=== PATIENT | male | born 1950 | race Caucasian/White ===

== ENCOUNTER → 2017-09-03 10:09 | Outpatient (CLI) | payer MEDICARE, OTHER, SELFPAY ==
--- NOTE | 2017-09-03 10:34 | XR_ITS ---
XR chest 2V HISTORY: ITS.REASON: SHORTNESS OF ORDERING PHYSICIAN: Jonatan Bowden PATIENT AGE: 67 years COMPARISON: 01/30/2007 FINDINGS: The cardiomediastinal silhouette and pulmonary vascularity are within normal limits. Right hemidiaphragm is elevated as before. There is patchy density along the right lung base at the diaphragm suggesting an area of atelectasis or infiltrate. Bipolar pacemaker is present. No acute bony anomalies. IMPRESSION: Elevated right hemidiaphragm with mild atelectasis or patchy infiltrate in the right lung base.
[2017-09-03 11:04] LABS: Basophils # 0.1 K/mm3 (0-0.2); Basophils % 0.7 % (0.1-2.0); Eosinophils # 0.2 K/mm3 (0.0-0.4); Eosinophils % 3.3 % (0.1-12.0); Hematocrit 39.1 % (42.0-52.0); Hemoglobin 11.8 g/dL (14.1-18.0); Lymphocytes # 0.9 K/mm3 (0.7-4.5); Lymphocytes % 12.8 K/mm3 (10-50); Mean Corpuscular HGB Conc 30.1 g/dL (31.8-35.4); Mean Corpuscular Hemoglobin 25.5 pg (27.0-31.2); Mean Corpuscular Volume 84.6 fl (80-94); Monocytes # 0.5 K/mm3 (0.1-1.0); Monocytes % 6.4 % (1.7-9.3); Neutrophils # 5.5 K/mm3 (1.8-7.8); Neutrophils % 76.7 % (37.0-80.0); Platelet Count 214 K/mm3 (142-424); Red Blood Count 4.62 M/mm3 (4.60-6.20); Red Cell Distribution Width 14.5 % (11.5-17.5); White Blood Count 7.2 K/mm3 (4.8-10.8)
[2017-09-03 11:17] LABS: Anion Gap 14.5 mEq/L (5-15); Blood Urea Nitrogen 23 mg/dL (7-18); Carbon Dioxide 27 mmol/L (21.0-32.0); Chloride 107 mmol/L (98-107); Estimated Glomerular Filt Rate 75 ml/min (>60); GFR (African American) 90 ML/MIN (>60); Glucose 97 mg/dL (74-106); Potassium 4.5 mmoL/L (3.5-5.1); Sodium 144 mmol/L (136-145); Troponin I < 0.02 ng/ml (0.00-0.06)
--- NOTE | 2017-09-03 12:28 | CT_ITS ---
CT angio chest HISTORY: Shortness of air ITS.REASON: SOA ORDERING PHYSICIAN: Jonatan Bowden PATIENT AGE: 67 years TECHNIQUE: Axial images obtained following the administration of 75 mL of Isovue 370 . Sagittal, and coronal reformatted images are also generated and reviewed. All CT scans at the facility use one or more dose reduction, viz: automated exposure control; ma/kV adjustment per patient size (including targeted exams where dose is matched to indication; i.e. head); or iterative reconstruction technique. FINDINGS: No evidence of pulmonary embolus. Peripheral pulmonary arteries are not well opacified. No aortic aneurysm or dissection. Bipolar pacemaker is present from a left subclavian approach. Coronary artery calcification and/or stents are present. Normal heart size. No evidence of pericardial effusion. Right hemidiaphragm is elevated with right basilar atelectasis. No central obstructing bronchial lesion evident there is a 7 mm noncalcified nodule in the right hilar region and could represent a small lymph node within the major fissure. 5 mm noncalcified nodule present in the left lower lobe. Left lung is otherwise clear. No lobar consolidation or collapse. Scattered small nodes are present in the axilla. Upper abdominal images show a small gallstone in the neck of the gallbladder at 3 mm. Right renal cyst are present along with a nonobstructing 5 mm right renal stone. No acute bony anomalies IMPRESSION: 1. No evidence of pulmonary embolus or aortic aneurysm or dissection. 2. Elevated right hemidiaphragm with right basilar atelectasis. 3. Nonspecific 7 mm right perihilar nodule and 5 mm left lower lobe nodule. Six-month CT follow-up suggested. 4. Cholelithiasis and right nephrolithiasis
== END ==
PROVIDERS: Visit Provider Internal Medicine
DX: R06.02 Shortness of breath (principal); I25.10 Atherosclerotic heart disease of native coronary artery without angina pectoris
CPT/HCPCS: 36415; 71046; 71275; 80048; 80053; 83880; 84484; 85025; 93005; Q9967

== ENCOUNTER → 2018-03-03 11:02 | Outpatient (POV) | payer MEDICARE, OTHER, SELFPAY | PROVIDERS: Visit Provider Dermatology | DX: Z00.00 Encounter for general adult medical examination without abnormal findings (principal) ==

== ENCOUNTER → 2018-06-16 10:32 | Outpatient (POV) | payer MEDICARE, OTHER, SELFPAY | PROVIDERS: Visit Provider Dermatology | DX: Z00.00 Encounter for general adult medical examination without abnormal findings (principal) ==

== ENCOUNTER → 2018-07-07 09:03 | Outpatient (POV) | payer MEDICARE, OTHER, SELFPAY | PROVIDERS: Visit Provider Dermatology | DX: Z00.00 Encounter for general adult medical examination without abnormal findings (principal) ==

== ENCOUNTER → 2018-07-14 08:55 | Outpatient (POV) | payer MEDICARE, OTHER, SELFPAY | PROVIDERS: Visit Provider Dermatology | DX: Z00.00 Encounter for general adult medical examination without abnormal findings (principal) ==

== ENCOUNTER → 2018-07-21 10:28 | Outpatient (POV) | payer MEDICARE, OTHER, SELFPAY | PROVIDERS: Visit Provider Dermatology | DX: Z00.00 Encounter for general adult medical examination without abnormal findings (principal) ==

== ENCOUNTER → 2018-07-28 09:15 | Outpatient (POV) | payer MEDICARE, OTHER, SELFPAY | PROVIDERS: Visit Provider Dermatology | DX: Z00.00 Encounter for general adult medical examination without abnormal findings (principal) ==

== ENCOUNTER → 2018-08-24 15:03 | Outpatient (CLI) | payer MEDICARE, BC, SELFPAY ==
--- NOTE | 2018-08-24 15:05 | CT_ITS ---
CT abdomen pelvis wo con CLINICAL INDICATION: Right flank pain with hematuria ITS.REASON: HEMATURIA, KIDNEY STONES ORDERING PHYSICIAN: Jonatan Bowden PATIENT AGE: 68 years COMPARISON: 08/19/2016 TECHNIQUE: Axial images obtained with sagittal and coronal reformats. All CT scans at the facility use one or more dose reduction, viz: automated exposure control, ma/kV adjustment per patient size (including targeted exams where dose is matched to indication, i.e. head), or iterative reconstruction technique. PROCEDURE: Oral Contrast: None IV Contrast: None . FINDINGS: Right hemidiaphragm is elevated as before. Artifact is present from pacemaker wires. There is extensive coronary artery calcification. There are gallstones noted. The spleen, adrenal glands, and pancreas have an unremarkable appearance. There is a stone within the right renal pelvis which measures 8 mm. There is mild dilatation of the right renal pelvis however the stone is not at the ureteropelvic junction and is lying posteriorly within the renal pelvis. In addition, there is a 5 mm stone in the mid polar region of the right kidney. There are multiple right renal cysts. No hydronephrosis. No left renal calculi. No ureteral calculi. No intestinal obstruction or free air. No evidence of appendicitis or diverticulitis. No pelvic mass or abnormal fluid collection. There is a small umbilical hernia which contains fat. No acute bony findings. IMPRESSION: 1. Right nephrolithiasis. There is an 8 mm stone in the right renal pelvis with minimal ectasia of the right renal pelvis. The stone is not at the UPJ. There is an additional 5 mm nonobstructing stone in the mid polar region of the right kidney. 2. Cholelithiasis. No signs of cholecystitis
== END ==
PROVIDERS: PCP Internal Medicine; Visit Provider Internal Medicine
DX: R31.9 Hematuria, unspecified (principal); N20.1 Calculus of ureter
CPT/HCPCS: 74176

== ENCOUNTER → 2019-02-02 08:53 | Outpatient (POV) | payer MEDICARE, BC, SELFPAY | PROVIDERS: Visit Provider Dermatology | DX: Z00.00 Encounter for general adult medical examination without abnormal findings (principal) ==

== ENCOUNTER → 2019-12-09 09:42 | Outpatient (CLI) | payer MEDICARE, BC, SELFPAY ==
--- NOTE | 2019-12-09 09:57 | CA_ITS ---
APPROVED REPORT EXAM: Comprehensive 2D, Doppler, and color-flow Echocardiogram Surfacing Machine Operator: Carlyn Fink RDCS Ht: 6 ft 1 in Wt: 395lbs BSA: 2.87 BP: 151/78 mmHg Indications: SOA,ROGEL,MORBID OBESITY,HTN,HLP,PP 2D Dimensions LVOT 2.30 cm (M/F) 1.5-2.5 M-Mode Dimensions RVDd 2.48 cm (0.9-2.6) LVDd 6.22 cm (3.5-5.7) LVDs 3.55 cm (3.5-5.7) IVSd 2.04 cm (0.6-1.1) PWd 1.17 cm (0.6-1.1) EF (Teich) 73.10% FS 42.90% EDV (Teich) 195.40 mL ESV (Teich) 52.60 mL LV Diastology E/A Ratio 0.49 Mitral Valve MV A Velocity 85.00 (40-130 cm/s) Left Ventricle Left atrium is mildly enlarged, left ventricle is normal size, mild concentric left ventricular hypertrophy, visually estimated ejection fraction 55% with no regional wall motion abnormality, grade 1 diastolic dysfunction seen without tissue Doppler evidence of raise left atrial pressure. Right Ventricle Right atrium and right ventricle are mildly enlarged with normal contractility, there is pacemaker lead seen right atrium and right ventricle. Aortic Valve Aortic valve is minimally thickened and fibrosed. There is no aortic stenosis or aortic insufficiency. Mitral Valve Mitral valve is grossly normal, there is mild mitral regurgitation. Tricuspid Valve Tricuspid valve is grossly normal, there is mild tricuspid regurgitation, tricuspid regurgitation jet velocity is inadequate for calculation of the right ventricular systolic pressure. Pulmonic Valve Pulmonic valve is poorly visualized. Great Vessels Aortic root is normal size. Pericardium No significant pericardial effusion noted. Conclusion 1. Mild biatrial enlargement, normal left ventricular size, mild concentric left ventricular hypertrophy, visually estimated ejection fraction 55% with no regional wall motion abnormality, grade 1 diastolic dysfunction seen without tissue Doppler evidence of raise left atrial pressure. 2. Mildly enlarged right ventricle with normal contractility, there is a pacemaker lead seen right ventricle. 3. Mild mitral and tricuspid regurgitation. 4. No significant pericardial effusion noted. Electronically signed by : Roverto Bond, 12/09/2019 15:32:12
== END ==
PROVIDERS: PCP Internal Medicine; Visit Provider Internal Medicine
DX: R06.09 Other forms of dyspnea (principal); I25.10 Atherosclerotic heart disease of native coronary artery without angina pectoris; I10 Essential (primary) hypertension
CPT/HCPCS: 93306; 94060

== ENCOUNTER → 2019-12-13 15:53 | Outpatient (CLI) | payer MEDICARE, BC, SELFPAY ==
[2019-12-15 13:08] LABS: Covid-19 Nasal PCR Sendout Lex Not Detected
== END ==
PROVIDERS: Visit Provider Internal Medicine
DX: Z03.818 Encounter for observation for suspected exposure to other biological agents ruled out (principal); J06.9 Acute upper respiratory infection, unspecified
CPT/HCPCS: U0004

== ENCOUNTER → 2020-12-12 09:35 | Outpatient (POV) | payer MEDICARE, BC, SELFPAY | PROVIDERS: Visit Provider Dermatology | DX: Z00.00 Encounter for general adult medical examination without abnormal findings (principal) ==

== ENCOUNTER 2021-01-02 13:27 | Emergency (ER) | payer MEDICARE, BC, SELFPAY ==
[2021-01-02 13:28] VITALS: BP 139/66; PULSE 79; RESP 20; TEMP 37.7; O2SAT 85; BMI 52.7
--- NOTE | 2021-01-02 13:41 | XR_ITS ---
PROCEDURE: XR CHEST PORTABLE CLINICAL HISTORY: cough COMPARISON: DX CXR2V XR chest 2V from 09/03/[address] angio chest from 09/03/2017 FINDINGS: Bipolar pacemaker is present from left subclavian approach. The distal aspect of the right ventricular line is not well delineated. Atelectatic changes are present in the right lower lobe with elevated right hemidiaphragm. No acute bony findings. IMPRESSION: Elevated right hemidiaphragm with right basilar atelectasis Dictated by: Parminder Calvin MD 01/02/2021 13:55 Parminder Calvin MD in [place] 01/02/2021 13:55
--- NOTE | 2021-01-02 13:41 | HMH.EDGENADL ---
ED Disposition Clinical Impression: Nausea vomiting and diarrhea, Chronic respiratory failure with hypoxia Disposition: Left Against Medical Advice Condition on Discharge: Fair Instructions: DI for Diarrhea and Traveler's Diarrhea -- Adult, DI for Shortness of Breath, DI for Hypoxia Additional Instructions: You have been evaluated for nausea, vomiting, diarrhea. Covid test is negative. You have also been found to have chronic hypoxia (low oxygen), especially with walking. This can be very dangerous. We recommended admission to the hospital for further management and treatment. You have decided to go home today. Please follow-up with your primary care doctor within 1 to 2 days. Return to the emergency department at once for any new or worsening symptoms.. Prescriptions: ondansetron HCL [Ondansetron 4mg tab*] 4 mg PO TIDP PRN #12 tab PRN Reason: Nausea And Vomiting Transmission Status: Received by [id number] Referrals: Jonatan Bowden [Primary Care Provider] - Time of Disposition: 16:57 - Critical Care Critical Care Time: No Attestation: On , the high probability of a clinically significant, sudden or life threatening deterioration of the following system(s) required my full and direct attention, intervention and personal management. The time I documented below is in addition to time spent performing reported procedures but includes the following listed in this critical care notation. Medical Decision Making - Medical Records Medical records reviewed: Yes: I reviewed the patient's medical records. - Noble Inquiry Pt receiving controlled substance: No Vital Signs: 01/02/21 13:28 01/02/21 18:01 Temperature 99.9 F H 99.9 F H Temperature Source Oral Pulse Rate 84 Pulse Rate [Right Radial] 79 Respiratory Rate 20 18 Blood Pressure 141/89 H Blood Pressure [Right Arm] 139/66 Blood Pressure Mean [Right Arm] 90 Blood Pressure Source [Right Arm] Automatic Cuff Blood Pressure Position [Right Arm] Sitting 02 Sat by Pulse Oximetry 85 L Oxygen Delivery Method Room Air Nasal Cannula - Lab Data Lab Results 01/02/21 13:37: SARS-CoV-2 (PCR) Not detected, Influenza A Untype (PCR) Not detected, Influenza Type B (PCR) Not detected 01/02/21 15:37: Sodium 135 L, Potassium 4.3, Chloride 100, Carbon Dioxide 28, Anion Gap 11.3, BUN 18, Creatinine 1.30 H, Estimated Creat Clear 61, Estimated GFR 55 L, Est GFR ( Amer) 66, Glucose 100, Calcium 8.6, Total Bilirubin 0.4, AST 22, ALT 11 L, Alkaline Phosphatase 70, Troponin I 0.07 H, Total Protein 6.7, Albumin 3.5, Globulin 3.2, Albumin/Globulin Ratio 1.1, Lipase 51 01/02/21 15:43: WBC 12.3 H, RBC 5.11, Hgb 13.4 L, Hct 44.9, MCV 87.8, MCH 26.2 L, MCHC 29.9 L, RDW 14.8, Plt Count 246, MPV 8.3, Neut % (Auto) 77.2, Lymph % (Auto) 13.8, [place] % (Auto) 4.7, Eos % (Auto) 3.9, Baso % (Auto) 0.4, Neut # (Auto) 9.5 H, Lymph # (Auto) 1.7, [place] # (Auto) 0.6, Eos # (Auto) 0.5 H, Baso # (Auto) 0.1 01/02/21 15:43: Lactate 0.8 Result diagrams: 01/02/21 15:43 01/02/21 15:37 Orders (Tests/Meds): ORDERS Category Date Time Status Troponin I Q3H Lab 01/02/21 20:00 Ordered Medical Decision Narrative: In summary this is a 70-year-old male presenting to the emergency department with nausea, vomiting, diarrhea. Patient is hypoxic after ambulating from the waiting room. Oxygen saturation is 90% on room air. He says that he always feels this way when he goes to the doctor's office, they do not check his oxygen level. Concern for COVID-19, pneumonia, viral gastroenteritis. Will obtain CBC, CMP, lipase, lactic, BNP, chest x-ray, EKG, troponin profile. EKG shows sinus rhythm without arrhythmia. X-ray shows no focal or multifocal pneumonia. Covid negative. Initial troponin is 0.07. Leukocytosis of 12,000. Otherwise labs are reassuring. Patient had an echocardiogram completed 1 month ago Conclusion 1. Mild biatrial enlargement, normal left ventricular size, mild con
[2021-01-02 13:45] LABS: Coronavirus 19, PCR Not Detected (NotDetected); Influenza A, PCR Not Detected (NotDetected); Influenza B, PCR Not Detected (NotDetected)
[2021-01-02 15:56] LABS: Basophils # 0.1 K/mm3 (0-0.2); Basophils % 0.4 % (0.1-2.0); Eosinophils # 0.5 K/mm3 (0.0-0.4); Eosinophils % 3.9 % (0.1-12.0); Hematocrit 44.9 % (42.0-52.0); Hemoglobin 13.4 g/dL (14.1-18.0); Lymphocytes # 1.7 K/mm3 (0.7-4.5); Lymphocytes % 13.8 % (10-50); Mean Corpuscular HGB Conc 29.9 g/dL (31.8-35.4); Mean Corpuscular Hemoglobin 26.2 pg (27.0-31.2); Mean Corpuscular Volume 87.8 fl (80-94); Mean Platelet Volume 8.3 fl (7.4-10.4); Monocytes # 0.6 K/mm3 (0.1-1.0); Monocytes % 4.7 % (1.7-9.3); Neutrophils # 9.5 K/mm3 (1.8-7.8); Neutrophils % 77.2 % (37.0-80.0); Platelet Count 246 K/mm3 (142-424); Red Blood Count 5.11 M/mm3 (4.60-6.20); Red Cell Distribution Width 14.8 % (11.5-17.5); White Blood Count 12.3 K/mm3 (4.8-10.8)
[2021-01-02 16:12] LABS: Lactic Acid 0.8 mmol/L (0.7-2.1)
[2021-01-02 16:13] LABS: Alanine Aminotransferase 11 U/L (12-78); Albumin Level 3.5 g/dl (3.5-5.0); Albumin/Globulin Ratio 1.1 (1.1-1.8); Alkaline Phosphatase 70 U/L (38-126); Anion Gap 11.3 mEq/L (5-15); Aspartate Amino Transferase 22 U/L (17-59); Bilirubin,Total 0.4 mg/dl (0.2-1.3); Blood Urea Nitrogen 18 mg/dl (9-20); Calcium 8.6 mg/dl (8.4-10.2); Carbon Dioxide 28 mmol/L (22.0-30.0); Chloride 100 mmol/L (98-107); Creatinine Clearance Estimated 61 mL/min (50-200); Estimated Glomerular Filt Rate 55 ml/min (>60); GFR (African American) 66 ML/MIN (>60); Globulin 3.2 g/dL (1.3-3.2); Glucose 100 mg/dl (74-100); Lipase 51 U/L (23-300); Potassium 4.3 mmoL/L (3.5-5.1); Sodium 135 mmol/L (136-145); Total Protein,Serum 6.7 g/dl (6.3-8.2)
[2021-01-02 16:26] LABS: Troponin I 0.07 ng/ml (0.00-0.034)
--- NOTE | 2021-01-02 17:06 | ECG_ITS ---
APPROVED REPORT Exam: Resting ECG HR:63 bpm ECG Measurements Heart Rate 63 AXES AK 132 P QRSd 96 QRS -28 QT 454 T -20 QTc 464 Conclusion Electronic atrial pacemaker Minimal voltage criteria for LVH, may be normal variant Poor r wave progression Abnormal ECG Electronically signed by : Omar Cisneros MD 01/03/2021 14:13:00
[2021-01-02 18:01] VITALS: BP 141/89; PULSE 84; RESP 18; TEMP 37.7; O2SAT 95
== END 2021-01-02 18:02 | disposition left against medical advice (07) ==
PROVIDERS: Emergency Provider Emergency Medicine; PCP Internal Medicine
DX: J96.11 Chronic respiratory failure with hypoxia (principal); Z20.822 Contact with and (suspected) exposure to COVID-19
CPT/HCPCS: 36415; 71045; 80053; 83605; 83690; 84484; 85025; 93005; 99282; U0003

== ENCOUNTER → 2021-01-09 07:52 | Outpatient (CLI) | payer MEDICARE, BC, SELFPAY ==
[2021-01-09 07:55] LABS: Adenovirus F 40/41, stool Not Detected (NotDetected); Astrovirus Not Detected (NotDetected); Campylobacter Not Detected (NotDetected); Clostridium Difficile A/B, PCR Not Detected (NotDetected); Cryptosporidium Not Detected (NotDetected); Cyclospora Cayetanesis Not Detected (NotDetected); Entamoeba histolytica Not Detected (NotDetected); Enteroaggregative E coli Not Detected (NotDetected); Enteropathogenic E coli Not Detected (NotDetected); Enterotoxigenic E coli Not Detected (NotDetected); Giardia lamblia Not Detected (NotDetected); Norovirus Not Detected (NotDetected); Plesimonas Shigalloides, PCR Not Detected (NotDetected); Rotavirus A Not Detected (NotDetected); Salmonella, PCR Not Detected (NotDetected); Sapovirus Not Detected (NotDetected); Shiga-like toxin E coli Not Detected (NotDetected); Shigella Enterovasive E coli Not Detected (NotDetected); Vibrio Cholerae Not Detected (NotDetected); Vibrio, PCR Not Detected (NotDetected); Yersinia Entercolitica, PCR Not Detected (NotDetected)
== END ==
PROVIDERS: Visit Provider Internal Medicine
DX: R19.7 Diarrhea, unspecified
CPT/HCPCS: 87205; 87506

== ENCOUNTER → 2021-03-06 17:05 | Outpatient (CLI) | payer MEDICARE, BC, SELFPAY ==
[2021-03-06 18:43] LABS: Alanine Aminotransferase 11 U/L (12-78); Albumin Level 3.3 g/dl (3.5-5.0); Albumin/Globulin Ratio 1.2 (1.1-1.8); Alkaline Phosphatase 59 U/L (38-126); Anion Gap 14.7 mEq/L (5-15); Aspartate Amino Transferase 26 U/L (17-59); Bilirubin,Total 0.3 mg/dl (0.2-1.3); Blood Urea Nitrogen 15 mg/dl (9-20); Calcium 8.8 mg/dl (8.4-10.2); Carbon Dioxide 31 mmol/L (22.0-30.0); Chloride 100 mmol/L (98-107); Chol/HDL Ratio 3.3 (1-3.5); Cholesterol 112 mg/dl (140-200); Estimated Glomerular Filt Rate 83 ml/min (>60); GFR (African American) 101 ML/MIN (>60); Globulin 2.8 g/dL (1.3-3.2); Glucose 72 mg/dl (74-100); HDL Cholesterol 34 mg/dl (40-60); Potassium 4.7 mmoL/L (3.5-5.1); Sodium 141 mmol/L (136-145); Total Protein,Serum 6.1 g/dl (6.3-8.2); Triglycerides 90 mg/dl (30-150); VLDL Cholesterol 18 mg/dL (0-40)
[2021-03-06 19:13] LABS: Prostate Specific Ag Screen 0.3 ng/ml (0.0-4.0)
== END ==
PROVIDERS: Visit Provider Internal Medicine
DX: I25.10 Atherosclerotic heart disease of native coronary artery without angina pectoris (principal); I10 Essential (primary) hypertension; I87.2 Venous insufficiency (chronic) (peripheral); E78.5 Hyperlipidemia, unspecified; M17.0 Bilateral primary osteoarthritis of knee; Z12.5 Encounter for screening for malignant neoplasm of prostate
CPT/HCPCS: 80053; 80061; G0103

== ENCOUNTER → 2021-09-05 13:16 | Outpatient (CLI) | payer MEDICARE, BC, SELFPAY ==
[2021-09-05 14:58] LABS: Alanine Aminotransferase 16 U/L (12-78); Albumin Level 3.4 g/dl (3.5-5.0); Albumin/Globulin Ratio 1.4 (1.1-1.8); Alkaline Phosphatase 65 U/L (38-126); Anion Gap 8.6 mEq/L (5-15); Aspartate Amino Transferase 22 U/L (17-59); Bilirubin,Total 0.3 mg/dl (0.2-1.3); Blood Urea Nitrogen 13 mg/dl (9-20); Calcium 8.5 mg/dl (8.4-10.2); Carbon Dioxide 31 mmol/L (22.0-30.0); Chloride 105 mmol/L (98-107); Chol/HDL Ratio 3.3 (1-3.5); Cholesterol 110 mg/dl (140-200); Estimated Glomerular Filt Rate 96 ml/min (>60); GFR (African American) 116 ML/MIN (>60); Globulin 2.4 g/dL (1.3-3.2); Glucose 82 mg/dl (74-100); HDL Cholesterol 33 mg/dl (40-60); Potassium 4.6 mmoL/L (3.5-5.1); Sodium 140 mmol/L (136-145); Total Protein,Serum 5.8 g/dl (6.3-8.2); Triglycerides 77 mg/dl (30-150); VLDL Cholesterol 15 mg/dL (0-40)
[2021-09-05 15:09] LABS: Direct LDL Cholesterol 62.42 mg/dL (100-129)
== END ==
PROVIDERS: PCP Internal Medicine; Visit Provider Internal Medicine
DX: I25.10 Atherosclerotic heart disease of native coronary artery without angina pectoris (principal); I10 Essential (primary) hypertension; E78.5 Hyperlipidemia, unspecified; I87.2 Venous insufficiency (chronic) (peripheral); E66.01 Morbid (severe) obesity due to excess calories; Z68.43 Body mass index [BMI] 50.0-59.9, adult
CPT/HCPCS: 80053; 80061

== ENCOUNTER → 2021-09-24 14:13 | Outpatient (CLI) | payer MEDICARE, BC, SELFPAY ==
[2021-09-24 15:35] LABS: Anion Gap 13.6 mEq/L (5-15); Blood Urea Nitrogen 15 mg/dl (9-20); Calcium 8.5 mg/dl (8.4-10.2); Carbon Dioxide 30 mmol/L (22.0-30.0); Chloride 100 mmol/L (98-107); Estimated Glomerular Filt Rate 83 ml/min (>60); GFR (African American) 101 ML/MIN (>60); Glucose 108 mg/dl (74-100); Potassium 4.6 mmoL/L (3.5-5.1); Sodium 139 mmol/L (136-145); Uric Acid 6.3 mg/dl (3.5-8.5)
== END ==
PROVIDERS: PCP Internal Medicine; Visit Provider Internal Medicine
DX: M10.372 Gout due to renal impairment, left ankle and foot (principal)
CPT/HCPCS: 80048; 84550

== ENCOUNTER → 2021-12-20 11:19 | Outpatient (CLI) | payer MEDICARE, BC, SELFPAY | PROVIDERS: PCP Internal Medicine; Visit Provider Internal Medicine | DX: R09.02 Hypoxemia (principal) | CPT/HCPCS: 94618 ==

== ENCOUNTER → 2022-03-18 11:58 | Outpatient (CLI) | payer MEDICARE, BC, SELFPAY ==
[2022-03-18 15:11] LABS: Alanine Aminotransferase 16 U/L (12-78); Albumin Level 3.7 g/dl (3.5-5.0); Albumin/Globulin Ratio 1.5 (1.1-1.8); Alkaline Phosphatase 86 U/L (38-126); Anion Gap 16.6 mEq/L (5-15); Aspartate Amino Transferase 25 U/L (17-59); Bilirubin,Total 0.3 mg/dl (0.2-1.3); Blood Urea Nitrogen 17 mg/dl (9-20); Calcium 8.9 mg/dl (8.4-10.2); Carbon Dioxide 30 mmol/L (22.0-30.0); Chloride 97 mmol/L (98-107); Chol/HDL Ratio 3.5 (1-3.5); Cholesterol 111 mg/dl (140-200); Estimated Glomerular Filt Rate 74 ml/min (>60); GFR (African American) 89 ML/MIN (>60); Globulin 2.5 g/dL (1.3-3.2); Glucose 86 mg/dl (74-100); HDL Cholesterol 32 mg/dl (40-60); Potassium 4.6 mmoL/L (3.5-5.1); Sodium 139 mmol/L (136-145); Total Protein,Serum 6.2 g/dl (6.3-8.2); Triglycerides 79 mg/dl (30-150); VLDL Cholesterol 16 mg/dL (0-40)
[2022-03-18 15:27] LABS: Direct LDL Cholesterol 63.65 mg/dL (100-129)
[2022-03-18 15:43] LABS: Prostate Specific Ag Screen 0.3 ng/ml (0.0-4.0)
== END ==
LOC: LAB 11:58 → LAB.DROPOF 12:00
PROVIDERS: PCP Internal Medicine; Visit Provider Internal Medicine
DX: I25.10 Atherosclerotic heart disease of native coronary artery without angina pectoris (principal); I10 Essential (primary) hypertension; I87.2 Venous insufficiency (chronic) (peripheral); E78.5 Hyperlipidemia, unspecified; Z12.5 Encounter for screening for malignant neoplasm of prostate
CPT/HCPCS: 80053; 80061; G0103

== ENCOUNTER → 2022-06-17 12:11 | Outpatient (CLI) | payer MEDICARE, BC, SELFPAY ==
[2022-06-17 13:11] LABS: Basophils # 0.1 K/mm3 (0-0.2); Basophils % 0.5 % (0.1-2.0); Eosinophils # 0.4 K/mm3 (0.0-0.4); Eosinophils % 3.3 % (0.1-12.0); Hematocrit 41.7 % (42.0-52.0); Hemoglobin 13.1 g/dL (14.1-18.0); Lymphocytes # 1.8 K/mm3 (0.7-4.5); Lymphocytes % 16.9 % (10-50); Mean Corpuscular HGB Conc 31.4 g/dL (31.8-35.4); Mean Corpuscular Hemoglobin 26.7 pg (27.0-31.2); Mean Corpuscular Volume 84.9 fl (80-94); Mean Platelet Volume 8.9 fl (7.4-10.4); Monocytes # 0.6 K/mm3 (0.1-1.0); Monocytes % 5.9 % (1.7-9.3); Neutrophils # 7.7 K/mm3 (1.8-7.8); Neutrophils % 73.4 % (37.0-80.0); Platelet Count 226 K/mm3 (142-424); Red Blood Count 4.91 M/mm3 (4.60-6.20); Red Cell Distribution Width 15.1 % (11.5-17.5); White Blood Count 10.5 K/mm3 (4.8-10.8)
[2022-06-17 13:39] LABS: Anion Gap 10.4 mEq/L (5-15); Blood Urea Nitrogen 17 mg/dl (9-20); Calcium 8.1 mg/dl (8.4-10.2); Carbon Dioxide 32 mmol/L (22.0-30.0); Chloride 104 mmol/L (98-107); Estimated Glomerular Filt Rate 74 ml/min (>60); GFR (African American) 89 ML/MIN (>60); Glucose 80 mg/dl (74-100); Potassium 4.4 mmoL/L (3.5-5.1); Sodium 142 mmol/L (136-145)
== END ==
PROVIDERS: PCP Internal Medicine; Visit Provider Internal Medicine
DX: I25.10 Atherosclerotic heart disease of native coronary artery without angina pectoris (principal); I10 Essential (primary) hypertension; I87.2 Venous insufficiency (chronic) (peripheral); K62.5 Hemorrhage of anus and rectum; M15.0 Primary generalized (osteo)arthritis
CPT/HCPCS: 80048; 85025

== ENCOUNTER → 2022-09-16 12:29 | Outpatient (CLI) | payer MEDICARE, BC, SELFPAY ==
[2022-09-16 15:11] LABS: Basophils % 0.4 % (0.1-2.0); Eosinophils # 0.3 K/mm3 (0.0-0.4); Eosinophils % 3.2 % (0.1-12.0); Hematocrit 42.4 % (42.0-52.0); Hemoglobin 13.2 g/dL (14.1-18.0); Lymphocytes # 1.4 K/mm3 (0.7-4.5); Lymphocytes % 14.8 % (10-50); Mean Corpuscular Hemoglobin 26.7 pg (27.0-31.2); Mean Corpuscular Volume 86.1 fl (80-94); Mean Platelet Volume 8.7 fl (7.4-10.4); Monocytes # 0.6 K/mm3 (0.1-1.0); Monocytes % 6.4 % (1.7-9.3); Neutrophils # 7.3 K/mm3 (1.8-7.8); Neutrophils % 75.3 % (37.0-80.0); Platelet Count 223 K/mm3 (142-424); Red Blood Count 4.93 M/mm3 (4.60-6.20); Red Cell Distribution Width 14.4 % (11.5-17.5); White Blood Count 9.7 K/mm3 (4.8-10.8)
[2022-09-16 15:46] LABS: Alanine Aminotransferase 17 U/L (12-78); Albumin Level 3.4 g/dl (3.5-5.0); Albumin/Globulin Ratio 1.4 (1.1-1.8); Alkaline Phosphatase 59 U/L (38-126); Anion Gap 15.6 mEq/L (5-15); Aspartate Amino Transferase 29 U/L (17-59); Bilirubin,Total 0.5 mg/dl (0.2-1.3); Blood Urea Nitrogen 13 mg/dl (9-20); Calcium 8.3 mg/dl (8.4-10.2); Carbon Dioxide 32 mmol/L (22.0-30.0); Chloride 94 mmol/L (98-107); Chol/HDL Ratio 3.4 (1-3.5); Cholesterol 102 mg/dl (140-200); Estimated Glomerular Filt Rate 83 ml/min (>60); GFR (African American) 101 ML/MIN (>60); Globulin 2.5 g/dL (1.3-3.2); Glucose 81 mg/dl (74-100); HDL Cholesterol 30 mg/dl (40-60); Potassium 4.6 mmoL/L (3.5-5.1); Sodium 137 mmol/L (136-145); Total Protein,Serum 5.9 g/dl (6.3-8.2); Triglycerides 135 mg/dl (30-150); VLDL Cholesterol 27 mg/dL (0-40)
[2022-09-16 15:56] LABS: Direct LDL Cholesterol 56.04 mg/dL (100-129)
== END ==
PROVIDERS: PCP Internal Medicine; Visit Provider Internal Medicine
DX: I25.10 Atherosclerotic heart disease of native coronary artery without angina pectoris (principal); I10 Essential (primary) hypertension; I87.2 Venous insufficiency (chronic) (peripheral); I50.32 Chronic diastolic (congestive) heart failure; E78.5 Hyperlipidemia, unspecified; M17.0 Bilateral primary osteoarthritis of knee
CPT/HCPCS: 80053; 80061; 85025

== ENCOUNTER → 2023-03-24 13:45 | Outpatient (CLI) | payer MEDICARE, BC, SELFPAY ==
[2023-03-24 15:28] LABS: Alanine Aminotransferase 15 U/L (12-78); Albumin Level 3.7 g/dl (3.5-5.0); Albumin/Globulin Ratio 1.4 (1.1-1.8); Alkaline Phosphatase 62 U/L (38-126); Anion Gap 10.9 mEq/L (5-15); Aspartate Amino Transferase 27 U/L (17-59); Bilirubin,Total 0.2 mg/dl (0.2-1.3); Blood Urea Nitrogen 18 mg/dl (9-20); Calcium 8.8 mg/dl (8.4-10.2); Carbon Dioxide 32 mmol/L (22.0-30.0); Chloride 102 mmol/L (98-107); Chol/HDL Ratio 3.3 (1-3.5); Cholesterol 107 mg/dl (140-200); Estimated Glomerular Filt Rate 66 ml/min (>60); GFR (African American) 80 ML/MIN (>60); Globulin 2.7 g/dL (1.3-3.2); Glucose 84 mg/dl (74-100); HDL Cholesterol 32 mg/dl (40-60); Potassium 4.9 mmoL/L (3.5-5.1); Sodium 140 mmol/L (136-145); Total Protein,Serum 6.4 g/dl (6.3-8.2); Triglycerides 58 mg/dl (30-150); VLDL Cholesterol 12 mg/dL (0-40)
[2023-03-24 15:39] LABS: Direct LDL Cholesterol 65.38 mg/dL (100-129)
== END ==
PROVIDERS: PCP Internal Medicine; Visit Provider Internal Medicine
DX: I10 Essential (primary) hypertension (principal); I25.10 Atherosclerotic heart disease of native coronary artery without angina pectoris; M15.0 Primary generalized (osteo)arthritis; I49.5 Sick sinus syndrome; E78.5 Hyperlipidemia, unspecified; Z87.891 Personal history of nicotine dependence
CPT/HCPCS: 80053; 80061

== ENCOUNTER 2023-08-04 11:20 | Outpatient (CLI) | payer MEDICARE, BC, SELFPAY ==
--- NOTE | 2023-08-04 11:27 | XR_ITS ---
FINAL REPORT CLINICAL HISTORY: Foot Pain hammer toe FINDINGS: LEFT FOOT Three views of the left foot demonstrate no acute fracture or dislocation. There is mild degenerative disease. Hammertoe deformities are seen of the second through fourth toes as well as the great toe. Soft tissues are unremarkable. IMPRESSION: Hammertoe deformities as above. No acute bony abnormality. Reviewed, Interpreted and Dictated by Medina Faria MD Transcribed by Greta Becerra Authenticated and [facility]
--- NOTE | 2023-08-04 11:27 | XR_ITS ---
FINAL REPORT CLINICAL HISTORY: Foot Pain hammer toe FINDINGS: RIGHT FOOT 3 views of the right foot were obtained. There is no acute fracture or dislocation. There is multijoint degenerative disease. Hammertoe deformities are seen of the first through second toes as well as likely the first IP joint. Soft tissues are unremarkable. IMPRESSION: Hammertoe deformities as above. No acute bony abnormality. Reviewed, Interpreted and Dictated by Medina Faria MD Transcribed by Greta Becerra Authenticated and [facility]
== END 2023-08-04 23:59 ==
PROVIDERS: PCP Internal Medicine; Visit Provider Nurse Practitioner
DX: M79.671 Pain in right foot (principal); M79.672 Pain in left foot
CPT/HCPCS: 73630

== ENCOUNTER 2023-08-11 17:33 | Outpatient (CLI) | payer MEDICARE, BC, SELFPAY | END 2023-08-11 23:59 | PROVIDERS: PCP Nurse Practitioner; Visit Provider Nurse Practitioner | DX: B35.1 Tinea unguium (principal); M79.675 Pain in left toe(s) | CPT/HCPCS: 87102; 87206; 87220 ==

== ENCOUNTER 2023-10-01 16:51 | Outpatient (CLI) | payer MEDICARE, BC, SELFPAY ==
[2023-10-01 17:25] LABS: Basophils # 0.1 K/mm3 (0-0.2); Basophils % 0.6 % (0.1-2.0); Eosinophils # 0.2 K/mm3 (0.0-0.4); Eosinophils % 2.7 % (0.1-12.0); Hematocrit 41.1 % (42.0-52.0); Hemoglobin 12.8 g/dL (14.1-18.0); Lymphocytes # 1.3 K/mm3 (0.7-4.5); Lymphocytes % 17.1 % (10-50); Mean Corpuscular HGB Conc 31.1 g/dL (31.8-35.4); Mean Corpuscular Hemoglobin 27.7 pg (27.0-31.2); Mean Platelet Volume 8.8 fl (7.4-10.4); Monocytes # 0.5 K/mm3 (0.1-1.0); Monocytes % 6.5 % (1.7-9.3); Neutrophils # 5.3 K/mm3 (1.8-7.8); Platelet Count 192 K/mm3 (142-424); Red Blood Count 4.62 M/mm3 (4.60-6.20); Red Cell Distribution Width 14.7 % (11.5-17.5); White Blood Count 7.3 K/mm3 (4.8-10.8)
[2023-10-01 18:46] LABS: Alanine Aminotransferase 12 U/L (12-78); Albumin Level 3.5 g/dl (3.5-5.0); Albumin/Globulin Ratio 1.3 (1.1-1.8); Alkaline Phosphatase 64 U/L (38-126); Anion Gap 11.5 mEq/L (5-15); Aspartate Amino Transferase 23 U/L (17-59); Bilirubin,Total 0.3 mg/dl (0.2-1.3); Blood Urea Nitrogen 12 mg/dl (9-20); Calcium 8.9 mg/dl (8.4-10.2); Carbon Dioxide 32 mmol/L (22.0-30.0); Chloride 100 mmol/L (98-107); Chol/HDL Ratio 3.4 (1-3.5); Cholesterol 131 mg/dl (140-200); Estimated Glomerular Filt Rate 73 ml/min (>60); GFR (African American) 89 ML/MIN (>60); Globulin 2.6 g/dL (1.3-3.2); Glucose 75 mg/dl (74-100); HDL Cholesterol 39 mg/dl (40-60); Potassium 4.5 mmoL/L (3.5-5.1); Sodium 139 mmol/L (136-145); Total Protein,Serum 6.1 g/dl (6.3-8.2); Triglycerides 99 mg/dl (30-150); VLDL Cholesterol 20 mg/dL (0-40)
[2023-10-01 18:59] LABS: Direct LDL Cholesterol 83.69 mg/dL (100-129)
[2023-10-01 19:45] LABS: Prostate Specific Ag Screen 0.4 ng/ml (0.0-4.0)
[2023-10-07 15:49] LABS: Iron 64 ug/dL (49-181)
[2023-10-07 15:58] LABS: Total Iron Binding Capacity 291 ug/dL (261-462)
[2023-10-07 16:22] LABS: Vitamin B12 807 pg/mL (239-931)
== END 2023-10-01 23:59 | disposition home or self-care (01) ==
LOC: LAB.DROPOF 16:52
PROVIDERS: PCP Internal Medicine; Visit Provider Internal Medicine
DX: I25.10 Atherosclerotic heart disease of native coronary artery without angina pectoris (principal); I10 Essential (primary) hypertension; I49.5 Sick sinus syndrome; I87.2 Venous insufficiency (chronic) (peripheral); E78.5 Hyperlipidemia, unspecified; M15.0 Primary generalized (osteo)arthritis; Z95.9 Presence of cardiac and vascular implant and graft, unspecified; Z12.5 Encounter for screening for malignant neoplasm of prostate
CPT/HCPCS: 80053; 80061; 82607; 83540; 83550; 85025; G0103

== ENCOUNTER 2023-11-15 08:36 | Emergency (ER) | payer MEDICARE, BC, SELFPAY ==
[2023-11-15 08:28] VITALS: BP 134/49; PULSE 65; RESP 20; TEMP 36.6; O2SAT 90; BMI 50.1
--- NOTE | 2023-11-15 08:38 | ECG_ITS ---
APPROVED REPORT Exam: Resting ECG HR:60 bpm ECG Measurements Heart Rate 60 AXES DC 254 P 149 QRSd 101 QRS -32 QT 424 T -22 QTc 425 Conclusion ELECTRONIC ATRIAL PACEMAKER LEFT AXIS DEVIATION [QRS AXIS < -30] LOW QRS VOLTAGE IN PRECORDIAL LEADS [QRS DEFLECTION < 1.0 mV IN CHEST LEADS] PATTERN CONSISTENT WITH PULMONARY DISEASE SEPTAL MYOCARDIAL INFARCTION , PROBABLY OLD [40+ ms Q WAVE IN V1/V2] ABNORMAL ECG Electronically signed by : LAVELL HANKS, 11/15/2023 23:21:11
--- NOTE | 2023-11-15 08:38 | ED_ITS ---
Discharge Plan Disposition Patient Disposition: Home, Self-Care Condition: Good Prescriptions Prescriptions: No Action Xarelto 20 mg tablet 20 mg PO DAILY Rx Instructions: must administer with evening meal prednisone 10 mg tablet 10 mg PO DIRECTED Qty: 32 0RF Rx Instructions: see taper instructions: 4 tabs po qam x 5 days; 3 tabs po qam x 2 days; 2 tabs po qam x 2 days; 1 tab po qam x 2 days; then stop valacyclovir 1 gram tablet 1,000 mg PO TID Qty: 21 0RF hydrocodone-acetaminophen 7.5-325 mg tablet 1 tab PO Q8H PRN (Reason: pain) Qty: 30 0RF ezetimibe 10 mg tablet 10 mg PO oxybutynin chloride 10 mg tablet extended release 24hr PO citalopram 20 mg tablet 20 mg PO DAILY omeprazole 40 mg capsule,delayed release(DR/EC) 40 mg PO DAILY bupropion HCl 100 mg tablet 100 mg PO BID atenolol 50 mg tablet 50 mg PO DAILY multivitamin Tablet 1 tab PO DAILY rosuvastatin 10 mg tablet 10 mg PO .COMPLEX Rx Instructions: 1 tab once week fesoterodine [Toviaz] 8 mg tablet extended release 24 hr 8 mg PO DAILY Qty: 90 3RF lisinopril 10 mg tablet 10 mg PO DAILY Qty: 90 1RF tamsulosin 0.4 mg capsule 0.4 mg PO DAILY Qty: 90 1RF tolterodine 4 mg capsule,extended release 24hr 4 mg PO DAILY Qty: 30 5RF ondansetron HCl 4 MG tablet 4 mg PO TIDP PRN (Reason: Nausea And Vomiting) Qty: 12 0RF Referrals Follow up/Referrals: Provider,Referral, MD [Referring] - See instructions Activity Restrictions/Add. Instructions Additional Instructions/Restrictions: We have provided sling for your shoulder, if your pain persist you may need to follow-up with an orthopedic doctor. Please continue to stay hydrated and get out of bed more slowly as you likely fell due to a drop in your blood pressure from getting out of bed so quickly. Please return to the emergency department with any new or worsening symptoms. Clinical Impressions Clinical Impression: Hematoma of frontal scalp, Orthostatic syncope Discharge ED Provider: Delio Nolan Adult [facility] General Chief complaint: Fall Stated complaint: fall Time Seen by Provider: 11/15/23 08:38 Mode of Arrival: EMS Source of Information: Patient and EMS Limitations: No Limitations Description of Symptoms (Recalled from ER Triage Doc. by RN): fall this morning. left shoulder pain, abrasion to r forehead History of Present Illness HPI narrative: The patient presents today with a chief complaint of dizziness, which led to a fall early this morning. He reports getting up to go to the bathroom and experiencing dizziness, subsequently falling and hitting his head and left shoulder on a towel rack. The pain is located on the anterior aspect of his left shoulder. the patient has a history of surgery on the left shoulder in the 1970s, with two steel pins inserted. He denies losing consciousness during the fall but reports feeling dizzy-headed. He has experienced dizziness in the past, and his heart doctor attributed it to dehydration. The patient has a history of atrial fibrillation and uses oxygen at home as needed, with a portable oxygen device for use when away from home. The patient has been increasing his water intake recently and reports no changes in medications or new medications. He denies any current head or neck pain and reports hitting the front right side of his head during the fall. The patient is right-handed and denies any numbness or tingling in the left arm. He takes Xarelto for atrial fibrillation, with the last dose taken yesterday morning. The patient does not take any prostate medications such as Flomax. Please note that above description of symptoms, in this electronic medical record under categorization of recalled from ER triage doctor by RN are reflective of an initial nursing assessment, however, is not reflective of my full history and physical exam that was personally taken and clarified. Consequentially, this preceding description of symptoms, which may include the patient's categorized chief complaint in the EMR, do not reflect my personal clinical impression, and the ultimate description of history of present illness and patient stated complaints should be deferred to this section of the note. Unless stated otherwise or congruent with this section of the note, additional signs, symptoms, or incongruence should be interpreted as inaccurate with my clinical impression. Related Data Home Medications Medication Instructions Recorded Confirmed atenolol 50 mg tablet 50 mg PO DAILY 12/04/20 11/03/23 bupropion HCl 100 mg tablet 100 mg PO BID 12/04/20 11/03/23 citalopram 20 mg tablet 20 mg PO DAILY 12/04/20 11/03/23 ezetimibe 10 mg tablet 10 mg PO 12/04/20 11/03/23 multivitamin 1 tab PO DAILY 12/04/20 11/03/23 omeprazole 40 mg capsule,delayed 40 mg PO DAILY 12/04/20 11/03/23 release oxybutynin chloride 10 mg tab PO 12/04/20 11/03/23 tablet,extended release 24 hr rivaroxaban 20 mg tablet (Xarelto) 20 mg PO DAILY 01/21/22 11/03/23 rosuvastatin 10 mg tablet 10 mg PO .COMPLEX 11/03/23 11/03/23 Previous Rx's Medication Instructions Recorded ondansetron HCl 4 mg tablet 4 mg PO TIDP PRN Nausea And 01/02/21 Vomiting #12 tabs fesoterodine 8 mg tablet,extended 8 mg PO DAILY #90 tabs 02/05/21 release 24 hr (Toviaz) lisinopril 10 mg tablet 10 mg PO DAILY #90 tabs 10/21/23 tamsulosin 0.4 mg capsule 0.4 mg PO DAILY #90 caps 10/21/23 tolterodine 4 mg capsule,extended 4 mg PO DAILY #30 caps 10/21/23 release 24 hr hydrocodone 7.5 mg-acetaminophen 1 tab PO Q8H PRN pain #30 tabs 11/03/23 325 mg tablet prednisone 10 mg tablet 10 mg PO DIRECTED #32 tabs 11/03/23 valacyclovir 1 gram tablet 1,000 mg PO TID #21 tabs 11/03/23 Allergies Allergy/AdvReac Type Severity Reaction Status Date / Time No Known Allergies Allergy Verified 11/03/23 16:06 [facility] Disclaimer: The information contained in this section may have been updated after the patient was seen, as this information can be updated by other users. Medical History Hematuria Social History Smoking Status: Never smoker alcohol intake: former substance use type: denies use current occupational status: retired Travel in the last 8 weeks: None household members: spouse housing: house ROS Obtained: Yes other As per HPI Physical Exam General General appearance: alert and in no apparent distress Comment: Hematoma to right frontal scalp, no cervical spinal tenderness to palpation Head Head exam: atraumatic and normocephalic Eye Eye exam: Present normal appearance Neck Neck exam: Present normal inspection Chest Chest inspection: Present normal inspection and symmetric chest wall rise Respiratory Respiratory exam: Present normal lung sounds bilaterally; Absent respiratory distress Cardiovascular Cardiovascular exam: Present regular rate and normal rhythm Abdominal Exam Abdominal exam: Present soft Neurological Exam Neurological exam: Present alert and oriented X3 Psychiatric Psychiatric exam: Present normal affect and normal mood Skin Skin exam: Present warm and dry Other Other exam information: Skin tear to lateral aspect of left forearm, no bony tenderness to palpation, mild tenderness palpation in the absence of deformity to anterior aspect of left shoulder, distally neurovascularly intact. Medical Decision Making Medical Records Medical records reviewed: Yes I reviewed the patient's medical records. [place] Inquiry Pt receiving controlled substance: No Vital Signs: 11/15/23 08:28 11/15/23 08:44 11/15/23 09:00 Temperature 97.9 F Temperature Source Oral Pulse Rate 64 62 Pulse Rate [Right] 65 Respiratory Rate 20 24 Blood Pressure 136/66 131/57 L Blood Pressure [Right Arm] 134/49 L Blood Pressure Mean [Right Arm] 77 02 Sat by Pulse Oximetry 90 L 90 L 95 Oxygen Delivery Method Room Air 11/15/23 10:00 11/15/23 10:30 11/15/23 11:20 Temperature 98.4 F Temperature Source Oral Pulse Rate 60 60 65 Pulse Rate [Right] Respiratory Rate 16 23 18 Blood Pressure 136/71 140/62 140/62 Blood Pressure [Right Arm] Blood Pressure Mean [Right Arm] 02 Sat by Pulse Oximetry 94 L 94 L Oxygen Delivery Method Nasal Cannula Room Air Lab Data Lab Results 11/15/23 08:35: WBC 11.1 H, RBC 4.37 L, Hgb 13.2 L, Hct 39.4 L, MCV 90.2, MCH 30.2, MCHC 33.5, RDW 15.4, Plt Count 167, MPV 8.0, Neut % (Auto) 75.3, Lymph % (Auto) 17.1, [place] % (Auto) 5.5, Eos % (Auto) 1.8, Baso % (Auto) 0.4, Neut # (Auto) 8.3 H, Lymph # (Auto) 1.9, [place] # (Auto) 0.6, Eos # (Auto) 0.2, Baso # (Auto) 0.0, PT 11.4, INR 1.02, VBG pH 7.34, VBG pCO2 54.3 H, VBG pO2 41.4 H, VBG HCO3 28.6, VBG Total CO2 30.3 H, VBG O2 Saturation 74.1 H, VBG Base Excess 2.9 H , VBG Lactic Acid 1.9, Sodium 139, Potassium 4.1, Chloride 104, Carbon Dioxide 33 H, Anion Gap 6.1, BUN 20, Creatinine 1.00, Estimated Creat Clear 75, Estimated GFR 73, Est GFR ( Amer) 89, Glucose 108 H, Calcium 8.9, Magnesium 1.8, Total Bilirubin 0.4, AST 24, ALT 18, Alkaline Phosphatase 58, T otal Protein 6.0 L, Albumin 3.2 L, Globulin 2.8, Albumin/Globulin Ratio 1.1 11/15/23 08:35 11/15/23 08:35 Orders (Tests/Meds): ED MEDICATIONS Discontinued Medications Generic Name Dose Route Start Last Admin Trade Name Freq PRN Reason Stop Dose Admin Lactated Ringer's 1,000 mls @ 999 mls/hr 11/15/23 08:50 11/15/23 10:27 Lactated Ringer's 1000 Ml Bag IV 11/15/23 09:50 999 mls/hr .Q1H1M ONE Administration Tetanus/Reduced Diphtheria/Acell Pertussis 0.5 ml 11/15/23 08:50 11/15/23 10:27 Tet/Diphth/Pert-Adult 0.5ml Syringe IM 11/15/23 08:51 0.5 ml .ONCE ONE Administration ORDERS Category Date Time Status CT cervical spine wo con Stat Cat Scan 11/15/23 08:[address] head/brain wo con Stat Cat Scan 11/15/23 08:50 Completed Shoulder XR left minimum 2 views [XR shoulder LT min 2V Exams 11/15/23 08:50 Completed ] Stat CBC w/Auto Diff [Complete Blood Count Auto Diff] Stat Lab 11/15/23 08:35 Completed CMP [Comprehensive Metabolic Panel] Stat Lab 11/15/23 08:35 Completed MAG [Magnesium] Stat Lab 11/15/23 08:35 Completed PT INR [Prothrombin Time INR] Stat Lab 11/15/23 08:35 Completed Venous Blood Gas Routine RT 11/15/23 08:35 Completed Medical Decision Narrative: Patient with history and exam per above presenting for evaluation of syncopal episode, shoulder pain, skin tear Diagnoses considered include arrhythmia, electrolyte abnormality, hypovolemia, acute kidney injury, intracranial hemorrhage, fracture, dislocation, no clinical evidence of vascular injury nerve injury, mentation appropriate at this time, low index of suspicion for symptomatic hypercarbia ED workup and treatment included: ED MEDICATIONS Discontinued Medications Generic Name Dose Route Start Last Admin Trade Name Anil PRN Reason Stop Dose Admin Lactated Ringer's 1,000 mls @ 999 mls/hr 11/15/23 08:50 11/15/23 10:27 Lactated Ringer's 1000 Ml Bag IV 11/15/23 09:50 999 mls/hr .Q1H1M ONE Administration Tetanus/Reduced Diphtheria/Acell Pertussis 0.5 ml 11/15/23 08:50 11/15/23 10:27 Tet/Diphth/Pert-Adult 0.5ml Syringe IM 11/15/23 08:51 0.5 ml .ONCE ONE Administration ORDERS Category Date Time Status CT cervical spine wo con Stat Cat Scan 11/15/23 08:[address] head/brain wo con Stat Cat Scan 11/15/23 08:50 Completed Shoulder XR left minimum 2 views [XR shoulder LT min 2V Exams 11/15/23 08:50 Completed ] Stat CBC w/Auto Diff [Complete Blood Count Auto Diff] Stat Lab 11/15/23 08:35 Completed CMP [Comprehensive Metabolic Panel] Stat Lab 11/15/23 08:35 Completed MAG [Magnesium] Stat Lab 11/15/23 08:35 Completed PT INR [Prothrombin Time INR] Stat Lab 11/15/23 08:35 Completed Venous Blood Gas Routine RT 11/15/23 08:35 Completed Labs were independently interpreted by me, significant for VBG with no acidosis, creatinine 1.0, glucose within normal limits, no other acute findings Imaging was independently visualized and interpreted by me, significant for no evidence of intracranial hemorrhage or fracture, no cervical spinal injury Please refer to radiology report for full details. My clinical impression at this time is most consistent with syncopal episode in the setting of orthostatic changes, acute on chronic left shoulder pain. Patient was able to ambulate, reports improvement of pain, no further episodes of lightheadedness or presyncope at this time. Very low index of suspicion given history of present illness for arrhythmia or ACS. I discussed my clinical impression with patient and answered all questions. At this time, the evidence for any other entities in the differential is insufficient to warrant any further testing or ED observation. This was explained to the patient. The patient was advised that persistent or worsening symptoms require further evaluation. I confirmed the patient's understanding of this discussion. Critical Care Critical Care Time Critical Care Time: No
[2023-11-15 08:44] VITALS: BP 136/66; PULSE 64; O2SAT 90
[2023-11-15 08:47] LABS: Lactate Venous 1.9 mmol/L (0.4-2.0); VBG Base Excess 2.9 mmol/L (-2.4-2.3); VBG HCO3 28.6 mmol/L (23-30); VBG Oxygen Saturation 74.1 % (50-70); VBG PCO2 54.3 mmol/L (35-51); VBG PH 7.34 mmol/L (7.31-7.41); VBG PO2 41.4 mmol/L (28-40); VBG Total CO2 30.3 mmol/L (23-27)
--- NOTE | 2023-11-15 08:50 | CT_ITS ---
PROCEDURE INFORMATION: Exam: CT Head Without Contrast Exam date and time: 11/15/2023 9:27 AM Age: 73 years old Clinical indication: Injury or trauma; Fall; Blunt trauma (contusions or hematomas); Additional info: Fall, frontal head injury, on blood thinners TECHNIQUE: Imaging protocol: Computed tomography of the head without contrast. Radiation optimization: All CT scans at this facility use at least one of these dose optimization techniques: automated exposure control; mA and/or kV adjustment per patient size (includes targeted exams where dose is matched to clinical indication); or iterative reconstruction. COMPARISON: CT CERVICAL SPINE WO CON 11/15/2023 9:27 AM FINDINGS: Brain: There is no evidence of acute parenchymal hemorrhage, extra-axial collection, or acute infarction. There is no mass effect, midline shift, or downward herniation. Cerebral ventricles: No ventriculomegaly. Paranasal sinuses: Visualized sinuses are unremarkable. No fluid levels. Mastoid air cells: Visualized mastoid air cells are well aerated. Bones: Unremarkable. No acute fracture. Soft tissues: Unremarkable. IMPRESSION: No acute intracranial abnormality.
--- NOTE | 2023-11-15 08:50 | XR_ITS ---
PROCEDURE INFORMATION: Exam: XR Left Shoulder Exam date and time: 11/15/2023 9:26 AM Age: 73 years old Clinical indication: Injury or trauma; Fall; Blunt trauma (contusions or hematomas); Shoulder; Left; Additional info: Fall, pain in frontal shoulder TECHNIQUE: Imaging protocol: Radiologic exam of the left shoulder. Views: 2 or more views. 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 There is no evidence of fracture or dislocation. Soft tissues: Normal. IMPRESSION: No evidence of fracture or dislocation.
--- NOTE | 2023-11-15 08:50 | CT_ITS ---
PROCEDURE INFORMATION: Exam: CT Cervical Spine Without Contrast Exam date and time: 11/15/2023 9:27 AM Age: 73 years old Clinical indication: Injury or trauma; Fall; Blunt trauma; Additional info: Fall, frontal head injury, on blood thinners TECHNIQUE: Imaging protocol: Computed tomography of the cervical spine without contrast. Radiation optimization: All CT scans at this facility use at least one of these dose optimization techniques: automated exposure control; mA and/or kV adjustment per patient size (includes targeted exams where dose is matched to clinical indication); or iterative reconstruction. COMPARISON: CT HEAD/BRAIN WO CON 11/15/2023 9:27 AM FINDINGS: Bones/joints: No acute fracture. Normal alignment. There is straightening of cervical lordosis. There is moderate to advanced multilevel degenerative disc disease. There is [id number] spinal canal stenosis secondary to disc osteophyte ridging. Lungs: Lung apices are normal. Soft tissues: Unremarkable. IMPRESSION: No acute findings.
[2023-11-15 09:00] VITALS: BP 131/57; PULSE 62; RESP 24; O2SAT 95
[2023-11-15 09:05] LABS: Basophils % 0.4 % (0.1-2.0); Eosinophils # 0.2 K/mm3 (0.0-0.4); Eosinophils % 1.8 % (0.1-12.0); Hematocrit 39.4 % (42.0-52.0); Hemoglobin 13.2 g/dL (14.1-18.0); Lymphocytes # 1.9 K/mm3 (0.7-4.5); Lymphocytes % 17.1 % (10-50); Mean Corpuscular HGB Conc 33.5 g/dL (31.8-35.4); Mean Corpuscular Hemoglobin 30.2 pg (27.0-31.2); Mean Corpuscular Volume 90.2 fl (80-94); Monocytes # 0.6 K/mm3 (0.1-1.0); Monocytes % 5.5 % (1.7-9.3); Neutrophils # 8.3 K/mm3 (1.8-7.8); Neutrophils % 75.3 % (37.0-80.0); Platelet Count 167 K/mm3 (142-424); Red Blood Count 4.37 M/mm3 (4.60-6.20); Red Cell Distribution Width 15.4 % (11.5-17.5); White Blood Count 11.1 K/mm3 (4.8-10.8)
[2023-11-15 09:07] LABS: Magnesium 1.8 mg/dl (1.6-2.3)
[2023-11-15 09:08] LABS: Alanine Aminotransferase 18 U/L (12-78); Albumin Level 3.2 g/dl (3.5-5.0); Albumin/Globulin Ratio 1.1 (1.1-1.8); Alkaline Phosphatase 58 U/L (38-126); Anion Gap 6.1 mEq/L (5-15); Aspartate Amino Transferase 24 U/L (17-59); Bilirubin,Total 0.4 mg/dl (0.2-1.3); Blood Urea Nitrogen 20 mg/dl (9-20); Calcium 8.9 mg/dl (8.4-10.2); Carbon Dioxide 33 mmol/L (22.0-30.0); Chloride 104 mmol/L (98-107); Creatinine Clearance Estimated 75 mL/min (50-200); Estimated Glomerular Filt Rate 73 ml/min (>60); GFR (African American) 89 ML/MIN (>60); Globulin 2.8 g/dL (1.3-3.2); Glucose 108 mg/dl (74-100); Potassium 4.1 mmoL/L (3.5-5.1); Sodium 139 mmol/L (136-145)
[2023-11-15 09:11] LABS: INR 1.02 (0.9-1.1); Prothrombin Time 11.4 seconds (10.1-12.5)
[2023-11-15 10:00] VITALS: BP 136/71; PULSE 60; RESP 16; O2SAT 94
[2023-11-15] MEDS: TET/DIPHTH/PERT-ADULT 0.5ML SYRINGE 0.5 ML IM (10:27)
[2023-11-15] MEDS: LACTATED RINGERS 1000ML 1,000 ML 999 ML IV (10:27)
[2023-11-15 10:30] VITALS: BP 140/62; PULSE 60; RESP 23; O2SAT 94
--- NOTE | 2023-11-15 10:47 | PC.NURSE ---
pt ambulated in room with stand by assistance did great is now resting in chair in room with call light in reach and at side
[2023-11-15 11:20] VITALS: BP 140/62; PULSE 65; RESP 18; TEMP 36.9; O2SAT 90
== END 2023-11-15 11:22 | disposition home or self-care (01) ==
PROVIDERS: Emergency Provider Emergency Medicine; PCP Internal Medicine
DX: S00.83XA Contusion of other part of head, initial encounter (principal); I95.1 Orthostatic hypotension; Z23 Encounter for immunization; W18.30XA Fall on same level, unspecified, initial encounter; M25.512 Pain in left shoulder; I48.0 Paroxysmal atrial fibrillation; Z79.01 Long term (current) use of anticoagulants
CPT/HCPCS: 70450; 72125; 73030; 80053; 82803; 83735; 85025; 85610; 90471; 90715; 93005; 96360; 99285; J7120

== ENCOUNTER 2024-03-10 15:54 | Outpatient (CLI) | payer MEDICARE, BC, SELFPAY ==
--- NOTE | 2024-03-10 15:59 | XR_ITS ---
PROCEDURE INFORMATION: Exam: XR Left Ribs Exam date and time: 03/10/2024 4:01 PM Age: 74 years old Clinical indication: Injury or trauma; Fall; Rib area, left side; Swelling; Additional info: Left lateral rib pain, status post fall TECHNIQUE: Imaging protocol: Radiologic exam of the left ribs. Views: 2 views. COMPARISON: CR XR CHEST 2V 03/10/2024 4:01 PM FINDINGS: Tubes, catheters and devices: There is a left chest implanted cardiac device. Bones/joints: Normal. Soft tissues: Normal. IMPRESSION: No displaced rib fracture is identified.
--- NOTE | 2024-03-10 15:59 | XR_ITS ---
PROCEDURE INFORMATION: Exam: XR Chest Exam date and time: 03/10/2024 4:01 PM Age: 74 years old Clinical indication: Injury or trauma; Fall; Other: Pain; Additional info: Status post fall, left lateral rib pain TECHNIQUE: Imaging protocol: Radiologic exam of the chest. Views: 2 views. COMPARISON: CR XR RIBS LT 2V 03/10/2024 4:01 PM FINDINGS: Tubes, catheters and devices: There is a left chest implanted cardiac device. Lungs: No evidence of acute pulmonary disease or infiltrates Pleural spaces: No large effusion or pneumothorax. Heart/Mediastinum: Stable cardiac and mediastinal contours. Vasculature: There are calcifications of the aortic arch. Diaphragm: There is elevation of the right hemidiaphragm. Bones/joints: No evidence of acute osseous abnormalities within the visualized portions of the thoracic spine and ribs. Osseous structures appear appropriate for patient age. IMPRESSION: No dense parenchymal consolidation, pleural effusion, or pneumothorax.
== END 2024-03-10 23:59 | disposition home or self-care (01) ==
LOC: RAD 15:55
PROVIDERS: PCP Internal Medicine; Visit Provider Internal Medicine
DX: R07.81 Pleurodynia (principal)
CPT/HCPCS: 71046; 71100

== ENCOUNTER 2024-03-16 13:00 | Outpatient (POV) | payer MEDICARE, BC, SELFPAY | END 2024-03-16 23:59 | disposition home or self-care (01) | LOC: SC 03-17 08:12 | PROVIDERS: Visit Provider Dermatology | DX: Z00.00 Encounter for general adult medical examination without abnormal findings (principal) ==

== ENCOUNTER 2024-04-06 09:43 | Outpatient (CLI) | payer MEDICARE, BC, SELFPAY ==
[2024-04-06 13:56] LABS: Alanine Aminotransferase 14 U/L (12-78); Albumin Level 3.6 g/dl (3.5-5.0); Albumin/Globulin Ratio 1.5 (1.1-1.8); Alkaline Phosphatase 70 U/L (38-126); Anion Gap 12.8 mEq/L (5-15); Aspartate Amino Transferase 24 U/L (17-59); Bilirubin,Total 0.4 mg/dl (0.2-1.3); Blood Urea Nitrogen 17 mg/dl (9-20); Calcium 9.1 mg/dl (8.4-10.2); Carbon Dioxide 32 mmol/L (22.0-30.0); Chloride 101 mmol/L (98-107); Chol/HDL Ratio 3.3 (1-3.5); Cholesterol 115 mg/dl (140-200); Estimated Glomerular Filt Rate 66 ml/min (>60); GFR (African American) 79 ML/MIN (>60); Globulin 2.4 g/dL (1.3-3.2); Glucose 81 mg/dl (74-100); HDL Cholesterol 35 mg/dl (40-60); Potassium 4.8 mmoL/L (3.5-5.1); Sodium 141 mmol/L (136-145); Triglycerides 94 mg/dl (30-150); VLDL Cholesterol 19 mg/dL (0-40)
[2024-04-06 14:07] LABS: Direct LDL Cholesterol 67.86 mg/dL (100-129)
== END 2024-04-06 23:59 | disposition home or self-care (01) ==
LOC: LAB.DROPOF 04-07 06:56
PROVIDERS: PCP Internal Medicine; Visit Provider Internal Medicine
DX: I50.32 Chronic diastolic (congestive) heart failure (principal); E78.5 Hyperlipidemia, unspecified
CPT/HCPCS: 80053; 80061

== ENCOUNTER 2024-10-14 08:50 | Outpatient (CLI) | payer MEDICARE, BC, SELFPAY ==
--- OUTSIDE RECORDS SUMMARY | 2024-10-07 14:45 | XMS_ITS | Encounter Summary ---
Author Organization [facility] In iatives Address [address] [place] [address] Care Team Providers Care Ppap Coordinator Name Role Phone Unavailable Primary Care Provider Unavailabl e Reason for Visit * Reason Comments Injections Bilat hands Encounter Details Date Type Department Care Team (Late st Contact Info) Description 10/07/2024 2:45 PM EDT Office Visit [facility] Orthopedics - [address] [place] [address] Matteo Iglesias PA-C [address] [place] [address] Bilateral carpal tunnel syndrome (Primary Dx); Carpal tunnel syndrome of left wrist Social History Tobacco Use Types Packs/Day Years Used Date Smoking Tobacco: Never Smokeless Tobacco: Never Tobacco Cessation:Counseling Given: Not Answered Alcohol Use Standard Drinks/Week Comments Never 0 (1 standard drink = 0.6 oz pur e alcohol) Sex and Gender Information Value Date Recorded Sex Assigned at Not on file Legal Sex Male 6:23 PM CDT Gender Identity Not on file Sexual Orientation Not on file documented as of this encounter Last Filed Vital Signs Vital Sign Reading Time Taken Comments Blood Pressure 141/83 10/07/2024 3:59 PM EDT Pulse 69 10/07/2024 3:59 PM EDT Temperature - - Respiratory Rate - - Oxygen Saturation - - Inhaled Oxygen Concentration - - Weight 170.1 kg (375 lb) 10/07/2024 3:39 PM EDT Height 185.4 cm (6' 1 ) 10/07/2024 3:39 PM EDT Body Mass Index 49.48 10/07/2024 3:39 PM EDT documented in this encounter Progress Notes * Matteo Iglesias PA-C - 10/07/2024 2:45 PM EDTAssociated Order(s): Bilateral CT injections Post-Procedure Diagnose(s): Bilateral carpal tunnel syndrome Subjective: Josh Alarcon is a 74 y.o. male. No ref. provider found Work Comp []Yes [x]No Chief Complaint Patient presents with Injections Bilat hands HPI Injection Visit: Patient returns for follow-up regarding Bilateral CTS. The patient received injections on 05/10/24 which worked well for 3 months. The patient requests repeat injections today. Pain is 7-8 out of 10, dull and throbbing Steve L hand 65, R hand 70, L pinch 20, R pinch 21 Date of Onset of Symptoms: [x]On-going problem Trauma: []+ [x]- Mechanism of Injury: Pain Location: left hand Severity (1-10)7 Quality: Aching and Burning Numbness: [x]+ []- [x]Occasional []Constant Tingling: [x]+ []- [x]Occasional []Constant Night Symptoms: [x]+ []- x/wk Additional Symptoms: []None []Drainage []Neck Pain []Redness []Swelling []Stiffness []Bruising [x]Weakness []Drop Items []Other: Review of Systems [x]No change from previous [x]Change from previous [x]Reviewed ROS by Matteo Iglesias PA-C General: No recent fever or chills, no recent weight loss or weight gain, no insomnia HEENT: No change in vision, no glasses/contacts, no hearing loss, no tinnitus, no vertigo, no congestion/sinus issues CVS: No chest pain, no palpitations, no edema, no varicose veins Resp: No dyspnea, no wheezing, no cough, no hemoptysis GI: No dysphagia, no nausea, no vomiting, no heart burn, no constipation, no diarrhea : No dysuria, no hematuria, no nocturia, no history of chronic UTI Musculoskeletal: See HPI Derm: No rash, no abrasions, no skin discoloration, no history or MRSA Neuro: No headaches, no seizures, no stroke, no tremors, no muscle weakness, no difficulty walking,no numbness/tingling, no neuropathy Endo: No cold/heat intolerance Heme: No abnormal bruising or bleeding Psych: No depression, no anxiety, no fatigue, no mood swings Vitals: 10/07/24 1539 10/07/24 1559 BP: (!) 189/81 (!) 141/83 Pulse: 71 69 Weight: (!) 170.1 kg (375 lb) Height: 1.854 m (6' 1 ) Past Medical History: Diagnosis Date Arthritis Atrial fibrillation (HCC) Heart attack (HCC) Heart disease Hyperlipidemia Hypertension Oxygen dependent Urinary incontinence Past Surgical History: Procedure Laterality Date CARDIAC SURGERY N/A stents CCL - PACEMAKER N/A KNEE CARTILAGE SURGERY Right REPLACEMENT TOTAL KNEE Left Current Outpatient Medications Medication Sig Dispense Refill atenoloL (TENORMIN) 50 MG tablet Take 1 tablet (50 mg total) by mouth 2 (two) times daily. buPROPion (WELLBUTRIN) 100 MG tablet Take 1 tablet (100 mg total) by mouth daily. diphenoxylate-atropine (LOMOTIL) 2.5-0.025 mg per tablet Take 2 tablets by mouth as needed. ezetimibe (ZETIA) 10 mg tablet Take 1 tablet (10 mg total) by mouth nightly. fluticasone propionate (FLONASE) 50 mcg/actuation nasal spray Administer 2 sprays into each nostrildaily as needed. lisinopriL (ZESTRIL) 10 MG tablet Take 1 tablet (10 mg total) by mouth daily. omeprazole (PriLOSEC) 40 MG capsule Take 1 capsule (40 mg total) by mouth Daily (0600). oxyCODONE-acetaminophen (PERCOCET) 5-325 mg per tablet Take 1 tablet by mouth as needed. rivaroxaban (Xarelto) 20 mg tablet Take 1 tablet (20 mg total) by mouth daily with breakfast. rosuvastatin (CRESTOR) 10 MG tablet Take 1 tablet (10 mg total) by mouth daily. tamsulosin (FLOMAX) 0.4 mg cap 24 hr capsule Take 1 capsule (0.4 mg total) by mouth daily. tolterodine (DETROL LA) 4 MG 24 hr capsule Take 1 capsule (4 mg total) by mouth daily. No current facility-administered medications for this visit. No Known Allergies Family History Problem Relation Name Age of Onset Diabetes Other Arthritis Other Heart disease Other Hypertension Other Stroke Other Hyperlipidemia Other Social History Tobacco Use Smoking status: Never Smokeless tobacco: Never Substance Use Topics Alcohol use: Never Objective: BP (!) 141/83 Pulse 69 Ht 1.854 m (6' 1 ) Wt (!) 170.1 kg (375 lb) BMI 49.48 kg/m?? Physical Exam Physical Examination: General: [x]Awake, Alert, Oriented [x]Ambulatory [x]No Acute Distress [x]Mucus Membranes pink, moist [x]Pupils equal [x]Respiratory even, unlabored Skin: [x]Warm and dry with good cap refill [] []+ [x]- []+ [x]- []+ [x]- []+ [x]- Dystrophic changes Hypersweating Hypertrichosis Discoloration Wound/Incision: []+ []- Location: No thenar, hypothenar or intrinsic atrophy. No evidence of hypo/hyper pigmentation. [] Healed []NSOI []C/D/I []Ecchymosis []Erythema []Swelling Peripheral Vessels: Palpable pulses: ~[x]~ Radial Artery ~[x]~ Ulnar Artery ~[x]~ Good Capillary Refill Parminder's Test /____ R/L /____ Hand (+) or (-) Right Left 1st CMC Tenderness []+ []- []+ []- 1st HOTEL CLERK Grind []+ []- []+ []- Kizzy Nodes []+ []- []+ []- [place]berden Nodes []+ []- []+ []- A1 Anders Tenderness []+ []- []+ []- Triggering []+ []- []+ []- Pain on lateral stress []+ []- []+ []- UCL Instability []+ []- []+ []- RCL Instability []+ []- []+ []- Thenar Atrophy []+ []- []+ [x]- Hypothenar Atrophy []+ []- []+ [x]- Tinels Compression Right Left Right Left Carpel Tunnel []+ []- [x]+ []- Carpal T []+ []- [x]+ []- Pronator []+ []- []+ []- Phalen's []+ []- [x]+ []- Cubital Tunnel []+ []- []+ [x]- Pronator T []+ []- []+ []- Guyon's Canal []+ []- []+ [x]- Elbow Hyperflex []+ []- []+ []- Infraclavicular []+ []- []+ []- Infraclavicular []+ []- []+ []- Supraclavicular []+ []- []+ []- Supraclavicular []+ []- []+ []- EMG/NCS: No results found for this or any previous visit. Imaging Treatment: Bilateral CT injections Date/Time: 10/07/2024 3:49 PM Performed by: Matteo Iglesias PA-C Authorized by: Matteo Iglesias PA-C Consent: Consent obtained: Verbal and written Consent given by: Patient Risks, benefits, and alternatives were discussed: yes Risks discussed: Bleeding, infection, pain, incomplete drainage, nerve damage and poor cosmetic result [place] protocol: Procedure explained and questions answered to patient or proxy's satisfaction: yes Relevant documents present and verified: yes Test results available: yes Imaging studies available: yes Site/side marked: yes Immediately prior to procedure, a time out was called: yes Patient identity confirmed: Verbally with patient Indications: Indications: Carpal Tunnel Syndrome Pre-procedure details: Preparation: Patient was prepped and draped in the usual sterile fashion Sedation: Sedation type: None Anesthesia: Anesthesia method: Topical application Procedure specific details: Bilateral Carpal Tunnel injections today. We discussed conservative treatment with Kenalog injections which can take several days for effect.Transient numbness in the hand was discussed post injection which will resolve in a few hours. Eachhand was laid in the supine position. 1 ml of 1% Lidocaine and Kenalog 10mg were injected ulnar to the palmaris longus tendon (in the soft indentation of the volar wrist) after the skin was prepped with adequately with alcohol. A sterile bandaid was applied. Post-procedure details: Procedure completion: Tolerated well, no immediate complications Assessment: ICD-10-CM ICD-9-CM 1. Bilateral carpal tunnel syndrome G56.[address] injections triamcinolone acetonide (KENALOG) injection 1 mg lidocaine (XYLOCAINE) injection 1% Plan: Discussed treatment options for Carpal Tunnel Syndrome, including braces, injections and carpal tunnel release. Patient states understanding of all options and has elected to proceed with Bilateral Carpal Tunnel injections today. The patient education brochure on carpal tunnel syndrome has been provided to the patient. Continue carpal tunnel night splints (patient has already purchased) B6/E Vitamins If symptoms persist without benefit from injection after 2 weeks, we will obtain emg/ncs study. We discussed our intent to continue with conservative management as long as the conservative management provides appropriate relief of symptoms or until surgery is elected by the patient. Return if symptoms worsen or fail to improve. Patient instructions given. Discussed elevated BMI and elevated BP with patient including risk factors. Patient will follow-up with PCP for long term care administrator treatment plan. I have examined and questioned the above listed patient and provided or received all documentation,establishing, confirming, and revising as necessary, the findings and statements noted. . EMR/[employer]/Costuming Supervisor disclaimer: Much of this encounter note is an electronic assembler dielectric heater/translation of spoken language to printed text. The electronic translation of spoken language may permit erroneous, or at times, nonsensical words or phrases to be inadvertently transcribed; Although thenote is reviewed for such errors, some may still exist. documented in this encounter Plan of Treatment Not on file documented as of this encounter Procedures Procedure Name Priority Date/Time Associated Diagnosis Comments FS_[facility]_MODEL GENERAL FORM Routine 10/07/2024 3:49 PM EDT Bilateral carpal tunnel syndrome documented in this encounter Results * Bilateral CT injections (10/07/2024 3:49 PM EDT) Narrative Matteo Iglesias PA-C - 10/07/2024 3:49 PM EDT Matteo Iglesias PA-C 10/07/2024 4:[address] injections Date/Time: 10/07/2024 3:49 PM Performed by: Matteo Iglesias PA-C Authorized by: Matteo Iglesias PA-C Consent: Consent obtained: Verbal and written Consent given by: Patient Risks, benefits, and alternatives were discussed: yes Risks discussed: Bleeding, infection, pain, incomplete drainage, nerve damage and poor cosmetic result [place]s protocol: Procedure explained and questions answered to patient or proxy's satisfaction: yes Relevant documents present and verified: yes Test results available: yes Imaging studies available: yes Site/side marked: yes Immediately prior to procedure, a time out was called: yes Patient identity confirmed: Verbally with patient Indications: Indications: Carpal Tunnel Syndrome Pre-procedure details: Preparation: Patient was prepped and draped in the usual sterile fashion Sedation: Sedation type: None Anesthesia: Anesthesia method: Topical application Procedure specific details: Bilateral Carpal Tunnel injections today. We discussed conservative treatment with Kenalog injections which can take several days for effect. Transient numbness in the hand was discussed post injection which will resolve in a few hours. Each hand was laid in the supine position. 1 ml of 1% Lidocaine and Kenalog 10mg were injected ulnar to the palmaris longus tendon (in the soft indentation of the volar wrist) after the skin was prepped with adequately with alcohol. A sterile bandaid was applied. Post-procedure details: Procedure completion: Tolerated well, no immediate complications Matteo Iglesias PA-C PROCEDURE/MINOR SURGICAL ORDE CARROL Final Result documented in this encounter Visit Diagnoses Diagnosis Bilateral carpal tunnel syndrome- Primary Carpal tunnel syndrome Carpal tunnel syndrome of left wrist documented in this encounter Administered Medications Inactive Administered Medications - up to 3 most recent administrations Medication Order MAR Action Action Date Dose Rate Site lidocaine (XYLOCAINE) injection 1% 1 mL Once, intra-articular, On Joanie 10/07/24 at 1630, For 1 doseIndications:Bilateral carpal tunnel syndrome Given 10/07/2024 4:03 PM EDT 1 mL triamcinolone acetonide (KENALOG) injection 1 mg 1 mg Once, intra-articular, On Joanie 10/07/24 at 1630, For 1 doseIndications:Bilateral carpal tunnel syndrome Given 10/07/2024 4:03 PM EDT 1 mg documented in this encounter
[2024-10-14 13:25] LABS: Basophils # 0.1 K/mm3 (0-0.2); Basophils % 0.6 % (0.1-2.0); Eosinophils # 0.3 Kmm3 (0.0-0.4); Eosinophils % 3.2 % (0.1-12.0); Hematocrit 43.5 % (42.0-52.0); Hemoglobin 12.7 g/dL (14.1-18.0); Immature Granulocytes # 0.03 10^3uL; Immature Granulocytes % 0.4 %; Lymphocytes # 1.5 K/mm3 (0.7-4.5); Lymphocytes % 18.8 % (10-50); Mean Corpuscular HGB Conc 29.2 g/dL (31.8-35.4); Mean Corpuscular Hemoglobin 26.4 pg (27.0-31.2); Mean Corpuscular Volume 90.4 fl (80-94); Mean Platelet Volume 10.4 fl (7.4-10.4); Monocytes # 0.6 K/mm3 (0.1-1.0); Monocytes % 7.6 % (1.7-9.3); Neutrophils # 5.6 K/mm3 (1.8-7.8); Neutrophils % 69.4 % (37.0-80.0); Nucleated Red Blood Cells # 0 10^3/uL; Nucleated Red Blood Cells % 0 %; Platelet Count 185 K/mm3 (142-424); Red Blood Count 4.81 M/mm3 (4.60-6.20); Red Cell Distribution Width 14.5 % (11.5-17.5); Red Cell Distribution Width-SD 47.7 fL
[2024-10-14 13:57] LABS: Alanine Aminotransferase 12 U/L (12-78); Albumin Level 3.6 g/dl (3.5-5.0); Albumin/Globulin Ratio 1.4 (1.1-1.8); Alkaline Phosphatase 58 U/L (38-126); Anion Gap 10.1 mEq/L (5-15); Aspartate Amino Transferase 21 U/L (17-59); Bilirubin,Total 0.6 mg/dl (0.2-1.3); Blood Urea Nitrogen 23 mg/dl (9-20); Calcium 8.9 mg/dl (8.4-10.2); Carbon Dioxide 33 mmol/L (22.0-30.0); Chloride 104 mmol/L (98-107); Chol/HDL Ratio 3.3 (1-3.5); Cholesterol 122 mg/dl (140-200); Estimated Glomerular Filt Rate 66 ml/min (>60); GFR (African American) 79 ML/MIN (>60); Globulin 2.6 g/dL (1.3-3.2); Glucose 78 mg/dl (74-100); HDL Cholesterol 37 mg/dl (40-60); Potassium 5.1 mmoL/L (3.5-5.1); Sodium 142 mmol/L (136-145); Total Protein,Serum 6.2 g/dl (6.3-8.2); Triglycerides 62 mg/dl (30-150); VLDL Cholesterol 12 mg/dL (0-40)
[2024-10-14 14:08] LABS: Direct LDL Cholesterol 62.57 mg/dL (100-129)
[2024-10-14 14:26] LABS: Prostate Specific Ag Screen 0.5 ng/ml (0.0-4.0)
--- OUTSIDE RECORDS SUMMARY | 2024-10-15 13:05 | XMS_ITS | Referral Summary ---
Author Organization [facility] In iatives Address [address] [place] [address] Care Team Providers Care Photographer Assistant Name Role Phone Unavailable Primary Care Provider Unavailabl e Encounters Date Type Department Care Team Description 10/07/2024 2:45 PM EDT Office Visit [facility] Orthopedics - [address] [place] [address] Matteo Iglesias PA-C Bilateral carpal tunnel syndrome (Primary Dx); Carpal tunnel syndrome of left wrist from Last 3 Months Allergies No known active allergies Medications tolterodine (DETROL LA) 4 MG 24 hr capsule Take 1 capsule (4 mg total) by mouth daily. 4 Active tamsulosin (FLOMAX) 0.4 mg cap 24 hr capsule Take 1 capsule (0.4 mg total) by mouth daily. 4 Active rosuvastatin (CRESTOR) 10 MG tablet Take 1 tablet (10 mg total) by mouth daily. Active rivaroxaban (Xarelto) 20 mg tablet Take 1 tablet (20 mg total) by mouth daily with breakfast. Active oxyCODONE-aceta minophen (PERCOCET) 5-325 mg per tablet Take 1 tablet by mouth as needed. Active omeprazole (PriLOSEC) 40 MG capsule Take 1 capsule (40 mg total) by mouth Daily (0600). Active lisinopriL (ZESTRIL) 10 MG tablet Take 1 tablet (10 mg total) by mouth daily. Active fluticasone propionate (FLONASE) 50 mcg/actuation nasal spray Administer 2 sprays into each nostril daily as needed. Active ezetimibe (ZETIA) 10 mg tablet Take 1 tablet (10 mg total) by mouth nightly. Active diphenoxylate-a tropine (LOMOTIL) 2.5-0.025 mg per tablet Take 2 tablets by mouth as needed. Active buPROPion (WELLBUTRIN) 100 MG tablet Take 1 tablet (100 mg total) by mouth daily. Active atenoloL (TENORMIN) 50 MG tablet Take 1 tablet (50 mg total) by mouth 2 (two) times daily. Active Hospital, Clinic, or Other Facility Administered Medication Ordered Dose Route Frequency Start Date End Date Status triamcinolone acetonide (KENALOG) injection 1 mgIndications:Bilateral carpal tunnel syndrome 1 mg IAtc Once 10/07/2024 10/07/2024 En ded lidocaine (XYLOCAINE) injection 1%Indications:Bilateral carpal tunnel syndrome 1 mL IAtc Once 10/07/2024 10/07/2024 En ded Active Problems No known active problems Social History Tobacco Use Types Packs/Day Years [...] on file Sexual Orientation Not on file Last Filed Vital Signs Vital Sign Reading [...] Mass Index 49.48 10/07/2024 3:39 PM EDT Plan of Treatment Not on file Procedures Procedure Name Priority Date/Time Associated Diagnosis Comments FS_[facility]_MODEL GENERAL FORM Routine 10/07/2024 3:49 PM EDT Bilateral carpal tunnel syndrome from Last 3 Months Results * Bilateral CT injections (10/07/2024 3:49 PM EDT) Matteo Marquis PA-C - 10/07/2024 3:49 PM EDT Matteo Iglesias PA-C 10/07/2024 4:[address] injections Date/Time: 10/07/2024 3:49 PM Performed by: Matteo Iglesias PA-C Authorized by: Matteo Iglesias PA-C Consent: Consent obtained: Verbal and written Consent given by: Patient Risks, benefits, and alternatives were discussed: yes Risks discussed: Bleeding, infection, pain, incomplete drainage, nerve damage and poor cosmetic result [place] protocol: Procedure explained and questions answered to [...] PA-C PROCEDURE/MINOR SURGICAL ORDE CARROL Final Result from Last 3 Months Insurance MEDICARE PART [place] [address] CATRACHITA MUNROE
--- OUTSIDE RECORDS SUMMARY | 2024-10-15 13:05 | XMS_ITS | Encounter Summary ---
Author Organization [facility] In iatives Address [address] [place] [address] Care Team Providers Care Electro Winning Operator Name Role Phone Unavailable Primary Care Provider Unavailabl e Encounter Details Date Type Department Care Team (Late st Contact Info) Description 03/21/2018 Transcribed Document [facility] [address] [place] [address] ProviderTabitha MD [address] [place] [address] Social History Tobacco Use Types Packs/Day Years Used Date Smoking Tobacco: Never Assessed Sex and Gender Information Value Date Recorded Sex Assigned at Not on file Legal Sex Male 6:23 PM CDT Gender Identity Not on file Sexual Orientation Not on file documented as of this encounter Miscellaneous Notes * Cerner Conversion Note - Tabitha Fischer MD - 03/21/2018 8:52 AM EMBROIDERY FINISHER Patient: ANA ALARCON Age: 68 years Sex: Male : 1950 Associated Diagnoses: None Author: DIANA BOLES PA knee doing well, pain as expected, has had extended stay for cardio-pulmonary issues of which he reports he is doing better vss, nvi, dsg dry P: once cleared medically can be d/c to rehab facility documented in this encounter Plan of Treatment Not on file documented as of this encounter Visit Diagnoses Not on filedocumented in this encounter
--- OUTSIDE RECORDS SUMMARY | 2024-10-15 13:05 | XMS_ITS | Clinical Summary ---
Author Organization [facility] [employer] [facility] [employer] Address [address] [place] [address] Care Team Providers Care Mortgage Advisor Name Role Phone Unavailable Primary Care Provider Unavailabl e Allergies No known active allergies Medications tolterodine [...] sprays into each nostril daily as needed. 5 Active ezetimibe (ZETIA) 10 mg tablet Take [...] ded Active Problems No known active problems Encounters Date Type Department Care Team Description 10/07/2024 2:45 PM EDT Office Visit [facility] - [facility] [address] [place] [address] Matteo Iglesias PA-C Bilateral carpal tunnel syndrome (Primary Dx); Carpal tunnel syndrome of left wrist from Last 3 Months Family History Medical History Relation Name Comments Arthritis Other Diabetes Other Heart disease Other Hyperlipidemia Other Hypertension Other Stroke Other Relation Name Status Comments Other Social History Tobacco Use Types Packs/Day Years [...] 10/07/2024 3:39 PM EDT Plan of Treatment Health Maintenance Due Date Last Done Comments CT Colonography 1950 Colonoscopy 1950 Colorectal Cancer Screening 1950 FOBT/FIT 1951 Fit-DNA (Cologuard) 1950 Sigmoidoscopy 1950 Depression Screening (12+) 1963 Hepatitis C Screening 1969 Pneumococcal 50+ years (1 of 1 - PCV) 2001 Shingles Vaccine (Zoster) (1 of 2) 2001 Medicare Initial AWV [id number] 11/10/2008 Respiratory Syncytial Virus (RSV) Adult or (1 - Risk 60-74 years 1-dose series) 2011 COVID-19 VACCINE ( - season) 2024 05/16/2021, 08/09/2020, 07/12/2020 Falls Risk Screening 05/12/2024 Tobacco Cessation Counseling and Screening (12+) 10/07/2025 10/07/2024 DTAP/TDAP/TD VACCINES (2 - T d or Tdap) 11/14/2033 11/15/2023 Influenza Vaccine Completed 03/16/2024 Procedures Procedure Name Priority Date/Time Associated Diagnosis [...] drainage, nerve damage and poor cosmetic result [place] protocol: Procedure explained and questions answered to [...] immediate complications Matteo Iglesias PA-C PROCEDURE/MINOR SURGICAL [facility]OL Final Result from Last 3 Months Insurance MEDICARE PART A B [facility]
--- OUTSIDE RECORDS SUMMARY | 2024-10-15 13:05 | XMS_ITS | Data Portability ---
Author Organization [facility] Address [address] [place] [address] Care Team Providers Care Feather Boner Name Role Phone COLLINSCLAREFarheen Powell Primary Care Provider GIANA ECHEVERRIA Electrical Engineering Draftsperson Assessment Encounter Date Assessment Date Assessment LastModified by Organization Details LastModified Time 04/22/2022 04/22/2022 Impression: 1. Coronary artery disease s/p ENGINEERING MANAGER intervention 01/2007 and SIMEON to PLB 08/2016: Chronic problem, stable without angina. Continue aspirin 81 mg daily, rosuvastatin 10 mg daily, ezetimibe 10 mg daily and atenolol 50 mg daily 2. Sinus node dysfunction s/p Medtronic dual-chamber pacemaker: Chronic problem, stable. His device is functioning appropriately per in office device check 04/22/2022. 3. Paroxysmal atrial fibrillation: Chronic problem, stable with low overall burden. 04/22/2022: CHADSVasc = 3. Continue rivaroxaban 20 mg daily 4. Dyslipidemia: Chronic problem, stable. Lipid panel in March 2022 showed LDL 64. Continue rosuvastatin 10 mg daily 5. Hypertension 6. Obstructive sleep apnea 7. Class III obesity PLAN: Mr Alarcon appears stable from a cardiac standpoint. He continues to use Xarelto for ischemic stroke risk reduction, and appears to be tolerating this without any bleeding or bruising. He recently had lab work performed, but did not have a CBC. I suggested that he check a hemogram when he next has lab work checked. I did not recommend making any changes to his current regimen, and we will plan to see him back in the office in 6 months, or sooner if needed. [email or web address] Not available 04/22/2022 11:52:02 11/01/2022 11/01/2022 Impression: 1. Coronary artery disease s/p ENGINEERING MANAGER intervention 01/2007 and SIMEON to PLB 08/2016: Chronic problem, stable without angina. Continue aspirin 81 mg daily, rosuvastatin 10 mg daily, ezetimibe 10 mg daily and atenolol 50 mg daily 2. Sinus node dysfunction s/p Medtronic dual-chamber pacemaker: Chronic problem, stable. His device is functioning appropriately per in office device check 04/22/2022. 3. Paroxysmal atrial fibrillation: Chronic problem, stable with low overall burden. 04/22/2022: CHADSVasc = 3. Continue rivaroxaban 20 mg daily 4. Dyslipidemia: Chronic problem, stable. Lipid panel in March 2022 showed LDL 64. Continue rosuvastatin 10 mg daily 5. Hypertension 6. Obstructive sleep apnea 7. Class III obesity PLAN: Mr Alarcon appears stable from a cardiac standpoint. He continues to use Xarelto for ischemic stroke risk reduction, and appears to be tolerating this without any bleeding or bruising. As previously noted, he is morbidly obese, and is not able to lose weight by exercise. We discussed with the he may benefit from the use of newly approved medications for weight loss e.g. semaglutide. He will discuss this further with his PCP and his next visit. I will plan to see him back in the office in 6 months, or sooner if needed. Testing at next visit: In-office Medtronic device check. [email or web address] Not available 11/02/2022 21:10:47 04/25/2023 04/25/2023 Impression: 1. Coronary artery disease s/p ENGINEERING MANAGER intervention 01/2007 and SIMEON to PLB 08/2016: Chronic problem, stable without angina. Continue aspirin 81 mg daily, rosuvastatin 10 mg daily, ezetimibe 10 mg daily and atenolol 50 mg daily 2. Sinus node dysfunction s/p Medtronic dual-chamber pacemaker: Chronic problem, stable. His device is functioning appropriately per in office device check 04/25/2023. 3. Paroxysmal atrial fibrillation: Chronic problem, stable with low overall burden. 04/25/2023: CHADSVasc = 3. Continue rivaroxaban 20 mg daily 4. Dyslipidemia: Chronic problem, stable. Lipid panel in March 2022 showed LDL 64. Continue rosuvastatin 10 mg daily 5. Hypertension 6. Obstructive sleep apnea 7. Class III obesity PLAN: Mr Alarcon appears stable from a cardiac standpoint. He continues to use Xarelto for ischemic stroke risk reduction, and appears to be tolerating this without any bleeding or bruising. As previously noted, he is morbidly obese, and is not able to lose weight by exercise. We have discussed the potential for benefit from the use of semaglutide/simil ar but unfortunately does not meet coverage requirements for his health insurer. Medication changes: None. RTC: We will plan to follow-up in about 6 months, or sooner if needed. [email or web address] Not available 04/26/2023 12:43:38 10/31/2023 10/31/2023 Impression: 1. Coronary artery disease s/p ENGINEERING MANAGER intervention 01/2007 and SIMEON to PLB 08/2016: Chronic problem, stable without angina. Continue aspirin 81 mg daily, rosuvastatin 10 mg daily, ezetimibe 10 mg daily and atenolol 50 mg daily 2. Sinus node dysfunction s/p Medtronic dual-chamber pacemaker: Chronic problem, stable. His device is functioning appropriately per in-office device check 10/31/2023. 3. Paroxysmal atrial fibrillation: Chronic problem, stable with low overall burden. 04/25/2023: CHADSVasc = 3. Continue rivaroxaban 20 mg daily 4. Dyslipidemia: Chronic problem, stable. Lipid panel in March 2022 showed LDL 64. Continue rosuvastatin 10 mg daily 5. Hypertension 6. Obstructive sleep apnea 7. Class III obesity PLAN: Mr Alarcon appears stable from a cardiac standpoint. He continues to use Xarelto for ischemic stroke risk reduction, and appears to be tolerating this without any bleeding or bruising. He has lost about 20 pounds of weight since I last saw him, attributed to decreased eating whilst having dental extractions and implants. I congratulated him on his weight loss efforts thus far, and recommended continued weight loss to reduce his risk for future cardiovascular events. Medication changes: None. RTC: We will plan to follow-up in about 6 months, or sooner if needed. Testing at next visit: In-office Medtronic device check (with cnc programmer). [email or web address] Not available 11/01/2023 14:03:04 04/30/2024 04/30/2024 Impression: 1. Coronary artery disease s/p ENGINEERING MANAGER intervention 01/2007 and SIMEON to PLB 08/2016: Chronic problem, stable without angina. Continue aspirin 81 mg daily, rosuvastatin 10 mg daily, ezetimibe 10 mg daily and atenolol 50 mg daily 2. Sinus node dysfunction s/p Medtronic dual-chamber pacemaker: Chronic problem, stable. His device is functioning appropriately per in-office device check 04/30/2024. 3. Paroxysmal atrial fibrillation: Chronic problem, stable with low overall burden. 04/30/2024 CHADSVasc = 3. Continue rivaroxaban 20 mg daily 4. Dyslipidemia: Chronic problem, complicated by statin intolerance. Continue rosuvastatin 10 mg weekly + ezetimibe 10mg daily Lipid panel in March 2024 reported a direct LDL of 68. 5. Hypertension 6. Obstructive sleep apnea 7. Class III obesity PLAN: Mr Alarcon appears to be stable from a cardiac standpoint. He continues to use Xarelto for ischemic stroke risk reduction, and appears to be tolerating this without any bleeding or bruising. His weight has remained stable over the past 6 months. His BMI is >50. We had explored the use of GLP agonist, but these have been financially prohibitive for him. He will discuss this further when he sees his PCP in June. Medication changes: None. RTC: We will plan to follow-up in about 6 months, or sooner if needed. [email or web address] Not available 04/30/2024 12:28:36 Plan of Treatment Reminders Order Date Submit Date Provider Last Modified By Organization Details Last Modified Time Details Appointments RECHECK 2024 11:15A Daniel ECHEVERRIA MD Not available Not available Not available Lab None recorded. Referral None recorded. Procedures pacemaker programmi ng, dual lead (PROC) 2023 024 [email or web address] [facility], [address] [place] [address] , [facility], [place], [phone], 04/30/2024 12:29:03 pacemaker programmi ng, dual lead (PROC) [address] [facility], [address], [place], [phone], 10/31/2023 15:01:46 pacemaker programmi ng, dual lead (PROC) [address] [facility], [address], [address] [place] [address], [phone], 04/25/2023 16:21:47 pacemaker programmi ng, dual lead (PROC) [address] [facility], [address], [address] [place] [address], [phone], 04/22/2022 13:38:33 Surgeries None recorded. Imaging None recorded. Medication Orders Xarelto 20 mg tablet [address], [address] [place] [address], [id number], 10/31/2023 12:32:24 Xarelto 20 mg tablet [address], [address] [place] [address], [id number], 04/25/2023 12:15:42 rosuvasta tin 10 mg tablet [address], [address] [place] [address], [id number], 04/25/2023 12:15:42 Xarelto 20 mg tablet [address], [address] [place] [address], [id number], 11/02/2022 21:07:09 rosuvasta tin 10 mg tablet [address], [address] [place] [address], [id number], 11/01/2022 13:08:09 Patient TargetsNo targets recorded. Patient Instructions Encounter Date Encounter Id Patient Instructions Last Modified By Organization Details Last Modified Time 04/22/2022 [id number] body mass index: care instructions [email or web address] Not available 04/22/2022 11:52:05 high blood pressure: care instructions [email or web address] Not available 04/22/2022 11:52:05 11/01/2022 [id number] body mass index: care instructions [email or web address] Not available 11/02/2022 21:10:59 high blood pressure: care instructions [email or web address] Not available 11/02/2022 21:10:59 04/25/2023 [id number] body mass index: care instructions [email or web address] Not available 04/25/2023 12:16:54 high blood pressure: care instructions [email or web address] Not available 04/25/2023 12:16:54 10/31/2023 [id number] body mass index: care instructions [email or web address] Not available 10/31/2023 12:56:40 high blood pressure: care instructions [id number] Not available 10/31/2023 12:56:40 04/30/2024 [id number] body mass index: care instructions [email or web address] Not available 04/30/2024 12:29:03 high blood pressure: care instructions [email or web address] Not available 04/30/2024 12:29:03 - Continue with current ezetimibe and rosuvastatin as prescribed, managing refills as planned. - Monitor and maintain blood pressure at the target level. - Review insurance coverage for weight loss interventions in the upcoming medical visits due to potential Medicare changes. - Consider consultation about dietary modifications and potentially increasing vegetable intake for better overall health outcomes. [email or web address] Not available 04/30/2024 12:17:37 Reason for Referral None Reported. Results Created Date Observation Date Name Description Value Unit Range Abnormal Flag Note LastModifiedBy Organization Detail LastModifiedTime 04/24/20 22 04/22/2022 devic e check (PROC ) No observ ation record ed. [email or web address] Not Available 2021 11:18:01 05/27/19 23 05/27/2022 remot e devic e inter rogat ion (PROC ) No observ ation record ed. [email or web address] Not Available 2022 19:30:15 08/29/19 23 08/26/2022 remot e devic e inter rogat ion (PROC ) No observ ation record ed. [email or web address] Not Available 2022 23:04:50 11/30/19 23 11/25/2022 remot e devic e inter rogat ion (PROC ) No observ ation record ed. [email or web address] Not Available 2022 04:53:49 03/03/20 23 02/24/2023 remot e devic e inter rogat ion (PROC ) No observ ation record ed. [email or web address] Not Available 2022 23:57:13 04/02/20 23 04/01/2023 remot e devic e inter rogat ion (PROC ) No observ ation record ed. [email or web address] Not Available 2022 09:18:58 04/29/20 23 04/25/2023 dio ginette inter rogat ion (PROC ) No observ ation record ed. BARCODE Not Available 2022 08:18:12 05/26/19 24 05/26/2023 remot e devic e inter rogat ion (PROC ) No observ ation record ed. [email or web address] Not Available 2023 19:32:08 08/25/19 24 08/25/2023 remot e devic e inter rogat ion (PROC ) No observ ation record ed. [email or web address] Not Available 2023 18:02:20 10/31/19 24 10/31/2023 remot e devic e inter rogat ion (PROC ) No observ ation record ed. [email or web address] Not Available 2023 13:16:20 12/22/19 24 12/22/2023 remot e devic e inter rogat ion (PROC ) No observ ation record ed. [email or web address] Not Available 2023 23:13:59 03/22/20 24 03/22/2024 remot e devic e inter rogat ion (PROC ) No observ ation record ed. [email or web address] Not Available 2023 18:17:34 04/30/20 24 04/30/2024 pacem ginette progr ammin g, dual lead (PROC ) No observ ation record ed. BARCODE [facility] [address] [place] [address] [address], [place], [address], 04/30/2024 16:14:41 05/06/20 24 04/30/2024 remot e devic e inter rogat ion (PROC ) No observ ation record ed. [email or web address] Not Available 2023 20:30:09 08/11/19 25 08/09/2024 remot e devic e inter rogat ion (PROC ) No observ ation record ed. [email or web address] Not Available 2024 13:21:00 Result Notes None recorded. Problems Name Problem SNOMED Code Status Onset Date Resolution Date Notes Provider Name and Address Organization Details Recorded Time Cardiac pacemaker in situ 428304794 Active 2016 MELINDA PEREYRA MD [address] [place] [address], [phone] , [facility] 7 09:51:38 Long-term current use of anticoagu lant 475573968 Active 2016 Effient/a spirin MELINDA PEREYRA MD [address] [place] [address], [phone] , [facility] 7 09:51:53 Dyslipide kristen 936668333 Active 2018 MELINDA PEREYRA MD [address] [place] [address], [phone] , [facility] 9 10:19:51 Sick sinus syndrome 98477253 Active 2014 From Automated Load;Prov ider: Melinda Pereyra;Stat us: Active Not Available [facility] 6 06:27:04 Hypertens kimberly disorder 47793960 Active 2014 From Automated Load;Prov ider: Melinda Pereyra;Stat us: Active Not Available [facility] 6 06:27:04 Coronary arteriosc lerosis in [place] artery 95292722204 07 Active 2014 From Automated Load;Prov ider: Melinda Pereyra;Stat us: Active Not Available [facility] 06:27:04 Problem Notes None recorded. Procedures Surgical History Date Name Laterality Status Provider Name and Address Organization Details Recorded Time 04/27/20 21 [facility] 09:40:14 08/22/19 17 Cardiac Catheterization completed MELINDA PEREYRA MD [address] [place] [address], [phone], [facility] 03/31/2017 10:15:55 08/22/19 17 Stent Placement completed MELINDA PEREYRA MD [address] [place] [address], [phone], [facility] 08/21/2016 09:53:13 02/01/20 07 Cardiac Catheterization completed MELINDA PEREYRA MD [address] [place] [address], [phone], [facility] 08/21/2016 10:05:54 10/27/19 05 Pacemaker completed MELINDA PEREYRA MD [address] [place] [address], [phone], [facility] 08/21/2016 10:07:58 Other completed [facility] 07/13/2018 09:59:01 Other completed [facility] 07/13/2018 09:59:53 Imaging Results None recorded. Procedure Notes None recorded. Medical Equipment Implant LEIDY Issuing Agency Serial Number Lot Number Status Provider Name and Address Organization Details Recorded Time Medtronic FDA [id number] Cornell Block [facility] 04/14/2018 10:22:23 Allergies No known drug allergies Medications Name Sig Start Date Stop Date Status Note LastModified by Organization Details LastModified Time Prescript ion - Prior Authoriza tion Request 10/23 completed Not Available Not Available Not Available Multiple Vitamin capsule Daily active Duration : 30 days;Adam quency: daily;Me dication Descript ion: multivit loco; Dosage:1 ; Route:or al; refills: 3; Quantity :100 capsule Not Available Not Available Not Available oxybutyni n chloride ER 10 mg tablet,ex tended release 24 hr Take 1 tablet every day by oral route for 30 days. 04/22 completed Not Available Not Available Not Available tolterodi ne ER 4 mg capsule,e xtended release 24 hr Take 1 capsule every day by oral route. active Not Available Not Available No t Available hydrocodo ne 5 mg-acetam inophen 325 mg tablet Take 1 tablet as needed by oral route. 10/29 completed Not Available Not Available Not Available Lasix 40 mg tablet Take 1 tablet as needed by oral route. 04/10 completed Not Available Not Available Not Available omeprazol e 40 mg capsule,d elayed release Take 1 capsule every day by oral route. active Frequenc y: daily;Me dication Descript ion: omeprazo le; Dosage:1 ; Route:or al; refills: 0 Not Available Not Available Not Available tamsulosi n 0.4 mg capsule Take 1 capsule every day by oral route. active Not Available Not Available No t Available Celexa 20 mg tablet Daily 11/01 completed Duration : 30 days;Adam quency: daily;Me dication Descript ion: citalopr am; Dosage:1 ; Route:or al; refills: 0; Quantity :30 tablet Not Available Not Available Not Available lisinopri l 10 mg tablet Take 1 tablet every day by oral route. 2019 active Not Available Not Available Not Avai lable nitroglyc heavenly 0.4 mg sublingua l tablet As needed 2019 active Frequenc y: prn;Medi cation Descript ion: nitrogly cerin; Dosage:1 ; Route:gurrola blingual ; refills: PRN 1 yr; Quantity :25 tablet Not Available Not Available Not Available aspirin 81 mg tablet Take 1 tablet every day by oral route. 2023 active Frequenc y: daily;Me dication Descript ion: aspirin; Dosage:1 ; Route:or al; refills: PRN 1 yr; Quantity :100 enteric coated tablet Not Available Not Available Not Available lisinopri l 5 mg tablet Daily 04/25 completed Frequenc y: daily;Me dication Descript ion: lisinopr il; Dosage:1 ; Route:or al; refills: PRN 1 yr; Quantity :90 tablet Not Available Not Available Not Available Wellbutri n 100 mg tablet Take 1 tablet every day by oral route. active Frequenc y: daily;Me dication Descript ion: bupropio n; Dosage:1 ; Route:or al; refills: 0; Quantity :3 tablet Not Available Not Available Not Available oxaprozin 600 mg tablet Take 1 tablet twice a day by oral route. 07/13 completed Not Available Not Available Not Available atenolol 50 mg tablet Take 1 tablet every day by oral route. 2011 active Frequenc y: daily;Me dication Descript ion: atenolol ; Dosage:1 ; Route:or al; refills: PRN 1 yr; Quantity :90 tablet Not Available Not Available Not Available ezetimibe 10 mg tablet Take 1 tablet every day by oral route. active Not Available Not Available No t Available rosuvasta tin 10 mg tablet Take 1 tablet by oral route at bedtime. 2022 active Not Available Not Available Not Avai lable Cipro should be done in a week 04/10 completed Not Available Not Available Not Available garlic qd 04/22 completed Not Available Not Available Not Available Vitamin D daily 10/30 completed Not Available Not Available Not Available Metamucil active Medicati on Descript ion: psyllium ; Dosage:a s directed ; Route:or al; refills: 0 Not Available Not Available Not Available KCl-20 As needed 04/10 completed Not Available Not Available Not Available PreserVis ion AREDS qd active Not Available Not Available No t Available Multaq 400 mg tablet Take 1 tablet twice a day by oral route. 07/13 completed Not Available Not Available Not Available Effient 10 mg tablet 08/25 completed Not Available Not Available Not Available Probiotic daily active Not Available Not Ariana ilable Not Available Xarelto 20 mg tablet TAKE 1 TABLET BY MOUTH ONCE DAILY 2023 active Not Available Not Available Not Avai lable Vitals Date Recorded Body height Oxygen saturation Oxygen saturation in Arterial blood by Pulse oximetry Heart rate Body mass index (BMI) Body weight Systolic blood pressure Diastolic blood pressure Provider Name and Address Organization Details Last Updated DateTime 4 185.42 cm 95 % 95 % 73 /min 50 kg/m2 938403. 21 g 146 mm[Hg] 88 mm[Hg] Colette Rock [facility] 4 10:59:06 Date Recorded Body height Body mass index (BMI) Body weight Oxygen saturation Oxygen saturation in Arterial blood by Pulse oximetry Inhaled oxygen flow rate Heart rate Systolic blood pressure Diastolic blood pressure Provider Name and Address Organization Details Last Updated DateTime 3 185.42 cm 53.1 kg/m2 226829. 83 g 91 % 91 % 2 L/min 67 /min 122 mm[Hg] 70 mm[Hg] June Echeverria [facility] 3 11:39:31 Date Recorded Body height Body mass index (BMI) Body weight Oxygen saturation Oxygen saturation in Arterial blood by Pulse oximetry Inhaled oxygen flow rate Heart rate Systolic blood pressure Diastolic blood pressure Provider Name and Address Organization Details Last Updated DateTime 2 185.42 cm 52.6 kg/m2 856416. 36 g 94 % 94 % 2 L/min 52 /min 126 mm[Hg] 78 mm[Hg] Agueda Gonzalez [facility] 2 11:10:41 Date Recorded Body height Body mass index (BMI) Body weight Oxygen saturation Oxygen saturation in Arterial blood by Pulse oximetry Inhaled oxygen flow rate Heart rate Systolic blood pressure Diastolic blood pressure Provider Name and Address Organization Details Last Updated DateTime 3 185.42 cm 52.3 kg/m2 313695. 38 g 94 % 94 % 2 L/min 67 /min 140 mm[Hg] 80 mm[Hg] June Echeverria [facility] 3 11:15:38 Date Recorded Body height Body mass index (BMI) Body weight Oxygen saturation Oxygen saturation in Arterial blood by Pulse oximetry Heart rate Systolic blood pressure Diastolic blood pressure Provider Name and Address Organization Details Last Updated DateTime 4 185.42 cm 50.5 kg/m2 346895. 72 g 91 % 91 % 84 /min 136 mm[Hg] 62 mm[Hg] Nena Lopez [facility] 4 12:07:21 Social History Question Answer Notes LastModified by Organizat ion Details LastModified Time Tobacco Smoking Status Former Smoker Agueda Gonzalez [facility] 08/12/2016 14:13:10 How Much Tobacco Do You Chew? None [email or web address] Information not available 07/13/2018 When Did You Quit Smoking? 11-15yearssi [email or web address] ette [email or web address] Information not available 03/31/2017 Marital Status Informati on not available 06/28/2016 What Was The Date Of Your Most Recent Tobacco Screening? 04/30/2024 [email or web address] Information not available 04/30/2024 What Is Your Relationship Status? [email or web address] Information not available 11/01/2022 Has Tobacco Cessation Counseling Been Provided? No [email or web address] Information not available 10/29/2021 Have You Recently Traveled Abroad? No [email or web address] Information not available 11/01/2022 Sex: Male Functional Status Question Answer Note LastModified by Organizat ion Details LastModified Time Do you or have you ever used any other forms of tobacco or nicotine? No [email or web address] Information not available 10/29/2021 What is your level of alcohol consumption? Occasional Information not available 06/28/2016 Do you or have you ever used smokeless tobacco? Never used smokeless tobacco [email or web address] Information not available 01/18/2019 Do you or have you ever used e-cigarettes or vape? Never used electronic cigarettes Information not available 01/18/2019 Mental Status None recorded. Family History Relationship Description Onset Age of this Age Resolved Age Notes LastModified by Organization Details LastModified Time Unspecified Relation Heart disease [email or web address] Not available 06/12 09:25:27 Medical History Condition Response Coronary Artery Disease N Gout N Other N Atrial Fibrillation Y Kidney Stones N Hyperthyroidism N Blood Transfusion N COPD N Depression N Lung Disease N Hypothyroidism N Breast Problem N Pacemaker Y Difficulty Swallowing N Anxiety Disorder Y Meniere's disease N Muscle, Joint, or Bone Problems N Vision or Eye Problems N Arthritis Y Infertility N Polyps N Blood Clot N Acid Reflux (GERD) N Cancer N Stroke N Varicosities N History of Blood Thinners Y Endometriosis N Bladder or Kidney Problems N Blood Thinners Y High Cholesterol Y Liver Disease N Fibromyalgia N Headaches N Kidney Disease N Allergies/Hayfever N Heart Problems N Parkinson's Disease N Ear or Hearing Problems N Hospitalizations N Alzheimer's N Thyroid Problems N GI Problems N Eating Disorder N Skin Problems N Anemia N Constipation N Mental Illness N Diabetes N Ovarian Cancer N Seizures/Epilepsy N Tuberculosis N AIDS/HIV N Eczema N Diverticulitis N Asthma N Reflux/GERD N Sleep Apnea Y GERD/Reflux Y Hepatitis N Heart Disease Y Pulmonary Embolism N Chronic Ear Infections N Pre-Eclampsia N Hypertension Y Chicken Pox N Osteoporosis N Thrombophilias N Immunizations Vaccine Type Date Status Note Provider Nam e and Address Organization Details Recorded Time Influenza, split virus, quadrivalent, preservative 7 completed Charlene Li [facility] 03/31/2017 10:07:27 COVID-19, mRNA, LNP-S, PF, 100 mcg/0.5mL dose or 50 mcg/0.25mL dose 1 completed Agueda Gonzalez [facility] 10/23/2020 12:05:21 COVID-19, mRNA, LNP-S, PF, 100 mcg/0.5mL dose or 50 mcg/0.25mL dose 1 completed Agueda Gonzalez [facility] 10/23/2020 12:05:29 COVID-19, mRNA, LNP-S, PF, 100 mcg/0.5mL dose or 50 mcg/0.25mL dose 2 completed Agueda Gonzalez [facility] 10/29/2021 10:05:34 Past Encounters Encounter ID Performer Location Encounter Start Date Encounter Closed Date Diagnosis/Indication Diagnosis SNOMED-CT Code Diagnosis ICD10 Code Diagnosis Note [id number] MELINDA PEREYRA MD CARDIOLOG [address] [place] [address] 07/08/2016 09:45:20 07/08/2016 12:29:49 Coronary arteriosclerosis in [place] artery [id number] 107 I25.10 Medication changes, as well as new medication s were reviewed and discussed in detail including benefit and risk of therapy. The patient is otherwise doing well on current management . No new active problems identified . Chronic problems are all stable. Patient is to continue current regimen without change. All questions answered and regimen reviewed. Patient is to call for any change in status.Fee l the chest discomfort is experience d cardiac in nature and I don't feel further testing is indicated at this time. Sick sinus syndrome 3608 3008 I49.5 Paced OK. Hypertensive disorder 38 258622 I10 Management of this problem was reviewed with the patient. No changes recommende d, status for this problem is stable at this time. Atypical chest pain 1025 36742 R07.89 See above [id number] MELINDA PEREYRA MD CARDIOLOG Y [facility] CLOS[facility] [address] [place] [address] 08/09/2016 14:41:05 08/09/2016 16:08:42 Coronary arteriosclerosis in [place] artery [id number] 107 I25.10 His symptoms sounds as if they've progressed with episodes of angina at rest. I've advised him to take nitroglyce rin and I feel that we will need to arrange cardiac catheteriz ation. In light of his morbid obesity, I recommend a radial or brachial approach.R isk and benefit of cardiac catheteriz ation and possible coronary interventi on explained. The patient understand s indication s, procedure, risk and benefits and wishes to proceed. The patient was given Cath instructio n booklet to review before procedure. It has been explained that a satisfacto ry result is expected, possible risks include , heart attack, stroke, bleeding, infection, damage to adjacent tissues or organs, swelling, pain, or medication reaction. Risk is greater than normal in light of the following comorbid factors: Morbid obesity, prior history of CAD, sick sinus syndrome and unstable pattern of chest discomfort . Sick sinus syndrome 3608 3008 I49.5 Paced OK. Hypertensive disorder 38 774775 I10 Management of this problem was reviewed with the patient. No changes recommende d, status for this problem is stable at this time. [id number] MELINDA PEREYRA MD CARDIOLOG Y [facility] [address] [facility] ,[address] [place] [address] 09/30/2016 08:42:27 09/30/2016 09:49:01 Coronary arteriosclerosis in [place] artery [id number] 107 I25.118 Medication changes, as well as new medication s were reviewed and discussed in detail including benefit and risk of therapy. The patient is otherwise doing well on current management . No new active problems identified . Chronic problems are all stable. Patient is to continue current regimen without change. All questions answered and regimen reviewed. Patient is to call for any change in status. Long-term current use of anticoagulant 018440858 Z79.01 I discussed alternativ es to Effient and suggested that he may be on clopidogre l if omeprazole was discontinu ed due to possible drug interactio n. Alternativ es would be pantoprazo le, famotidine or ranitidine . He will check with his doctor regarding choices for better insurance coverage. If it can be on one of these alternativ e agents, he can be changed to clopidogre l 75 mg daily. Cardiac yo alba in situ 155609175 Z95.0 Assessment was performed of the implanted device. Any needed adjustment s and setting changes were personally supervised by me and are documented in follow-up form. The device is functionin g well. The patient was instructed to continue in the device surveillan ce program appropriat e for the device. DICKSON 10.5 years. 99.6% atrial pacing with rare ventricula r pacing. [id number] MELINDA PEREYRA MD CARDIOLOG Y [address] [place] [address] 03/31/2017 09:57:41 03/31/2017 11:28:58 Coronary arteriosclerosis in [place] artery [id number] 107 I25.10 Medication changes, as well as new medication s were reviewed and discussed in detail including benefit and risk of therapy. The patient is otherwise doing well on current management . No new active problems identified . Chronic problems are all stable. Patient is to continue current regimen without change. All questions answered and regimen reviewed. Patient is to call for any change in status. I advised him not to schedule any elective surgery until one year after stent implant so that his Effient may be discontinu ed. Hypertensive disorder 38 465003 I10 Management of this problem was reviewed with the patient. No changes recommende d, status for this problem is stable at this time. Cardiac yo alba in situ 476619628 Z95.0 Remote pacemaker check 01/10/2017. Estimated DICKSON 10 years. All pacemaker parameters okay. No AF. Long-term current use of anticoagulant 802353905 Z79.01 Dual antiplatel et therapy:As pirin and Effient. [id number] MELINDA PEREYRA MD CARDIOLOG Y [address] [place] [address] 08/25/2017 09:42:57 08/25/2017 14:51:19 Coronary arteriosclerosis in [place] artery 1204586094 107 I25.10 Medication changes, as well as new medication s were reviewed and discussed in detail including benefit and risk of therapy. The patient is otherwise doing well on current management . No new active problems identified . Chronic problems are all stable. Patient is to continue current regimen without change. All questions answered and regimen reviewed. Patient is to call for any change in status.I advised him not to schedule any elective surgery until one year after stent implant so that his Effient may be discontinu ed. RTC: 6 months, no testing. Hypertensive disorder 38 020969 I10 Management of this problem was reviewed with the patient. No changes recommende d, status for this problem is stable at this time. Cardiac pa anjali in situ 503982192 Z95.0 Remote pacemaker check 01/10/2017. Estimated DICKSON 10 years. All pacemaker parameters okay. No AF. Long-term current use of anticoagulant 595505861 Z79.01 He may discontinu e Effient but continue aspirin indefinite ly. [id number] MELINDA PEREYRA MD CARDIOLOG [address] [place] [address] 04/10/2018 10:31:48 04/10/2018 11:37:01 Coronary arteriosclerosis in [place] artery 4724281787 107 I25.10 Medication changes, as well as new medication s were reviewed and discussed in detail including benefit and risk of therapy. The patient is otherwise doing well on current management . No new active problems identified . Chronic problems are all stable. Patient is to continue current regimen without change. All questions answered and regimen reviewed. Patient is to call for any change in status.I advised him not to schedule any elective surgery until one year after stent implant so that his Effient may be discontinu ed. RTC: 6 months, no testing. Hypertensive disorder 38 455633 I10 Management of this problem was reviewed with the patient. No changes recommende d, status for this problem is stable at this time. Cardiac pa anjali in situ 279746080 Z95.0 Remote pacemaker check 01/10/2017. Estimated DICKSON 10 years. All pacemaker parameters okay. No AF. Paroxysmal atrial fibrillation 894885563 I48.0 His paroxysmal atrial fibrillati on was in the setting of acute respirator y failure. Analysis of his pacemaker checks have not demonstrat ed any atrial fibrillati on. I told the patient that he may discontinu e his Multaq. Computed t omography result abnormal 272008076 R93.89 CT scan sent to the hospital suggest further workup for possible renal lesion I don't feel this was performed and we will contact the patient and suggest proceeding . [id number] MELINDA PEREYRA MD CARDIOLOG Y [address] [place] [address] 07/13/2018 09:46:36 07/13/2018 10:25:21 Coronary arteriosclerosis in [place] artery 6882833619 107 I25.10 Medication changes, as well as new medication s were reviewed and discussed in detail including benefit and risk of therapy. The patient is otherwise doing well on current management . No new active problems identified . Chronic problems are all stable. Patient is to continue current regimen without change. All questions answered and regimen reviewed. Patient is to call for any change in status.I advised him not to schedule any elective surgery until one year after stent implant so that his Effient may be discontinu ed. RTC: 6 months, no testing. Hypertensive disorder 38 050748 I10 Management of this problem was reviewed with the patient. No changes recommende d, status for this problem is stable at this time. Cardiac pa cemaker in situ 593698322 Z95.0 Remote pacemaker check 01/10/2017. Estimated DICKSON 10 years. All pacemaker parameters okay. No AF. Paroxysmal atrial fibrillation 388125986 I48.0 His paroxysmal atrial fibrillati on was in the setting of acute respirator y failure. Analysis of his pacemaker checks have not demonstrat ed any atrial fibrillati on.No recurrence noted.Patel er study to assess possible recurrence . [id number] MELINDA PEREYRA MD CARDIOLOG Y [address] [place] [address] 01/18/2019 09:47:58 01/18/2019 11:26:44 Coronary arteriosclerosis in [place] artery 0788983131 107 I25.10 Medication changes, as well as new medication s were reviewed and discussed in detail including benefit and risk of therapy. The patient is otherwise doing well on current management . No new active problems identified . Chronic problems are all stable. Patient is to continue current regimen without change. All questions answered and regimen reviewed. Patient is to call for any change in status.I advised him not to schedule any elective surgery until one year after stent implant so that his Effient may be discontinu ed. RTC: 6 months, no testing. Hypertensive disorder 38 236129 I10 Management of this problem was reviewed with the patient. No changes recommende d, status for this problem is stable at this time. Cardiac yo alba in situ 441609220 Z95.0 Remote pacemaker check 01/10/2017. Estimated DICKSON 10 years. All pacemaker parameters okay. No AF. Paroxysmal atrial fibrillation 407679506 I48.0 His paroxysmal atrial fibrillati on was in the setting of acute respirator y failure. Analysis of his pacemaker checks have not demonstrat ed any atrial fibrillati on.No recurrence noted.Patel er study to assess possible recurrence . Dyslipidemia 764753591 E 78.5 He takes ezetimibe and once per week statin. LDL cholestero l is 54.Most recent testing reviewed. All laboratory measuremen ts in appropriat e parameters on current medical therapy. This was reviewed and discussed with the patient and all questions answered. [id number] MELINDA PEREYRA MD CARDIOLOG [address] ,[address] [place] [address] 10/28/2019 10:34:15 10/28/2019 10:40:12 Coronary arteriosclerosis in [place] artery 3710713722 107 I25.10 Medication changes, as well as new medication s were reviewed and discussed in detail including benefit and risk of therapy. The patient is otherwise doing well on current management . No new active problems identified . Chronic problems are all stable. Patient is to continue current regimen without change. All questions answered and regimen reviewed. Patient is to call for any change in status.I advised him not to schedule any elective surgery until one year after stent implant so that his Effient may be discontinu ed. RTC: 6 months, no testing. Hypertensive disorder 38 352648 I10 Management of this problem was reviewed with the patient. No changes recommende d, status for this problem is stable at this time. Cardiac yo alba in situ 830371567 Z95.0 Device remote check reviewed. Estimated device DICKSON assessed. All pacing parameters appropriat e. No significan t arrhythmia s identified . Paroxysmal atrial fibrillation 996967361 I48.0 His paroxysmal atrial fibrillati on was in the setting of acute respirator y failure. Analysis of his pacemaker checks have not demonstrat ed any atrial fibrillati on.No recurrence noted.Patel er study to assess possible recurrence . Dyslipidemia 456109945 E 78.5 He takes ezetimibe and once per week statin. LDL cholestero l is 54.Most recent testing reviewed. All laboratory measuremen ts in appropriat e parameters on current medical therapy. This was reviewed and discussed with the patient and all questions answered. [id number] MELINDA PEREYRA MD CARDIOLOG Y [address] [place] [address] 04/25/2020 12:12:27 04/25/2020 12:17:32 Coronary arteriosclerosis in [place] artery 9190263522 107 I25.10 Medication changes, as well as new medication s were reviewed and discussed in detail including benefit and risk of therapy. The patient is otherwise doing well on current management . No new active problems identified . Chronic problems are all stable. Patient is to continue current regimen without change. All questions answered and regimen reviewed. Patient is to call for any change in status.I advised him not to schedule any elective surgery until one year after stent implant so that his Effient may be discontinu ed. RTC: 6 months, no testing. Hypertensive disorder 38 225291 I10 Management of this problem was reviewed with the patient. No changes recommende d, status for this problem is stable at this time. Watch salt. Increase lisinopril . Cardiac pa cemaker in situ 011948017 Z95.0 Device remote check reviewed. Estimated device DICKSON assessed. All pacing parameters appropriat e. No significan t arrhythmia s identified . Paroxysmal atrial fibrillation 958073159 I48.0 His paroxysmal atrial fibrillati on was in the setting of acute respirator y failure. Analysis of his pacemaker checks have not demonstrat ed any atrial fibrillati on.No recurrence noted.Patel er study to assess possible recurrence . Dyslipidemia 293289034 E 78.5 He takes ezetimibe and once per week statin. LDL cholestero l is 54.Most recent testing reviewed. All laboratory measuremen ts in appropriat e parameters on current medical therapy. This was reviewed and discussed with the patient and all questions answered. [id number] MELINDA PEREYRA MD CARDIOLOG Y [place] [address] [place] [address] 10/23/2020 11:47:22 10/23/2020 14:13:22 Coronary arteriosclerosis in [place] artery 6659036003 107 I25.10 Medication changes, as well as new medication s were reviewed and discussed in detail including benefit and risk of therapy. The patient is otherwise doing well on current management . No new active problems identified . Chronic problems are all stable. Patient is to continue current regimen without change. All questions answered and regimen reviewed. Patient is to call for any change in status.I advised him not to schedule any elective surgery until one year after stent implant so that his Effient may be discontinu ed. RTC: 6 months, no testing. Hypertensive disorder 38 181154 I10 Management of this problem was reviewed with the patient. No changes recommende d, status for this problem is stable at this time. Cardiac pa cemaker in situ 974589642 Z95.0 Device remote check reviewed. Estimated device DICKSON assessed. All pacing parameters appropriat e. No significan t arrhythmia s identified . Paroxysmal atrial fibrillation 828641995 I48.0 His paroxysmal atrial fibrillati on was in the setting of acute respirator y failure. Analysis of his pacemaker checks have not demonstrat ed any atrial fibrillati on.No recurrence noted.Patel er study to assess possible recurrence . Dyslipidemia 631704622 E 78.5 He takes ezetimibe and once per week statin. LDL cholestero l is 54.Most recent testing reviewed. All laboratory measuremen ts in appropriat e parameters on current medical therapy. This was reviewed and discussed with the patient and all questions answered. [id number] GIANA ECHEVERRIA MD CARDIOLOG Y [address] [place] [address] 04/27/2021 09:36:49 04/27/2021 10:28:35 Coronary arteriosclerosis in [place] artery 1201199657 107 I25.10 Hypertensive disorder 38 626778 I10 Cardiac pa cemaker in situ 905262483 Z95.0 Last in-office device check: 04/27/2021 Recommend quarterly remote device checks and annual in office interrogat ion. Paroxysmal atrial fibrillation 639228075 I48.0 Device check 04/27/2021 shows multiple episodes of AT/AF.Thes e appear to be clustered in November and December.His most recent episode occurred in late February. Longest episode between 12 and 24 hours.HILDA SVasc = 3. Dyslipidemia 803381466 E 78.5 Body mass index 40+ - severely obese 955047355 Z68.43 [id number] GIANA ECHEVERRIA MD CARDIOLOG Y [address] [place] [address] 09/11/2021 15:14:19 09/11/2021 15:15:43 Coronary arteriosclerosis in [place] artery 8785018618 107 I25.10 Hypertensive disorder 38 300631 I10 Cardiac pa cemaker in situ 340932711 Z95.0 Last in-office device check: 04/27/2021 Recommend quarterly remote device checks and annual in office interrogat ion. Paroxysmal atrial fibrillation 279371826 I48.0 Device check 04/27/2021 shows multiple episodes of AT/AF.Thes e appear to be clustered in November and December.His most recent episode occurred in late February. Longest episode between 12 and 24 hours.HILDA SVasc = 3. Recommend reduced Xarelto dosing for ischemic stroke risk reduction if he develops creatinine clearance 15-49ml/mi n Dyslipidemia 403570276 E 78.5 Body mass index 40+ - severely obese 864385047 Z68.43 [id number] GIANA ECHEVERRIA MD CARDIOLOG Y [address] [place] [address] 10/29/2021 09:55:39 10/29/2021 11:23:45 Coronary arteriosclerosis in [place] artery 0080645634 107 I25.10 Hypertensive disorder 38 249359 I10 Cardiac pa cemaker in situ 704360449 Z95.0 Last in-office device check: 04/27/2021 Recommend quarterly remote device checks and annual in office interrogat ion. Paroxysmal atrial fibrillation 869685107 I48.0 Device check 04/27/2021 shows multiple episodes of AT/AF.Thes e appear to be clustered in November and December.His most recent episode occurred in late February. Longest episode between 12 and 24 hours.HILDA SVasc = 3. Recommend reduced Xarelto dosing for ischemic stroke risk reduction if he develops creatinine clearance 15-49ml/mi n Dyslipidemia 515244552 E 78.5 Obese 362826905 E66.9 [id number] GIANA ECHEVERRIA MD CARDIOLOG Y [address] [place] [address] 04/22/2022 10:42:54 04/22/2022 11:42:49 Coronary arteriosclerosis in [place] artery 9163068821 107 I25.10 Cardiac pa cemaker in situ 636007555 Z95.0 Last in-office device check: 04/22/2022 Recommend quarterly remote device checks and annual in office interrogat ion. Paroxysmal atrial fibrillation 648619351 I48.0 Device check 04/27/2021 shows multiple episodes of AT/AF.Thes e appear to be clustered in November and December.His most recent episode occurred in late February. Longest episode between 12 and 24 hours.HILDA SVasc = 3. Recommend reduced Xarelto dosing for ischemic stroke risk reduction if he develops creatinine clearance 15-49ml/mi n Hypertensive disorder 38 254196 I10 Dyslipidemia 021866553 E 78.5 Obese 368604632 E66.9 [id number] GIANA ECHEVERRIA MD CARDIOLOG Y [address] [place] [address] 11/01/2022 11:20:33 11/01/2022 12:21:14 Coronary arteriosclerosis in [place] artery 4353965113 107 I25.10 Cardiac pa cemaker in situ 361391879 Z95.0 Last in-office device check: 04/22/2022 Recommend quarterly remote device checks and annual in office interrogat ion. Paroxysmal atrial fibrillation 867024901 I48.0 Device check 04/27/2021 shows multiple episodes of AT/AF.Thes e appear to be clustered in November and December.His most recent episode occurred in late February. Longest episode between 12 and 24 hours.HILDA SVasc = 3. Recommend reduced Xarelto dosing for ischemic stroke risk reduction if he develops creatinine clearance 15-49ml/mi n Hypertensive disorder 38 537369 I10 Dyslipidemia 607715759 E 78.5 Obese 585103012 E66.9 Renewal of prescription 339059755 Z76.0 [id number] GIANA ECHEVERRIA MD CARDIOLOG Y [address] [place] [address] 04/25/2023 11:01:40 04/25/2023 11:52:52 Coronary arteriosclerosis in [place] artery 8043463656 107 I25.10 a. 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 Bifurcatin g left main.LAD ENGINEERING MANAGER at the first septal. Retrograde filling from LCx and RCA.RCA dominant for posterior circulatio n, 10-20% plaque in prox and mid RCA.PCI with 3.5 x 13-mm CYPHER stent to LAD. A 3.0 x 18-mm stent was applied across the proximal LAD. This stent jailed a significan t diagonal branch. Cath 08/21/2016: Normal LV function. Patent stents. New 90% stenosis in PLB of RCA.PCI with Synergy 3.5x20mm Cardiac pa cemaker in situ 222854326 Z95.0 Last in-office device check: 04/25/2023 Recommend quarterly remote device checks and annual in office interrogat ion. Paroxysmal atrial fibrillation 801896444 I48.0 Device check 04/27/2021 shows multiple episodes of AT/AF.Thes e appear to be clustered in November and December.His most recent episode occurred in late February. Longest episode between 12 and 24 hours.HILDA SVasc = 3. Recommend reduced Xarelto dosing for ischemic stroke risk reduction if he develops creatinine clearance 15-49ml/mi n Hypertensive disorder 38 007164 I10 Dyslipidemia 004805081 E 78.5 Obese 190013850 E66.9 Renewal of prescription 400779046 Z76.0 [id number] GIANA ECHEVERRIA MD CARDIOLOG Y [address] [place] [address] 10/31/2023 10:52:03 11/04/2023 09:01:44 Coronary arteriosclerosis in [place] artery 3345418688 107 I25.10 a. 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 Bifurcatin g left main.LAD ENGINEERING MANAGER at the first septal. Retrograde filling from LCx and RCA.RCA dominant for posterior circulatio n, 10-20% plaque in prox and mid RCA.PCI with 3.5 x 13-mm CYPHER stent to LAD. A 3.0 x 18-mm stent was applied across the proximal LAD. This stent jailed a significan t diagonal branch. Cath 08/21/2016: Normal LV function. Patent stents. New 90% stenosis in PLB of RCA.PCI with Synergy 3.5x20mm Cardiac pa cemaker in situ 068942030 Z95.0 Last in-office device check: 10/31/2023 ecommend quarterly remote device checks and annual in office interrogat ion. Paroxysmal atrial fibrillation 108232533 I48.0 Device check 04/27/2021 shows multiple episodes of AT/AF.Thes e appear to be clustered in November and December.His most recent episode occurred in late February. Longest episode between 12 and 24 hours.HILDA SVasc = 3. Recommend reduced Xarelto dosing for ischemic stroke risk reduction if he develops creatinine clearance 15-49ml/mi n Hypertensive disorder 38 619619 I10 Dyslipidemia 404761042 E 78.5 Obese 123560466 E66.9 [id number] GIANA ECHEVERRIA MD CARDIOLOG Y [address] [place] [address] 04/30/2024 11:18:42 04/30/2024 12:20:09 Coronary arteriosclerosis in [place] artery [id number] 107 I25.10 a. 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 Bifurcatin g left main.LAD ENGINEERING MANAGER at the first septal. Retrograde filling from LCx and RCA.RCA dominant for posterior circulatio n, 10-20% plaque in prox and mid RCA.PCI with 3.5 x 13-mm CYPHER stent to LAD. A 3.0 x 18-mm stent was applied across the proximal LAD. This stent jailed a significan t diagonal branch. Cath 08/21/2016: Normal LV function. Patent stents. New 90% stenosis in PLB of RCA.PCI with Synergy 3.5x20mm Cardiac pa cemaker in situ [id number] Z95.0 Last in-office device check: 04/30/2024 Recommend quarterly remote device checks and annual in office interrogat ion. Paroxysmal atrial fibrillation [id number] I48.0 Device check 04/27/2021 shows multiple episodes of AT/AF.Thes e appear to be clustered in November and December.His most recent episode occurred in late February. Longest episode between 12 and 24 hours.HILDA SVasc = 3. Recommend reduced Xarelto dosing for ischemic stroke risk reduction if he develops creatinine clearance 15-49ml/mi n Hypertensive disorder 38 [id number] I10 Dyslipidemia [id number] E 78.5 Obese [id number] E66.9 Health Concerns Section Related Observation LastModified by Organization Detai ls LastModified Time None Recorded Concern Status LastModified by Organization Details LastModified Time None Recorded Advance Directives Directive None Recorded Payers Insurance Date Sequence Insurance Name Policy Number Policy Muse Covered Member ID Muse Member ID Guarantor Name 09/20/2024 3 [place] [id number] Josh Jain Wohlwinder [id number] Josh Jain Wohlwinder 09/20/2024 2 [place]DEMN[place] [id number] Josh Jain Wohlwinder [id number] Josh Jain Wohlwinder 09/20/2024 2 [employer] (INDEMNITY) [id number] Josh Jain Woteeteewinder [id number] Josh Jain Woteeteewinder 09/20/2024 1 [place] Josh Jain Woteeteewinder [id number] Josh Gilmorewinder Notes Date Note Type Note Provider Name and Address Organization Details Recorded Time 04/22/2022 text/html CARDIOVASCULAR HISTORY:# Coronary artery disease s/p ENGINEERING MANAGER intervention 01/2007, [facility] to [facility]B 08/2016a. Cath 01/31/2007: ENGINEERING MANAGER of LADLVgram with EF 35%, severe hypokinesis of the anterior septal and apical wall. Bifurcating left main.LAD ENGINEERING MANAGER at the first septal. Retrograde filling from LCx and RCA.RCA dominant for posterior circulation, 10-20% plaque in prox and mid RCA.PCI with 3.5 x 13-mm CYPHER stent to LAD. A 3.0 x 18-mm stent was applied across the proximal LAD. This stent jailed a significant diagonal branch. Cath 08/21/2016: Normal LV function. Patent stents. New 90% stenosis in PLB of RCA.PCI with Synergy 3.5x20mm # Sinus node dysfunction s/p Medtronic dual chambera. Original implantation in . Generator change, 07/13/2014. # Class 3 Obesity# Obstructive Sleep Apnea # [facility] experienced acute hypoxic respiratory failure most likely related to his sleep apnea. CTA chest w no pulmonary embolism.He developed paroxysmal atrial fibrillation and was discharged on Multaq. # Hypertension# Dyslipidemia 04/27/2021: 6 month office visit regarding ASCVD.Stable shortness of breath with exertion. He finds it difficult to climb into his truck.Unfortunately he remains severely obese. Weight unchanged from last visit, 400lbs / BMI 52. There are no recent labs for review. His 12 lead EKG today demonstrates atrial pacing with first-degree AV block.Overall heart rate 68 bpm. QRS duration 100 ms, QTc 448 ms. Pacemaker interrogation was reviewed at today's visit, and all questions were addressed.Device: Medtronic Adapta [id number]: 07/13/2014Mode: DDDR 60Pacin.8% AP VSEvents: Event counters had not been cleared from September 2016. These were reset today. He has had multiple episodes of AT/AF. He is not currently using an anticoagulant despite CHADSVasc score of 3. We discussed that aspirin therapy is not protective against the development of ischemic stroke in patients that have paroxysmal atrial fibrillation and CHADSVasc of 2 or more, and a DOAC is recommended. He would prefer to continue to monitor the frequency and duration before making this change. 09/11/2021: Telephone encounterNo interval changes since his last in office visit.His recent remote device check showed another lengthy episode of atrial fibrillation on Jul 08, lasting 20 hours. He has had multiple documented episodes of AT/AF. He is not currently using an anticoagulant despite CHADSVasc score of 3. We again discussed that aspirin therapy is not protective against the development of ischemic stroke in patients that have paroxysmal atrial fibrillation and CHADSVasc of 2 or more, and a DOAC is recommended. At today's visit, he is willing to start a DOAC in addition to his ASA-81mg. I reviewed the available options, and the risks and expected benefits. After consideration of his options, he would like to try Xarelto. 10/29/2021: Short interval followup after initiation of DOAC for AFib.Former patient of Dr Melinda Pereyra, from [place], [place]. He reports that his overall health has been stable. He has tolerated the introduction of DOAC without any noticeable bleeding. He has not had any episodes of exertional chest pain since last visit, but continues to struggle with his breathing. At his last visit, we have discussed obtaining a pulse oximeter, which he did. He apparently has seen his oxygen levels dropping into the high 70s and low 80s with exertion. I recommended that he discuss this with Dr. Bowden, as he appears to warrant supplemental oxygen with exertion. No cough or wheezing reported. He remains compliant with CPAP therapy.No edema. Weight unchanged from last visit, 402lbs / BMI 52.No palpitations reported. 04/22/2022: 6-month follow-up regarding paroxysmal atrial fibrillation (on Xarelto) He reports that his overall health has been stable.He has been started on supplemental oxygen and has been feeling much better.He remains compliant with CPAP therapy.His weight is unchanged from last visit, 399lbs / BMI 52.6No edema noted.He is not aware of his AFib, but his notes that there were occasions when he just does not feel well , may represent times when he is out of rhythm. His longest episode of atrial fibrillation has been around 20 hours.No episodes of epistaxis, or GI bleeding. His pacemaker system was interrogated at today's visit, and I reviewed the findings with him. See scanned document for complete results. Device: Medtronic Adapta Implant: 07/13/2014 Mode: MVP 60 Pacin.5% AP, 0.2% RVP Events: Total A. fib burden around 1%. Longest episode 48 hours. No permanent programming changes were made to his device. Lab work drawn on 03/18/2022 was reviewed: CBC: Not drawn BMP: Creatinine 1.00, EGFR 74 Lipid panel: 111/32/64 Liver function panel: Normal. AST 25 ALT 16 ALP 86. GIANA ECHEVERRIA MD [address] [place], [phone], [facility] 04/22/2022 11:52:09 11/01/2022 text/html CARDIOVASCULAR HISTORY:# Coronary artery disease s/p ENGINEERING MANAGER intervention 01/2007, [facility] to PLB 08/2016a. Cath 01/31/2007: ENGINEERING MANAGER of LADLVgram with EF 35%, severe hypokinesis of the anterior septal and apical wall. Bifurcating left main.LAD ENGINEERING MANAGER at the first septal. Retrograde filling from LCx and RCA.RCA dominant for posterior circulation, 10-20% plaque in prox and mid RCA.PCI with 3.5 x 13-mm CYPHER stent to LAD. A 3.0 x 18-mm stent was applied across the proximal LAD. This stent jailed a significant diagonal branch. Cath 08/21/2016: Normal LV function. Patent stents. New 90% stenosis in PLB of RCA.PCI with Synergy 3.5x20mm # Sinus node dysfunction s/p Medtronic dual chambera. Original implantation in . Generator change, 07/13/2014. # Class 3 Obesity# Obstructive Sleep Apnea # [facility] experienced acute hypoxic respiratory failure most likely related to his sleep apnea. CTA chest w no pulmonary embolism.He developed paroxysmal atrial fibrillation and was discharged on Multaq. # Hypertension# Dyslipidemia 04/22/2022: 6-month follow-up regarding paroxysmal atrial fibrillation (on Xarelto)He reports that his overall health has been stable.He has been started on supplemental oxygen and has been feeling much better.He remains compliant with CPAP therapy.His weight is unchanged from last visit, 399lbs / BMI 52.6No edema noted.He is not aware of his AFib, but his notes that there were occasions when he just does not feel well , may represent times when he is out of rhythm. His longest episode of atrial fibrillation has been around 20 hours.No episodes of epistaxis, or GI bleeding. His pacemaker system was interrogated at today's visit, and I reviewed the findings with him.See scanned document for complete results.Device: Medtronic Adapta DRImplant: 07/13/2014Mode: MVP 60Pacin.5% AP, 0.2% RVPEvents: Total A. fib burden around 1%. Longest episode 48 hours. No permanent programming changes were made to his device. Lab work drawn on 03/18/2022 was reviewed:CBC: Not drawnBMP: Creatinine 1.00, EGFR 74Lipid panel: 111/32/64Liver function panel: Normal. AST 25 ALT 16 ALP 86. 11/01/2022: 6-month follow-up regarding paroxysmal atrial fibrillation (on Xarelto)He reports that his overall health has been stable.He remains on supplemental oxygen and CPAP therapy.His weight is unchanged from last visit, 402lbs / BMI 53.1We briefly discussed consideration of semaglutide and similar products for weight loss. He will discuss this further with his primary care provider No episodes of epistaxis, or GI bleeding on Xarelto 20 mg daily Lab work drawn on 06/17/2022 was reviewed:CBC: 13.1/41.7, platelets 226BMP: Creatinine 1.00, EGFR 74 GIANA ECHEVERRIA MD [address] [place] [address], [phone], [facility] 11/02/2022 21:11:02 04/25/2023 text/html CARDIOVASCULAR HISTORY:# Coronary artery disease s/p ENGINEERING MANAGER intervention 01/2007, S[facility]ON to PLB 08/2016Cath 08/21/2016: Normal LV function.Patent stents.New 90% stenosis in PLB of RCA. PCI with Synergy 3.5x20mm# Sinus node dysfunction s/p Medtronic dual chambera. Original implantation in . Generator change, 07/13/2014. # Class 3 Obesity# Obstructive Sleep Apnea # [facility] experienced acute hypoxic respiratory failure most likely related to his sleep apnea. CTA chest: no pulmonary embolism.He developed paroxysmal atrial fibrillation and was discharged on Multaq. # Hypertension# Dyslipidemia 11/01/2022: 6-month follow-up regarding paroxysmal atrial fibrillation (on Xarelto)He reports that his overall health has been stable.He remains on supplemental oxygen and CPAP therapy.His weight is unchanged from last visit, 402lbs / BMI 53.1We briefly discussed consideration of semaglutide and similar products for weight loss. He will discuss this further with his primary care provider No episodes of epistaxis, or GI bleeding on Xarelto 20 mg daily Lab work drawn on 06/17/2022 was reviewed:CBC: 13.1/41.7, platelets 226BMP: Creatinine 1.00, EGFR 74 04/25/2023: 6-month follow-upa. Paroxysmal atrial fibrillation (on Xarelto)b. Sinus node dysfunction s/p Medtronic dual chamber 2004, Gen change 07/13/2014.c. Coronary artery disease s/p ENGINEERING MANAGER intervention 01/2007, SIMEON to PLB 08/2016d. WHO class III obesity, OSASHe reports that his overall health has been stable.He remains on supplemental oxygen and CPAP therapy.No episodes of epistaxis, or GI bleeding on Xarelto 20 mg dailyHe has lost about 6 pounds since last visit, now 397 lbs / BMI 52.3. As last visit, we discussed addition of semaglutide/similar products to assist him in weight loss, but apparently after investigating this further, he does not meet requirements for coverage from his health insurance. He anticipates having to have some dental extractions and dental implants fitted. He is working with [facility] in [place]. We reviewed instructions regarding OAC holds and resumption. His pacemaker system was interrogated at today's visit. See scanned document for complete results.Device: Medtronic Adapta DRImplant: 07/13/2014. Estimated longevity: 2.5 yearsMode: MVP 60Pacin.5% AP, 0.3% RVPEvents: AMS 0.4%. Longest episode 12 hours.No permanent programming changes were made to his device. GIANA ECHEVERRIA MD [address] [place] [address], [phone], [facility] 04/26/2023 12:45:03 10/31/2023 text/html CARDIOVASCULAR HISTORY:# Coronary artery disease s/p ENGINEERING MANAGER intervention 01/2007, [facility] to PLB 08/2016Cath 08/21/2016: Normal LV function.Patent stents.New 90% stenosis in PLB of RCA. PCI with Synergy 3.5x20mm# Sinus node dysfunction s/p Medtronic dual chambera. Original implantation in . Generator change, 07/13/2014. # Class 3 Obesity# Obstructive Sleep Apnea # [facility] experienced acute hypoxic respiratory failure most likely related to his sleep apnea. CTA chest: no pulmonary embolism.He developed paroxysmal atrial fibrillation and was discharged on Multaq. # Hypertension# Dyslipidemia 04/25/2023: 6-month follow-upa. Paroxysmal atrial fibrillation (on Xarelto)b. Sinus node dysfunction s/p Medtronic dual chamber 2004, Gen change 07/13/2014.c. Coronary artery disease s/p ENGINEERING MANAGER intervention 01/2007, SIMEON to PLB 08/2016d. WHO class III obesity, OSASHe reports that his overall health has been stable.He remains on supplemental oxygen and CPAP therapy.No episodes of epistaxis, or GI bleeding on Xarelto 20 mg dailyHe has lost about 6 pounds since last visit, now 397 lbs / BMI 52.3. As last visit, we discussed addition of semaglutide/similar products to assist him in weight loss, but apparently after investigating this further, he does not meet requirements for coverage from his health insurance. He anticipates having to have some dental extractions and dental implants fitted. He is working with [facility] in [place]. We reviewed instructions regarding OAC holds and resumption. 10/31/2023: 6-month follow-upa. Paroxysmal atrial fibrillation (on Xarelto)b. Sinus node dysfunction s/p Medtronic dual chamber 2004, Gen change 07/13/2014.c. Coronary artery disease s/p ENGINEERING MANAGER intervention 01/2007, SIMEON to PLB 08/2016d. WHO class III obesity, OSASHe and his report that his overall health has been stable.As previously discussed, he had had to undergo dental extractions and have dental implants fitted. As a result, he has lost nearly 20 pounds of weight since I last saw him. His BMI remains 50.0.We had previously discussed the potential for using medication to assist in weight loss, however he has not been able to start these medications due to prohibitive cost. He remains on supplemental oxygen and CPAP therapy.He has not experienced any episodes of epistaxis, or GI bleeding on Xarelto 20 mg daily His pacemaker system was interrogated at today's visit.See Pacemate document for complete results.Device: Medtronic Adapta DRImplant: 07/13/2014. Estimated longevity: 28 monthsMode: MVP 60Pacin.5% AP, 0.3% RVPEvents: AMS 0.5% (since 04/2022).No permanent programming changes were made to his device. There are no new lab results to review since last visit. GIANA ECHEVERRIA MD [address] [place], [phone], [facility] 11/01/2023 14:03:28 04/30/2024 text/html CARDIOVASCULAR HISTORY:# Coronary artery disease s/p ENGINEERING MANAGER intervention 01/2007, SIMEON to PLB 08/2016Cath 08/21/2016: Normal LV function.Patent stents.New 90% stenosis in PLB of RCA. PCI with Synergy 3.5x20mm# Sinus node dysfunction s/p Medtronic dual chambera. Original implantation in . Generator change, 07/13/2014. # Class 3 Obesity# Obstructive Sleep Apnea # [facility] experienced acute hypoxic respiratory failure most likely related to his sleep apnea. CTA chest: no pulmonary embolism.He developed paroxysmal atrial fibrillation and was discharged on Multaq. # Hypertension# Dyslipidemia 10/31/2023: 6-month follow-upa. Paroxysmal atrial fibrillation (on Xarelto)b. Sinus node dysfunction s/p Medtronic dual chamber 2004, Gen change 07/13/2014.c. Coronary artery disease s/p ENGINEERING MANAGER intervention 01/2007, SIMEON to PLB 08/2016d. WHO class III obesity, OSASHe and his report that his overall health has been stable.As previously discussed, he had had to undergo dental extractions and have dental implants fitted. As a result, he has lost nearly 20 pounds of weight since I last saw him. His BMI remains 50.0.We had previously discussed the potential for using medication to assist in weight loss, however he has not been able to start these medications due to prohibitive cost. He remains on supplemental oxygen and CPAP therapy.He has not experienced any episodes of epistaxis, or GI bleeding on Xarelto 20 mg daily His pacemaker system was interrogated at today's visit.See Pacemate document for complete results.Device: Medtronic Adapta DRImplant: 07/13/2014. Estimated longevity: 28 monthsMode: MVP 60Pacin.5% AP, 0.3% RVPEvents: AMS 0.5% (since 04/2022).No permanent programming changes were made to his device. There are no new lab results to review since last visit. 04/30/2024: 6-month follow-upa. Paroxysmal atrial fibrillation (on Xarelto)b. Sinus node dysfunction s/p Medtronic dual chamber 2004, Gen change 07/13/2014.c. Coronary artery disease s/p ENGINEERING MANAGER intervention 01/2007, SIMEON to PLB 08/2016d. WHO class III obesity, OSASHe and his report that his overall health has been stable. He reports having symptoms suggestive of carpal tunnel syndrome in the hands have been reported with left-sided predominance, for which cortisone injections have been administered. He remains on supplemental oxygen and CPAP therapy.He has not experienced any episodes of epistaxis, or GI bleeding on Xarelto 20 mg dailyHis weight has remained stable since last visit.We had previously discussed the potential for using medication to assist in weight loss, however he has not been able to start these medications due to prohibitive cost. His pacemaker system was interrogated at today's visit.See Pacemate document for complete results.Device: Medtronic Adapta DRImplant: 07/13/2014. Estimated longevity: 24 monthsMode: MVP 60Pacin.5% AP, 0.5% RVPEvents: AMS 0.4%No permanent programming changes were made to his device. External lab work drawn on 04/06/2024 was reviewed:BMP: Creatinine 1.10, potassium 4.8Lipid panel: 115/35, direct LDL: 68LFTs: AST 24 ALT 14 ALP 70 GIANA ECHEVERRIA MD [address] [place], [phone], [facility] 04/30/2024 12:29:06
--- OUTSIDE RECORDS SUMMARY | 2024-10-15 13:05 | XMS_ITS | Data Portability ---
Author Organization [facility] Address [address] [place] [address] Assessment No assessment recorded. Plan of Treatment Reminders Order Date Submit Date Provider Last Modified By Organization Details Last Modified Time Details Appointments OV EST 15 2024 11:00A M Vega Camargo Jr, MD Not available Not available Not available Lab PSA, total + free, serum or plasma 2022 023 [email or web address] [facility] (Lab Registration) , [address] [place] [address], [id number], 11/01/2022 06:58:00 urinalysi s, dipstick 2022 023 [email or web address] [facility], [address] [place] [address], [phone], 10/17/2022 16:14:15 Referral None recorded. Procedures None recorded. Surgeries None recorded. Imaging None recorded. Medication Orders tamsulosi n 0.4 mg capsule 2023 024 [facility], [address] [place] [address], [facility], [place], [address], 10/22/2023 12:30:34 tolterodi ne ER 4 mg capsule,e xtended release 24 hr 2023 024 [facility], [address] [place] [address], [address], [place], [address], 10/22/2023 12:30:33 tamsulosi n 0.4 mg capsule 2022 023 [facility], [facility], [address], [place], [address], 10/17/2022 16:21:02 tolterodi ne ER 4 mg capsule,e xtended release 24 hr 2022 023 [facility], [facility], [address], [place], [address], 10/17/2022 16:21:01 Patient TargetsNo targets recorded. Patient InstructionsNo instructions recorded. Reason for Referral None Reported. Results Created Date Observation Date Name Description Value Unit Range Abnormal Flag Note LastModifiedBy Organization Detail LastModifiedTime 10/18/1910/17/2022 PROST ATE SPECI FIC AG (PSA) note Unles s other cedeno noted testi ng perfo rmed at: [facility] [address] [place] [address] Anson cid MD Not Available [facility] (Pre-Op Clinic) [address] [place] [address] [place], [address], 10/18/2022 02:50:31 10/18/1910/18/2022 PROST ATE SPECI FIC AG (PSA) PSA 0.36 NG/mL 0.00-4 .00 Not Available [facility] (Pre-Op [facility]) [address] [place] [address] [place], [address], 10/18/2022 02:50:31 10/18/19 23 10/17/2022 urina lysis , dipst ick Leukocytes (reference range) negati ve Not Available [facility] [address] [place] [address], [phone], 10/17/2022 15:31:23 10/18/19 23 10/17/2022 urina lysis , dipst ick Nitrite (reference range:) negati ve Not Available [facility] [address] [place] [address], [phone], 10/17/2022 15:31:23 10/18/19 23 10/17/2022 urina lysis , dipst ick Urobilinogen (reference range) 0.2 Not Available [address], [address], 10/17/2022 15:31:23 10/18/19 23 10/17/2022 urina lysis , dipst ick Protein (reference range) negati ve Not Available [address], [address], 10/17/2022 15:31:23 10/18/19 23 10/17/2022 urina lysis , dipst ick pH (reference range 5-8.5) 6.5 Not Available [address], [address], 10/17/2022 15:31:23 10/18/19 23 10/17/2022 urina lysis , dipst ick Blood (reference range:) negati ve Not Available [address], [address], 10/17/2022 15:31:23 10/18/19 23 10/17/2022 urina lysis , dipst ick Specific [place] (reference range) 1.020 Not Available [address], [address], 10/17/2022 15:31:23 10/18/19 23 10/17/2022 urina lysis , dipst ick Ketone (reference range) negati ve Not Available [address], [address], 10/17/2022 15:31:23 10/18/19 23 10/17/2022 urina lysis , dipst ick Bilirubin (reference range) negati ve Not Available [address], [address], 10/17/2022 15:31:23 10/18/19 23 10/17/2022 urina lysis , dipst ick Glucose (reference range) negati ve Not Available [facility] [address] [place] [address], [address], 10/17/2022 15:31:23 10/18/19 23 10/17/2022 urina lysis , dipst ick Color (reference range: yellow-brown ) Yellow Not Available [facility] [address] [place], [address], 10/17/2022 15:31:23 Result Notes None recorded. Problems Name Problem SNOMED Code Status Onset Date Resolution Date Notes Provider Name and Address Organization Details Recorded Time Myocardial infarction 70433017 Active 2022 Eunice sibley, [facility] [place] 3 14:52:23 Heartburn 73118913 Active 2022 Eunice isbley, [facility] [place] 3 14:52:32 Hypertensive disorder 26390029 Active 2022 Eunice sibley, [facility] [place] 3 14:52:41 Sleep apnea 00459480 Active 2022 Eunice Coffey null, [facility] [place] 3 14:52:58 Kidney stone 61658744 Active 2022 Eunice sibley, [facility] - [facility] - [place] [facility] [place] 3 14:53:07 Problem Notes None recorded. Procedures Surgical History Date Name Laterality Status Provider Name and Address Organization Details Recorded Time 5 Pacemaker/Defi brillator completed Eunice [facility] [place] 10/22/2023 11:07:18 Pacemaker monitr audible/vis completed Eunice SANTAMARIA - [facility] [place] 10/17/2022 14:53:23 Knee arthroscopy/gurrola rgery completed Eunice Coffey [facility] [place] 10/17/2022 14:53:37 Imaging Results None recorded. Procedure Notes None recorded. Medical Equipment None Reported. Allergies No known drug allergies Medications Name Sig Start Date Stop Date Status Note LastModified by Organization Details LastModified Time amoxicillin 500 mg capsule active Not Available Not Available N ot Available prednisone 10 mg tablet active Not Available Not Available No t Available azithromycin 250 mg tablet active Not Available Not Availabl e Not Available valacyclovir 1 gram tablet active Not Available Not Available Not Available tolterodine ER 4 mg capsule,extende d release 24 hr TAKE 1 CAPSULE BY MOUTH ONCE DAILY 2023 active Not Available Not Available Not Avai lable prednisone 20 mg tablet active Not Available Not Available No t Available diphenoxylate-a tropine 2.5 mg-0.025 mg tablet active Not Available Not Available Not Available omeprazole 40 mg capsule,delayed release active Not Available Not Available Not Available ondansetron 8 mg disintegrating tablet active Not Available Not Available Not Available oxycodone-aceta minophen 5 mg-325 mg tablet active Not Available Not Available Not Available bupropion HCl 100 mg tablet active Not Available Not Availabl e Not Available citalopram 20 mg tablet active Not Available Not Available No t Available tamsulosin 0.4 mg capsule TAKE 1 CAPSULE BY MOUTH ONCE DAILY 2023 active Not Available Not Available Not Avai lable lisinopril 10 mg tablet active Not Available Not Available No t Available brompheniramine -pseudoephedrin e-DM 2 mg-30 mg-10 mg/5 mL oral syrup active Not Available Not Available N ot Available atenolol 50 mg tablet active Not Available Not Available Not Available amoxicillin 500 mg-potassium clavulanate 125 mg tablet active Not Available Not Available No t Available ezetimibe 10 mg tablet active Not Available Not Available Not Available rosuvastatin 10 mg tablet active Not Available Not Available No t Available Xarelto 20 mg tablet active Not Available Not Available Not Available Vitals Date Recorded Body height Body mass index (BMI) Body weight Provider Name and Address Organization Details Last Updated DateTime 10/17/2022 182.88 cm 53.6 kg/m2 012828.99 g Eunice Coffey [facility] [place] 10/17/2022 14:52:02 Date Recorded Body height Body mass index (BMI) Body weight Body temperature Provider Name and Address Organization Details Last Updated DateTime 10/22/2023 182.88 cm 53.7 kg/m2 121115.58 g 98.2 [degF] Eunice [facility]IA [facility] [place] 10/22/2023 11:07:04 Social History Question Answer Notes LastModified by [employer] Details LastModified Time Tobacco Smoking Status Former Smoker Eunice sibley, [facility] [place] 10/22/2023 11:07:13 Do You Have An Advance Directive? No [email or web address] Information not available 10/22/2023 Are You Blind Or Do You Have Difficulty Seeing? No [email or web address] Information not available 10/22/2023 What Was The Date Of Your Most Recent Tobacco Screening? 10/16/2022 [email or web address] Information not available 10/22/2023 Are You Passively Exposed To Smoke? No Information not available 10/22/2023 Sex: Unknown Functional Status Question Answer Note LastModified by [employer] Details LastModified Time Do you use any illicit or recreational drugs? No [email or web address] Information not available 10/22/2023 What is your level of alcohol consumption? None [email or web address] Information not available 10/22/2023 What is your exercise level? None [email or web address] Information not available 10/22/2023 Mental Status Question Answer Note LastModified by Organization D etails LastModified Time Do you feel stressed (tense, restless, nervous, or anxious, or unable to sleep at night)? [id number] [email or web address] Information not available 10/22/2023 Family History Relationship Description Onset Age of this Age Resolved Age Notes LastModified by Organization Details LastModified Time Mother Heart disease [email or web address] Not available 10/17 14:53:58 Medical History Condition Response Obesity Y Vision or Eye Problems Y Heart Attack ([place]) Y Obstructive Sleep Apnea Y Past Encounters Encounter ID Performer Location Encounter Start Date Encounter Closed Date Diagnosis/Indication Diagnosis SNOMED-CT Code Diagnosis ICD10 Code Diagnosis Note [id number] Vega Camargo Jr, MD [facility] [place] [address] 10/17/2022 14:46:46 10/17/2022 15:30:47 Urgent desire to urinate 86510696 R39.15 patient with history of urinary urgency. He continues to do well on the Detrol 4 mg. He did have a flare-up about 3 weeks ago which resolved. He is to continue the Detrol 4 mg a day. Lower urin kristen tract symptoms due to benign prostatic hypertrophy 1243525423 9101 N40.1 patient with history of lower urinary tract symptoms secondary to BPH. He is doing well on the tamsulosin and is to continue. Screening for malignant neoplasm of prostate 526543934 Z12.5 patient's last PSA was 0.3 in February 2021. A repeat PSA to be performed today. [id number] Vega Camargo Jr, MD [facility] [address] [address] 10/22/2023 10:55:44 10/22/2023 11:21:46 Lower urinary tract symptoms due to benign prostatic hypertrophy 0355376651 9101 N40.1 patient with history of lower urinary tract symptoms secondary to BPH. He is doing well on the tamsulosin and is to continue. Urgent ines robert to urinate 51955490 R39.15 patient with history of urinary urgency. He continues to do well on the Detrol 4 mg. He did have a flare-up about 3 weeks ago which resolved. He is to continue the Detrol 4 mg a day. Screening for malignant neoplasm of prostate 309653758 Z12.5 recent PSA on October 01, 2023 his 0.4. PSA 1 year ago was 0.36. Patient reassured. Health Concerns Section Related Observation LastModified by Organization Detai ls LastModified Time None Recorded Concern Status LastModified by Organization Details LastModified Time None Recorded Advance Directives Directive N: Payers Insurance Date Sequence Insurance Name Policy Number Policy Muse Covered Member ID Muse Member ID Guarantor Name 10/19/2023 1 [place] Josh Alarcon [id number] Josh Alarcon 10/19/2023 2 [place] [id number] Josh Alarcon [id number] Josh Alarcon Notes Date Note Type Note Provider Name and Address Organization Details Recorded Time 10/17/2022 text/html patient is a 72-year-old white male with a history of urge incontinence. He was previously seen at [facility] in transfers care today. He was last seen in January 2022. He has a history of urinary urgency and continues on tamsulosin and tolterodine. He states he made the appointment about 3 weeks ago when he was having some increase in urge incontinence. He states that since he made the appointment those symptoms have resolved. He did not see a doctor in time and is unsure whether had associated urinary tract infection. His urinalysis today is unremarkable.Chloe fuller's last prostate cancer screening was February 2021. His PSA was 0.3 at that time. Blood work was done last month but a PSA was not included. Vega Camargo Jr, MD [address] [place] [address], [address], [address], [place] [facility] 10/17/2022 16:16:08 10/22/2023 text/html Patient is a 73-year-old white male with history of BPH, urinary urgency. Returns today in routine follow-up. He continues on tamsulosin and tolterodine for his lower urinary tract symptoms. He states some occasional urgency which is controlled.His recent PSA returned at 0.4 on October 01, 2023. Vega Camargo Jr, MD [address] [place] [address], [address], [place], [address], [place] [facility] 10/22/2023 12:29:05
[2024-10-15 19:03] LABS: Iron 81 ug/dL (49-181)
[2024-10-15 19:12] LABS: Total Iron Binding Capacity 320 ug/dL (261-462)
== END 2024-10-14 23:59 | disposition home or self-care (01) ==
LOC: LAB.DROPOF 10-15 13:01
PROVIDERS: PCP Internal Medicine; Visit Provider Internal Medicine
DX: Z12.5 Encounter for screening for malignant neoplasm of prostate (principal); E78.5 Hyperlipidemia, unspecified; I10 Essential (primary) hypertension; I50.32 Chronic diastolic (congestive) heart failure
CPT/HCPCS: 80053; 80061; 83540; 83550; 85025; G0103

== ENCOUNTER 2024-10-28 05:35 | Emergency (ER) | payer MEDICARE, BC, SELFPAY ==
--- OUTSIDE RECORDS SUMMARY | 2024-10-07 14:45 | XMS_ITS | Encounter Summary ---
Author Organization [facility] In iatives Address [address] [place] [address] Care Team Providers Care Tribal Judge Name Role Phone Unavailable Primary Care Provider Unavailabl e Reason for Visit * Reason Comments Injections Bilat hands Encounter Details Date Type Department Care Team (Late st Contact Info) Description 10/07/2024 2:45 PM EDT Office Visit [facility] Orthopedics - [address] [place] [address] Matteo Iglesias PA-C [address] [place] [address] Bilateral carpal tunnel syndrome (Primary Dx); Carpal [...] CMC Tenderness []+ []- []+ []- 1st SINGLE END SEWER Grind []+ []- []+ []- Kizzy Nodes [...] drainage, nerve damage and poor cosmetic result [place] protocol: Procedure explained and questions answered to [...] factors. Patient will follow-up with PCP for terminal operations supervisor treatment plan. I have examined and questioned the above listed patient and provided or received all documentation,establishing, confirming, and revising as necessary, the findings and statements noted. . EMR/[employer]/Vocational Horticulture Instructor disclaimer: Much of this encounter note is an electronic ruling technician/translation of spoken language to printed text. The [...] drainage, nerve damage and poor cosmetic result [place] protocol: Procedure explained and questions answered to [...]
--- NOTE | 2024-10-28 05:40 | HMH.EDGENADL ---
Discharge Plan Disposition Patient Disposition: Home, Self-Care Prescriptions Prescriptions: No Action Xarelto 20 mg tablet 20 mg PO DAILY Rx Instructions: must administer with evening meal hydrocodone-acetaminophen 7.5-325 mg tablet 1 tab PO Q8H PRN (Reason: pain) Qty: 30 0RF fluticasone propionate [Allergy Relief (fluticasone)] 50 mcg/actuation spray,suspension 1 spray intranasal BID Qty: 16 3RF Rx Instructions: administer into each nostril multivitamin Tablet 1 tab PO DAILY rosuvastatin 10 mg tablet 10 mg PO .COMPLEX Rx Instructions: 1 tab once week oxybutynin chloride 10 mg tablet extended release 24hr 10 mg PO ONCE tamsulosin 0.4 mg capsule 0.4 mg PO DAILY Qty: 90 1RF tolterodine 4 mg capsule,extended release 24hr 4 mg PO DAILY Qty: 30 5RF bupropion HCl 100 mg tablet See Rx Instructions .ROUTE .COMPLEX Qty: 90 1RF Dose Instruction: TAKE 1 TABLET BY MOUTH EVERY MORNING Rx Instructions: TAKE 1 TABLET BY MOUTH EVERY MORNING atenolol 50 mg tablet See Rx Instructions .ROUTE .COMPLEX Qty: 180 1RF Dose Instruction: TAKE 1 TABLET BY MOUTH TWICE A DAY Rx Instructions: TAKE 1 TABLET BY MOUTH TWICE A DAY omeprazole 40 mg capsule,delayed release(DR/EC) See Rx Instructions .ROUTE .COMPLEX Qty: 90 1RF Dose Instruction: TAKE 1 CAPSULE BY MOUTH ONCE DAILY Rx Instructions: TAKE 1 CAPSULE BY MOUTH ONCE DAILY citalopram 20 mg tablet 20 mg PO DAILY Qty: 90 1RF diphenoxylate-atropine [Lomotil] 2.5-0.025 mg tablet 1 tab PO Q6H PRN (Reason: diarrhea) Qty: 30 2RF ezetimibe 10 mg tablet See Rx Instructions .ROUTE .COMPLEX Qty: 90 1RF Dose Instruction: TAKE 1 TABLET BY MOUTH ONCE DAILY Rx Instructions: TAKE 1 TABLET BY MOUTH ONCE DAILY lisinopril 10 mg tablet See Rx Instructions .ROUTE .COMPLEX Qty: 90 1RF Dose Instruction: TAKE 1 TABLET BY MOUTH ONCE DAILY Rx Instructions: TAKE 1 TABLET BY MOUTH ONCE DAILY ondansetron HCl 4 MG tablet 4 mg PO TIDP PRN (Reason: Nausea And Vomiting) Qty: 12 0RF Referrals Follow up/Referrals: Jonatan Bowden MD [Primary Care Provider, Medical] - See instructions Activity Restrictions/Add. Instructions Additional Instructions/Restrictions: Please follow-up with your primary care provider. Please return to the emergency department if you develop any new or worsening symptoms or become concerned for your health. Clinical Impressions Clinical Impression: Acute viral pharyngitis Print Language Print Language: Cameroonian Discharge ED Provider: Toney Liang General Adult HPI General Chief complaint: Upper Respiratory Infection Stated complaint: sore throat Time Seen by Provider: 10/28/24 05:40 History of Present Illness HPI narrative: 74-year-old male with history of obesity, chronic oxygen requirement, heart failure presents for sore throat. He reports that started yesterday, has been worsening. Denies any fever at home. No pain in the ears. Reports a little bit of pain with swallowing but denies any difficulty with swallowing, no shortness of breath. Related Data Home Medications ?Medication ?Instructions ?Recorded ?Confirmed multivitamin 1 tab PO DAILY 12/04/20 10/14/24 rivaroxaban 20 mg tablet (Xarelto) 20 mg PO DAILY 01/21/22 10/14/24 rosuvastatin 10 mg tablet 10 mg PO .COMPLEX 11/03/23 10/14/24 oxybutynin chloride 10 mg 10 mg PO ONCE 01/06/24 10/14/24 tablet,extended release 24 hr Previous Rx's ?Medication ?Instructions ?Recorded ondansetron HCl 4 mg tablet 4 mg PO TIDP PRN Nausea And 01/02/21 Vomiting #12 tabs tamsulosin 0.4 mg capsule 0.4 mg PO DAILY #90 caps 10/21/23 tolterodine 4 mg capsule,extended 4 mg PO DAILY #30 caps 10/21/23 release 24 hr hydrocodone 7.5 mg-acetaminophen 1 tab PO Q8H PRN pain #30 tabs 11/03/23 325 mg tablet atenolol 50 mg tablet See Rx Instructions .Route 05/17/24 .COMPLEX #180 tabs bupropion HCl 100 mg tablet See Rx Instructions .Route 05/17/24 .COMPLEX #90 tabs omeprazole 40 mg capsule,delayed See Rx Instructions .Route 05/17/24 release .COMPLEX #90 caps citalopram 20 mg tablet 20 mg PO DAILY #90 tabs 06/24/24 diphenoxylate-atropine 2.5 1 tab PO Q6H PRN diarrhea #30 tabs 06/24/24 mg-0.025 mg tablet (Lomotil) fluticasone propionate 50 1 spray intranasal BID #16 grams 07/15/24 mcg/actuation nasal spray,suspension (Allergy Relief (fluticasone)) ezetimibe 10 mg tablet See Rx Instructions .Route 08/03/24 .COMPLEX #90 tabs lisinopril 10 mg tablet See Rx Instructions .Route 10/19/24 .COMPLEX #90 tabs Allergies Allergy/AdvReac Type Severity Reaction Status Date / Time No Known Allergies Allergy Verified 10/14/24 09:01 [facility] Disclaimer: The information contained in this section may have been updated after the patient was seen, as this information can be updated by other users. Medical History Hematuria Social History Smoking Status: Never smoker alcohol intake: former substance use type: denies use current occupational status: retired Travel in the last 8 weeks?: None household members: spouse housing: house Have you lived/traveled outside US in past 30 days?: No Contact w/someone who lives/traveled outside US past 30 days?: No Exposure to someone with infectious disease in past 14 days?: No Do you have a fever (greater than 100.4 F or 38 C)?: No Have you tested positive for COVID-19?: No Exposed to someone with COVID-19 in past 14 days?: No Do you have a sore throat?: Yes Do you have a cough?: No Do you have any weakness?: No Do you have any diarrhea?: No Are you experiencing any unusual bleeding?: No Do you have any muscle aches/pain?: No Do you have any abdominal pain?: No Are you experiencing loss of taste or smell?: No Other Medical History Have you received the Flu Vaccine for this season: Yes Have you received the Pneumonia Vaccine: Yes ROS Obtained: Yes All systems reviewed & no additional complaints except as documented Physical Exam General General appearance: alert, in no apparent distress and obese Head Head exam: atraumatic and normocephalic Eye Eye exam: Present normal appearance, PERRL and EOMI ENT ENT exam: Present normal external ear exam; Absent normal oropharynx (Mild posterior oropharyngeal erythema with trace exudate. Diminutive uvula) Neck Neck exam: Present normal inspection, full ROM and other (No submandibular fullness, no lymphadenopathy) Chest Chest inspection: Present normal inspection and symmetric chest wall rise; Absent tenderness Respiratory Respiratory exam: Present normal lung sounds bilaterally; Absent respiratory distress Cardiovascular Cardiovascular exam: Present regular rate and normal rhythm Abdominal Exam Abdominal exam: Present soft; Absent distention, tenderness or guarding Extremities Exam Extremities exam: Present normal inspection; Absent edema or joint swelling Back Exam Back exam: Present normal inspection; Absent tenderness Neurological Exam Neurological exam: Present alert and oriented X3; Absent motor sensory deficit Psychiatric Psychiatric exam: Present normal affect and normal mood Skin Skin exam: Present warm, dry and normal color Lymphatic Lymphatic Findings: no adenopathy Medical Decision Making Medical Records Medical records reviewed: Yes I reviewed the patient's medical records. Screening: Per USPSTF and CDC recommendations, given the prevalence of disease in our region, it is our hospital?s policy to screen for HIV and viral Hepatitis for all patients aged 18 and over and those with ongoing risk factors. Noble Inquiry Pt receiving controlled substance: No Noble was queried for this patient: No Vital Signs: 10/28/24 05:41 Temperature 98.3 F Temperature Source Oral Pulse Rate [Right] 74 Respiratory Rate 18 Blood Pressure [Right Arm] 160/77 H Blood Pressure Mean [Right Arm] 104 02 Sat by Pulse Oximetry 88 L Oxygen Delivery Method Room Air Lab Data Lab results reviewed: Yes I reviewed the patient's lab results. Orders (Tests/Meds): ED MEDICATIONS Generic Name Dose Route Start Last Admin Trade Name Freq PRN Reason Stop Dose Admin Phenol 0 ml 10/28/24 05:43 Phenol Throat Paige 177 Ml Bottle MM 11/27/24 05:42 NEEDED PRN Cough ORDERS Category Date Time Status Strep Scrn Group A (Rapid) Stat Lab 10/28/24 05:45 Received Medical Decision Narrative: 74-year-old male with history of obesity, heart failure on chronic O2, presents for 1 day of sore throat. History was obtained via interactive discussion with patient. On arrival, patient is [afebrile, hemodynamically stable, satting appropriately, alert, oriented x4, GCS 15], moving all extremities spontaneously. Full physical exam performed and significant for mild posterior oropharyngeal erythema with trace exudate. Normal range of motion, no submandibular fullness or significant lymphadenopathy. Differential includes but is not limited to viral/bacterial/fungal pharyngitis, Reynaldo's, Lemierre's, allergic reaction, [employer]RATOR, RPA. Low concern for emergent pathology based on history and exam, appears viral. Will swab for strep. Patient given Chloraseptic spray. On re-evaluation, patient [remains afebrile, HD stable.] Laboratory workup independently interpreted by me and significant for negative strep swab. Given patient history, exam and workup, patient's presentation most likely represents viral pharyngitis. Patient was discharged in stable condition with return precautions and instructions regarding symptomatic care.. Procedures Risk/Benefits of Procedure(s) Were Explained: Yes Critical Care Critical Care Time Critical Care Time: No
[2024-10-28 05:41] VITALS: BP 160/77; PULSE 74; RESP 18; TEMP 36.8; O2SAT 88; BMI 50.1
--- NOTE | 2024-10-28 05:44 | PC.NURSE ---
Pt awake alert and oriented Skin pale warm and dry Resp full and easy Speech clear and appropriate. at bedside Strep swab collected and sent.
--- OUTSIDE RECORDS SUMMARY | 2024-10-28 05:46 | XMS_ITS | Clinical Summary ---
Author Organization [employer] Address [address] [place] [address] Care Team Providers Care Placement Secretary Name Role Phone Unavailable Primary Care Provider [...] Description 10/07/2024 2:45 PM EDT Office Visit [facility] [address] [place] [address] Matteo Iglesias PA-C Bilateral carpal [...] PA-C - 10/07/2024 3:49 PM EDT Matteo gIlesias PA-C 10/07/2024 4:[address] injections Date/Time: 10/07/2024 3:49 PM Performed by: Matteo Iglesias PA-C Authorized by: Matteo Iglesias PA-C Consent: Consent obtained: Verbal and written Consent given by: Patient Risks, benefits, and alternatives were discussed: yes Risks discussed: Bleeding, infection, pain, incomplete drainage, nerve damage and poor cosmetic result Delphi protocol: Procedure explained and questions answered to [...] 3 Months Insurance MEDICARE PART A B [facility]
--- OUTSIDE RECORDS SUMMARY | 2024-10-28 05:46 | XMS_ITS | Data Portability ---
Author Organization HINA - LATHA Sung [place] [facility] Address [address] [facility] [address] [place] [address] Care Team Providers Care Rehab Therapist Name Role Phone COLLINSCLAREFarheen Powell Primary Care Provider GIANA ECHEVERRIA Sales Development Director Assessment Encounter Date Assessment Date Assessment LastModified by Organization Details LastModified Time 04/22/2022 04/22/2022 Impression: 1. Coronary artery disease s/p BREAD STACKER intervention 01/2007 and SIMEON to PLB 08/2016: [...] in 6 months, or sooner if needed. [email or web address] Not available 04/22/2022 11:52:02 11/01/2022 11/01/2022 Impression: 1. Coronary artery disease s/p BREAD STACKER intervention 01/2007 and SIMEON to PLB 08/2016: [...] at next visit: In-office Medtronic device check. [email or web address] Not available 11/02/2022 21:10:47 04/25/2023 04/25/2023 Impression: 1. Coronary artery disease s/p BREAD STACKER intervention 01/2007 and SIMEON to PLB 08/2016: [...] about 6 months, or sooner if needed. [email or web address] Not available 04/26/2023 12:43:38 10/31/2023 10/31/2023 Impression: 1. Coronary artery disease s/p BREAD STACKER intervention 01/2007 and SIMEON to PLB 08/2016: [...] next visit: In-office Medtronic device check (with cobol programmer). Not available 11/01/2023 14:03:04 04/30/2024 04/30/2024 Impression: 1. Coronary artery disease s/p BREAD STACKER intervention 01/2007 and SIMEON to PLB 08/2016: [...] about 6 months, or sooner if needed. [email or web address] Not available 04/30/2024 12:28:36 Plan of Treatment Reminders Order Date Submit Date Provider Last Modified By Organization Details Last Modified Time Details Appointments RECHECK 2024 11:15A Daniel ECHEVERRIA MD Not available Not available Not available Lab None recorded. Referral None recorded. Procedures pacemaker programmi ng, dual lead (PROC) 2023 024 [email or web address] [facility], [address] [place] [address] , [facility], [place], [address], 04/30/2024 12:29:03 pacemaker programmi ng, dual lead (PROC) 2023 024 [facility], [address], [place], [address], 10/31/2023 15:01:46 pacemaker programmi ng, dual lead (PROC) 2022 023 [facility], [address], [address] [place] [address], [phone], 04/25/2023 16:21:47 pacemaker programmi ng, dual lead (PROC) 2021 022 [facility], [address], [address] [place] [address], [phone], 04/22/2022 13:38:33 Surgeries None recorded. Imaging None recorded. Medication Orders Xarelto 20 mg tablet [address], [address] [place] [address], [id number], 10/31/2023 12:32:24 Xarelto 20 mg tablet [address], [address] [place] [address], [address], 04/25/2023 12:15:42 rosuvasta tin 10 mg tablet [address], [address] [place] [address], [address], 04/25/2023 12:15:42 Xarelto 20 mg tablet [address], [address] [place] [address], [address], 11/02/2022 21:07:09 rosuvasta tin 10 mg tablet [address], [address] [place] [address], [address], 11/01/2022 13:08:09 Patient TargetsNo targets recorded. Patient Instructions Encounter Date Encounter Id Patient Instructions Last Modified By Organization Details Last Modified Time 04/22/2022 [id number] body mass index: care instructions [email or web address] Not available 04/22/2022 11:52:05 high blood pressure: care instructions [email or web address] Not available 04/22/2022 11:52:05 11/01/2022 [id number] body mass index: care instructions [email or web address] Not available 11/02/2022 21:10:59 high blood pressure: care instructions [email or web address] Not available 11/02/2022 21:10:59 04/25/2023 [id number] body mass index: care instructions [email or web address] Not available 04/25/2023 12:16:54 high blood pressure: care instructions [email or web address] Not available 04/25/2023 12:16:54 10/31/2023 [id number] body mass index: care instructions [email or web address] Not available 10/31/2023 12:56:40 high blood pressure: care instructions [email or web address] Not available 10/31/2023 12:56:40 04/30/2024 [id number] body mass index: care instructions [email or web address] Not available 04/30/2024 12:29:03 high blood pressure: care instructions [email or web address] Not available 04/30/2024 12:29:03 - Continue with [...] ) No observ ation record ed. BARCODE [facility] [address] [place] [address] [address], [place], [address], 04/30/2024 16:14:41 05/06/20 24 04/30/2024 remot e [...] Details Recorded Time Cardiac pacemaker in situ 724568612 Active 2016 MELINDA PEREYRA MD [address] [place] [address], [phone] , [facility] 7 09:51:38 Long-term current use of anticoagu lant 224039710 Active 2016 Effient/a spirin MELINDA PEREYRA MD [address] [place] [address], [address] , [facility] 7 09:51:53 Dyslipide kristen 021040831 Active 2018 MELINDA PEREYRA MD [address] [place] [address], [address] , [facility] 9 10:19:51 Sick sinus syndrome 71439387 Active 2014 From Automated Load;Prov ider: Melinda Pereyra;Stat us: Active Not Available [facility] 6 06:27:04 Hypertens kimberly disorder 07946675 Active 2014 From Automated Load;Prov ider: Melinda Pereyra;Stat us: Active Not Available [facility] 6 06:27:04 Coronary arteriosc lerosis in [place] artery 62843728169 07 Active 2014 From Automated Load;Prov ider: Melinda Pereyra;Stat us: Active Not Available [facility] 06:27:04 Problem Notes None recorded. Procedures Surgical History Date Name Laterality Status Provider Name and Address Organization Details Recorded Time 04/27/20 21 [facility] 09:40:14 08/22/19 17 Cardiac Catheterization completed MELINDA PEREYRA MD [address] [place] [address], [phone], [facility] 03/31/2017 10:15:55 08/22/19 17 Stent Placement completed MELINDA PEREYRA MD [address] [place] [address], [address], [facility] 08/21/2016 09:53:13 02/01/20 07 Cardiac Catheterization completed MELINDA PEREYRA MD [address] [place] [address], [address], [facility] 08/21/2016 10:05:54 10/27/19 05 Pacemaker completed MELINDA PEREYRA MD [address] [place] [address], [address], [facility] 08/21/2016 10:07:58 Other completed [facility] 07/13/2018 09:59:01 Other completed [facility] 07/13/2018 09:59:53 Imaging Results None recorded. Procedure Notes None recorded. Medical Equipment Implant LEIDY Issuing Agency Serial Number Lot Number Status Provider Name and Address Organization Details Recorded Time Medtronic FDA [id number] Cornell Block [facility] 04/14/2018 10:22:23 Allergies No known [...] % 95 % 73 /min 50 kg/m2 715326. 21 g 146 mm[Hg] 88 mm[Hg] Colette Rock [facility] 4 10:59:06 Date Recorded Body height Body mass index (BMI) Body weight Oxygen saturation Oxygen saturation in Arterial blood by Pulse oximetry Inhaled oxygen flow rate Heart rate Systolic blood pressure Diastolic blood pressure Provider Name and Address Organization Details Last Updated DateTime 3 185.42 cm 53.1 kg/m2 803059. 83 g 91 % 91 % 2 L/min 67 /min 122 mm[Hg] 70 mm[Hg] June Echeverria [facility] 3 11:39:31 Date Recorded Body height Body mass index (BMI) Body weight Oxygen saturation Oxygen saturation in Arterial blood by Pulse oximetry Inhaled oxygen flow rate Heart rate Systolic blood pressure Diastolic blood pressure Provider Name and Address Organization Details Last Updated DateTime 2 185.42 cm 52.6 kg/m2 424946. 36 g 94 % 94 % 2 L/min 52 /min 126 mm[Hg] 78 mm[Hg] Agueda Gonzalez [facility] 2 11:10:41 Date Recorded Body height Body mass index (BMI) Body weight Oxygen saturation Oxygen saturation in Arterial blood by Pulse oximetry Inhaled oxygen flow rate Heart rate Systolic blood pressure Diastolic blood pressure Provider Name and Address Organization Details Last Updated DateTime 3 185.42 cm 52.3 kg/m2 076008. 38 g 94 % 94 % 2 L/min 67 /min 140 mm[Hg] 80 mm[Hg] June Echeverria [facility] 3 11:15:38 Date Recorded Body height Body mass index (BMI) Body weight Oxygen saturation Oxygen saturation in Arterial blood by Pulse oximetry Heart rate Systolic blood pressure Diastolic blood pressure Provider Name and Address Organization Details Last Updated DateTime 4 185.42 cm 50.5 kg/m2 719272. 72 g 91 % 91 % 84 /min 136 mm[Hg] 62 mm[Hg] Nena Lopez [facility] 4 12:07:21 Social History Question Answer Notes LastModified by Organizat ion Details LastModified Time Tobacco Smoking Status Former Smoker Agueda Gonzalez [facility] 08/12/2016 14:13:10 How Much Tobacco Do You Chew? None Information not available 07/13/2018 When Did You Quit Smoking? 11-15yearssi [email or web address] ette [email or web address] Information not available 03/31/2017 Marital Status Informati on not available 06/28/2016 What Was The Date Of Your Most Recent Tobacco Screening? 04/30/2024 [email or web address] Information not available 04/30/2024 What Is Your Relationship Status? [email or web address] Information not available 11/01/2022 Has Tobacco Cessation Counseling Been Provided? No [email or web address] Information not available 10/29/2021 Have You Recently Traveled Abroad? No [email or web address] Information not available 11/01/2022 Sex: Male Functional Status Question Answer Note LastModified by Organizat ion Details LastModified Time Do you or have you ever used any other forms of tobacco or nicotine? No [email or web address] Information not available 10/29/2021 What is your level of alcohol consumption? Occasional Information not available 06/28/2016 Do you or have you ever used smokeless tobacco? Never used smokeless tobacco Information not available 01/18/2019 Do you or have you ever used e-cigarettes or vape? Never used electronic cigarettes [email or web address] Information not available 01/18/2019 Mental Status None recorded. Family History Relationship Description Onset Age of this Age Resolved Age Notes LastModified by Organization Details LastModified Time Unspecified Relation Heart disease [email or web address] Not available 06/12 09:25:27 Medical History Condition Response Coronary Artery Disease N Other N Gout N Atrial Fibrillation Y Kidney Stones N Hyperthyroidism N Blood Transfusion N Depression N COPD N Lung Disease N Hypothyroidism N Breast Problem N Pacemaker Y Difficulty Swallowing N Anxiety Disorder Y Meniere's disease N Muscle, Joint, or Bone Problems N Vision or Eye Problems N Arthritis Y Polyps N Infertility N Blood Clot N Acid Reflux (GERD) N Cancer N Varicosities N Stroke N History of Blood Thinners Y Endometriosis N Bladder or Kidney Problems N Blood Thinners Y High Cholesterol Y Liver Disease N Headaches N Fibromyalgia N Kidney Disease N Allergies/Hayfever N Heart Problems N Ear or Hearing Problems N Parkinson's Disease N Hospitalizations N Alzheimer's N Thyroid Problems N GI Problems N Skin Problems N Eating Disorder N Anemia N Constipation N Mental Illness N Ovarian Cancer N Diabetes N Seizures/Epilepsy N Tuberculosis N AIDS/HIV N [...] preservative 7 completed Charlene Li [facility] 03/31/2017 10:07:27 COVID-19, mRNA, LNP-S, PF, 100 mcg/0.5mL dose or 50 mcg/0.25mL dose 1 completed Agueda Gonzalez [facility] 10/23/2020 12:05:21 COVID-19, mRNA, LNP-S, PF, 100 mcg/0.5mL dose or 50 mcg/0.25mL dose 1 completed Agueda Gonzalez [facility] 10/23/2020 12:05:29 COVID-19, mRNA, LNP-S, PF, 100 mcg/0.5mL dose or 50 mcg/0.25mL dose 2 completed Agueda Gonzalez [facility] 10/29/2021 10:05:34 Past Encounters Encounter ID Performer Location Encounter Start Date Encounter Closed Date Diagnosis/Indication Diagnosis SNOMED-CT Code Diagnosis ICD10 Code Diagnosis Note [id number] MELINDA PEREYRA MD CARDIOLOG [address] [place] [address] 07/08/2016 09:45:20 07/08/2016 12:29:49 Coronary arteriosclerosis in wr[place] artery 2278115885 107 I25.10 Medication changes, as well as [...] 3008 I49.5 Paced OK. Hypertensive disorder 38 231552 I10 Management of this problem was reviewed with the patient. No changes recommende d, status for this problem is stable at this time. Atypical chest pain 1025 01245 R07.89 See above [id number] MELINDA PEREYRA MD CARDIOLOG Y [facility] [address] [place] [address] 08/09/2016 14:41:05 08/09/2016 16:08:42 Coronary arteriosclerosis in wr[place] artery 5500365278 107 I25.10 His symptoms sounds as if [...] 3008 I49.5 Paced OK. Hypertensive disorder 38 419392 I10 Management of this problem was reviewed with the patient. No changes recommende d, status for this problem is stable at this time. [id number] MELINDA PEREYRA MD CARDIOLOG Y [facility] [address] [facility] ,[address] [place] [address] 09/30/2016 08:42:27 09/30/2016 09:49:01 Coronary arteriosclerosis in wr[place] artery 5968710228 107 I25.118 Medication changes, as well as [...] in status. Long-term current use of anticoagulant 266564254 Z79.01 I discussed alternativ es to Effient [...] mg daily. Cardiac yo alba in situ 115307093 Z95.0 Assessment was performed of the implanted device. Any needed adjustment s and setting changes were personally supervised by me and are documented in follow-up form. The device is functionin g well. The patient was instructed to continue in the device surveillan ce program appropriat e for the device. DICKSON 10.5 years. 99.6% atrial pacing with rare ventricula r pacing. [id number] MELINDA PEREYRA MD CARDIOLOG Y [address] [place] [address] 03/31/2017 09:57:41 03/31/2017 11:28:58 Coronary arteriosclerosis in wr[place] artery 1074584675 107 I25.10 Medication changes, as well as [...] may be discontinu ed. Hypertensive disorder 38 967506 I10 Management of this problem was reviewed with the patient. No changes recommende d, status for this problem is stable at this time. Cardiac yo alba in situ 207275297 Z95.0 Remote pacemaker check 01/10/2017. Estimated DICKSON 10 years. All pacemaker parameters okay. No AF. Long-term current use of anticoagulant 975102351 Z79.01 Dual antiplatel et therapy:As pirin and Effient. [id number] MELINDA PEREYRA MD CARDIOLOG Y [address] [place] [address] 08/25/2017 09:42:57 08/25/2017 14:51:19 Coronary arteriosclerosis in wrang[place] artery 0123164563 107 I25.10 Medication changes, as well as [...] 6 months, no testing. Hypertensive disorder 38 469505 I10 Management of this problem was reviewed with the patient. No changes recommende d, status for this problem is stable at this time. Cardiac pa anjali in situ 636700591 Z95.0 Remote pacemaker check 01/10/2017. Estimated DICKSON 10 years. All pacemaker parameters okay. No AF. Long-term current use of anticoagulant 150244402 Z79.01 He may discontinu e Effient but continue aspirin indefinite ly. [id number] MELINDA PEREYRA MD CARDIOLOG [address] [place] [address] 04/10/2018 10:31:48 04/10/2018 11:37:01 Coronary arteriosclerosis in wrangell artery 1257647815 107 I25.10 Medication changes, as well as [...] 6 months, no testing. Hypertensive disorder 38 388831 I10 Management of this problem was reviewed with the patient. No changes recommende d, status for this problem is stable at this time. Cardiac pa anjali in situ 813789797 Z95.0 Remote pacemaker check 01/10/2017. Estimated DICKSON 10 years. All pacemaker parameters okay. No AF. Paroxysmal atrial fibrillation 587823358 I48.0 His paroxysmal atrial fibrillati on was in the setting of acute respirator y failure. Analysis of his pacemaker checks have not demonstrat ed any atrial fibrillati on. I told the patient that he may discontinu e his Multaq. Computed t omography result abnormal 630280138 R93.89 CT scan sent to the hospital suggest further workup for possible renal lesion I don't feel this was performed and we will contact the patient and suggest proceeding . [id number] MELINDA PEREYRA MD CARDIOLOG Y [address] [place] [address] 07/13/2018 09:46:36 07/13/2018 10:25:21 Coronary arteriosclerosis in wr[place] artery 5209228874 107 I25.10 Medication changes, as well as [...] 6 months, no testing. Hypertensive disorder 38 357851 I10 Management of this problem was reviewed with the patient. No changes recommende d, status for this problem is stable at this time. Cardiac pa cemaker in situ 440520917 Z95.0 Remote pacemaker check 01/10/2017. Estimated DICKSON 10 years. All pacemaker parameters okay. No AF. Paroxysmal atrial fibrillation 682206441 I48.0 His paroxysmal atrial fibrillati on was in the setting of acute respirator y failure. Analysis of his pacemaker checks have not demonstrat ed any atrial fibrillati on.No recurrence noted.Patel er study to assess possible recurrence . [id number] MELINDA PEREYRA MD CARDIOLOG Y [address] [place] [address] 01/18/2019 09:47:58 01/18/2019 11:26:44 Coronary arteriosclerosis in wrang[place] artery 5218023998 107 I25.10 Medication changes, as well as [...] 6 months, no testing. Hypertensive disorder 38 047419 I10 Management of this problem was reviewed with the patient. No changes recommende d, status for this problem is stable at this time. Cardiac yo alba in situ 398228073 Z95.0 Remote pacemaker check 01/10/2017. Estimated DICKSON 10 years. All pacemaker parameters okay. No AF. Paroxysmal atrial fibrillation 299583861 I48.0 His paroxysmal atrial fibrillati on was in the setting of acute respirator y failure. Analysis of his pacemaker checks have not demonstrat ed any atrial fibrillati on.No recurrence noted.Patel er study to assess possible recurrence . Dyslipidemia 736839009 E 78.5 He takes ezetimibe and once per week statin. LDL cholestero l is 54.Most recent testing reviewed. All laboratory measuremen ts in appropriat e parameters on current medical therapy. This was reviewed and discussed with the patient and all questions answered. [id number] MELINDA PEREYRA MD CARDIOLOG [address] ,[address] [place] [address] 10/28/2019 10:34:15 10/28/2019 10:40:12 Coronary arteriosclerosis in wrang[place] artery 6313081395 107 I25.10 Medication changes, as well as [...] 6 months, no testing. Hypertensive disorder 38 054728 I10 Management of this problem was reviewed with the patient. No changes recommende d, status for this problem is stable at this time. Cardiac yo alba in situ 976677496 Z95.0 Device remote check reviewed. Estimated device DICKSON assessed. All pacing parameters appropriat e. No significan t arrhythmia s identified . Paroxysmal atrial fibrillation 445329845 I48.0 His paroxysmal atrial fibrillati on was in the setting of acute respirator y failure. Analysis of his pacemaker checks have not demonstrat ed any atrial fibrillati on.No recurrence noted.Patel er study to assess possible recurrence . Dyslipidemia 147092913 E 78.5 He takes ezetimibe and once per week statin. LDL cholestero l is 54.Most recent testing reviewed. All laboratory measuremen ts in appropriat e parameters on current medical therapy. This was reviewed and discussed with the patient and all questions answered. [id number] MELINDA PEREYRA MD CARDIOLOG Y [address] [place] [address] 04/25/2020 12:12:27 04/25/2020 12:17:32 Coronary arteriosclerosis in wr[place] artery 4331042059 107 I25.10 Medication changes, as well as [...] 6 months, no testing. Hypertensive disorder 38 430573 I10 Management of this problem was reviewed with the patient. No changes recommende d, status for this problem is stable at this time. Watch salt. Increase lisinopril . Cardiac pa cemaker in situ 557999804 Z95.0 Device remote check reviewed. Estimated device DICKSON assessed. All pacing parameters appropriat e. No significan t arrhythmia s identified . Paroxysmal atrial fibrillation 178572649 I48.0 His paroxysmal atrial fibrillati on was in the setting of acute respirator y failure. Analysis of his pacemaker checks have not demonstrat ed any atrial fibrillati on.No recurrence noted.Patel er study to assess possible recurrence . Dyslipidemia 734470261 E 78.5 He takes ezetimibe and once per week statin. LDL cholestero l is 54.Most recent testing reviewed. All laboratory measuremen ts in appropriat e parameters on current medical therapy. This was reviewed and discussed with the patient and all questions answered. [id number] MELINDA PEREYRA MD CARDIOLOG Y [place] [address] [place] [address] 10/23/2020 11:47:22 10/23/2020 14:13:22 Coronary arteriosclerosis in wr[place] artery 3175317143 107 I25.10 Medication changes, as well as [...] 6 months, no testing. Hypertensive disorder 38 705251 I10 Management of this problem was reviewed with the patient. No changes recommende d, status for this problem is stable at this time. Cardiac pa cemaker in situ 708050686 Z95.0 Device remote check reviewed. Estimated device DICKSON assessed. All pacing parameters appropriat e. No significan t arrhythmia s identified . Paroxysmal atrial fibrillation 079105075 I48.0 His paroxysmal atrial fibrillati on was in the setting of acute respirator y failure. Analysis of his pacemaker checks have not demonstrat ed any atrial fibrillati on.No recurrence noted.Patel er study to assess possible recurrence . Dyslipidemia 285072650 E 78.5 He takes ezetimibe and once per week statin. LDL cholestero l is 54.Most recent testing reviewed. All laboratory measuremen ts in appropriat e parameters on current medical therapy. This was reviewed and discussed with the patient and all questions answered. [id number] GIANA ECHEVERRIA MD CARDIOLOG Y [address] [place] [address] 04/27/2021 09:36:49 04/27/2021 10:28:35 Coronary arteriosclerosis in wr[place] artery 5005420159 107 I25.10 Hypertensive disorder 38 925686 I10 Cardiac pa cemaker in situ 143654657 Z95.0 Last in-office device check: 04/27/2021 Recommend quarterly remote device checks and annual in office interrogat ion. Paroxysmal atrial fibrillation 954842165 I48.0 Device check 04/27/2021 shows multiple episodes of AT/AF.Thes e appear to be clustered in November and December.His most recent episode occurred in late February. Longest episode between 12 and 24 hours.HILDA SVasc = 3. Dyslipidemia 590382613 E 78.5 Body mass index 40+ - severely obese 727493438 Z68.43 [id number] GIANA ECHEVERRIA MD CARDIOLOG Y [address] [place] [address] 09/11/2021 15:14:19 09/11/2021 15:15:43 Coronary arteriosclerosis in wr[place] artery 1442716703 107 I25.10 Hypertensive disorder 38 926614 I10 Cardiac pa cemaker in situ 799935589 Z95.0 Last in-office device check: 04/27/2021 Recommend quarterly remote device checks and annual in office interrogat ion. Paroxysmal atrial fibrillation 282493087 I48.0 Device check 04/27/2021 shows multiple episodes of AT/AF.Thes e appear to be clustered in November and December.His most recent episode occurred in late February. Longest episode between 12 and 24 hours.HILDA SVasc = 3. Recommend reduced Xarelto dosing for ischemic stroke risk reduction if he develops creatinine clearance 15-49ml/mi n Dyslipidemia 687224359 E 78.5 Body mass index 40+ - severely obese 404055629 Z68.43 [id number] GIANA ECHEVERRIA MD CARDIOLOG Y [address] [place] [address] 10/29/2021 09:55:39 10/29/2021 11:23:45 Coronary arteriosclerosis in wr[place] artery 3849661197 107 I25.10 Hypertensive disorder 38 321070 I10 Cardiac pa cemaker in situ 805162175 Z95.0 Last in-office device check: 04/27/2021 Recommend quarterly remote device checks and annual in office interrogat ion. Paroxysmal atrial fibrillation 372535264 I48.0 Device check 04/27/2021 shows multiple episodes of AT/AF.Thes e appear to be clustered in November and December.His most recent episode occurred in late February. Longest episode between 12 and 24 hours.HILDA SVasc = 3. Recommend reduced Xarelto dosing for ischemic stroke risk reduction if he develops creatinine clearance 15-49ml/mi n Dyslipidemia 669698368 E 78.5 Obese 591896234 E66.9 [id number] GIANA ECHEVERRIA MD CARDIOLOG Y [address] [place] [address] 04/22/2022 10:42:54 04/22/2022 11:42:49 Coronary arteriosclerosis in [place] artery 9532612200 107 I25.10 Cardiac pa cemaker in situ 376913845 Z95.0 Last in-office device check: 04/22/2022 Recommend quarterly remote device checks and annual in office interrogat ion. Paroxysmal atrial fibrillation 540397077 I48.0 Device check 04/27/2021 shows multiple episodes of AT/AF.Thes e appear to be clustered in November and December.His most recent episode occurred in late February. Longest episode between 12 and 24 hours.HILDA SVasc = 3. Recommend reduced Xarelto dosing for ischemic stroke risk reduction if he develops creatinine clearance 15-49ml/mi n Hypertensive disorder 38 865785 I10 Dyslipidemia 533585609 E 78.5 Obese 284206593 E66.9 [id number] GIANA ECHEVERRIA MD CARDIOLOG Y [address] [place] [address] 11/01/2022 11:20:33 11/01/2022 12:21:14 Coronary arteriosclerosis in wr[place] artery 1081967984 107 I25.10 Cardiac pa cemaker in situ 320185004 Z95.0 Last in-office device check: 04/22/2022 Recommend quarterly remote device checks and annual in office interrogat ion. Paroxysmal atrial fibrillation 393821905 I48.0 Device check 04/27/2021 shows multiple episodes of AT/AF.Thes e appear to be clustered in November and December.His most recent episode occurred in late February. Longest episode between 12 and 24 hours.HILDA SVasc = 3. Recommend reduced Xarelto dosing for ischemic stroke risk reduction if he develops creatinine clearance 15-49ml/mi n Hypertensive disorder 38 587386 I10 Dyslipidemia 535574234 E 78.5 Obese 206856443 E66.9 Renewal of prescription 309954687 Z76.0 [id number] GIANA ECHEVERRIA MD CARDIOLOG Y [address] [place] [address] 04/25/2023 11:01:40 04/25/2023 11:52:52 Coronary arteriosclerosis in wr[place] artery 1665232415 107 I25.10 a. Cath 01/31/2007 : BREAD STACKER of LADLVgram with EF 35%, severe hypokinesi s of the anterior septal and apical wall. Bifurcatin g left main.LAD BREAD STACKER at the first septal. Retrograde filling from [...] Synergy 3.5x20mm Cardiac pa cemaker in situ 642914546 Z95.0 Last in-office device check: 04/25/2023 Recommend quarterly remote device checks and annual in office interrogat ion. Paroxysmal atrial fibrillation 231992427 I48.0 Device check 04/27/2021 shows multiple episodes of AT/AF.Thes e appear to be clustered in November and December.His most recent episode occurred in late February. Longest episode between 12 and 24 hours.HILDA SVasc = 3. Recommend reduced Xarelto dosing for ischemic stroke risk reduction if he develops creatinine clearance 15-49ml/mi n Hypertensive disorder 38 635688 I10 Dyslipidemia 044837450 E 78.5 Obese 288855170 E66.9 Renewal of prescription 071675696 Z76.0 [id number] GIANA ECHEVERRIA MD CARDIOLOG Y [address] [place] [address] 10/31/2023 10:52:03 11/04/2023 09:01:44 Coronary arteriosclerosis in [place] artery 5773470433 107 I25.10 a. Cath 01/31/2007 : BREAD STACKER of LADLVgram with EF 35%, severe hypokinesi s of the anterior septal and apical wall. Bifurcatin g left main.LAD BREAD STACKER at the first septal. Retrograde filling from [...] Synergy 3.5x20mm Cardiac pa cemaker in situ 730776798 Z95.0 Last in-office device check: 10/31/2023 ecommend quarterly remote device checks and annual in office interrogat ion. Paroxysmal atrial fibrillation 829939284 I48.0 Device check 04/27/2021 shows multiple episodes of AT/AF.Thes e appear to be clustered in November and December.His most recent episode occurred in late February. Longest episode between 12 and 24 hours.HILDA SVasc = 3. Recommend reduced Xarelto dosing for ischemic stroke risk reduction if he develops creatinine clearance 15-49ml/mi n Hypertensive disorder 38 076869 I10 Dyslipidemia 915910447 E 78.5 Obese 903669611 E66.9 [id number] GIANA ECHEVERRIA MD CARDIOLOG Y [address] [place] [address] 04/30/2024 11:18:42 04/30/2024 12:20:09 Coronary arteriosclerosis in [place] artery 7777299920 107 I25.10 a. Cath 01/31/2007 : BREAD STACKER of LADLVgram with EF 35%, severe hypokinesi s of the anterior septal and apical wall. Bifurcatin g left main.LAD BREAD STACKER at the first septal. Retrograde filling from [...] Synergy 3.5x20mm Cardiac pa cemaker in situ 807425050 Z95.0 Last in-office device check: 04/30/2024 Recommend quarterly remote device checks and annual in office interrogat ion. Paroxysmal atrial fibrillation 534388693 I48.0 Device check 04/27/2021 shows multiple episodes of AT/AF.Thes e appear to be clustered in November and December.His most recent episode occurred in late February. Longest episode between 12 and 24 hours.HILDA SVasc = 3. Recommend reduced Xarelto dosing for ischemic stroke risk reduction if he develops creatinine clearance 15-49ml/mi n Hypertensive disorder 38 134638 I10 Dyslipidemia 010703184 E 78.5 Obese 276298866 E66.9 Health Concerns Section Related Observation LastModified by Organization Detai ls LastModified Time None Recorded Concern Status LastModified by Organization Details LastModified Time None Recorded Advance Directives Directive None Recorded Payers Insurance Date Sequence Insurance Name Policy Number Policy Muse Covered Member ID Muse Member ID Guarantor Name 09/20/2024 3 [place] [id number] Josh Jain Wohlwinder [id number] Josh Jain Wohlwinder 09/20/2024 2 [place] [id number] Josh Jain Wohlwinder [id number] Josh Jain Wohlwinder 09/20/2024 2 [employer] (INDEMNITY) [id number] Josh Jain Woteeteewinder [id number] Josh Jain Woteeteewinder 09/20/2024 1 [place] Josh Jain Woteeteewinder [id number] Josh Gilmorewinder Notes Date Note Type Note Provider Name and Address Organization Details Recorded Time 04/22/2022 text/html CARDIOVASCULAR HISTORY:# Coronary artery disease s/p BREAD STACKER intervention 01/2007, SIMEON to PLB 08/2016a. Cath 01/31/2007: BREAD STACKER of LADLVgram with EF 35%, severe hypokinesis of the anterior septal and apical wall. Bifurcating left main.LAD BREAD STACKER at the first septal. Retrograde filling from [...] Apnea # [facility] [...] and all questions were addressed.Device: Medtronic Adapta [id number]: 07/13/2014Mode: DDDR 60Pacin.8% AP VSEvents: Event counters [...] AFib.Former patient of Dr Melinda Pereyra, from [place], [place]. He reports that his overall health [...] 16 ALP 86. GIANA ECHEVERRIA MD [address] [place], [address], [facility] 04/22/2022 11:52:09 11/01/2022 text/html CARDIOVASCULAR HISTORY:# Coronary artery disease s/p BREAD STACKER intervention 01/2007, SIMEON to PLB 08/2016a. Cath 01/31/2007: BREAD STACKER of LADLVgram with EF 35%, severe hypokinesis of the anterior septal and apical wall. Bifurcating left main.LAD BREAD STACKER at the first septal. Retrograde filling from [...] Apnea # [facility] experienced acute hypoxic [...] Creatinine 1.00, EGFR 74 GIANA ECHEVERRIA MD [address] [place] [address], [address], [facility] 11/02/2022 21:11:02 04/25/2023 text/html CARDIOVASCULAR HISTORY:# Coronary artery disease s/p BREAD STACKER intervention 01/2007, SIMEON to PLB 08/2016Cath 08/21/2016: Normal LV function.Patent stents.New 90% stenosis in PLB of RCA. PCI with Synergy 3.5x20mm# Sinus node dysfunction s/p Medtronic dual chambera. Original implantation in . Generator change, 07/13/2014. # Class 3 Obesity# Obstructive Sleep Apnea # [facility] acute hypoxic [...] Gen change 07/13/2014.c. Coronary artery disease s/p BREAD STACKER intervention 01/2007, SIMEON to PLB 08/2016d. WHO [...] fitted. He is working with [facility] in [place]. We reviewed instructions regarding OAC holds and resumption. His pacemaker system was interrogated at today's visit. See scanned document for complete results.Device: Medtronic Adapta DRImplant: 07/13/2014. Estimated longevity: 2.5 yearsMode: MVP 60Pacin.5% AP, 0.3% RVPEvents: AMS 0.4%. Longest episode 12 hours.No permanent programming changes were made to his device. GIANA ECHEVERRIA MD [address] [place] [address], [address], [facility] 04/26/2023 12:45:03 10/31/2023 text/html CARDIOVASCULAR HISTORY:# Coronary artery disease s/p BREAD STACKER intervention 01/2007, SIMEON to PLB 08/2016Cath 08/21/2016: Normal LV function.Patent stents.New 90% stenosis in PLB of RCA. PCI with Synergy 3.5x20mm# Sinus node dysfunction s/p Medtronic dual chambera. Original implantation in . Generator change, 07/13/2014. # Class 3 Obesity# Obstructive Sleep Apnea # [facility] experienced acute hypoxic respiratory failure most likely related to his sleep apnea. CTA chest: no pulmonary embolism.He developed paroxysmal atrial fibrillation and was discharged on Multaq. # Hypertension# Dyslipidemia 04/25/2023: 6-month follow-upa. Paroxysmal atrial fibrillation (on Xarelto)b. Sinus node dysfunction s/p Medtronic dual chamber 2004, Gen change 07/13/2014.c. Coronary artery disease s/p BREAD STACKER intervention 01/2007, SIMEON to PLB 08/2016d. WHO [...] fitted. He is working with [facility] in [place]. We reviewed instructions regarding OAC holds and resumption. 10/31/2023: 6-month follow-upa. Paroxysmal atrial fibrillation (on Xarelto)b. Sinus node dysfunction s/p Medtronic dual chamber 2004, Gen change 07/13/2014.c. Coronary artery disease s/p BREAD STACKER intervention 01/2007, SIMEON to PLB 08/2016d. WHO [...] since last visit. GIANA ECHEVERRIA MD [address] [place], [address], [facility] 11/01/2023 14:03:28 04/30/2024 text/html CARDIOVASCULAR HISTORY:# Coronary artery disease s/p BREAD STACKER intervention 01/2007, SIMEON to PLB 08/2016Cath 08/21/2016: Normal LV function.Patent stents.New 90% stenosis in PLB of RCA. PCI with Synergy 3.5x20mm# Sinus node dysfunction s/p Medtronic dual chambera. Original implantation in . Generator change, 07/13/2014. # Class 3 Obesity# Obstructive Sleep Apnea # [facility] experienced acute hypoxic respiratory failure most likely related to his sleep apnea. CTA chest: no pulmonary embolism.He developed paroxysmal atrial fibrillation and was discharged on Multaq. # Hypertension# Dyslipidemia 10/31/2023: 6-month follow-upa. Paroxysmal atrial fibrillation (on Xarelto)b. Sinus node dysfunction s/p Medtronic dual chamber 2004, Gen change 07/13/2014.c. Coronary artery disease s/p BREAD STACKER intervention 01/2007, SIMEON to PLB 08/2016d. WHO [...] Gen change 07/13/2014.c. Coronary artery disease s/p BREAD STACKER intervention 01/2007, SIMEON to PLB 08/2016d. WHO [...] 14 ALP 70 GIANA ECHEVERRIA MD [address] [place], [address], [facility] 04/30/2024 12:29:06
--- OUTSIDE RECORDS SUMMARY | 2024-10-28 05:46 | XMS_ITS | Encounter Summary ---
Author Organization [facility] Address [address] [place] [address] Care Team Providers Care Assistant Signal Maintainer Name Role Phone Unavailable Primary Care Provider Unavailabl e Encounter Details Date Type Department Care Team (Late st Contact Info) Description 03/21/2018 Transcribed Document [facility] Family Medicine [address] [place] [address] ProviderTabitha MD [address] [place] [address] Social History Tobacco Use Types Packs/Day Years Used Date Smoking Tobacco: Never Assessed Sex and Gender Information Value Date Recorded Sex Assigned at Not on file Legal Sex Male 6:23 PM CDT Gender Identity Not on file Sexual Orientation Not on file documented as of this encounter Miscellaneous Notes * Cerner Conversion Note - Tabitha Fischer MD - 03/21/2018 8:52 AM SUPERVISOR SHOP Patient: ANA ALARCON Age: 68 years Sex: [...]
--- OUTSIDE RECORDS SUMMARY | 2024-10-28 05:47 | XMS_ITS | Continuity of Care Document ---
Author Organization [facility], [facility] Address [address] [place] [address] Assessment No assessment recorded. Plan of Treatment Reminders Order Date Submit Date Provider Last Modified By Organization Details Last Modified Time Details Appointments OV EST 15 2025 11:15A M Vega Camargo Jr, MD Not available Not available Not available Lab urinalysi s, dipstick 2024 025 [email or web address] [facility], [address] [place] [address], [phone], 10/21/2024 12:19:04 Referral None recorded. Procedures None recorded. Surgeries None recorded. Imaging None recorded. Medication Orders tolterodi ne ER 4 mg capsule,e xtended release 24 hr 2024 025 [facility], [address] [place] [address], [address], [address], 10/20/2024 12:39:36 tamsulosi n 0.4 mg capsule 2024 025 [facility], [address] [place] [address], [facility], [place], [address], 10/20/2024 12:39:37 Patient TargetsNo targets recorded. Patient InstructionsNo instructions recorded. Reason for Referral None Reported. Results Created Date Observation Date Name Description Value Unit Range Abnormal Flag Note LastModifiedBy Organization Detail LastModifiedTime 10/21/19 25 10/20/2024 urina lysis , dipst ick Leukocytes (reference range) negati ve Not Available Jairo Nichole[address], [address], 10/20/2024 11:44:23 10/21/19 25 10/20/2024 urina lysis , dipst ick Nitrite (reference range:) negati ve Not Available [address], [address], 10/20/2024 11:44:23 10/21/19 25 10/20/2024 urina lysis , dipst ick Urobilinogen (reference range) 0.2 Not Available [address], [address], 10/20/2024 11:44:23 10/21/19 25 10/20/2024 urina lysis , dipst ick Protein (reference range) negati ve Not Available [address], [address], 10/20/2024 11:44:23 10/21/19 25 10/20/2024 urina lysis , dipst ick pH (reference range 5-8.5) 7.0 Not Available [address], [address], 10/20/2024 11:44:23 10/21/19 25 10/20/2024 urina lysis , dipst ick Blood (reference range:) negati ve Not Available [address], [address], 10/20/2024 11:44:23 10/21/19 25 10/20/2024 urina lysis , dipst ick Specific [place] (reference range) 1.015 Not Available [address], [address], 10/20/2024 11:44:23 10/21/19 25 10/20/2024 urina lysis , dipst ick Ketone (reference range) negati ve Not Available [address], [address], 10/20/2024 11:44:23 10/21/19 25 10/20/2024 urina lysis , dipst ick Bilirubin (reference range) negati ve Not Available [address], [address], 10/20/2024 11:44:23 10/21/19 25 10/20/2024 urina lysis , dipst ick Glucose (reference range) negati ve Not Available [address], [address], 10/20/2024 11:44:23 10/21/19 25 10/20/2024 urina lysis , dipst ick Color (reference range: yellow-brown ) Yellow Not Available [address], [address], 10/20/2024 11:44:23 Result Notes None recorded. Problems Name Problem SNOMED Code Status Onset Date Resolution Date Notes Provider Name and Address Organization Details Recorded Time Myocardial infarction 52037973 Active 2022 Eunice sibley, [facility] - [facility] - [place] & [place] 3 14:52:23 Heartburn 69879507 Active 2022 Eunice sibley, [place] - [facility] - [place] & [place] 3 14:52:32 Hypertensive disorder 97625215 Active 2022 Eunice sibley, [place] - [facility] [place] 3 14:52:41 Sleep apnea 67097130 Active 2022 Eunice sibley, [place] - [facility] [place] 3 14:52:58 Kidney stone 88721725 Active 2022 Eunice sibley, [place] - [facility] [place] & [place] 3 14:53:07 Problem Notes None recorded. Procedures Surgical History Date Name Laterality Status Provider Name and Address Organization Details Recorded Time 5 Pacemaker/Defi brillator completed [facility] & [place] 10/22/2023 11:07:18 Pacemaker monitr audible/vis completed [facility] & [place] 10/17/2022 14:53:23 Knee arthroscopy/gurrola rgery completed [facility] & [place] 10/17/2022 14:53:37 Imaging Results None recorded. Procedure [...] TAKE 1 CAPSULE BY MOUTH ONCE DAILY 2024 active Not Available Not Available Not Avai [...] TAKE 1 CAPSULE BY MOUTH ONCE DAILY 2024 active Not Available Not Available Not Avai [...] and Address Organization Details Last Updated DateTime 10/20/2024 182.88 cm 53.7 kg/m2 979015.58 g 98.1 [degF] Cj Palma [facility] & [place] 10/20/2024 11:09:05 Social History Question Answer Notes LastModified by [employer] Details LastModified Time Tobacco Smoking Status Former Smoker Eunice sibley, [facility] & [place] 10/22/2023 11:07:13 Do You Have An Advance Directive? No [email or web address] Information not available 10/22/2023 Are You Blind Or Do You Have Difficulty Seeing? No [email or web address] Information not available 10/22/2023 What Was The Date Of Your Most Recent Tobacco Screening? 10/16/2022 [email or web address] Information not available 10/22/2023 Are You Passively Exposed To Smoke? No [email or web address] Information not available 10/22/2023 Sex: Unknown Functional Status Question Answer Note LastModified by [employer] Details LastModified Time Do you use any illicit or recreational drugs? No [email or web address] Information not available 10/22/2023 What is your level of alcohol consumption? None [email or web address] Information not available 10/22/2023 What is your exercise level? None [email or web address] Information not available 10/22/2023 Mental Status Question Answer Note LastModified by Organization D etails LastModified Time Do you feel stressed (tense, restless, nervous, or anxious, or unable to sleep at night)? [id number] [email or web address] Information not available 10/22/2023 Family History Relationship Description Onset Age of this Age Resolved Age Notes LastModified by Organization Details LastModified Time Mother Heart disease [email or web address] Not available 10/17 14:53:58 Medical History Condition Response Obesity Y Heart Attack ([place]) Y Vision or Eye Problems Y Obstructive Sleep Apnea Y Past Encounters Encounter ID Performer Location Encounter Start Date Encounter Closed Date Diagnosis/Indication Diagnosis SNOMED-CT Code Diagnosis ICD10 Code Diagnosis Note [id number] Vega Camargo Jr, MD [facility] [address] [address] 10/20/2024 10:43:23 10/20/2024 11:46:00 Benign prostatic hyperplasia 502700282 N40.0 patient with history of lower urinary tract symptoms secondary to BPH. He is doing well on the tamsulosin and is to continue. Urgent ines robert to urinate 30848476 R39.15 patient with history of urinary urgency. He continues to do well on the Detrol 4 mg. he does have an occasional leak with urgency. We discussed decreasing his caffeine intake as well as timed voiding to prevent these leaks. Screening for malignant neoplasm of prostate 592322931 Z12.5 recent PSA on October 01, 2023 his 0.4. PSA 1 year ago was 0.36. patient reassured these values are well within normal limits. His lab work is typically done by his primary care physician Health Concerns Section Related Observation LastModified by Organization Detai ls LastModified Time None Recorded Concern Status LastModified by Organization Details LastModified Time None Recorded Payers Encounter Date Sequence Insurance Name Policy Number Policy Muse Covered Member ID Muse Member ID Guarantor Name 10/20/2024 2 [facility] [place] [id number] Josh Alarcon [id number] Josh Alarcon 10/20/2024 1 [place] Josh Alarcon [id number] Josh Alarcon Notes Date Note Type Note Provider Name and Address Organization Details Recorded Time 10/20/2024 text/html Patient is a 74-year-old white male with history of BPH and urinary urgency. He follows up in 1 year checkup today. He continues on tamsulosin and tolterodine 4 mg. He denies any frequency or nocturia. He does state some occasional leak with urgency. He drinks about 24 oz of coffee per day. Urinalysis today is unremarkable. PSA last year was 0.4. Recent labs by his primary care physician showed normal renal and liver functions. Vega Camargo Jr, MD [address] [place] [address], [address], [place], [address], [facility] - [place] & [place] 10/20/2024 12:33:55
--- OUTSIDE RECORDS SUMMARY | 2024-10-28 05:47 | XMS_ITS | Data Portability ---
Author Organization [facility] Tangent Address [address] [place] [address] Assessment No assessment recorded. Plan of Treatment Reminders Order Date Submit Date Provider Last Modified By Organization Details Last Modified Time Details Appointments OV EST 15 2025 11:15A M Vega Camargo Jr, MD Not available Not available Not available Lab urinalysi s, dipstick [address] [facility] [address], [address], 10/21/2024 12:19:04 PSA, total + free, serum or plasma 2022 023 [email or web address] [facility] (Lab Registration) , [address] [place] [address] [place], [address], 11/01/2022 06:58:00 urinalysi s, dipstick [address] Urology, [facility] [place], [address], 10/17/2022 16:14:15 Referral None recorded. Procedures None recorded. Surgeries None recorded. Imaging None recorded. Medication Orders tolterodi ne ER 4 mg capsule,e xtended release 24 hr 2024 025 [facility], [address], [address], [place], [address], 10/20/2024 12:39:36 tamsulosi n 0.4 mg capsule 2024 025 [facility], [address] [place] [address], [facility], [place], [address], 10/20/2024 12:39:37 tamsulosi n 0.4 mg capsule 2023 024 [facility], [address] [place] [address], [facility], [place], [address], 10/22/2023 12:30:34 tolterodi ne ER 4 mg capsule,e xtended release 24 hr 2023 024 [facility], [address] [place] [address], [facility], [place], [address], 10/22/2023 12:30:33 tamsulosi n 0.4 mg capsule 2022 023 [facility], [address] [place] [address], [place], [address], 10/17/2022 16:21:02 tolterodi ne ER 4 mg capsule,e xtended release 24 hr 2022 023 [facility], [address] [place] [address], [place] [address], [place], [address], 10/17/2022 16:21:01 Patient TargetsNo targets recorded. Patient InstructionsNo instructions recorded. Reason for Referral None Reported. Results Created Date Observation Date Name Description Value Unit Range Abnormal Flag Note LastModifiedBy Organization Detail LastModifiedTime 10/18/1910/17/2022 PROST ATE SPECI FIC AG (PSA) note Unles s other cedeno noted testi ng perfo rmed at: [facility] [address] [place] [address] Anson cid MD Not Available [facility] (Pre-Op [facility]) [address] [place] [address] [place], [address], 10/18/2022 02:50:31 10/18/1910/18/2022 PROST ATE SPECI FIC AG (PSA) PSA 0.36 NG/mL 0.00-4 .00 Not Available [facility] ([facility]Op [facility]) [address] [place] [address] [place], [address], 10/18/2022 02:50:31 10/18/1910/17/2022 urina lysis , dipst ick Leukocytes (reference range) negati ve Not Available [facility] [address] [place] [address], [address], 10/17/2022 15:31:23 10/18/19 23 10/17/2022 urina lysis , dipst ick Nitrite (reference range:) negati ve Not Available [facility] [address] [place] [address], [address], 10/17/2022 15:31:23 10/18/19 23 10/17/2022 urina lysis , dipst ick Urobilinogen (reference range) 0.2 Not Available [facility] [address] [place] [address], [address], 10/17/2022 15:31:23 10/18/1910/17/2022 urina lysis , dipst ick Protein (reference range) negati ve Not Available [facility] [address] [place] [address], [address], 10/17/2022 15:31:23 10/18/19 23 10/17/2022 urina lysis , dipst ick pH (reference range 5-8.5) 6.5 Not Available [facility] [address] [place] [address], [address], 10/17/2022 15:31:23 10/18/19 23 10/17/2022 urina lysis , dipst ick Blood (reference range:) negati ve Not Available [facility] [address] [place] [address], [address], 10/17/2022 15:31:23 10/18/19 23 10/17/2022 urina lysis , dipst ick Specific [place] (reference range) 1.020 Not Available [address], [address], 10/17/2022 15:31:23 10/18/19 23 10/17/2022 urina lysis , dipst ick Ketone (reference range) negati ve Not Available [address], [address], 10/17/2022 15:31:23 10/18/19 23 10/17/2022 urina lysis , dipst ick Bilirubin (reference range) negati ve Not Available [address], [address], 10/17/2022 15:31:23 10/18/19 23 10/17/2022 urina lysis , dipst ick Glucose (reference range) negati ve Not Available [address], [address], 10/17/2022 15:31:23 10/18/19 23 10/17/2022 urina lysis , dipst ick Color (reference range: yellow-brown ) Yellow Not Available [address], [address], 10/17/2022 15:31:23 10/21/19 25 10/20/2024 urina lysis , dipst ick Leukocytes (reference range) negati ve Not Available [address], [address], 10/20/2024 11:44:23 10/21/19 25 10/20/2024 urina lysis , dipst ick Nitrite (reference range:) negati ve Not Available [address], [address], 10/20/2024 11:44:23 10/21/19 25 10/20/2024 urina lysis , dipst ick Urobilinogen (reference range) 0.2 Not Available [address], [address], 10/20/2024 11:44:23 10/21/19 25 10/20/2024 urina lysis , dipst ick Protein (reference range) negati ve Not Available [address], [address], 10/20/2024 11:44:23 10/21/19 25 10/20/2024 urina lysis , dipst ick pH (reference range 5-8.5) 7.0 Not Available [address], [address], 10/20/2024 11:44:23 10/21/19 25 10/20/2024 urina lysis , dipst ick Blood (reference range:) negati ve Not Available [address], [address], 10/20/2024 11:44:23 10/21/19 25 10/20/2024 urina lysis , dipst ick Specific [place] (reference range) 1.015 Not Available [address], [address], 10/20/2024 11:44:23 10/21/19 25 10/20/2024 urina lysis , dipst ick Ketone (reference range) negati ve Not Available [address], [address], 10/20/2024 11:44:23 10/21/19 25 10/20/2024 urina lysis , dipst ick Bilirubin (reference range) negati ve Not Available [facility] [address], [address], 10/20/2024 11:44:23 10/21/19 25 10/20/2024 urina lysis , dipst ick Glucose (reference range) negati ve Not Available [address], [address], 10/20/2024 11:44:23 10/21/19 25 10/20/2024 urina lysis , dipst ick Color (reference range: yellow-brown ) Yellow Not Available [facility] [address], [address], 10/20/2024 11:44:23 Result Notes None recorded. Problems Name Problem SNOMED Code Status Onset Date Resolution Date Notes Provider Name and Address Organization Details Recorded Time Myocardial infarction 23507143 Active 2022 Eunice sibley, [place] - [facility] & [place] 3 14:52:23 Heartburn 13664594 Active 2022 Eunice Coffey null, [place] - [facility] & [place] 3 14:52:32 Hypertensive disorder 86018929 Active 2022 Eunice sibley, [place] - [facility] - [place] & [place] 3 14:52:41 Sleep apnea 86867717 Active 2022 Eunice Coffey null, [place] - [facility] - [place] & [place] 3 14:52:58 Kidney stone 49038590 Active 2022 Eunice Coffey null, [place] - [facility] - [place] & [place] 3 14:53:07 Problem Notes None recorded. Procedures Surgical History Date Name Laterality Status Provider Name and Address Organization Details Recorded Time 5 Pacemaker/Defi brillator completed Eunice SANTAMARIA - [facility] & [place] 10/22/2023 11:07:18 Pacemaker monitr audible/vis completed Eunice SANTAMARIA - [facility] & [place] 10/17/2022 14:53:23 Knee arthroscopy/gurrola rgery completed Eunice Coffey [place] - [facility] & [place] 10/17/2022 14:53:37 Imaging Results None recorded. Procedure [...] Updated DateTime 10/17/2022 182.88 cm 53.6 kg/m2 058957.99 g Eunice Coffey [place] - [facility] & [place] 10/17/2022 14:52:02 Date Recorded Body height Body mass index (BMI) Body weight Body temperature Provider Name and Address Organization Details Last Updated DateTime 10/20/2024 182.88 cm 53.7 kg/m2 250090.58 g 98.1 [degF] Cj Palma [place] - [facility] & [place] 10/20/2024 11:09:05 Date Recorded Body height Body mass index (BMI) Body weight Body temperature Provider Name and Address Organization Details Last Updated DateTime 10/22/2023 182.88 cm 53.7 kg/m2 457864.58 g 98.2 [degF] Eunice SANTAMARIA - [facility] & [place] 10/22/2023 11:07:04 Social History Question Answer Notes LastModified by [employer] Details LastModified Time Tobacco Smoking Status Former Smoker Eunice sibley [facility] & [place] 10/22/2023 11:07:13 Do You Have An Advance Directive? No [email or web address] Information not available 10/22/2023 Are You Blind Or Do You Have Difficulty Seeing? No [email or web address] Information not available 10/22/2023 What Was The Date Of Your Most Recent Tobacco Screening? 10/16/2022 [email or web address] Information not available 10/22/2023 Are You Passively Exposed To Smoke? No [email or web address] Information not available 10/22/2023 Sex: Unknown Functional Status Question Answer Note LastModified by Organ[employer] Details LastModified Time Do you use any illicit or recreational drugs? No [email or web address] Information not available 10/22/2023 What is your level of alcohol consumption? None [email or web address] Information not available 10/22/2023 What is your exercise level? None [email or web address] Information not available 10/22/2023 Mental Status Question Answer Note LastModified by Organization D etails LastModified Time Do you feel stressed (tense, restless, nervous, or anxious, or unable to sleep at night)? [id number] [email or web address] Information not available 10/22/2023 Family History Relationship Description Onset Age of this Age Resolved Age Notes LastModified by Organization Details LastModified Time Mother Heart disease Not available 10/17 14:53:58 Medical History Condition Response Obesity Y Heart Attack (RI) Y Vision or Eye Problems Y Obstructive Sleep Apnea Y Past Encounters Encounter ID Performer Location Encounter Start Date Encounter Closed Date Diagnosis/Indication Diagnosis SNOMED-CT Code Diagnosis ICD10 Code Diagnosis Note [id number] Vega Camargo Jr, MD [facility] [address] [place] [address] 10/17/2022 14:46:46 10/17/2022 15:30:47 Urgent desire to urinate 38155364 R39.15 patient with history of urinary urgency. He continues to do well on the Detrol 4 mg. He did have a flare-up about 3 weeks ago which resolved. He is to continue the Detrol 4 mg a day. Lower urin kristen tract symptoms due to benign prostatic hypertrophy 1336000680 9101 N40.1 patient with history of lower urinary tract symptoms secondary to BPH. He is doing well on the tamsulosin and is to continue. Screening for malignant neoplasm of prostate 914449220 Z12.5 patient's last PSA was 0.3 in February 2021. A repeat PSA to be performed today. [id number] Vega Camargo Jr, MD [facility] [address] [address] 10/22/2023 10:55:44 10/22/2023 11:21:46 Lower urinary tract symptoms due to benign prostatic hypertrophy 7948809148 9101 N40.1 patient with history of lower urinary tract symptoms secondary to BPH. He is doing well on the tamsulosin and is to continue. Urgent ines robert to urinate 86668867 R39.15 patient with history of urinary urgency. He continues to do well on the Detrol 4 mg. He did have a flare-up about 3 weeks ago which resolved. He is to continue the Detrol 4 mg a day. Screening for malignant neoplasm of prostate 386943343 Z12.5 recent PSA on October 01, 2023 his 0.4. PSA 1 year ago was 0.36. Patient reassured. [id number] Vega Camargo Jr, MD [facility] [address] [address] 10/20/2024 10:43:23 10/20/2024 11:46:00 Benign prostatic hyperplasia 193637684 N40.0 patient with history of lower urinary tract symptoms secondary to BPH. He is doing well on the tamsulosin and is to continue. Urgent ines robert to urinate 36750483 R39.15 patient with history of urinary urgency. He continues to do well on the Detrol 4 mg. he does have an occasional leak with urgency. We discussed decreasing his caffeine intake as well as timed voiding to prevent these leaks. Screening for malignant neoplasm of prostate 024780968 Z12.5 recent PSA on October 01, 2023 [...] Member ID Muse Member ID Guarantor Name 10/17/2024 1 [place] Josh Alarcon [id number] Josh Alarcon 10/17/2024 2 [place] [id number] Josh Alarcon [id number] Josh Alarcon Notes Date Note Type Note Provider Name and Address Organization Details Recorded Time 10/17/2022 text/html patient is a 72-year-old white male with a history of urge incontinence. He was previously seen at [facility] today. He was last seen in [...] was not included. Vega Camargo Jr, MD [address] [place] [address], [address], [place], [address], [facility] 10/17/2022 16:16:08 10/22/2023 text/html Patient is a 73-year-old white male with history of BPH, urinary urgency. Returns today in routine follow-up. He continues on tamsulosin and tolterodine for his lower urinary tract symptoms. He states some occasional urgency which is controlled.His recent PSA returned at 0.4 on October 01, 2023. Vega Camargo Jr, MD [address] [place] [address], [address] [place], [address], [place] - [facility] & [place] 10/22/2023 12:29:05 10/20/2024 text/html Patient is a 74-year-old white [...] and liver functions. Vega Camargo Jr, MD [address], [address], [place], [address], [place] - [facility] & [place] 10/20/2024 12:33:55
--- OUTSIDE RECORDS SUMMARY | 2024-10-28 05:47 | XMS_ITS | Referral Summary ---
Author Organization [employer] [facility] [employer] Address [address] [place] [address] Care Team Providers Care Yarn Skeins Examiner Name Role Phone Unavailable Primary Care Provider Unavailabl e Encounters Date Type Department Care Team Description 10/07/2024 2:45 PM EDT Office Visit [facility] Orthopedics - [address] [place] [address] Matteo Iglesias PA-C Bilateral carpal [...] drainage, nerve damage and poor cosmetic result [place] protocol: Procedure explained and questions answered to [...] 3 Months Insurance MEDICARE PART A [place] [id number] CATRACHITA MUNROE
[2024-10-28] MEDS: PHENOL THROAT SPRAY 177 ML BOTTLE MM (06:02)
[2024-10-28 06:03] LABS: Strep Scrn Group A (Rapid) Negative (Negative)
[2024-10-28 06:08] VITALS: BP 160/74; PULSE 74; RESP 20; TEMP 36.8; O2SAT 90
== END 2024-10-28 06:11 | disposition home or self-care (01) ==
PROVIDERS: Emergency Provider Emergency Medicine; PCP Internal Medicine
DX: J02.9 Acute pharyngitis, unspecified (principal)
CPT/HCPCS: 87430; 99283

== ENCOUNTER 2024-10-28 21:22 | Emergency (ER) | payer MEDICARE, BC, SELFPAY ==
--- OUTSIDE RECORDS SUMMARY | 2024-10-07 14:45 | XMS_ITS | Encounter Summary ---
Author Organization [facility] In iatives Address [address] [place] [id number] Care Team Providers Care Bridge Painter Helper Name Role Phone Unavailable Primary Care Provider Unavailabl e Reason for Visit * Reason Comments Injections Bilat hands Encounter Details Date Type Department Care Team (Late st Contact Info) Description 10/07/2024 2:45 PM EDT Office Visit [facility] Orthopedics - [address] [place] [address] Matteo Iglesias PA-C [address] [place] [address] Bilateral carpal tunnel syndrome (Primary Dx); Carpal [...] CMC Tenderness []+ []- []+ []- 1st VEHICLE SAFETY INSPECTOR Grind []+ []- []+ []- Kizzy Nodes [...] drainage, nerve damage and poor cosmetic result [place] protocol: Procedure explained and questions answered to [...] factors. Patient will follow-up with PCP for slug press operator treatment plan. I have examined and questioned the above listed patient and provided or received all documentation,establishing, confirming, and revising as necessary, the findings and statements noted. . [email or web address]/[email or web address] Insulator Rubber disclaimer: Much of this encounter note is an electronic limousine driver/translation of spoken language to printed text. The [...] drainage, nerve damage and poor cosmetic result [place] protocol: Procedure explained and questions answered to [...]
--- OUTSIDE RECORDS SUMMARY | 2024-10-28 21:28 | XMS_ITS | Referral Summary ---
Author Organization [employer] [facility] Address [address] [place] [address] Care Team Providers Care Baby Sitter Name Role Phone Unavailable Primary Care Provider Unavailabl e Encounters Date Type Department Care Team Description 10/07/2024 2:45 PM EDT Office Visit [facility] Orthopedics - [address] [place] [address] Matteo Iglesias PA-C Bilateral carpal [...] drainage, nerve damage and poor cosmetic result [place] protocol: Procedure explained and questions answered to [...] 3 Months Insurance MEDICARE PART A [place] [address] CATRACHITA MUNROE
--- OUTSIDE RECORDS SUMMARY | 2024-10-28 21:28 | XMS_ITS | Encounter Summary ---
Author Organization [facility] Address [address] [place] [address] Care Team Providers Care Economic Development Coordinator Name Role Phone Unavailable Primary Care Provider Unavailabl e Encounter Details Date Type Department Care Team (Late st Contact Info) Description 03/21/2018 Transcribed Document [facility] Family Medicine [address] [place] [address] ProviderTabitha MD [address] [place] [address] Social History Tobacco Use Types Packs/Day Years Used Date Smoking Tobacco: Never Assessed Sex and Gender Information Value Date Recorded Sex Assigned at Not on file Legal Sex Male 6:23 PM CDT Gender Identity Not on file Sexual Orientation Not on file documented as of this encounter Miscellaneous Notes * [employer]ner Conversion Note - Tabitha Fischer MD - 03/21/2018 8:52 AM PROGRAM SUPPORT SPECIALIST Patient: ANA ALARCON Age: 68 years Sex: Male : 1950 Associated Diagnoses: None Author: DIANA BOLES PA knee doing well, pain as expected, has had extended stay for cardio-pulmonary issues of which he reports he is doing better vss, nvi, dsg dry P: once cleared medically can be d/c to rehab facility Electronically signed by Siri Hilario Conversion Building Energy Retrofit Technician Cerner at 08/27/2022 8:42 AM CDT documented in this encounter Plan of Treatment Not on file documented as of this encounter Visit Diagnoses Not on filedocumented in this encounter
--- OUTSIDE RECORDS SUMMARY | 2024-10-28 21:28 | XMS_ITS | Clinical Summary ---
Author Organization [employer] [facility] [employer] Address [address] [place] [address] Care Team Providers Care Director Patient Accounting Name Role Phone Unavailable Primary Care Provider [...] Description 10/07/2024 2:45 PM EDT Office Visit [facility] Orthopedics - [facility] [address] [place] [address] Matteo Iglesias PA-C Bilateral carpal [...] drainage, nerve damage and poor cosmetic result [place] protocol: Procedure explained and questions answered to [...] 3 Months Insurance MEDICARE PART A B [facility]
--- NOTE | 2024-10-28 21:32 | HMH.EDGENADL ---
Discharge Plan Disposition Patient Disposition: Home, Self-Care Prescriptions Prescriptions: New ibuprofen 800 mg tablet 800 mg PO Q8H PRN (Reason: pain) Qty: 9 0RF No Action Xarelto 20 mg tablet 20 mg PO DAILY Rx Instructions: must administer with evening meal hydrocodone-acetaminophen 7.5-325 mg tablet 1 tab PO Q8H PRN (Reason: pain) Qty: 30 0RF fluticasone propionate [Allergy Relief (fluticasone)] 50 mcg/actuation spray,suspension 1 spray intranasal BID Qty: 16 3RF Rx Instructions: administer into each nostril multivitamin Tablet 1 tab PO DAILY rosuvastatin 10 mg tablet 10 mg PO .COMPLEX Rx Instructions: 1 tab once week oxybutynin chloride 10 mg tablet extended release 24hr 10 mg PO ONCE tamsulosin 0.4 mg capsule 0.4 mg PO DAILY Qty: 90 1RF tolterodine 4 mg capsule,extended release 24hr 4 mg PO DAILY Qty: 30 5RF bupropion HCl 100 mg tablet See Rx Instructions .ROUTE .COMPLEX Qty: 90 1RF Dose Instruction: TAKE 1 TABLET BY MOUTH EVERY MORNING Rx Instructions: TAKE 1 TABLET BY MOUTH EVERY MORNING atenolol 50 mg tablet See Rx Instructions .ROUTE .COMPLEX Qty: 180 1RF Dose Instruction: TAKE 1 TABLET BY MOUTH TWICE A DAY Rx Instructions: TAKE 1 TABLET BY MOUTH TWICE A DAY omeprazole 40 mg capsule,delayed release(DR/EC) See Rx Instructions .ROUTE .COMPLEX Qty: 90 1RF Dose Instruction: TAKE 1 CAPSULE BY MOUTH ONCE DAILY Rx Instructions: TAKE 1 CAPSULE BY MOUTH ONCE DAILY citalopram 20 mg tablet 20 mg PO DAILY Qty: 90 1RF diphenoxylate-atropine [Lomotil] 2.5-0.025 mg tablet 1 tab PO Q6H PRN (Reason: diarrhea) Qty: 30 2RF ezetimibe 10 mg tablet See Rx Instructions .ROUTE .COMPLEX Qty: 90 1RF Dose Instruction: TAKE 1 TABLET BY MOUTH ONCE DAILY Rx Instructions: TAKE 1 TABLET BY MOUTH ONCE DAILY lisinopril 10 mg tablet See Rx Instructions .ROUTE .COMPLEX Qty: 90 1RF Dose Instruction: TAKE 1 TABLET BY MOUTH ONCE DAILY Rx Instructions: TAKE 1 TABLET BY MOUTH ONCE DAILY ondansetron HCl 4 MG tablet 4 mg PO TIDP PRN (Reason: Nausea And Vomiting) Qty: 12 0RF Activity Restrictions/Add. Instructions Additional Instructions/Restrictions: At this time it was felt you are safe to be discharged home. If new or worsening symptoms please do not hesitate to return the emergency department. Please take your medication as prescribed in addition you can take 1000 mg of Tylenol every 8 hours as needed and follow-up with your family doctor this coming week as discussed. Clinical Impressions Clinical Impression: Pharyngitis Print Language Print Language: Wolof Discharge ED Provider: Matteo Paul General Adult HPI <JAMES Dobbs - Last Filed: 10/28/24 21:37> General Chief complaint: Fever Stated complaint: General Weakness Time Seen by Provider: 10/28/24 21:25 History of Present Illness HPI narrative: Patient presents for evaluation initially with a chief complaint of a sore throat. Patient was seen earlier this date fourth sore throat that began bothering him yesterday. He had a strep swab that was negative and ultimately was discharged home. He presents back again today via EMS primarily because he does not have. He denies shortness of breath fever chills cough hemoptysis hematochezia melena nausea vomiting diarrhea. He has home oxygen that he is supposed to wear as a as needed basis however patient arrives with an O2 sat in the 80s. Related Data Home Medications ?Medication ?Instructions ?Recorded ?Confirmed multivitamin 1 tab PO DAILY 12/04/20 10/14/24 rivaroxaban 20 mg tablet (Xarelto) 20 mg PO DAILY 01/21/22 10/14/24 rosuvastatin 10 mg tablet 10 mg PO .COMPLEX 11/03/23 10/14/24 oxybutynin chloride 10 mg 10 mg PO ONCE 01/06/24 10/14/24 tablet,extended release 24 hr Previous Rx's ?Medication ?Instructions ?Recorded ondansetron HCl 4 mg tablet 4 mg PO TIDP PRN Nausea And 01/02/21 Vomiting #12 tabs tamsulosin 0.4 mg capsule 0.4 mg PO DAILY #90 caps 10/21/23 tolterodine 4 mg capsule,extended 4 mg PO DAILY #30 caps 10/21/23 release 24 hr hydrocodone 7.5 mg-acetaminophen 1 tab PO Q8H PRN pain #30 tabs 11/03/23 325 mg tablet atenolol 50 mg tablet See Rx Instructions .Route 05/17/24 .COMPLEX #180 tabs bupropion HCl 100 mg tablet See Rx Instructions .Route 05/17/24 .COMPLEX #90 tabs omeprazole 40 mg capsule,delayed See Rx Instructions .Route 05/17/24 release .COMPLEX #90 caps citalopram 20 mg tablet 20 mg PO DAILY #90 tabs 06/24/24 diphenoxylate-atropine 2.5 1 tab PO Q6H PRN diarrhea #30 tabs 06/24/24 mg-0.025 mg tablet (Lomotil) fluticasone propionate 50 1 spray intranasal BID #16 grams 07/15/24 mcg/actuation nasal spray,suspension (Allergy Relief (fluticasone)) ezetimibe 10 mg tablet See Rx Instructions .Route 08/03/24 .COMPLEX #90 tabs lisinopril 10 mg tablet See Rx Instructions .Route 10/19/24 .COMPLEX #90 tabs ibuprofen 800 mg tablet 800 mg PO Q8H PRN pain #9 tabs 10/28/24 Allergies Allergy/AdvReac Type Severity Reaction Status Date / Time No Known Allergies Allergy Verified 10/14/24 09:01 [facility] <JAMES Dobbs - Last Filed: 10/28/24 21:37> [facility] Disclaimer: The information contained in this section may have been updated after the patient was seen, as this information can be updated by other users. Medical History Hematuria Social History Smoking Status: Never smoker alcohol intake: former substance use type: denies use current occupational status: retired Travel in the last 8 weeks?: None household members: spouse housing: house Have you lived/traveled outside US in past 30 days?: No Contact w/someone who lives/traveled outside US past 30 days?: No Exposure to someone with infectious disease in past 14 days?: No Do you have a fever (greater than 100.4 F or 38 C)?: Yes Have you tested positive for COVID-19?: No Exposed to someone with COVID-19 in past 14 days?: No Do you have a sore throat?: Yes Do you have a cough?: No Do you have any weakness?: No Do you have any diarrhea?: No Are you experiencing any unusual bleeding?: No Do you have any muscle aches/pain?: No Do you have any abdominal pain?: No Are you experiencing loss of taste or smell?: No Other Medical History Have you received the Flu Vaccine for this season: Yes Have you received the Pneumonia Vaccine: Yes <JAMES Dobbs - Last Filed: 10/28/24 21:37> ROS Obtained: Yes Systems reviewed as appropriate & no additional complaints except as documented Physical Exam <JAMES Dobbs - Last Filed: 10/28/24 21:37> General General appearance: alert Respiratory Respiratory exam: Present normal lung sounds bilaterally Cardiovascular Cardiovascular exam: Present regular rate Neurological Exam Neurological exam: Present alert Medical Decision Making <JAMES Dobbs - Last Filed: 10/28/24 21:37> Medical Records Medical records reviewed: Yes I reviewed the patient's medical records. Screening: Per USPSTF and CDC recommendations, given the prevalence of disease in our region, it is our hospital?s policy to screen for HIV and viral Hepatitis for all patients aged 18 and over and those with ongoing risk factors. [place] Inquiry Pt receiving controlled substance: No Vital Signs: 10/28/24 21:37 10/28/24 21:48 Temperature 102.3 F H Temperature Source Oral Oral Pulse Rate [Right] 61 Respiratory Rate 23 Blood Pressure [Right Arm] 138/80 Blood Pressure Mean [Right Arm] 99 02 Sat by Pulse Oximetry 90 L Oxygen Delivery Method Nasal Cannula Oxygen Flow Rate (LPM) 2 Lab Data Lab results reviewed: Yes I reviewed the patient's lab results. Lab Results 10/28/24 21:33: WBC 15.9 H, RBC 4.71, Hgb 13.1 L, Hct 41.4 L, MCV 87.9, MCH 27.8, MCHC 31.6 L, RDW 14.0, Plt Count 189, MPV 10.1, Neut % (Auto) 84.5 H, Lymph % (Auto) 6.6 L, [place] % (Auto) 7.2, Eos % (Auto) 0.8, Baso % (Auto) 0.3, Neut # (Auto) 13.4 H, Lymph # (Auto) 1.1, [place] # (Auto) 1.1 H, Eos # (Auto) 0.1, Baso # (Auto) 0.1, Sodium 133 L, Potassium 5.3 H, Chloride 99, Carbon Dioxide 27, Anion Gap 12.3, BUN 16, Creatinine 1.00, Estimated Creat Clear 74, Estimated GFR 73, Est GFR ( Amer) 89, Glucose 106 H, Calcium 9.3, Total Bilirubin 1.0, AST 31, ALT 14, Alkaline Phosphatase 51, Troponin I < 0.01, NT-Pro-B Natriuret Pep 1510 H, Total Protein 6.6, Albumin 3.7, Globulin 2.9, Albumin/Globulin Ratio 1.3 10/28/24 21:35: VBG pH 7.38, VBG pCO2 39.2, VBG pO2 66.9 H, VBG HCO3 22.8 L, VBG Total CO2 24.0, VBG O2 Saturation 94.5 H, VBG Base Excess -2.3, VBG Lactic Acid 1.7 10/28/24 21:33 10/28/24 21:33 Orders (Tests/Meds): ED MEDICATIONS Discontinued Medications Generic Name Dose Route Start Last Admin Trade Name Freq PRN Reason Stop Dose Admin Acetaminophen 1,000 mg 10/28/24 22:10 10/28/24 22:20 Acetaminophen 500mg Tab PO 10/28/24 22:11 1,000 mg ONCE ONE Administration Belladonna Alkaloids 60 ml 10/28/24 21:35 10/28/24 21:41 Belladonna Alkaloids 60 Ml Ml PO 10/28/24 21:36 60 ml ONCE ONE Administration Ondansetron HCl 4 mg 10/28/24 22:07 10/28/24 22:10 Ondansetron 4mg/2ml Vial IV 10/28/24 22:08 4 mg ONCE ONE Administration ORDERS Category Date Time Status CXR 2 view (NOT portable) [XR chest 2V] Stat Exams 10/28/24 21:32 Completed BNP [NT Pro Brain Natriuretic Pep.] Stat Lab 10/28/24 21:33 Completed CBC w/Auto Diff [Complete Blood Count Auto Diff] Stat Lab 10/28/24 21:33 Completed CMP [Comprehensive Metabolic Panel] Stat Lab 10/28/24 21:33 Completed Full Resp Panel w/COVID ([facility]) Routine Lab 10/28/24 21:38 Received Trop I [Troponin I] Stat Lab 10/28/24 21:33 Completed Throat Culture Stat Micro 10/28/24 21:30 Received VBG [Venous Blood Gas] Stat RT 10/28/24 21:35 Completed Medical Decision Narrative: In summary patient is a 74-year-old male who presents to the emergency department for evaluation of pharyngitis. Patient is normotensive however patient arrives with a sat in the 80s Upon arrival, afebrile. Physical exam is remarkable for very erythematous posterior pharynx with thick greenish postnasal drip, patient is edentulous but does wear dentures, I do not see any ulcers or mucosal lesions. No cervical lymphadenopathy. Breath sounds clear and equal bilateral to the bases that adventitious sounds.. Differential diagnosis includes viral or bacterial pharyngitis versus worsening CHF versus exertional hypoxia etc. Initial workup will be conducted with hematologic labs throat culture COVID flu swabs plain from chest x-ray. Initial interventions include supplemental O2 continuous pulse oximetry and cardiac monitoring and Magic mouthwash. Initial workup ordered and pending at the time of handoff to Dr. Paul at 2100 hrs. <Matteo Paul MD - Last Filed: 10/28/24 23:12> Vital Signs: 10/28/24 21:37 10/28/24 21:48 Temperature 102.3 F H Temperature Source Oral Oral Pulse Rate [Right] 61 Respiratory Rate 23 Blood Pressure [Right Arm] 138/80 Blood Pressure Mean [Right Arm] 99 02 Sat by Pulse Oximetry 90 L Oxygen Delivery Method Nasal Cannula Oxygen Flow Rate (LPM) 2 Lab Data Lab Results 10/28/24 21:33: WBC 15.9 H, RBC 4.71, Hgb 13.1 L, Hct 41.4 L, MCV 87.9, MCH 27.8, MCHC 31.6 L, RDW 14.0, Plt Count 189, MPV 10.1, Neut % (Auto) 84.5 H, Lymph % (Auto) 6.6 L, [place] % (Auto) 7.2, Eos % (Auto) 0.8, Baso % (Auto) 0.3, Neut # (Auto) 13.4 H, Lymph # (Auto) 1.1, [place] # (Auto) 1.1 H, Eos # (Auto) 0.1, Baso # (Auto) 0.1, Sodium 133 L, Potassium 5.3 H, Chloride 99, Carbon Dioxide 27, Anion Gap 12.3, BUN 16, Creatinine 1.00, Estimated Creat Clear 74, Estimated GFR 73, Est GFR ( Amer) 89, Glucose 106 H, Calcium 9.3, Total Bilirubin 1.0, AST 31, ALT 14, Alkaline Phosphatase 51, Troponin I < 0.01, NT-Pro-B Natriuret Pep 1510 H, Total Protein 6.6, Albumin 3.7, Globulin 2.9, Albumin/Globulin Ratio 1.3 10/28/24 21:35: VBG pH 7.38, VBG pCO2 39.2, VBG pO2 66.9 H, VBG HCO3 22.8 L, VBG Total CO2 24.0, VBG O2 Saturation 94.5 H, VBG Base Excess -2.3, VBG Lactic Acid 1.7 Orders (Tests/Meds): ED MEDICATIONS Discontinued Medications Generic Name Dose Route Start Last Admin Trade Name Freq PRN Reason Stop Dose Admin Acetaminophen 1,000 mg 10/28/24 22:10 10/28/24 22:20 Acetaminophen 500mg Tab PO 10/28/24 22:11 1,000 mg ONCE ONE Administration Belladonna Alkaloids 60 ml 10/28/24 21:35 10/28/24 21:41 Belladonna Alkaloids 60 Ml Ml PO 10/28/24 21:36 60 ml ONCE ONE Administration Ondansetron HCl 4 mg 10/28/24 22:07 10/28/24 22:10 Ondansetron 4mg/2ml Vial IV 10/28/24 22:08 4 mg ONCE ONE Administration ORDERS Category Date Time Status CXR 2 view (NOT portable) [XR chest 2V] Stat Exams 10/28/24 21:32 Completed BNP [NT Pro Brain Natriuretic Pep.] Stat Lab 10/28/24 21:33 Completed CBC w/Auto Diff [Complete Blood Count Auto Diff] Stat Lab 10/28/24 21:33 Completed CMP [Comprehensive Metabolic Panel] Stat Lab 10/28/24 21:33 Completed Full Resp Panel w/COVID ([facility]) Routine Lab 10/28/24 21:38 Received Trop I [Troponin I] Stat Lab 10/28/24 21:33 Completed Throat Culture Stat Micro 10/28/24 21:30 Received VBG [Venous Blood Gas] Stat RT 10/28/24 21:35 Completed ECG Data Tracing #1: Independently interpreted by me rate is 62, rhythm is irregular, atrial paced, no ST elevation in anatomical contiguous leads, QTc 416. Medical Decision Narrative: In summary patient is a 74-year-old male who presents to the emergency department for evaluation of pharyngitis. Patient is normotensive however patient arrives with a sat in the 80s Upon arrival, afebrile. Physical exam is remarkable for very erythematous posterior pharynx with thick greenish postnasal drip, patient is edentulous but does wear dentures, I do not see any ulcers or mucosal lesions. No cervical lymphadenopathy. Breath sounds clear and equal bilateral to the bases that adventitious sounds.. Differential diagnosis includes viral or bacterial pharyngitis versus worsening CHF versus exertional hypoxia etc. Initial workup will be conducted with hematologic labs throat culture COVID flu swabs plain from chest x-ray. Initial interventions include supplemental O2 continuous pulse oximetry and cardiac monitoring and Magic mouthwash. Initial workup ordered and pending at the time of handoff to Dr. Paul at 2100 hrs. Matteo Paul: Upon assumption of care patient is hemodynamically stable workup reviewed by me, patient has leukocytosis no significant anemia compensated acid-base status no critical electrolyte abnormality slightly elevated BNP initial troponin undetectably low. Chest x-ray no acute pulmonary abnormality. Upon repeat evaluation patient was at baseline oxygen requirement and is appropriate for outpatient management at this time. Patient has full range of motion of his neck No concern for deep space infection he has presumed viral pharyngitis. Full respiratory panel is pending and unfortunately patient is not a candidate for steroids given his history of heart failure. Patient we discharged with a prescription for a Profen 800s and will follow-up with family doctor early next week. Critical Care <JAMES Dobbs - Last Filed: 10/28/24 21:37> Critical Care Time Critical Care Time: No
--- NOTE | 2024-10-28 21:32 | XR_ITS ---
PROCEDURE INFORMATION: Exam: XR Chest Exam date and time: 10/28/2024 9:46 PM Age: 74 years old Clinical indication: Cough; Additional info: Cough SOB TECHNIQUE: Imaging protocol: Radiologic exam of the chest. Views: 2 views. COMPARISON: CR XR CHEST 2V 03/10/2024 4:01 PM FINDINGS: Lungs: Similar minimal right basilar compressive subsegmental atelectasis. Pleural spaces: Unremarkable. No pleural effusion. No pneumothorax. Heart/Mediastinum: Unremarkable. No cardiomegaly. Diaphragm: Chronically elevated right hemidiaphragm. Bones/joints: Unremarkable. IMPRESSION: No acute findings. No infiltration identified.
--- NOTE | 2024-10-28 21:34 | ECG_ITS ---
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
[2024-10-28 21:37] VITALS: BP 138/80; PULSE 61; RESP 23; TEMP 39.1; O2SAT 90; BMI 49.4
[2024-10-28 21:41] LABS: Lactate Venous 1.7 mmol/L (0.4-2.0); VBG Base Excess -2.3 mmol/L (-2.4-2.3); VBG HCO3 22.8 mmol/L (23-30); VBG Oxygen Saturation 94.5 % (50-70); VBG PCO2 39.2 mmol/L (35-51); VBG PH 7.38 mmol/L (7.31-7.41); VBG PO2 66.9 mmol/L (28-40)
[2024-10-28] MEDS: BELLADONNA ALKALOIDS 60 ML ML PO (21:41)
[2024-10-28 21:44] LABS: Basophils # 0.1 K/mm3 (0-0.2); Basophils % 0.3 % (0.1-2.0); Eosinophils # 0.1 Kmm3 (0.0-0.4); Eosinophils % 0.8 % (0.1-12.0); Hematocrit 41.4 % (42.0-52.0); Hemoglobin 13.1 g/dL (14.1-18.0); Immature Granulocytes % 0.6 %; Lymphocytes # 1.1 K/mm3 (0.7-4.5); Lymphocytes % 6.6 % (10-50); Mean Corpuscular HGB Conc 31.6 g/dL (31.8-35.4); Mean Corpuscular Hemoglobin 27.8 pg (27.0-31.2); Mean Corpuscular Volume 87.9 fl (80-94); Mean Platelet Volume 10.1 fl (7.4-10.4); Monocytes # 1.1 K/mm3 (0.1-1.0); Monocytes % 7.2 % (1.7-9.3); Neutrophils # 13.4 K/mm3 (1.8-7.8); Neutrophils % 84.5 % (37.0-80.0); Nucleated Red Blood Cells # 0 10^3/uL; Nucleated Red Blood Cells % 0 %; Platelet Count 189 K/mm3 (142-424); Red Blood Count 4.71 M/mm3 (4.60-6.20); Red Cell Distribution Width-SD 44.7 fL; White Blood Count 15.9 K/mm3 (4.8-10.8)
[2024-10-28 21:44] LABS: Adenovirus,PCR Not Detected (NotDetected); Bordetella Pertussis Not Detected (NotDetected); Chlamydophila Pneumoniae, PCR Not Detected (NotDetected); Coronavirus 19, PCR Not Detected (NotDetected); Coronavirus 229E Not Detected (NotDetected); Coronavirus NL63 Not Detected (NotDetected); Coronavirus OC43 Not Detected (NotDetected); Coronovirus HKU1,PCR Not Detected (NotDetected); Human Metapneumovirus Not Detected (NotDetected); Influenza A, PCR Not Detected (NotDetected); Influenza AH1, 2009 Not Detected (NotDetected); Influenza AH1, PCR Not Detected (NotDetected); Influenza AH3,PCR Not Detected (NotDetected); Influenza B, PCR Not Detected (NotDetected); Mycoplasma Pneumoniae, PCR Not Detected (NotDetected); Parainfluenza 1, PCR Not Detected (NotDetected); Parainfluenza 2, PCR Not Detected (NotDetected); Parainfluenza 3, PCR Not Detected (NotDetected); Parainfluenza 4, PCR Not Detected (NotDetected); Respiratory Syncytial Virus Not Detected (NotDetected); Rhinovirus/Enterovirus Not Detected (NotDetected)
--- NOTE | 2024-10-28 21:46 | PC.NURSE ---
Kanchan Hou contacted RT r/t VBG.
--- NOTE | 2024-10-28 21:54 | PC.NURSE ---
PT transported to radiology via wheelchair by radiology stafff.
--- NOTE | 2024-10-28 21:59 | PC.NURSE ---
PT returned from radiology via wheelchair by radiology staff.
[2024-10-28] MEDS: ONDANSETRON 4MG/2ML VIAL 4 MG IV (22:10)
[2024-10-28 22:17] LABS: Alanine Aminotransferase 14 U/L (12-78); Albumin Level 3.7 g/dl (3.5-5.0); Albumin/Globulin Ratio 1.3 (1.1-1.8); Alkaline Phosphatase 51 U/L (38-126); Anion Gap 12.3 mEq/L (5-15); Aspartate Amino Transferase 31 U/L (17-59); Blood Urea Nitrogen 16 mg/dl (9-20); Calcium 9.3 mg/dl (8.4-10.2); Carbon Dioxide 27 mmol/L (22.0-30.0); Chloride 99 mmol/L (98-107); Creatinine Clearance Estimated 74 mL/min (50-200); Estimated Glomerular Filt Rate 73 ml/min (>60); GFR (African American) 89 ML/MIN (>60); Globulin 2.9 g/dL (1.3-3.2); Glucose 106 mg/dl (74-100); Potassium 5.3 mmoL/L (3.5-5.1); Sodium 133 mmol/L (136-145); Total Protein,Serum 6.6 g/dl (6.3-8.2)
[2024-10-28] MEDS: ACETAMINOPHEN 500MG TAB 1000 MG PO (22:20)
[2024-10-28 22:26] LABS: NT Pro Brain Natriuretic Pep. 1510 pg/mL (0-125)
[2024-10-28 22:33] LABS: Troponin I < 0.01 ng/ml (0.00-0.034)
--- NOTE | 2024-10-28 23:16 | PC.NURSE ---
PT educated that O2 would benefit him on transport home. PT declined the need for oxygen and stated I just live two blocks and [place] . Notified Provider.
[2024-10-28 23:25] VITALS: BP 129/55; PULSE 66; RESP 18; TEMP 37; O2SAT 92
== END 2024-10-28 23:26 | disposition home or self-care (01) ==
PROVIDERS: Emergency Provider Emergency Medicine; PCP Internal Medicine
DX: J02.9 Acute pharyngitis, unspecified (principal); R53.1 Weakness
CPT/HCPCS: 0223U; 71046; 80053; 82803; 83880; 84484; 85025; 87070; 87633; 93005; 96374; 99284; J2405

== ENCOUNTER 2024-11-25 14:12 | Outpatient (CLI) | payer MEDICARE, BC, SELFPAY ==
--- OUTSIDE RECORDS SUMMARY | 2024-10-07 14:45 | XMS_ITS | Encounter Summary ---
Author Organization [facility] ([place], [place], [place], [place]) Address [address] [place] [address] Care Team Providers Care Roundhouse Supervisor Name Role Phone Unavailable Primary Care Provider Unavailabl e Reason for Visit * Reason Comments Injections Bilat hands Encounter Details Date Type Department Care Team (Late st Contact Info) Description 10/07/2024 2:45 PM EDT Office Visit [facility] Orthopedics - [address] [place] [address] Matteo Iglesias PA-C [address] [place] [address] Bilateral carpal tunnel syndrome (Primary Dx); Carpal [...] documented in this encounter Progress Notes * Mattoe Iglesias PA-C - 10/07/2024 2:45 PM EDTAssociated [...] CMC Tenderness []+ []- []+ []- 1st NEWS ANCHOR Grind []+ []- []+ []- Kizzy Nodes [...] drainage, nerve damage and poor cosmetic result [place] protocol: Procedure explained and questions answered to [...] factors. Patient will follow-up with PCP for alf treatment plan. I have examined and questioned the above listed patient and provided or received all documentation,establishing, confirming, and revising as necessary, the findings and statements noted. . EMR/Saw[employer]oth [employer]/Solar Installer disclaimer: Much of this encounter note is an electronic clinical medical transcriptionist/translation of spoken language to printed text. The [...] drainage, nerve damage and poor cosmetic result [place] protocol: Procedure explained and questions answered to [...]
--- OUTSIDE RECORDS SUMMARY | 2024-11-26 10:39 | XMS_ITS | Encounter Summary ---
Author Organization [employer] ([place], [place], [place], [place]) Address [address] [place] [address] Care Team Providers Care Budget Accountant Name Role Phone Unavailable Primary Care Provider Unavailabl e Encounter Details Date Type Department Care Team (Late st Contact Info) Description 03/21/2018 Transcribed Document [facility] Family Medicine [facility] [place] [address] ProviderTabitha MD [address] [place] [id number] Social History Tobacco Use Types Packs/Day Years Used Date Smoking Tobacco: Never Assessed Sex and Gender Information Value Date Recorded Sex Assigned at Not on file Legal Sex Male 6:23 PM CDT Gender Identity Not on file Sexual Orientation Not on file documented as of this encounter Miscellaneous Notes * Cerner Conversion Note - Tabitha Fischer MD - 03/21/2018 8:52 AM PEER COUNSELOR Patient: ANA ALARCON Age: 68 years Sex: Male : 1950 Associated Diagnoses: None Author: DIANA BOLES PA knee doing well, pain as expected, has had extended stay for cardio-pulmonary issues of which he reports he is doing better vss, nvi, dsg dry P: once cleared medically can be d/c to rehab facility Electronically signed by Siri Hilario Conversion Bunch Breaker Machine Operator Cerner at 08/27/2022 8:42 AM CDT documented in this encounter Plan of Treatment Not on file documented as of this encounter Visit Diagnoses Not on filedocumented in this encounter
--- OUTSIDE RECORDS SUMMARY | 2024-11-26 10:39 | XMS_ITS | Clinical Summary ---
Author Organization [employer] ([place], [place], [place], [place]) Address [address] [place] [address] Care Team Providers Care Animal Biologist Name Role Phone Unavailable Primary Care Provider [...] by mouth 2 (two) times daily. Active Active Problems No known active problems Encounters Date Type Department Care Team Description 10/07/2024 2:45 PM EDT Office Visit [facility] [address] [place] [address] Matteo Iglesias PA-C Bilateral carpal [...] years 1-dose series) 2011 COVID-19 VACCINE ( season) 2024 05/16/2021, 08/09/2020, 07/12/2020 Falls Risk Screening 05/12/2024 Influenza Vaccine (#1) 2025 03/16/2024 Tobacco Cessation Counseling and Screening (12+) 10/07/2025 10/07/2024 DTAP/TDAP/TD VACCINES (2 - T d or Tdap) 11/14/2033 11/15/2023 Procedures Procedure Name Priority Date/Time Associated Diagnosis [...] drainage, nerve damage and poor cosmetic result [place] protocol: Procedure explained and questions answered to [...] 3 Months Insurance MEDICARE PART A B [facility]
--- OUTSIDE RECORDS SUMMARY | 2024-11-26 10:39 | XMS_ITS | Data Portability ---
Author Organization [facility] Medicine and [facility] Address [address] [place] [address] Assessment No assessment recorded. Plan of Treatment Reminders Order Date Submit Date Provider Last Modified By Organization Details Last Modified Time Details Appointments OV EST 15 2025 11:15A M Vega Camargo Jr, MD Not available Not available Not available Lab urinalysi s, dipstick 2024 025 [email or web address] [facility] [address], [address], 10/21/2024 12:19:04 PSA, total + free, serum or plasma 2022 023 [facility] (Lab Registration) , [address] [place] [address] [place], [address], 11/01/2022 06:58:00 urinalysi s, dipstick 2022 023 [email or web address] [facility], [facility] [place], [address], 10/17/2022 16:14:15 Referral None recorded. Procedures None recorded. Surgeries None recorded. Imaging None recorded. Medication Orders tolterodi ne ER 4 mg capsule,e xtended release 24 hr 2024 025 [facility], [address], [address], [place], [address], 10/20/2024 12:39:36 tamsulosi n 0.4 mg capsule 2024 025 [facility], [address] [place] [address], [facility] [address], [place], [address], 10/20/2024 12:39:37 tamsulosi n 0.4 mg capsule 2023 024 [facility], [address] [place] [address], [place] [address], [place], [address], 10/22/2023 12:30:34 tolterodi ne ER 4 mg capsule,e xtended release 24 hr 2023 024 [facility], [address] [place] [address], [place] [address], [place], [address], 10/22/2023 12:30:33 tamsulosi n 0.4 mg capsule 2022 023 [facility], [address] [place] [address], [place], [address], 10/17/2022 16:21:02 tolterodi ne ER 4 mg capsule,e xtended release 24 hr 2022 023 [facility], [address] [place] [address], [place] [address], [place], [address], 10/17/2022 16:21:01 Patient TargetsNo targets recorded. Patient InstructionsNo instructions recorded. Reason for Referral None Reported. Results Created Date Observation Date Name Description Value Unit Range Abnormal Flag Note LastModifiedBy Organization Detail LastModifiedTime 10/18/1910/17/2022 PROST ATE SPECI FIC AG (PSA) note Unles s other cedeno noted testi ng perfo rmed at: Jairo Barroso [facility] [address] [place] [address] Anson cid MD Not Available [facility] (Pre-Op Clinic) [address] [place] [address] [place], [address], 10/18/2022 02:50:31 06/12/29 2210/18/2022 PROST ATE SPECI FIC AG (PSA) PSA 0.36 NG/mL 0.00-4 .00 Not Available [facility] (Pre-Op Clinic) [address] [place] [address] [place], [address], 10/18/2022 02:50:31 10/18/19 23 10/17/2022 urina lysis , dipst ick Leukocytes (reference range) negati ve Not Available [facility] [address] [place] [address], [address], 10/17/2022 15:31:23 10/18/19 23 10/17/2022 urina lysis , dipst ick Nitrite (reference range:) negati ve Not Available [facility] [address] [place] [address], [address], 10/17/2022 15:31:23 10/18/19 23 10/17/2022 urina lysis , dipst ick Urobilinogen (reference range) 0.2 Not Available [facility] [address] [place] [address], [address], 10/17/2022 15:31:23 10/18/19 23 10/17/2022 urina lysis , dipst ick Protein (reference range) negati ve Not Available [facility] [address] [place] [address], [address], 10/17/2022 15:31:23 10/18/19 23 10/17/2022 urina lysis , dipst ick pH (reference range 5-8.5) 6.5 Not Available [facility] [address] [place] [address], [address], 10/17/2022 15:31:23 10/18/19 23 10/17/2022 urina lysis , dipst ick Blood (reference range:) negati ve Not Available [facility] [address] [place] [address], [address], 10/17/2022 15:31:23 10/18/19 23 10/17/2022 urina lysis , dipst ick Specific Jay (reference range) 1.020 Not Available [address], [address], 10/17/2022 15:31:23 10/18/19 23 10/17/2022 urina lysis , dipst ick Ketone (reference range) negati ve Not Available [address], [address], 10/17/2022 15:31:23 10/18/19 23 10/17/2022 urina lysis , dipst ick Bilirubin (reference range) negati ve Not Available [address], [address], 10/17/2022 15:31:23 10/18/19 23 10/17/2022 urina lysis , dipst ick Glucose (reference range) negati ve Not Available [address], [address], 10/17/2022 15:31:23 10/18/19 23 10/17/2022 urina lysis , dipst ick Color (reference range: yellow-brown ) Yellow Not Available [address], [address], 10/17/2022 15:31:23 10/21/19 25 10/20/2024 urina lysis , dipst ick Leukocytes (reference range) negati ve Not Available [address], [address], 10/20/2024 11:44:23 10/21/19 25 10/20/2024 urina lysis , dipst ick Nitrite (reference range:) negati ve Not Available [address], [address], 10/20/2024 11:44:23 10/21/19 25 10/20/2024 urina lysis , dipst ick Urobilinogen (reference range) 0.2 Not Available [address], [address], 10/20/2024 11:44:23 10/21/19 25 10/20/2024 urina lysis , dipst ick Protein (reference range) negati ve Not Available [address], [address], 10/20/2024 11:44:23 10/21/19 25 10/20/2024 urina lysis , dipst ick pH (reference range 5-8.5) 7.0 Not Available [facility] [address], [address], 10/20/2024 11:44:23 10/21/19 25 10/20/2024 urina lysis , dipst ick Blood (reference range:) negati ve Not Available [address], [address], 10/20/2024 11:44:23 10/21/19 25 10/20/2024 urina lysis , dipst ick Specific Jay (reference range) 1.015 Not Available [address], [address], 10/20/2024 11:44:23 10/21/19 25 10/20/2024 urina lysis , dipst ick Ketone (reference range) negati ve Not Available [address], [address], 10/20/2024 11:44:23 10/21/19 25 10/20/2024 urina lysis , dipst ick Bilirubin (reference range) negati ve Not Available [facility] [address], [address], 10/20/2024 11:44:23 10/21/1910/20/2024 urina lysis , dipst ick Glucose (reference range) negati ve Not Available [address], [address], 10/20/2024 11:44:23 10/21/1910/20/2024 urina lysis , dipst ick Color (reference range: yellow-brown ) Yellow Not Available [facility] [address], [address], 10/20/2024 11:44:23 Result Notes None recorded. Problems Name Problem SNOMED Code Status Onset Date Resolution Date Notes Provider Name and Address Organization Details Recorded Time Myocardial infarction 63355023 Active 2022 HINA Collins - [facility] & [place] 3 14:52:23 Heartburn 69314845 Active 2022 Eunice sibley, HINA - [facility] & [place] 3 14:52:32 Hypertensive disorder 42626358 Active 2022 Eunice sibley, HINA - [facility] & [place] 3 14:52:41 Sleep apnea 30904974 Active 2022 Eunice sibley, HINA - [facility] - [place] & [place] 3 14:52:58 Kidney stone 43989348 Active 2022 Eunice sibley, HINA - [facility] - [place] & [place] 3 14:53:07 Problem Notes None recorded. Procedures Surgical History Date Name Laterality Status Provider Name and Address Organization Details Recorded Time 5 Pacemaker/Defi brillator completed Eunice [place] [facility] & [place] 10/22/2023 11:07:18 Pacemaker monitr audible/vis completed Eunice [place] [facility] & [place] 10/17/2022 14:53:23 Knee arthroscopy/gurrola rgery completed Eunice Coffey [place] - [facility] & [place] 10/17/2022 14:53:37 Imaging Results None recorded. Procedure [...] Updated DateTime 10/17/2022 182.88 cm 53.6 kg/m2 717927.99 g Eunice Coffey [place] - [facility] & [place] 10/17/2022 14:52:02 Date Recorded Body height Body mass index (BMI) Body weight Body temperature Provider Name and Address Organization Details Last Updated DateTime 10/20/2024 182.88 cm 53.7 kg/m2 237706.58 g 98.1 [degF] Cj SANTAMARIA - [facility]NT [facility] & [place] 10/20/2024 11:09:05 Date Recorded Body height Body mass index (BMI) Body weight Body temperature Provider Name and Address Organization Details Last Updated DateTime 10/22/2023 182.88 cm 53.7 kg/m2 361277.58 g 98.2 [degF] Eunice [place] [facility]NT [facility] & [place] 10/22/2023 11:07:04 Social History Question Answer Notes LastModified by [employer] Details LastModified Time Tobacco Smoking Status Former Smoker Eunice sibley HINA [place] [facility] & [place] 10/22/2023 11:07:13 Do You Have An Advance Directive? No [email or web address] Information not available 10/22/2023 Are You Blind Or Do You Have Difficulty Seeing? No [email or web address] Information not available 10/22/2023 What Was The Date Of Your Most Recent Tobacco Screening? 10/16/2022 Information not available 10/22/2023 Are You Passively Exposed To Smoke? No [email or web address] Information not available 10/22/2023 Sex: Unknown Functional Status Question Answer Note LastModified by [employer] Details LastModified Time Do you use any illicit or recreational drugs? No [email or web address] Information not available 10/22/2023 What is your level of alcohol consumption? None [email or web address] Information not available 10/22/2023 What is your exercise level? None Information not available 10/22/2023 Mental Status Question Answer Note LastModified by Organization D etails LastModified Time Do you feel stressed (tense, restless, nervous, or anxious, or unable to sleep at night)? [id number] [email or web address] Information not available 10/22/2023 Family History Relationship Description Onset Age of this Age Resolved Age Notes LastModified by Organization Details LastModified Time Mother Heart disease [email or web address] Not available 10/17 14:53:58 Medical History Condition Response Obesity Y Heart Attack ([place]) Y Vision or Eye Problems Y Obstructive Sleep Apnea Y Past Encounters Encounter ID Performer Location Encounter Start Date Encounter Closed Date Diagnosis/Indication Diagnosis SNOMED-CT Code Diagnosis ICD10 Code Diagnosis Note [id number] Vega Camargo Jr, MD [facility] [address] [place] [address] 10/17/2022 14:46:46 10/17/2022 15:30:47 Urgent desire to urinate 54118171 R39.15 patient with history of urinary urgency. He continues to do well on the Detrol 4 mg. He did have a flare-up about 3 weeks ago which resolved. He is to continue the Detrol 4 mg a day. Lower urin kristen tract symptoms due to benign prostatic hypertrophy 2373120450 9101 N40.1 patient with history of lower urinary tract symptoms secondary to BPH. He is doing well on the tamsulosin and is to continue. Screening for malignant neoplasm of prostate 805382518 Z12.5 patient's last PSA was 0.3 in February 2021. A repeat PSA to be performed today. [id number] Vega Camargo Jr, MD [facility] [address] [address] 10/22/2023 10:55:44 10/22/2023 11:21:46 Lower urinary tract symptoms due to benign prostatic hypertrophy 1055580868 9101 N40.1 patient with history of lower urinary tract symptoms secondary to BPH. He is doing well on the tamsulosin and is to continue. Urgent ines robert to urinate 82401367 R39.15 patient with history of urinary urgency. He continues to do well on the Detrol 4 mg. He did have a flare-up about 3 weeks ago which resolved. He is to continue the Detrol 4 mg a day. Screening for malignant neoplasm of prostate 104793350 Z12.5 recent PSA on October 01, 2023 his 0.4. PSA 1 year ago was 0.36. Patient reassured. [id number] Vega Camargo Jr, MD [facility] [address] [address] 10/20/2024 10:43:23 10/20/2024 11:46:00 Benign prostatic hyperplasia 072462970 N40.0 patient with history of lower urinary tract symptoms secondary to BPH. He is doing well on the tamsulosin and is to continue. Urgent ines robert to urinate 96300681 R39.15 patient with history of urinary urgency. He continues to do well on the Detrol 4 mg. he does have an occasional leak with urgency. We discussed decreasing his caffeine intake as well as timed voiding to prevent these leaks. Screening for malignant neoplasm of prostate 113294622 Z12.5 recent PSA on October 01, 2023 [...] Name 10/17/2024 1 [place] Josh Alarcon [id number] Josh Alarcon 10/17/2024 2 [place] [id number] Josh Alarcon [id number] Josh Alarcon Notes Date Note Type Note Provider Name and Address Organization Details Recorded Time 10/17/2022 text/html patient is a 72-year-old white male with a history of urge incontinence. He was previously seen at [facility] in [facility] care today. He was last seen in [...] was not included. Vega Camargo Jr, MD [address] [place] [address], [address], [place], [address], [facility] & [place] 10/17/2022 16:16:08 10/22/2023 text/html Patient is a 73-year-old white male with history of BPH, urinary urgency. Returns today in routine follow-up. He continues on tamsulosin and tolterodine for his lower urinary tract symptoms. He states some occasional urgency which is controlled.His recent PSA returned at 0.4 on October 01, 2023. Vega Camargo Jr, MD [address] [place] [address], [address], [address], [place] - [facility] & [place] 10/22/2023 12:29:05 10/20/2024 text/html Patient is a [...] liver functions. Vega Camargo Jr, MD [address], [address], [place], [address], [place] - LPNT [facility] 10/20/2024 12:33:55
--- OUTSIDE RECORDS SUMMARY | 2024-11-26 10:39 | XMS_ITS | Continuity of Care Document ---
Author Organization [place] - [facility] [place] Address [address] [place] [address] Assessment No assessment recorded. Plan of Treatment Reminders Order Date Submit Date Provider Last Modified By Organization Details Last Modified Time Details Appointments OV EST 15 2025 11:15A M Vega Camargo Jr, MD Not available Not available Not available Lab urinalysi s, dipstick 2024 025 [email or web address] [facility] [place], [address] [place] [address], [address], 10/21/2024 12:19:04 Referral None recorded. Procedures None recorded. Surgeries None recorded. Imaging None recorded. Medication Orders tolterodi ne ER 4 mg capsule,e xtended release 24 hr 2024 025 [facility], [address] [place] [address], [place] [address], [place], [address], 10/20/2024 12:39:36 tamsulosi n 0.4 mg capsule 2024 025 [facility], [address] [place] [address], [facility], [place], [address], 10/20/2024 12:39:37 Patient TargetsNo targets recorded. Patient InstructionsNo instructions recorded. Reason for Referral None Reported. Results Created Date Observation Date Name Description Value Unit Range Abnormal Flag Note LastModifiedBy Organization Detail LastModifiedTime 10/21/19 25 10/20/2024 urina lysis , dipst ick Leukocytes (reference range) negati ve Not Available [address], [address], 10/20/2024 11:44:23 10/21/19 25 10/20/2024 urina lysis , dipst ick Nitrite (reference range:) negati ve Not Available [address], [address], 10/20/2024 11:44:23 10/21/19 25 10/20/2024 urina lysis , dipst ick Urobilinogen (reference range) 0.2 Not Available [address], [address], 10/20/2024 11:44:23 10/21/19 25 10/20/2024 urina lysis , dipst ick Protein (reference range) negati ve Not Available [address], [address], 10/20/2024 11:44:23 10/21/19 25 10/20/2024 urina lysis , dipst ick pH (reference range 5-8.5) 7.0 Not Available [address], [address], 10/20/2024 11:44:23 10/21/19 25 10/20/2024 urina lysis , dipst ick Blood (reference range:) negati ve Not Available [address], [address], 10/20/2024 11:44:23 10/21/19 25 10/20/2024 urina lysis , dipst ick Specific [place] (reference range) 1.015 Not Available [address], [address], 10/20/2024 11:44:23 10/21/19 25 10/20/2024 urina lysis , dipst ick Ketone (reference range) negati ve Not Available [address], [address], 10/20/2024 11:44:23 10/21/19 25 10/20/2024 urina lysis , dipst ick Bilirubin (reference range) negati ve Not Available [address], [address], 10/20/2024 11:44:23 10/21/19 25 10/20/2024 urina lysis , dipst ick Glucose (reference range) negati ve Not Available [address], [address], 10/20/2024 11:44:23 10/21/19 25 10/20/2024 urina lysis , dipst ick Color (reference range: yellow-brown ) Yellow Not Available [address], [address], 10/20/2024 11:44:23 Result Notes None recorded. Problems Name Problem SNOMED Code Status Onset Date Resolution Date Notes Provider Name and Address Organization Details Recorded Time Myocardial infarction 17591787 Active 2022 Eunice sibley, HINA - [facility] - [place] & [place] 3 14:52:23 Heartburn 83969402 Active 2022 Eunice sibley, [place] - [facility] - [place] & [place] 3 14:52:32 Hypertensive disorder 87148521 Active 2022 Eunice Coffey null, [place] - [facility] - [place] & [place] 3 14:52:41 Sleep apnea 72217373 Active 2022 Eunice sibley, [place] - [facility] - [place] & [place] 3 14:52:58 Kidney stone 50942527 Active 2022 Eunice sibley, [place] - [facility] - [place] & [place] 14:53:07 Problem Notes None recorded. Procedures Surgical History Date Name Laterality Status Provider Name and Address Organization Details Recorded Time 5 Pacemaker/Defi brillator completed [facility] & [place] 10/22/2023 11:07:18 Pacemaker monitr audible/vis completed [facility] & [place] 10/17/2022 14:53:23 Knee arthroscopy/gurrola rgery completed R [facility] & [place] 10/17/2022 14:53:37 Imaging Results None [...] Updated DateTime 10/20/2024 182.88 cm 53.7 kg/m2 819772.58 g 98.1 [degF] Cj Palma [facility] & [place] 10/20/2024 11:09:05 Social History Question Answer Notes LastModified by [employer] Details LastModified Time Tobacco Smoking Status Former Smoker Eunice sibley, [facility] & [place] 10/22/2023 11:07:13 Do You Have An Advance Directive? No Information not available 10/22/2023 Are You Blind Or Do You Have Difficulty Seeing? No Information not available 10/22/2023 What Was The Date Of Your Most Recent Tobacco Screening? 10/16/2022 Information not available 10/22/2023 Are You Passively Exposed To Smoke? No [email or web address] Information not available 10/22/2023 Sex: Unknown Functional Status Question Answer Note LastModified by [employer] Details LastModified Time Do you use any illicit or recreational drugs? No [email or web address] Information not available 10/22/2023 What is your level of alcohol consumption? None [email or web address] Information not available 10/22/2023 What is your exercise level? None [email or web address] Information not available 10/22/2023 Mental Status Question Answer Note LastModified by Organization D etails LastModified Time Do you feel stressed (tense, restless, nervous, or anxious, or unable to sleep at night)? [id number] [email or web address] Information not available 10/22/2023 Family History Relationship Description Onset Age of this Age Resolved Age Notes LastModified by Organization Details LastModified Time Mother Heart disease Not available 10/17 14:53:58 Medical History Condition Response Obesity Y Heart Attack ([place]) Y Vision or Eye Problems Y Obstructive Sleep Apnea Y Past Encounters Encounter ID Performer Location Encounter Start Date Encounter Closed Date Diagnosis/Indication Diagnosis SNOMED-CT Code Diagnosis ICD10 Code Diagnosis Note [id number] Vega Camargo Jr, MD [facility] [place] [address] [place] [address] 10/20/2024 10:43:23 10/20/2024 11:46:00 Benign prostatic hyperplasia 656427888 N40.0 patient with history of lower urinary tract symptoms secondary to BPH. He is doing well on the tamsulosin and is to continue. Urgent ines robert to urinate 23044416 R39.15 patient with history of urinary urgency. He continues to do well on the Detrol 4 mg. he does have an occasional leak with urgency. We discussed decreasing his caffeine intake as well as timed voiding to prevent these leaks. Screening for malignant neoplasm of prostate 594883935 Z12.5 recent PSA on October 01, 2023 [...] Muse Member ID Guarantor Name 10/20/2024 2 [facility] [place] [id number] Josh Alarcon [id number] Josh Alarcon 10/20/2024 1 [place] Josh Alarcon [id number] Josh Alarcon Notes Date Note Type [...] and liver functions. Vega Camargo Jr, MD [address] [place] [address], [address], [place], [address], [facility] 10/20/2024 12:33:55
--- OUTSIDE RECORDS SUMMARY | 2024-11-26 10:39 | XMS_ITS | Referral Summary ---
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 Name Role Phone Unavailable Primary Care Provider Unavailabl e Encounters Date Type Department Care Team Description 10/07/2024 2:45 PM EDT Office Visit [facility] - [address] [place] [address] Matteo Iglesias PA-C Bilateral carpal [...] Active Active Problems No known active problems Social [...] drainage, nerve damage and poor cosmetic result [place] protocol: Procedure explained and questions answered to [...] complications Matteo Iglesias PA-C PROCEDURE/MINOR SURGICAL [place] Final Result from Last 3 Months Insurance MEDICARE PART [place] [address] [address]
== END 2024-11-25 23:59 | disposition home or self-care (01) ==
LOC: LAB.DROPOF 11-26 10:35
PROVIDERS: PCP Internal Medicine; Visit Provider Internal Medicine
DX: J03.90 Acute tonsillitis, unspecified (principal)
CPT/HCPCS: 87070

== ENCOUNTER 2025-04-04 12:53 | Outpatient (CLI) | payer MEDICARE, BC, SELFPAY ==
--- NOTE | 2025-04-04 13:00 | CT_ITS ---
FINAL REPORT TECHNIQUE: Thin section axial images were obtained from the lung bases to the pubic symphysis without IV contrast. Coronal reconstruction images were obtained from the axial data. Exam was performed using dose reduction technique. CLINICAL HISTORY: Painless hematuria, history of kidney stones COMPARISON: 08/24/2018 FINDINGS: There is a 5 mm left lower lobe pulmonary nodule on series 3, image 18, unchanged from prior exam. There is a nonobstructing right renal stone which is unchanged as well as an 8 mm stone in the right renal pelvis. There is no hydronephrosis. There are bilateral renal lesions. There is a hyperdense lesion in the right kidney which may be proteinaceous or hemorrhagic cyst, unchanged from prior exam. Several hypodense lesions are seen which have increased in size which may also represent cysts. There is cholelithiasis. A small left adrenal nodule is unchanged. The remaining unenhanced solid abdominal organs are unremarkable. There is no evidence of small bowel obstruction. The partially visualized appendix is normal. GI tract is without acute abnormality. There is no lymphadenopathy or ascites. No acute osseous abnormality is identified. IMPRESSION: Stable, nonobstructing right renal stones. Bilateral renal lesions, incompletely evaluated without contrast. Consider renal mass protocol CT for further evaluation in the nonemergent setting. Cholelithiasis. Reviewed, Interpreted and Dictated by Medina Faria MD Transcribed by Greta Becerra Authenticated and [facility]
--- OUTSIDE RECORDS SUMMARY | 2025-04-04 13:01 | XMS_ITS | Data Portability ---
Author Organization HINA LATHA Sung [place] CLOSED Address [address] [place] [address] Care Team Providers Care Power Plant Technician Name Role Phone REECE GUADALUPE Primary Care Provider [phone] GIANA ECHEVERRIA Sand Cutter Assessment Encounter Date Assessment Date Assessment LastModified by Organization Details LastModified Time 11/01/2022 11/01/2022 Impression: 1. Coronary artery disease s/p CONSTRUCTION SUPERINTENDENT intervention 01/2007 and SIMEON to PLB 08/2016: [...] at next visit: In-office Medtronic device check. [email or web address] Not available 11/02/2022 21:10:47 04/25/2023 04/25/2023 Impression: 1. Coronary artery disease s/p CONSTRUCTION SUPERINTENDENT intervention 01/2007 and SIMEON to PLB 08/2016: [...] about 6 months, or sooner if needed. [email or web address] Not available 04/26/2023 12:43:38 10/31/2023 10/31/2023 Impression: 1. Coronary artery disease s/p CONSTRUCTION SUPERINTENDENT intervention 01/2007 and SIMEON to PLB 08/2016: [...] next visit: In-office Medtronic device check (with perl programmer). [email or web address] Not available 11/01/2023 14:03:04 04/30/2024 04/30/2024 Impression: 1. Coronary artery disease s/p CONSTRUCTION SUPERINTENDENT intervention 01/2007 and SIMEON to PLB 08/2016: [...] about 6 months, or sooner if needed. [email or web address] Not available 04/30/2024 12:28:36 11/01/2024 11/01/2024 Impression: 1. Coronary artery disease s/p CONSTRUCTION SUPERINTENDENT intervention 01/2007 and SIMEON to PLB 08/2016: [...] + ezetimibe 10mg daily Lipid panel in October 2024 reported a direct LDL of 62. 5. Hypertension 6. Obstructive sleep apnea 7. Class III obesity PLAN: Mr Alarcon appears to be stable from a cardiac standpoint. He continues to use Xarelto for ischemic stroke risk reduction, and appears to be tolerating this without any significant bleeding or bruising. Medication changes: None. RTC: We will plan to follow-up in about 6 months, or sooner if needed. [email or web address] Not available 11/01/2024 12:36:11 Plan of Treatment Reminders Order Date Submit Date Provider Last Modified By Organization Details Last Modified Time Details Appointments PACEMAKER 2024 10:45A M DEVICE_CL INIC Not available Not available Not available RECHECK 2024 11:15A M GIANA ECHEVERRIA MD Not available Not available Not available Lab None recorded. Referral None recorded. Procedures pacemaker programmi ng, dual lead (PROC) 2024 025 [email or web address] [facility], [address] [facility] , [facility], [place], [address], 11/01/2024 12:36:30 pacemaker programmi ng, dual lead (PROC) [address], [address], [facility], [place], [address], 04/30/2024 12:29:03 pacemaker programmi ng, dual lead (PROC) 2023 024 [facility], [address] [place] [address] Leticia Veloz, [facility], [place], [address], 10/31/2023 15:01:46 pacemaker programmi ng, dual lead (PROC) 2022 023 [facility], [address] [place] [address], [facility], [place], [address], 04/25/2023 16:21:47 Surgeries None recorded. Imaging None recorded. Medication Orders Xarelto 20 mg tablet [address], [address], [address], 10/31/2023 12:32:24 Xarelto 20 mg tablet [address], [address], [address], 04/25/2023 12:15:42 rosuvasta tin 10 mg tablet [address] [facility] [address] [facility], [address], [address], 04/25/2023 12:15:42 Xarelto 20 mg tablet [address], [address], [address], 11/02/2022 21:07:09 rosuvasta tin 10 mg tablet [address], [facility] [address], [address], 11/01/2022 13:08:09 Patient TargetsNo targets recorded. Patient Instructions Encounter Date Encounter Id Patient Instructions Last Modified By Organization Details Last Modified Time 11/01/2022 [id number] body mass index: care instructions [email or web address] Not available 11/02/2022 21:10:59 high blood pressure: care instructions [email or web address] Not available 11/02/2022 21:10:59 04/25/2023 [id number] body mass index: care instructions [email or web address] Not available 04/25/2023 12:16:54 high blood pressure: care instructions [email or web address] Not available 04/25/2023 12:16:54 10/31/2023 [id number] body mass index: care instructions [email or web address] Not available 10/31/2023 12:56:40 high blood pressure: care instructions [email or web address] Not available 10/31/2023 12:56:40 04/30/2024 [id number] body mass index: care instructions Not available 04/30/2024 12:29:03 high blood pressure: care instructions [email or web address] Not available 04/30/2024 12:29:03 - Continue with [...] health outcomes. [email or web address] Not available 04/30/2024 12:17:37 11/01/2024 [id number] body mass index: care instructions [email or web address] Not available 11/01/2024 12:36:30 high blood pressure: care instructions [email or web address] Not available 11/01/2024 12:36:30 Reason for Referral None Reported. Results Created Date Observation Date Name Description Value Unit Range Abnormal Flag Note LastModifiedBy Organization Detail LastModifiedTime 11/30/1911/25/2022 magalieot estrella bec e inter rogat ion (PROC ) No observ ation record ed. [email or web address] Not Available 2022 04:53:49 03/03/2002/24/2023 remot e devic e inter rogat ion (PROC ) No observ ation record ed. [email or web address] Not Available 2022 23:57:13 04/02/20 23 04/01/2023 remot e devic e inter rogat ion (PROC ) No observ ation record ed. [email or web address] Not Available 2022 09:18:58 04/29/20 23 04/25/2023 pacem ginette inter rogat ion (PROC ) No [...] ) No observ ation record ed. BARCODE [facility] [address], [place], [address], 04/30/2024 16:14:41 05/06/20 24 04/30/2024 remot e devic e inter rogat ion (PROC ) No observ ation record ed. [email or web address] Not Available 2023 20:30:09 08/11/19 25 08/09/2024 remot e devic e inter rogat ion (PROC ) No observ ation record ed. [email or web address] Not Available 2024 13:21:00 11/03/19 25 11/01/2024 alivia cruz am No observ ation record ed. BARCODE Not Available 2024 08:22:44 11/10/19 25 11/08/2024 remot e devic e inter rogat ion (PROC ) No observ ation record ed. [email or web address] Not Available 2024 21:18:52 02/12/2002/09/2025 remot e devic e inter rogat ion (PROC ) No observ ation record ed. [email or web address] Not Available 2024 11:47:05 Result Notes None recorded. Problems Name Problem SNOMED Code Status Onset Date Resolution Date Notes Provider Name and Address Organization Details Recorded Time Sick sinus syndrome 22825936 Active 2014 From Automated Load;Prov ider: Melinda Pereyra;Stat us: Active Not Available [facility] 6 06:27:04 Hypertens kimberly disorder 36741001 Active 2014 From Automated Load;Prov ider: Melinda Pereyra;Stat us: Active Not Available [facility] 6 06:27:04 Coronary arteriosc lerosis in [place] artery 89204491762 07 Active 2014 From Automated Load;Prov ider: Melinda Pereyra;Stat us: Active Not Available [facility] 6 06:27:04 Cardiac pacemaker in situ 360038536 Active 2016 MELINDA PEREYRA MD [address] [place] [address], [address] , [place] [facility] 7 09:51:38 Long-term current use of anticoagu lant 444497211 Active 2016 Royce/a finn PEREYRA MD [address] [place] [address], [phone] , [place] [facility] 7 09:51:53 Dyslipide kristen 456944290 Active 2018 MELINDA PEREYRA MD [address] [place] [address], [address] , [facility] 10:19:51 Problem Notes None recorded. Procedures Surgical History Date Name Laterality Status Provider Name and Address Organization Details Recorded Time 11/02/19 25 EKG completed Helen Ulrich [facility] 11/01/2024 11:12:25 04/27/20 21 EKG completed Charlene Li [facility] 04/27/2021 09:40:14 08/22/19 17 Cardiac Catheterization completed MELINDA PEREYRA MD [address] [place] [address], [address], [facility] 03/31/2017 10:15:55 08/22/19 17 Stent Placement completed MELINDA PEREYRA MD [address] [place] [address], [phone] 08/21/2016 09:53:13 02/01/20 07 Cardiac Catheterization completed MELINDA PEREYRA MD [address] [place] [address], [phone], [facility] 08/21/2016 10:05:54 10/27/19 05 Pacemaker completed MELINDA PEREYRA MD [address] [place] [address], [phone], [facility] 08/21/2016 10:07:58 Other completed Charlene Short [facility] 07/13/2018 09:59:01 Other completed Charlene Short [place] [facility] 07/13/2018 09:59:53 Imaging Results None recorded. Procedure Notes None recorded. Medical Equipment Implant LEIDY Issuing Agency Serial Number Lot Number Status Provider Name and Address Organization Details Recorded Time Medtronic FDA [id number] Jennifertony Cueva [facility]/17/2024 14:47:14 Allergies No known drug allergies Medications Name [...] 0 Not Available Not Available Not Available citalopra m 20 mg tablet Take 1 tablet every day by oral route. active Not Available Not Available No t Available tamsulosi n 0.4 mg capsule Take 1 capsule every day by oral route. active Not Available Not Available No t Available lisinopri l 10 mg tablet Take [...] 1 tablet every day by oral route. 11/01 completed Frequenc y: daily;Me dication Descript ion: aspirin; [...] t Available rosuvasta tin 10 mg tablet TAKE 1 TABLET BY MOUTH AT BEDTIME 2024 active Not Available Not Available Not [...] Vitals Date Recorded Body height Oxygen saturation Heart rate Body mass index (BMI) Body weight Systolic And Diastolic Provider Name and Address Organization Details Last Updated DateTime 4 185.42 cm 95 % 73 /min 50 kg/m2 997461. 21 g 146/88 mm[Hg] Colette Rock [facility] 4 10:59:06 Date Recorded Body height Body mass index (BMI) Body weight Oxygen saturation Inhaled oxygen flow rate Heart rate Systolic And Diastolic Provider Name and Address Organization Details Last Updated DateTime 3 185.42 cm 53.1 kg/m2 452380. 83 g 91 % 2 L/min 67 /min 122/70 mm[Hg] June Echeverria [facility] 3 11:39:31 Date Recorded Body height Oxygen saturation Inhaled oxygen flow rate Body mass index (BMI) Body weight Heart rate Systolic And Diastolic Provider Name and Address Organization Details Last Updated DateTime 5 185.42 cm 92 % 2 L/min 49.5 kg/m2 813898. 86 g 62 /min 136/82 mm[Hg] Helen Ulrich [facility] 5 11:32:38 Date Recorded Body height Body mass index (BMI) Body weight Oxygen saturation Inhaled oxygen flow rate Heart rate Systolic And Diastolic Provider Name and Address Organization Details Last Updated DateTime 3 185.42 cm 52.3 kg/m2 288750. 38 g 94 % 2 L/min 67 /min 140/80 mm[Hg] June Echeverria [facility] 3 11:15:38 Date Recorded Body height Body mass index (BMI) Body weight Oxygen saturation Heart rate Systolic And Diastolic Provider Name and Address Organization Details Last Updated DateTime 4 185.42 cm 50.5 kg/m2 405470. 72 g 91 % 84 /min 136/62 mm[Hg] Nena Lopez [facility] 4 12:07:21 Social History Question Answer Notes LastModified by Organizat ion Details LastModified Time Tobacco Smoking Status [facility] 08/12/2016 14:13:10 How Much Tobacco Do You Chew? None [email or web address] Information not available 07/13/2018 When Did You Quit Smoking? 11-15yearssi ncelastcigar ette [email or web address] Information not available 03/31/2017 Marital Status Informati on not available 06/28/2016 What Was The Date Of Your Most Recent Tobacco Screening? 11/01/2024 [email or web address] Information not available 11/01/2024 What Is Your Relationship Status? [email or web address] Information not available 11/01/2022 Has Tobacco Cessation Counseling Been Provided? No [facility] Information not available 10/29/2021 Have You Recently Traveled Abroad? No [email or web address] Information not available 11/01/2022 Sex: Male Functional Status Question Answer Note LastModified by Organizat ion Details LastModified Time Do you or have you ever used any other forms of tobacco or nicotine? No [facility] Information not available 10/29/2021 What is your level of alcohol consumption? Occasional Information not available 06/28/2016 Do you or have you ever used smokeless tobacco? Never used smokeless tobacco [email or web address] Information not available 01/18/2019 Do you or have you ever used e-cigarettes or vape? Never used electronic cigarettes [email or web address] Information not available 01/18/2019 Mental Status None recorded. Family History Relationship Description Onset Age of this Age Resolved Age Notes LastModified by Organization Details LastModified Time Unspecified Relation Heart disease [email or web address] Not available 06/12 09:25:27 Medical History Condition Response Coronary Artery Disease N Gout N Other N Atrial Fibrillation Y Kidney Stones N Hyperthyroidism N Blood Transfusion N Hypothyroidism N Lung Disease N Depression N COPD N Breast Problem N Pacemaker Y Difficulty [...] split virus, quadrivalent, preservative 7 completed [facility] 03/31/2017 10:07:27 COVID-19, mRNA, LNP-S, PF, 100 mcg/0.5mL dose or 50 mcg/0.25mL dose 1 completed Agueda Gonzalez [facility] 10/23/2020 12:05:21 COVID-19, mRNA, LNP-S, PF, 100 mcg/0.5mL dose or 50 mcg/0.25mL dose 1 completed Agueda Gonzalez [facility] 10/23/2020 12:05:29 COVID-19, mRNA, LNP-S, PF, 100 mcg/0.5mL dose or 50 mcg/0.25mL dose 2 completed [facility] 10/29/2021 10:05:34 Past Encounters Encounter ID Performer Location Encounter Start Date Encounter Closed Date Diagnosis/Indication Diagnosis SNOMED-CT Code Diagnosis ICD10 Code Diagnosis IMO Codes Diagnosis Note [id number] MELINDA PEREYRA MD CARDIOLOG Y [address] [place] [address] 07/08/2016 09:45:20 07/08/2016 12:29:49 Coronary arteriosclerosis in [place] artery 6594473210 107 I25.10 Medication changes, as well as [...] 3008 I49.5 Paced OK. Hypertensive disorder 38 651274 I10 Management of this problem was reviewed with the patient. No changes recommende d, status for this problem is stable at this time. Atypical chest pain 1025 57534 R07.89 See above [id number] MELINDA PEREYRA MD CARDIOLOG Y [facility] [address] [place] [address] 08/09/2016 14:41:05 08/09/2016 16:08:42 Coronary arteriosclerosis in [place] artery 3940673796 107 I25.10 His symptoms sounds as if [...] 3008 I49.5 Paced OK. Hypertensive disorder 38 906096 I10 Management of this problem was reviewed with the patient. No changes recommende d, status for this problem is stable at this time. [id number] MELINDA PEREYRA MD CARDIOLOG Y [address] [place] [address] 09/30/2016 08:42:27 09/30/2016 09:49:01 Coronary arteriosclerosis in [place] artery 6262565589 107 I25.118 Medication changes, as well as [...] in status. Long-term current use of anticoagulant 218231209 Z79.01 I discussed alternativ es to Effient [...] to clopidogre l 75 mg daily. Cardiac pa anjali in situ 265864810 Z95.0 Assessment was performed of the implanted device. Any needed adjustment s and setting changes were personally supervised by me and are documented in follow-up form. The device is functionin g well. The patient was instructed to continue in the device surveillan ce program appropriat e for the device. DICKSON 10.5 years. 99.6% atrial pacing with rare ventricula r pacing. [id number] MELINDA PEREYRA MD CARDIOLOG Y [address] [place] [address] 03/31/2017 09:57:41 03/31/2017 11:28:58 Coronary arteriosclerosis in [place] artery 9039458339 107 I25.10 Medication changes, as well as [...] may be discontinu ed. Hypertensive disorder 38 125639 I10 Management of this problem was reviewed with the patient. No changes recommende d, status for this problem is stable at this time. Cardiac pa cemaker in situ 749698838 Z95.0 Remote pacemaker check 01/10/2017. Estimated DICKSON 10 years. All pacemaker parameters okay. No AF. Long-term current use of anticoagulant 402155708 Z79.01 Dual antiplatel et therapy:As pirin and Effient. [id number] MELINDA PEREYRA MD CARDIOLOG Y [address] [place] [address] 08/25/2017 09:42:57 08/25/2017 14:51:19 Coronary arteriosclerosis in [place] artery 5960784708 107 I25.10 Medication changes, as well as [...] 6 months, no testing. Hypertensive disorder 38 272097 I10 Management of this problem was reviewed with the patient. No changes recommende d, status for this problem is stable at this time. Cardiac yo alba in situ 912839581 Z95.0 Remote pacemaker check 01/10/2017. Estimated DICKSON 10 years. All pacemaker parameters okay. No AF. Long-term current use of anticoagulant 726228093 Z79.01 He may discontinu e Effient but continue aspirin indefinite ly. [id number] MELINDA PEREYRA MD CARDIOLOG Y [address] [place] [address] 04/10/2018 10:31:48 04/10/2018 11:37:01 Coronary arteriosclerosis in [place] artery 1971896972 107 I25.10 Medication changes, as well as [...] 6 months, no testing. Hypertensive disorder 38 558721 I10 Management of this problem was reviewed with the patient. No changes recommende d, status for this problem is stable at this time. Cardiac yo alba in situ 469261754 Z95.0 Remote pacemaker check 01/10/2017. Estimated DICKSON 10 years. All pacemaker parameters okay. No AF. Paroxysmal atrial fibrillation 529522656 I48.0 His paroxysmal atrial fibrillati on was in the setting of acute respirator y failure. Analysis of his pacemaker checks have not demonstrat ed any atrial fibrillati on. I told the patient that he may discontinu e his Multaq. Computed t omography result abnormal 930376234 R93.89 CT scan sent to the hospital suggest further workup for possible renal lesion I don't feel this was performed and we will contact the patient and suggest proceeding . [id number] MELINDA PEREYRA MD CARDIOLOG Y [address] [place] [address] 07/13/2018 09:46:36 07/13/2018 10:25:21 Coronary arteriosclerosis in [place] artery 8529311123 107 I25.10 Medication changes, as well as [...] 6 months, no testing. Hypertensive disorder 38 370593 I10 Management of this problem was reviewed with the patient. No changes recommende d, status for this problem is stable at this time. Cardiac pa cemaker in situ 146838053 Z95.0 Remote pacemaker check 01/10/2017. Estimated DICKSON 10 years. All pacemaker parameters okay. No AF. Paroxysmal atrial fibrillation 541527522 I48.0 His paroxysmal atrial fibrillati on was in the setting of acute respirator y failure. Analysis of his pacemaker checks have not demonstrat ed any atrial fibrillati on.No recurrence noted.Patel er study to assess possible recurrence . [id number] MELINDA PEREYRA MD CARDIOLOG [address] [place] [address] 01/18/2019 09:47:58 01/18/2019 11:26:44 Coronary arteriosclerosis in [place] artery 2275887452 107 I25.10 Medication changes, as well as [...] 6 months, no testing. Hypertensive disorder 38 668138 I10 Management of this problem was reviewed with the patient. No changes recommende d, status for this problem is stable at this time. Cardiac pa cemaker in situ 038563475 Z95.0 Remote pacemaker check 01/10/2017. Estimated DCIKSON 10 years. All pacemaker parameters okay. No AF. Paroxysmal atrial fibrillation 744682464 I48.0 His paroxysmal atrial fibrillati on was in the setting of acute respirator y failure. Analysis of his pacemaker checks have not demonstrat ed any atrial fibrillati on.No recurrence noted.Patel er study to assess possible recurrence . Dyslipidemia 248788728 E 78.5 He takes ezetimibe and once per week statin. LDL cholestero l is 54.Most recent testing reviewed. All laboratory measuremen ts in appropriat e parameters on current medical therapy. This was reviewed and discussed with the patient and all questions answered. [id number] MELINDA PEREYRA MD CARDIOLOG Y [address] [place] [address] 10/28/2019 10:34:15 10/28/2019 10:40:12 Coronary arteriosclerosis in [place] artery 5775657259 107 I25.10 Medication changes, as well as [...] 6 months, no testing. Hypertensive disorder 38 199099 I10 Management of this problem was reviewed with the patient. No changes recommende d, status for this problem is stable at this time. Cardiac pa cemaker in situ 996628507 Z95.0 Device remote check reviewed. Estimated device DICKSON assessed. All pacing parameters appropriat e. No significan t arrhythmia s identified . Paroxysmal atrial fibrillation 561588736 I48.0 His paroxysmal atrial fibrillati on was in the setting of acute respirator y failure. Analysis of his pacemaker checks have not demonstrat ed any atrial fibrillati on.No recurrence noted.Patel er study to assess possible recurrence . Dyslipidemia 952576718 E 78.5 He takes ezetimibe and once per week statin. LDL cholestero l is 54.Most recent testing reviewed. All laboratory measuremen ts in appropriat e parameters on current medical therapy. This was reviewed and discussed with the patient and all questions answered. [id number] MELINDA PEREYRA MD CARDIOLOG Y [address] [place] [address] 04/25/2020 12:12:27 04/25/2020 12:17:32 Coronary arteriosclerosis in [place] artery 7032782337 107 I25.10 Medication changes, as well as [...] 6 months, no testing. Hypertensive disorder 38 896979 I10 Management of this problem was reviewed with the patient. No changes recommende d, status for this problem is stable at this time. Watch salt. Increase lisinopril . Cardiac pa cemaker in situ 303346171 Z95.0 Device remote check reviewed. Estimated device DICKSON assessed. All pacing parameters appropriat e. No significan t arrhythmia s identified . Paroxysmal atrial fibrillation 147926554 I48.0 His paroxysmal atrial fibrillati on was in the setting of acute respirator y failure. Analysis of his pacemaker checks have not demonstrat ed any atrial fibrillati on.No recurrence noted.Patel er study to assess possible recurrence . Dyslipidemia 328409533 E 78.5 He takes ezetimibe and once per week statin. LDL cholestero l is 54.Most recent testing reviewed. All laboratory measuremen ts in appropriat e parameters on current medical therapy. This was reviewed and discussed with the patient and all questions answered. [id number] MELINDA PEREYRA MD CARDIOLOG Y [address] [place] [address] 10/23/2020 11:47:22 10/23/2020 14:13:22 Coronary arteriosclerosis in [place] artery 1139019519 107 I25.10 Medication changes, as well as [...] 6 months, no testing. Hypertensive disorder 38 917882 I10 Management of this problem was reviewed with the patient. No changes recommende d, status for this problem is stable at this time. Cardiac pa cemaker in situ 772815682 Z95.0 Device remote check reviewed. Estimated device DICKSON assessed. All pacing parameters appropriat e. No significan t arrhythmia s identified . Paroxysmal atrial fibrillation 900204147 I48.0 His paroxysmal atrial fibrillati on was in the setting of acute respirator y failure. Analysis of his pacemaker checks have not demonstrat ed any atrial fibrillati on.No recurrence noted.Patel er study to assess possible recurrence . Dyslipidemia 487223485 E 78.5 He takes ezetimibe and once per week statin. LDL cholestero l is 54.Most recent testing reviewed. All laboratory measuremen ts in appropriat e parameters on current medical therapy. This was reviewed and discussed with the patient and all questions answered. [id number] GIANA ECHEVERRIA MD CARDIOLOG Y [address] [place] [address] 04/27/2021 09:36:49 04/27/2021 10:28:35 Coronary arteriosclerosis in [place] artery 2051002938 107 I25.10 Hypertensive disorder 38 506136 I10 Cardiac pa cemaker in situ 402989466 Z95.0 Last in-office device check: 04/27/2021 Recommend quarterly remote device checks and annual in office interrogat ion. Paroxysmal atrial fibrillation 161978916 I48.0 Device check 04/27/2021 shows multiple episodes of AT/AF.Thes e appear to be clustered in November and December.His most recent episode occurred in late February. Longest episode between 12 and 24 hours.HILDA SVasc = 3. Dyslipidemia 785715370 E 78.5 Body mass index 40+ - severely obese 918478486 Z68.43 [id number] GIANA ECHEVERRIA MD CARDIOLOG Y [address] [place] [address] 09/11/2021 15:14:19 09/11/2021 15:15:43 Coronary arteriosclerosis in [place] artery 6658572221 107 I25.10 Hypertensive disorder 38 886034 I10 Cardiac pa cemaker in situ 108911971 Z95.0 Last in-office device check: 04/27/2021 Recommend quarterly remote device checks and annual in office interrogat ion. Paroxysmal atrial fibrillation 463618071 I48.0 Device check 04/27/2021 shows multiple episodes of AT/AF.Thes e appear to be clustered in November and December.His most recent episode occurred in late February. Longest episode between 12 and 24 hours.HILDA SVasc = 3. Recommend reduced Xarelto dosing for ischemic stroke risk reduction if he develops creatinine clearance 15-49ml/mi n Dyslipidemia 444845678 E 78.5 Body mass index 40+ - severely obese 400603032 Z68.43 [id number] GIANA ECHEVERRIA MD CARDIOLOG Y [address] [place] [address] 10/29/2021 09:55:39 10/29/2021 11:23:45 Coronary arteriosclerosis in [place] artery 5380805716 107 I25.10 Hypertensive disorder 38 954642 I10 Cardiac pa cemaker in situ 138426045 Z95.0 Last in-office device check: 04/27/2021 Recommend quarterly remote device checks and annual in office interrogat ion. Paroxysmal atrial fibrillation 381253647 I48.0 Device check 04/27/2021 shows multiple episodes of AT/AF.Thes e appear to be clustered in November and December.His most recent episode occurred in late February. Longest episode between 12 and 24 hours.HILDA SVasc = 3. Recommend reduced Xarelto dosing for ischemic stroke risk reduction if he develops creatinine clearance 15-49ml/mi n Dyslipidemia 218656833 E 78.5 Obese 598572581 E66.9 [id number] GIANA ECHEVERRIA MD CARDIOLOG Y [address] [place] [address] 04/22/2022 10:42:54 04/22/2022 11:42:49 Coronary arteriosclerosis in [place] artery 2207220798 107 I25.10 Cardiac pa cemaker in situ 183207395 Z95.0 Last in-office device check: 04/22/2022 Recommend quarterly remote device checks and annual in office interrogat ion. Paroxysmal atrial fibrillation 441314437 I48.0 Device check 04/27/2021 shows multiple episodes of AT/AF.Thes e appear to be clustered in November and December.His most recent episode occurred in late February. Longest episode between 12 and 24 hours.HILDA SVasc = 3. Recommend reduced Xarelto dosing for ischemic stroke risk reduction if he develops creatinine clearance 15-49ml/mi n Hypertensive disorder 38 683902 I10 Dyslipidemia 158613455 E 78.5 Obese 366912888 E66.9 [id number] GIANA ECHEVERRIA MD CARDIOLOG Y [address] [place] [address] 11/01/2022 11:20:33 11/01/2022 12:21:14 Coronary arteriosclerosis in [place] artery 9469911387 107 I25.10 Cardiac pa cemaker in situ 296334722 Z95.0 Last in-office device check: 04/22/2022 Recommend quarterly remote device checks and annual in office interrogat ion. Paroxysmal atrial fibrillation 770139515 I48.0 Device check 04/27/2021 shows multiple episodes of AT/AF.Thes e appear to be clustered in November and December.His most recent episode occurred in late February. Longest episode between 12 and 24 hours.HILDA SVasc = 3. Recommend reduced Xarelto dosing for ischemic stroke risk reduction if he develops creatinine clearance 15-49ml/mi n Hypertensive disorder 38 265238 I10 Dyslipidemia 776880038 E 78.5 Obese 856022368 E66.9 Renewal of prescription 297394126 Z76.0 [id number] GIANA ECHEVERRIA MD CARDIOLOG Y [address] [place] [address] 04/25/2023 11:01:40 04/25/2023 11:52:52 Coronary arteriosclerosis in [place] artery 0370735796 107 I25.10 a. Cath 01/31/2007 : CONSTRUCTION SUPERINTENDENT of LADLVgram with EF 35%, severe hypokinesi s of the anterior septal and apical wall. Bifurcatin g left main.LAD CONSTRUCTION SUPERINTENDENT at the first septal. Retrograde filling from [...] of RCA.PCI with Synergy 3.5x20mm Cardiac pa cemginette in situ 074865909 Z95.0 Last in-office device check: 04/25/2023 Recommend quarterly remote device checks and annual in office interrogat ion. Paroxysmal atrial fibrillation 820355305 I48.0 Device check 04/27/2021 shows multiple episodes of AT/AF.Thes e appear to be clustered in November and December.His most recent episode occurred in late February. Longest episode between 12 and 24 hours.HILDA SVasc = 3. Recommend reduced Xarelto dosing for ischemic stroke risk reduction if he develops creatinine clearance 15-49ml/mi n Hypertensive disorder 38 119737 I10 Dyslipidemia 834422700 E 78.5 Obese 929534140 E66.9 Renewal of prescription 627232813 Z76.0 [id number] GIANA ECHEVERRIA MD CARDIOLOG Y [address] [place] [address] 10/31/2023 10:52:03 11/04/2023 09:01:44 Coronary arteriosclerosis in [place] artery 1689651329 107 I25.10 a. Cath 01/31/2007 : CONSTRUCTION SUPERINTENDENT of LADLVgram with EF 35%, severe hypokinesi s of the anterior septal and apical wall. Bifurcatin g left main.LAD CONSTRUCTION SUPERINTENDENT at the first septal. Retrograde filling from [...] of RCA.PCI with Synergy 3.5x20mm Cardiac pa cemginette in situ 406433428 Z95.0 Last in-office device check: 10/31/2023 ecommend quarterly remote device checks and annual in office interrogat ion. Paroxysmal atrial fibrillation 801418990 I48.0 Device check 04/27/2021 shows multiple episodes of AT/AF.Thes e appear to be clustered in November and December.His most recent episode occurred in late February. Longest episode between 12 and 24 hours.HILDA SVasc = 3. Recommend reduced Xarelto dosing for ischemic stroke risk reduction if he develops creatinine clearance 15-49ml/mi n Hypertensive disorder 38 882830 I10 Dyslipidemia 837770737 E 78.5 Obese 159051087 E66.9 [id number] GIANA ECHEVERRIA MD CARDIOLOG Y [address] [place] [address] 04/30/2024 11:18:42 04/30/2024 12:20:09 Coronary arteriosclerosis in [place] artery 6307216897 107 I25.10 a. Cath 01/31/2007 : CONSTRUCTION SUPERINTENDENT of LADLVgram with EF 35%, severe hypokinesi s of the anterior septal and apical wall. Bifurcatin g left main.LAD CONSTRUCTION SUPERINTENDENT at the first septal. Retrograde filling from [...] Synergy 3.5x20mm Cardiac pa cemaker in situ 698175803 Z95.0 Last in-office device check: 04/30/2024 Recommend quarterly remote device checks and annual in office interrogat ion. Paroxysmal atrial fibrillation 586585965 I48.0 Device check 04/27/2021 shows multiple episodes of AT/AF.Thes e appear to be clustered in November and December.His most recent episode occurred in late February. Longest episode between 12 and 24 hours.HILDA SVasc = 3. Recommend reduced Xarelto dosing for ischemic stroke risk reduction if he develops creatinine clearance 15-49ml/mi n Hypertensive disorder 38 120342 I10 Dyslipidemia 933810326 E 78.5 Obese 317212057 E66.9 [id number] GIANA ECHEVERRIA MD CARDIOLOG Y [address] [place] [address] 11/01/2024 11:11:36 11/01/2024 11:58:09 Coronary arteriosclerosis in [place] artery 3401272253 107 I25.10 a. Cath 01/31/2007 : CONSTRUCTION SUPERINTENDENT of LADLVgram with EF 35%, severe hypokinesi s of the anterior septal and apical wall. Bifurcatin g left main.LAD CONSTRUCTION SUPERINTENDENT at the first septal. Retrograde filling from [...] Synergy 3.5x20mm Cardiac pa cemaker in situ 537642944 Z95.0 Last in-office device check: 04/30/2024 Recommend quarterly remote device checks and annual in office interrogat ion. Paroxysmal atrial fibrillation 399262996 I48.0 Device check 04/27/2021 shows multiple episodes of AT/AF.Thes e appear to be clustered in November and December.His most recent episode occurred in late February. Longest episode between 12 and 24 hours.HILDA SVasc = 3. Recommend reduced Xarelto dosing for ischemic stroke risk reduction if he develops creatinine clearance 15-49ml/mi n Hypertensive disorder 38 043267 I10 Dyslipidemia 463088340 E 78.5 Obese 425401253 E66.9 Health Concerns Section Related Observation LastModified by Organization Detai ls LastModified Time None Recorded Concern Status LastModified by Organization Details LastModified Time None Recorded Advance Directives Directive None Recorded Payers Insurance Date Sequence Insurance Name Policy Number Policy Muse Covered Member ID Muse Member ID Guarantor Name 09/20/2024 3 [place] [id number] Josh Jain Wohlwineleazar [id number] Josh Jain Wohlwineleazar 2025 2 [place] [id number] Josh Jain Wohlwinder [id number] Josh Jain Wohlwinder 09/20/2024 2 [employer] (INDEMNITY) [id number] Josh Jain Wohlhaim [id number] Josh Jain Wohlwineleazar 2025 1 [place] Josh Alarcon [id number] Josh Alarcon Notes Date Note Type Note Provider Name and Address Organization Details Recorded Time 11/01/2022 text/html ROS as noted in the HPI CARDIOVASCULAR HISTORY:# Coronary artery disease s/p CONSTRUCTION SUPERINTENDENT intervention 01/2007, SIMEON to PLB 08/2016a. Cath 01/31/2007: CONSTRUCTION SUPERINTENDENT of LADLVgram with EF 35%, severe hypokinesis of the anterior septal and apical wall. Bifurcating left main.LAD CONSTRUCTION SUPERINTENDENT at the first septal. Retrograde filling from [...] Apnea # [facility] experienced acute hypoxic respiratory [...] platelets 226BMP: Creatinine 1.00, EGFR 74 GIANA HOLLIE ECHEVERRIA MD [address] [place] [address], [address], [facility] 11/02/2022 21:11:02 04/25/2023 text/html ROS as noted in the HPI CARDIOVASCULAR HISTORY:# Coronary artery disease s/p CONSTRUCTION SUPERINTENDENT intervention 01/2007, SIMEON to PLB 08/2016Cath 08/21/2016: Normal LV function.Patent stents.New 90% stenosis in PLB of RCA. PCI with Synergy 3.5x20mm# Sinus node dysfunction s/p Medtronic dual chambera. Original implantation in . Generator change, 07/13/2014. # Class 3 Obesity# Obstructive Sleep Apnea # [facility], experienced acute hypoxic respiratory [...] Gen change 07/13/2014.c. Coronary artery disease s/p CONSTRUCTION SUPERINTENDENT intervention 01/2007, SIMEON to PLB 08/2016d. WHO class III obesity, Deangelo reports that his overall health has been [...] dental implants fitted. He is working with [employer] in [place]. We reviewed instructions regarding OAC holds and resumption. His pacemaker system was interrogated at today's visit. See scanned document for complete results.Device: Medtronic Adapta DRImplant: 07/13/2014. Estimated longevity: 2.5 yearsMode: MVP 60Pacin.5% AP, 0.3% RVPEvents: AMS 0.4%. Longest episode 12 hours.No permanent programming changes were made to his device. GIANA ECHEVERRIA MD [address] [place], [address], [facility] 04/26/2023 12:45:03 10/31/2023 text/html ROS as noted in the HPI CARDIOVASCULAR HISTORY:# Coronary artery disease s/p CONSTRUCTION SUPERINTENDENT intervention 01/2007, SIMEON to PLB 08/2016Cath 08/21/2016: Normal LV function.Patent stents.New 90% stenosis in PLB of RCA. PCI with Synergy 3.5x20mm# Sinus node dysfunction s/p Medtronic dual chambera. Original implantation in . Generator change, 07/13/2014. # Class 3 Obesity# Obstructive Sleep Apnea # [facility] experienced acute hypoxic respiratory failure most likely related to his sleep apnea. CTA chest: no pulmonary embolism.He developed paroxysmal atrial fibrillation and was discharged on Multaq. # Hypertension# Dyslipidemia 04/25/2023: 6-month follow-upa. Paroxysmal atrial fibrillation (on Xarelto)b. Sinus node dysfunction s/p Medtronic dual chamber 2004, Gen change 07/13/2014.c. Coronary artery disease s/p CONSTRUCTION SUPERINTENDENT intervention 01/2007, SIMEON to PLB 08/2016d. WHO [...] fitted. He is working with [facility] in [place]. We reviewed instructions regarding OAC holds and resumption. 10/31/2023: 6-month follow-upa. Paroxysmal atrial fibrillation (on Xarelto)b. Sinus node dysfunction s/p Medtronic dual chamber 2004, Gen change 07/13/2014.c. Coronary artery disease s/p CONSTRUCTION SUPERINTENDENT intervention 01/2007, SIMEON to PLB 08/2016d. WHO [...] today's visit.See Pacemate document for complete results.Device: [employer] Adapta DRImplant: 07/13/2014. Estimated longevity: 28 monthsMode: MVP 60Pacin.5% AP, 0.3% RVPEvents: AMS 0.5% (since 04/2022).No permanent programming changes were made to his device. There are no new lab results to review since last visit. GIANA ECHEVERRIA MD [address] [place], [address], [facility] 11/01/2023 14:03:28 04/30/2024 text/html ROS as noted in the HPI CARDIOVASCULAR HISTORY:# Coronary artery disease s/p CONSTRUCTION SUPERINTENDENT intervention 01/2007, SIMEON to PLB 08/2016Cath 08/21/2016: Normal LV function.Patent stents.New 90% stenosis in PLB of RCA. PCI with Synergy 3.5x20mm# Sinus node dysfunction s/p Medtronic dual chambera. Original implantation in . Generator change, 07/13/2014. # Class 3 Obesity# Obstructive Sleep Apnea # [facility] experienced acute hypoxic respiratory failure most likely related to his sleep apnea. CTA chest: no pulmonary embolism.He developed paroxysmal atrial fibrillation and was discharged on Multaq. # Hypertension# Dyslipidemia 10/31/2023: 6-month follow-upa. Paroxysmal atrial fibrillation (on Xarelto)b. Sinus node dysfunction s/p Medtronic dual chamber 2004, Gen change 07/13/2014.c. Coronary artery disease s/p CONSTRUCTION SUPERINTENDENT intervention 01/2007, SIMEON to PLB 08/2016d. WHO [...] Gen change 07/13/2014.c. Coronary artery disease s/p CONSTRUCTION SUPERINTENDENT intervention 01/2007, SIMEON to PLB 08/2016d. WHO [...] 14 ALP 70 GIANA ECHEVERRIA MD [address] [place], [address], [facility] 04/30/2024 12:29:06 11/01/2024 text/html ROS as noted in the HPI CARDIOVASCULAR HISTORY:# Coronary artery disease s/p CONSTRUCTION SUPERINTENDENT intervention 01/2007, SIMEON to PLB 08/2016Cath 08/21/2016: Normal LV function.Patent stents.New 90% stenosis in PLB of RCA. PCI with Synergy 3.5x20mm# Sinus node dysfunction s/p Medtronic dual chambera. Original implantation in . Generator change, 07/13/2014. # Class 3 Obesity# Obstructive Sleep Apnea # [facility] experienced acute hypoxic respiratory failure most likely related to his sleep apnea. CTA chest: no pulmonary embolism.He developed paroxysmal atrial fibrillation and was discharged on Multaq. # Hypertension# Dyslipidemia 04/30/2024: 6-month follow-upHe reports having symptoms suggestive of carpal tunnel syndrome in the hands have been reported with left-sided predominance, for which cortisone injections have been administered. His pacemaker system was interrogated at today's visit.See Pacemate document for complete results.Device: Medtronic Adapta DRImplant: 07/13/2014. Estimated longevity: 24 monthsMode: MVP 60Pacin.5% AP, 0.5% RVPEvents: AMS 0.4%No permanent programming changes were made to his device. External lab work drawn on 04/06/2024 was reviewed:BMP: Creatinine 1.10, potassium 4.8Lipid panel: 115/35, direct LDL: 68LFTs: AST 24 ALT 14 ALP 70 11/01/2024 6 month followup visit:a. Paroxysmal atrial fibrillation (on Xarelto)b. Sinus node dysfunction s/p Medtronic dual chamber 2004, Gen change 07/13/2014.c. Coronary artery disease s/p CONSTRUCTION SUPERINTENDENT intervention 01/2007, SIMEON to PLB 08/2016d. WHO class III obesity, OSASHe and his report that his overall health has been stable, aside from an ER visit last week due to pharyngitis. He has been started on amoxicillin. He has lost about 7lbs of weight since last visit.He attributes this to making some dietary changes and increasing his water intake.We have previously discussed that Semaglutide (Wegovy) is indicated in combination with a reduced calorie diet and increase physical activity to reduce the risk of major adverse cardiovascular events in adults with established cardiovascular disease and obesity. Unfortunately, he has not been able to start these medications due to prohibitive cost. He remains on supplemental oxygen and CPAP therapy.Overall, his respiratory status appears stable. He is able to do some sweeping and vacuuming in the house without any exertional dyspnea.He has not experienced any episodes of epistaxis, or GI bleeding on Xarelto 20 mg daily EKG today: Atrial paced rhythm.Nonspecific QRS abnormality (absent anterior forces V1 and V2).Left axis deviation with mean QRS axis -40degVentricular Rate: 62bpm.QRS duration 107 and QTc 456ms. External lab work drawn on 10/14/2024 was reviewed:BMP: Creatinine 1.10, potassium 5.1Lipid panel: 122/37, direct LDL: 62CBC: 12.7/43.5, platelets 185 GIANA HOLLIE ECHEVERRIA MD [facility] [place], [address], [facility] 11/01/2024 12:36:33
== END 2025-04-04 23:59 | disposition home or self-care (01) ==
LOC: RAD 12:54
PROVIDERS: PCP Internal Medicine; Visit Provider Internal Medicine
DX: N20.0 Calculus of kidney (principal); N28.89 Other specified disorders of kidney and ureter; R31.9 Hematuria, unspecified; Z87.442 Personal history of urinary calculi
CPT/HCPCS: 74176

== ENCOUNTER 2025-04-13 13:17 | Outpatient (CLI) | payer MEDICARE, BC, SELFPAY ==
--- OUTSIDE RECORDS SUMMARY | 2025-03-10 09:45 | XMS_ITS | Encounter Summary ---
Author Organization [employer] ([place], [place], [place], [place], [place]) Address [address] [place] [address] Care Team Providers Care Allergist Name Role Phone Unavailable Primary Care Provider Unavailabl e Reason for Visit * Reason Comments Injections Bilat hands Encounter Details Date Type Department Care Team (Late st Contact Info) Description 03/10/2025 10:45 AM EDT Office Visit [facility] - [address] [place] [address] Matteo Iglesias PA-C [address] [place] [phone] Bilateral carpal tunnel syndrome (Primary Dx) Social History Tobacco Use Types Packs/Day Years Used Date Smoking Tobacco: Never Smokeless Tobacco: Never Alcohol Use Standard Drinks/Week Comments Never 0 (1 standard drink = 0.6 oz pur e alcohol) Sex and Gender Information Value Date Recorded Sex Assigned at Not on file Legal Sex Male 6:23 PM CDT Gender Identity Not on file Sexual Orientation Not on file documented as of this encounter Last Filed Vital Signs Vital Sign Reading Time Taken Comments Blood Pressure 117/71 03/10/2025 10:34 AM EDT Pulse 65 03/10/2025 10:34 AM EDT Temperature - - Respiratory Rate - - Oxygen Saturation - - Inhaled Oxygen Concentration - - Weight 174.6 kg (385 lb) 03/10/2025 10:34 AM EDT Height 185.4 cm (6' 1 ) 03/10/2025 10:34 AM EDT Body Mass Index 50.79 03/10/2025 10:34 AM EDT documented in this encounter Progress Notes * Matteo Iglesias PA-C - 03/10/2025 10:45 AM EDTAssociated Order(s): Bilateral CT injections Post-Procedure Diagnose(s): Bilateral carpal tunnel syndrome Subjective: Josh Alarcon is a 75 y.o. male. No ref. provider found Work Comp []Yes [x]No Chief Complaint Patient presents with Injections Bilat hands HPI Injection Visit: Patient returns for follow-up regarding Bilateral CTS. The patient received injections on 10/07/24 which worked well for 3 months. The patient requests repeat injections today. Pain is 6 out of 10, dull,throbs Steve L hand 71, R hand 64 L pinch 16, R pinch 22 Date of Onset of Symptoms: [x]On-going problem Trauma: []+ [x]- Mechanism of Injury: Pain Location: Bilateral hand Severity (1-10)7 Quality: Aching and Burning [...] anxiety, no fatigue, no mood swings Vitals: 03/10/25 1034 BP: 117/71 Pulse: 65 Weight: (!) 174.6 kg (385 lb) Height: 1.854 m (6' 1 ) [...] Use Topics Alcohol use: Never Objective: BP 117/71 Pulse 65 Ht 1.854 m (6' 1 ) Wt (!) 174.6 kg (385 lb) BMI 50.79 kg/m?? 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 Imaging Treatment: Bilateral CT injections Date/Time: 03/10/2025 10:46 AM Performed by: Matteo Iglesias PA-C Authorized by: Matteo Iglesias PA-C Consent: Consent obtained: Verbal and written Consent given by: Patient Risks, benefits, and alternatives were discussed: yes Risks discussed: Bleeding, infection, pain, incomplete drainage, nerve damage and poor cosmetic result [place] protocol: Procedure explained and questions answered to [...] 1. Bilateral carpal tunnel syndrome G56.03 354.0 lidocaine (XYLOCAINE) injection 1% triamcinolone acetonide suspension (KENALOG-40) 40 mg/mL injection 10 mg Plan: Discussed treatment options for Carpal Tunnel [...] factors. Patient will follow-up with PCP for long-term treatment plan. I have examined and questioned the above listed patient and provided or received all documentation,establishing, confirming, and revising as necessary, the findings and statements noted. . EMR/[employer]/Cherry Cutter disclaimer: Much of this encounter note is an electronic furniture rental consultant/translation of spoken language to printed text. The [...] Associated Diagnosis Comments [id number] GENERAL FORM Routine 03/10/2025 10:46 AM EDT Bilateral carpal tunnel syndrome documented in this encounter Results * Bilateral CT injections (03/10/2025 10:46 AM EDT) Narrative Matteo Iglesias PA-C - 03/10/2025 10:46 AM EDT Matteo Iglesias PA-C 03/10/2025 11:[address] injections Date/Time: 03/10/2025 10:46 AM Performed by: Matteo Iglesias PA-C Authorized by: Matteo Iglesias PA-C Consent: Consent obtained: Verbal and written Consent given by: Patient Risks, benefits, and alternatives were discussed: yes Risks discussed: Bleeding, infection, pain, incomplete drainage, nerve damage and poor cosmetic result [place] protocol: Procedure explained and questions answered to [...] carpal tunnel syndrome- Primary Carpal tunnel syndrome documented in this encounter Administered Medications Inactive Administered Medications - up to 3 most recent administrations Medication Order MAR Action Action Date Dose Rate Site lidocaine (XYLOCAINE) injection 1% 1 mL Once, other - see admin instructions/comments, On Joanie 03/10/25 at 1100, For 1 doseIndications:Bilateral carpal tunnel syndrome Given 03/10/2025 10:39 AM EDT 1 mL triamcinolone acetonide suspension (KENALOG-40) 40 mg/mL injection 10 mg 10 mg Once, intra-articular, On Joanie 03/10/25 at 1100, For 1 doseIndications:Bilateral carpal tunnel syndrome Given 03/10/2025 10:40 AM EDT 10 mg documented in this encounter
--- OUTSIDE RECORDS SUMMARY | 2025-04-13 13:20 | XMS_ITS | Encounter Summary ---
Author Organization [employer] ([place], [place], [place], [place], [place]) Address [address] [place] [address] Care Team Providers Care Newscast Producer Name Role Phone Unavailable Primary Care Provider Unavailabl e Encounter Details Date Type Department Care Team (Late st Contact Info) Description 03/21/[address] 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
--- OUTSIDE RECORDS SUMMARY | 2025-04-13 13:20 | XMS_ITS | Clinical Summary ---
Author Organization [employer] ([place], [place], [place], [place], [place]) Address [address] [place] [address] Care Team Providers Care Rotoformer Backtender Name Role Phone Unavailable Primary Care Provider [...] Encounters Date Type Department Care Team Description 03/10/2025 10:45 AM EDT Office Visit [facility] Orth[facility] - [address] [place] [address] Matteo Iglesias PA-C Bilateral carpal tunnel syndrome (Primary Dx) from Last 3 Months Family History Medical [...] Mass Index 50.79 03/10/2025 10:34 AM EDT Plan of Treatment Health Maintenance Due [...] - Risk 60-74 years 1-dose series) 2011 Falls Risk Screening 05/12/2024 COVID-19 VACCINE ( season) 2025 05/16/2021, 08/09/2020, 07/12/2020 Influenza Vaccine (#1) 2025 03/16/2024 Tobacco Cessation Counseling and Screening (12+) 03/10/2026 03/10/2025 DTAP/TDAP/TD VACCINES (2 - T d or Tdap) 11/14/2033 11/15/2023 Procedures Procedure Name Priority Date/Time Associated Diagnosis Comments FS_[facility]_MODEL GENERAL FORM Routine 03/10/2025 10:46 AM EDT Bilateral carpal tunnel syndrome from Last 3 Months Results * Bilateral CT injections (03/10/2025 10:46 AM EDT) Matteo Marquis PA-C - 03/10/2025 10:46 AM EDT Matteo Iglesias PA-C 03/10/2025 11:[address] injections Date/Time: 03/10/2025 10:46 AM Performed by: Matteo Iglesias PA-C Authorized by: Matteo Iglesias PA-C Consent: Consent obtained: Verbal and written Consent given by: Patient Risks, benefits, and alternatives were discussed: yes Risks discussed: Bleeding, infection, pain, incomplete drainage, nerve damage and poor cosmetic result [place] protocol: Procedure explained and questions answered to [...] Final Result from Last 3 Mon[place] [address] [address] [place] [address] [address]
--- OUTSIDE RECORDS SUMMARY | 2025-04-13 13:20 | XMS_ITS | Data Portability ---
Author Organization HINA LATHA Sung [facility] CLOSED Address [address] [facility] [address] [place] [address] Care Team Providers Care Rug Touch Up Painter Name Role Phone REECE GUADALUPE Primary Care Provider [phone] GIANA ECHEVERRIA Staff Development Coordinator Assessment Encounter Date Assessment Date Assessment LastModified by Organization Details LastModified Time 11/01/2022 11/01/2022 Impression: 1. Coronary artery disease s/p ENGINEERING TECHNOLOGY INSTRUCTOR intervention 01/2007 and SIMEON to PLB 08/2016: [...] at next visit: In-office Medtronic device check. [email or web address] Not available 11/02/2022 21:10:47 04/25/2023 04/25/2023 Impression: 1. Coronary artery disease s/p ENGINEERING TECHNOLOGY INSTRUCTOR intervention 01/2007 and SIMEON to PLB 08/2016: [...] about 6 months, or sooner if needed. [email or web address] Not available 04/26/2023 12:43:38 10/31/2023 10/31/2023 Impression: 1. Coronary artery disease s/p ENGINEERING TECHNOLOGY INSTRUCTOR intervention 01/2007 and SIMEON to PLB 08/2016: [...] next visit: In-office Medtronic device check (with computer programmer analyst). [email or web address] Not available 11/01/2023 14:03:04 04/30/2024 04/30/2024 Impression: 1. Coronary artery disease s/p ENGINEERING TECHNOLOGY INSTRUCTOR intervention 01/2007 and SIMEON to PLB 08/2016: [...] about 6 months, or sooner if needed. [email or web address] Not available 04/30/2024 12:28:36 11/01/2024 11/01/2024 Impression: 1. Coronary artery disease s/p ENGINEERING TECHNOLOGY INSTRUCTOR intervention 01/2007 and SIMEON to PLB 08/2016: [...] about 6 months, or sooner if needed. [email or web address] Not available 11/01/2024 12:36:11 Plan of Treatment Reminders Order Date Submit Date Provider Last Modified By Organization Details Last Modified Time Details Appointments PACEMAKER 2024 10:45A M DEVICE_CL INIC Not available Not available Not available RECHECK 2024 11:15A M GIANA ECHEVERRIA MD Not available Not available Not available Lab None recorded. Referral None recorded. Procedures pacemaker programmi ng, dual lead (PROC) 2024 025 [email or web address] [facility], [address] [facility] , [facility], [place], [address], 11/01/2024 12:36:30 pacemaker programmi ng, dual lead (PROC) [address], [address], [facility], [place], [address], 04/30/2024 12:29:03 pacemaker programmi ng, dual lead (PROC) 2023 024 [facility], [address] [place] [address] Leticia [address]oz, [facility], [place], [address], 10/31/2023 15:01:46 pacemaker programmi ng, dual lead (PROC) 2022 023 [facility], [address] [place] [address], [facility], [place], [address], 04/25/2023 16:21:47 Surgeries None recorded. Imaging None recorded. Medication Orders Xarelto 20 mg tablet [address], [address], [address], 10/31/2023 12:32:24 Xarelto 20 mg tablet [address], [address], [address], 04/25/2023 12:15:42 rosuvasta tin 10 mg tablet [address] [facility] [facility], [address], [address], 04/25/2023 12:15:42 Xarelto 20 mg tablet [address], [address], [address], 11/02/2022 21:07:09 rosuvasta tin 10 mg tablet [address], [facility] [address], [address], 11/01/2022 13:08:09 Patient TargetsNo targets recorded. Patient Instructions Encounter Date Encounter Id Patient Instructions Last Modified By Organization Details Last Modified Time 11/01/2022 [id number] body mass index: care instructions [email or web address] Not available 11/02/2022 21:10:59 high blood pressure: care instructions [email or web address] Not available 11/02/2022 21:10:59 04/25/2023 [id number] body mass index: care instructions [email or web address] Not available 04/25/2023 12:16:54 high blood pressure: care instructions Not available 04/25/2023 12:16:54 10/31/2023 [id number] body mass index: care instructions Not available 10/31/2023 12:56:40 high blood pressure: care instructions [email or web address] Not available 10/31/2023 12:56:40 04/30/2024 [id number] body mass index: care instructions [email or web address] Not available 04/30/2024 12:29:03 high blood pressure: care instructions Not available 04/30/2024 12:29:03 - Continue with [...] outcomes. [email or web address] Not available 04/30/2024 12:17:37 11/01/2024 [id number] body mass index: care instructions [email or web address] Not available 11/01/2024 12:36:30 high blood pressure: care instructions [email or web address] Not available 11/01/2024 12:36:30 Reason for Referral [...] observ ation record ed. BARCODE [facility] [address], [place], [address], 04/30/2024 16:14:41 05/06/20 24 04/30/2024 remot e [...] Organization Details Recorded Time Sick sinus syndrome 27652808 Active 2014 From Automated Load;Prov ider: Melinda Pereyra;Stat us: Active Not Available [facility] 6 06:27:04 Hypertens kimberly disorder 37232390 Active 2014 From Automated Load;Prov ider: Melinda Pereyra;Stat us: Active Not Available [facility] 6 06:27:04 Coronary arteriosc lerosis in yuhaaviatam artery 79391518616 07 Active 2014 From Automated Load;Prov ider: Melinda Pereyra;Stat us: Active Not Available [facility] 6 06:27:04 Cardiac pacemaker in situ 785182441 Active 2016 MELINDA PEREYRA MD [address] [place] [address], [phone] , [place] [facility] 7 09:51:38 Long-term current use of anticoagu lant 214471634 Active 2016 Royce/a finn PEREYRA MD [address] [place] [address], [phone] , [place] [facility] 7 09:51:53 Dyslipide kristen 906991011 Active 2018 MELINDA PEREYRA MD [address] [place] [address], [phone] , [facility] 10:19:51 Problem Notes None recorded. Procedures Surgical History Date Name Laterality Status Provider Name and Address Organization Details Recorded Time 11/02/19 25 EKG completed Helen Ulrich [facility] 11/01/2024 11:12:25 04/27/20 21 EKG completed Charlene Li [facility] 04/27/2021 09:40:14 08/22/19 17 Cardiac Catheterization completed MELINDA PEREYRA MD [address] [place] [address], [phone], [facility] 03/31/2017 10:15:55 08/22/19 17 Stent Placement completed MELINDA PEREYRA MD [address] [place] [address], [phone] 08/21/2016 09:53:13 02/01/20 07 Cardiac Catheterization completed MELINDA PEREYRA MD [address] [place] [address], [phone], [facility] 08/21/2016 10:05:54 10/27/19 05 Pacemaker completed MELINDA PEREYRA MD [address] [place] [address], [phone], [facility] 08/21/2016 10:07:58 Other completed Charlene Short [facility] 07/13/2018 09:59:01 Other completed Charlene Short [place] [facility] 07/13/2018 09:59:53 Imaging Results None recorded. Procedure Notes None recorded. Medical Equipment Implant LEIDY Issuing Agency Serial Number Lot Number Status Provider Name and Address Organization Details Recorded Time Medtronic FDA [id number] [facility]ue[facility]17/20[facility] 14:47:14 Allergies No known drug [...] cm 95 % 73 /min 50 kg/m2 931162. 21 g 146/88 mm[Hg] Colette Rock [facility] 4 10:59:06 Date Recorded Body height Body mass index (BMI) Body weight Oxygen saturation Inhaled oxygen flow rate Heart rate Systolic And Diastolic Provider Name and Address Organization Details Last Updated DateTime 3 185.42 cm 53.1 kg/m2 200890. 83 g 91 % 2 L/min 67 /min 122/70 mm[Hg] June Echeverria [facility] 3 11:39:31 Date Recorded Body height Oxygen saturation Inhaled oxygen flow rate Body mass index (BMI) Body weight Heart rate Systolic And Diastolic Provider Name and Address Organization Details Last Updated DateTime 5 185.42 cm 92 % 2 L/min 49.5 kg/m2 696041. 86 g 62 /min 136/82 mm[Hg] Helen Ulrich [facility] 5 11:32:38 Date Recorded Body height Body mass index (BMI) Body weight Oxygen saturation Inhaled oxygen flow rate Heart rate Systolic And Diastolic Provider Name and Address Organization Details Last Updated DateTime 3 185.42 cm 52.3 kg/m2 337921. 38 g 94 % 2 L/min 67 /min 140/80 mm[Hg] June Echeverria [facility] 3 11:15:38 Date Recorded Body height Body mass index (BMI) Body weight Oxygen saturation Heart rate Systolic And Diastolic Provider Name and Address Organization Details Last Updated DateTime 4 185.42 cm 50.5 kg/m2 658967. 72 g 91 % 84 /min 136/62 mm[Hg] Nena Lopez [facility] 4 12:07:21 Social History Question Answer Notes LastModified by Organizat ion Details LastModified Time Tobacco Smoking Status [facility] 08/12/2016 14:13:10 How Much Tobacco Do You Chew? None [email or web address] Information not available 07/13/2018 When Did You Quit Smoking? 11-15yearssi ncelastcigar ette [email or web address] Information not available 03/31/2017 Marital Status Informati on not available 06/28/2016 What Was The Date Of Your Most Recent Tobacco Screening? 11/01/2024 [email or web address] Information not available 11/01/2024 What Is Your Relationship Status? [email or web address] Information not available 11/01/2022 Has Tobacco Cessation Counseling Been Provided? No [facility] Information not available 10/29/2021 Have You Recently Traveled Abroad? No [email or web address] Information not available 11/01/2022 Sex: Male Functional Status Question Answer Note LastModified by Organizat ion Details LastModified Time Do you or have you ever used any other forms of tobacco or nicotine? No [facility] Information not available 10/29/2021 What is your level of alcohol consumption? Occasional Information not available 06/28/2016 Do you or have you ever used smokeless tobacco? Never used smokeless tobacco [email or web address] Information not available 01/18/2019 Do you or have you ever used e-cigarettes or vape? Never used electronic cigarettes Information not available 01/18/2019 Mental Status None recorded. Family History Relationship Description Onset Age of this Age Resolved Age Notes LastModified by Organization Details LastModified Time Unspecified Relation Heart disease [email or web address] Not available 06/12 09:25:27 Medical History Condition [...] virus, quadrivalent, preservative 7 completed [facility] 03/31/2017 10:07:27 COVID-19, mRNA, LNP-S, PF, 100 mcg/0.5mL dose or 50 mcg/0.25mL dose 1 completed Agueda Gonzalez [facility] 10/23/2020 12:05:21 COVID-19, mRNA, LNP-S, PF, 100 mcg/0.5mL dose or 50 mcg/0.25mL dose 1 completed Agueda Gonzalez [facility] 10/23/2020 12:05:29 COVID-19, mRNA, LNP-S, PF, 100 mcg/0.5mL dose or 50 mcg/0.25mL dose [address] [facility] 10/29/2021 10:05:34 Past Encounters Encounter ID Performer Location Encounter Start Date Encounter Closed Date Diagnosis/Indication Diagnosis SNOMED-CT Code Diagnosis ICD10 Code Diagnosis IMO Codes Diagnosis Note [id number] MELINDA PEREYRA MD CARDIOLOG Y [address] [place] [address] 07/08/2016 09:45:20 07/08/2016 12:29:49 Coronary arteriosclerosis in yuhaaviatam artery 0845917044 107 I25.10 Medication changes, as well as [...] 3008 I49.5 Paced OK. Hypertensive disorder 38 345479 I10 Management of this problem was reviewed with the patient. No changes recommende d, status for this problem is stable at this time. Atypical chest pain 1025 53529 R07.89 See above [id number] MELINDA PEREYRA MD CARDIOLOG Y [facility] CLOSED [address] [place] [address] 08/09/2016 14:41:05 08/09/2016 16:08:42 Coronary arteriosclerosis in yuhaaviatam artery 9018822302 107 I25.10 His symptoms sounds as if [...] 3008 I49.5 Paced OK. Hypertensive disorder 38 673592 I10 Management of this problem was reviewed with the patient. No changes recommende d, status for this problem is stable at this time. [id number] MELINDA PEREYRA MD CARDIOLOG Y [address] [place] [address] 09/30/2016 08:42:27 09/30/2016 09:49:01 Coronary arteriosclerosis in yuhaaviatam artery 9665900510 107 I25.118 Medication changes, as well as [...] in status. Long-term current use of anticoagulant 048193512 Z79.01 I discussed alternativ es to Effient [...] mg daily. Cardiac pa anjali in situ 683889688 Z95.0 Assessment was performed of the implanted device. Any needed adjustment s and setting changes were personally supervised by me and are documented in follow-up form. The device is functionin g well. The patient was instructed to continue in the device surveillan ce program appropriat e for the device. DICKSON 10.5 years. 99.6% atrial pacing with rare ventricula r pacing. [id number] MELINDA PEREYRA MD CARDIOLOG Y [address] [place] [address] 03/31/2017 09:57:41 03/31/2017 11:28:58 Coronary arteriosclerosis in yuhaaviatam artery 3721519640 107 I25.10 Medication changes, as well as [...] may be discontinu ed. Hypertensive disorder 38 306471 I10 Management of this problem was reviewed with the patient. No changes recommende d, status for this problem is stable at this time. Cardiac pa cemaker in situ 255339272 Z95.0 Remote pacemaker check 01/10/2017. Estimated DICKSON 10 years. All pacemaker parameters okay. No AF. Long-term current use of anticoagulant 620017739 Z79.01 Dual antiplatel et therapy:As pirin and Effient. [id number] MELINDA PEREYRA MD CARDIOLOG Y [address] [place] [address] 08/25/2017 09:42:57 08/25/2017 14:51:19 Coronary arteriosclerosis in yuhaaviatam artery 7128057322 107 I25.10 Medication changes, as well as [...] 6 months, no testing. Hypertensive disorder 38 537067 I10 Management of this problem was reviewed with the patient. No changes recommende d, status for this problem is stable at this time. Cardiac yo alba in situ 516468631 Z95.0 Remote pacemaker check 01/10/2017. Estimated DICKSON 10 years. All pacemaker parameters okay. No AF. Long-term current use of anticoagulant 698883135 Z79.01 He may discontinu e Effient but continue aspirin indefinite ly. [id number] MELINDA PEREYRA MD CARDIOLOG Y [address] [place] [address] 04/10/2018 10:31:48 04/10/2018 11:37:01 Coronary arteriosclerosis in yuhaaviatam artery 0870654081 107 I25.10 Medication changes, as well as [...] 6 months, no testing. Hypertensive disorder 38 218698 I10 Management of this problem was reviewed with the patient. No changes recommende d, status for this problem is stable at this time. Cardiac yo alba in situ 113011505 Z95.0 Remote pacemaker check 01/10/2017. Estimated DICKSON 10 years. All pacemaker parameters okay. No AF. Paroxysmal atrial fibrillation 577354627 I48.0 His paroxysmal atrial fibrillati on was in the setting of acute respirator y failure. Analysis of his pacemaker checks have not demonstrat ed any atrial fibrillati on. I told the patient that he may discontinu e his Multaq. Computed t omography result abnormal 893396628 R93.89 CT scan sent to the hospital suggest further workup for possible renal lesion I don't feel this was performed and we will contact the patient and suggest proceeding . [id number] MELINDA PEREYRA MD CARDIOLOG Y [address] [place] [address] 07/13/2018 09:46:36 07/13/2018 10:25:21 Coronary arteriosclerosis in yuhaaviatam artery 4687022414 107 I25.10 Medication changes, as well as [...] 6 months, no testing. Hypertensive disorder 38 456556 I10 Management of this problem was reviewed with the patient. No changes recommende d, status for this problem is stable at this time. Cardiac pa cemaker in situ 257708356 Z95.0 Remote pacemaker check 01/10/2017. Estimated DICKSON 10 years. All pacemaker parameters okay. No AF. Paroxysmal atrial fibrillation 591876809 I48.0 His paroxysmal atrial fibrillati on was in the setting of acute respirator y failure. Analysis of his pacemaker checks have not demonstrat ed any atrial fibrillati on.No recurrence noted.Patel er study to assess possible recurrence . [id number] MELINDA PEREYRA MD CARDIOLOG [address] [place] [address] 01/18/2019 09:47:58 01/18/2019 11:26:44 Coronary arteriosclerosis in yuhaaviatam artery 5744293110 107 I25.10 Medication changes, as well as [...] 6 months, no testing. Hypertensive disorder 38 031886 I10 Management of this problem was reviewed with the patient. No changes recommende d, status for this problem is stable at this time. Cardiac pa cemaker in situ 250698936 Z95.0 Remote pacemaker check 01/10/2017. Estimated DICKSON 10 years. All pacemaker parameters okay. No AF. Paroxysmal atrial fibrillation 963756947 I48.0 His paroxysmal atrial fibrillati on was in the setting of acute respirator y failure. Analysis of his pacemaker checks have not demonstrat ed any atrial fibrillati on.No recurrence noted.Patel er study to assess possible recurrence . Dyslipidemia 441614600 E 78.5 He takes ezetimibe and once per week statin. LDL cholestero l is 54.Most recent testing reviewed. All laboratory measuremen ts in appropriat e parameters on current medical therapy. This was reviewed and discussed with the patient and all questions answered. [id number] MELINDA PEREYRA MD CARDIOLOG Y [address] [place] [address] 10/28/2019 10:34:15 10/28/2019 10:40:12 Coronary arteriosclerosis in yuhaaviatam artery 7708619302 107 I25.10 Medication changes, as well as [...] 6 months, no testing. Hypertensive disorder 38 259568 I10 Management of this problem was reviewed with the patient. No changes recommende d, status for this problem is stable at this time. Cardiac pa cemaker in situ 905492848 Z95.0 Device remote check reviewed. Estimated device DICKSON assessed. All pacing parameters appropriat e. No significan t arrhythmia s identified . Paroxysmal atrial fibrillation 926625751 I48.0 His paroxysmal atrial fibrillati on was in the setting of acute respirator y failure. Analysis of his pacemaker checks have not demonstrat ed any atrial fibrillati on.No recurrence noted.Patel er study to assess possible recurrence . Dyslipidemia 872889244 E 78.5 He takes ezetimibe and once per week statin. LDL cholestero l is 54.Most recent testing reviewed. All laboratory measuremen ts in appropriat e parameters on current medical therapy. This was reviewed and discussed with the patient and all questions answered. [id number] MELINDA PEREYRA MD CARDIOLOG Y [address] [place] [address] 04/25/2020 12:12:27 04/25/2020 12:17:32 Coronary arteriosclerosis in yuhaaviatam artery 4959230375 107 I25.10 Medication changes, as well as [...] 6 months, no testing. Hypertensive disorder 38 472707 I10 Management of this problem was reviewed with the patient. No changes recommende d, status for this problem is stable at this time. Watch salt. Increase lisinopril . Cardiac pa cemaker in situ 413636600 Z95.0 Device remote check reviewed. Estimated device DICKSON assessed. All pacing parameters appropriat e. No significan t arrhythmia s identified . Paroxysmal atrial fibrillation 971581942 I48.0 His paroxysmal atrial fibrillati on was in the setting of acute respirator y failure. Analysis of his pacemaker checks have not demonstrat ed any atrial fibrillati on.No recurrence noted.Paetl er study to assess possible recurrence . Dyslipidemia 096328435 E 78.5 He takes ezetimibe and once per week statin. LDL cholestero l is 54.Most recent testing reviewed. All laboratory measuremen ts in appropriat e parameters on current medical therapy. This was reviewed and discussed with the patient and all questions answered. [id number] MELINDA PEREYRA MD CARDIOLOG Y [address] [place] [address] 10/23/2020 11:47:22 10/23/2020 14:13:22 Coronary arteriosclerosis in yuhaaviatam artery 5100150084 107 I25.10 Medication changes, as well as [...] 6 months, no testing. Hypertensive disorder 38 915785 I10 Management of this problem was reviewed with the patient. No changes recommende d, status for this problem is stable at this time. Cardiac pa cemaker in situ 684781781 Z95.0 Device remote check reviewed. Estimated device DICKSON assessed. All pacing parameters appropriat e. No significan t arrhythmia s identified . Paroxysmal atrial fibrillation 796673615 I48.0 His paroxysmal atrial fibrillati on was in the setting of acute respirator y failure. Analysis of his pacemaker checks have not demonstrat ed any atrial fibrillati on.No recurrence noted.Patel er study to assess possible recurrence . Dyslipidemia 697296627 E 78.5 He takes ezetimibe and once per week statin. LDL cholestero l is 54.Most recent testing reviewed. All laboratory measuremen ts in appropriat e parameters on current medical therapy. This was reviewed and discussed with the patient and all questions answered. [id number] GIANA ECHEVERRIA MD CARDIOLOG Y [address] [place] [address] 04/27/2021 09:36:49 04/27/2021 10:28:35 Coronary arteriosclerosis in yuhaaviatam artery 5033888111 107 I25.10 Hypertensive disorder 38 646523 I10 Cardiac pa cemaker in situ 513335288 Z95.0 Last in-office device check: 04/27/2021 Recommend quarterly remote device checks and annual in office interrogat ion. Paroxysmal atrial fibrillation 701867646 I48.0 Device check 04/27/2021 shows multiple episodes of AT/AF.Thes e appear to be clustered in November and December.His most recent episode occurred in late February. Longest episode between 12 and 24 hours.HILDA SVasc = 3. Dyslipidemia 494906543 E 78.5 Body mass index 40+ - severely obese 000631214 Z68.43 [id number] GIANA ECHEVERRIA MD CARDIOLOG Y [address] [place] [address] 09/11/2021 15:14:19 09/11/2021 15:15:43 Coronary arteriosclerosis in yuhaaviatam artery 3114581839 107 I25.10 Hypertensive disorder 38 324112 I10 Cardiac pa cemaker in situ 592026478 Z95.0 Last in-office device check: 04/27/2021 Recommend quarterly remote device checks and annual in office interrogat ion. Paroxysmal atrial fibrillation 544101090 I48.0 Device check 04/27/2021 shows multiple episodes of AT/AF.Thes e appear to be clustered in November and December.His most recent episode occurred in late February. Longest episode between 12 and 24 hours.HILDA SVasc = 3. Recommend reduced Xarelto dosing for ischemic stroke risk reduction if he develops creatinine clearance 15-49ml/mi n Dyslipidemia 734639817 E 78.5 Body mass index 40+ - severely obese 237444670 Z68.43 [id number] GIANA ECHEVERRIA MD CARDIOLOG Y [address] [place] [address] 10/29/2021 09:55:39 10/29/2021 11:23:45 Coronary arteriosclerosis in yuhaaviatam artery 8461632279 107 I25.10 Hypertensive disorder 38 782759 I10 Cardiac pa cemaker in situ 367835968 Z95.0 Last in-office device check: 04/27/2021 Recommend quarterly remote device checks and annual in office interrogat ion. Paroxysmal atrial fibrillation 917629656 I48.0 Device check 04/27/2021 shows multiple episodes of AT/AF.Thes e appear to be clustered in November and December.His most recent episode occurred in late February. Longest episode between 12 and 24 hours.HILDA SVasc = 3. Recommend reduced Xarelto dosing for ischemic stroke risk reduction if he develops creatinine clearance 15-49ml/mi n Dyslipidemia 110247975 E 78.5 Obese 741275679 E66.9 [id number] GIANA ECHEVERRIA MD CARDIOLOG Y [address] [place] [address] 04/22/2022 10:42:54 04/22/2022 11:42:49 Coronary arteriosclerosis in yuhaaviatam artery 8847635036 107 I25.10 Cardiac pa cemaker in situ 285429331 Z95.0 Last in-office device check: 04/22/2022 Recommend quarterly remote device checks and annual in office interrogat ion. Paroxysmal atrial fibrillation 806621858 I48.0 Device check 04/27/2021 shows multiple episodes of AT/AF.Thes e appear to be clustered in November and December.His most recent episode occurred in late February. Longest episode between 12 and 24 hours.HILDA SVasc = 3. Recommend reduced Xarelto dosing for ischemic stroke risk reduction if he develops creatinine clearance 15-49ml/mi n Hypertensive disorder 38 368598 I10 Dyslipidemia 184169763 E 78.5 Obese 952116776 E66.9 [id number] GIANA ECHEVERRIA MD CARDIOLOG Y [address] [place] [address] 11/01/2022 11:20:33 11/01/2022 12:21:14 Coronary arteriosclerosis in yuhaaviatam artery [id number] 107 I25.10 Cardiac pa cemaker in situ 040321374 Z95.0 Last in-office device check: 04/22/2022 Recommend quarterly remote device checks and annual in office interrogat ion. Paroxysmal atrial fibrillation 991472399 I48.0 Device check 04/27/2021 shows multiple episodes of AT/AF.Thes e appear to be clustered in November and December.His most recent episode occurred in late February. Longest episode between 12 and 24 hours.HILDA SVasc = 3. Recommend reduced Xarelto dosing for ischemic stroke risk reduction if he develops creatinine clearance 15-49ml/mi n Hypertensive disorder 38 264241 I10 Dyslipidemia 105325109 E 78.5 Obese 354997751 E66.9 Renewal of prescription 089649426 Z76.0 [id number] GIANA ECHEVERRIA MD CARDIOLOG Y [address] [place] [address] 04/25/2023 11:01:40 04/25/2023 11:52:52 Coronary arteriosclerosis in yuhaaviatam artery 5381724539 107 I25.10 a. Cath 01/31/2007 : ENGINEERING TECHNOLOGY INSTRUCTOR of LADLVgram with EF 35%, severe hypokinesi s of the anterior septal and apical wall. Bifurcatin g left main.LAD ENGINEERING TECHNOLOGY INSTRUCTOR at the first septal. Retrograde filling from [...] Synergy 3.5x20mm Cardiac pa cemginette in situ 861317073 Z95.0 Last in-office device check: 04/25/2023 Recommend quarterly remote device checks and annual in office interrogat ion. Paroxysmal atrial fibrillation 404262521 I48.0 Device check 04/27/2021 shows multiple episodes of AT/AF.Thes e appear to be clustered in November and December.His most recent episode occurred in late February. Longest episode between 12 and 24 hours.HILDA SVasc = 3. Recommend reduced Xarelto dosing for ischemic stroke risk reduction if he develops creatinine clearance 15-49ml/mi n Hypertensive disorder 38 135011 I10 Dyslipidemia 948673237 E 78.5 Obese 755939334 E66.9 Renewal of prescription 773801860 Z76.0 [id number] GIANA ECHEVERRIA MD CARDIOLOG Y [address] [place] [address] 10/31/2023 10:52:03 11/04/2023 09:01:44 Coronary arteriosclerosis in yuhaaviat[place] artery 5899557488 107 I25.10 a. Cath 01/31/2007 : ENGINEERING TECHNOLOGY INSTRUCTOR of LADLVgram with EF 35%, severe hypokinesi s of the anterior septal and apical wall. Bifurcatin g left main.LAD ENGINEERING TECHNOLOGY INSTRUCTOR at the first septal. Retrograde filling from [...] Synergy 3.5x20mm Cardiac pa cemginette in situ 084442217 Z95.0 Last in-office device check: 10/31/2023 ecommend quarterly remote device checks and annual in office interrogat ion. Paroxysmal atrial fibrillation 470272630 I48.0 Device check 04/27/2021 shows multiple episodes of AT/AF.Thes e appear to be clustered in November and December.His most recent episode occurred in late February. Longest episode between 12 and 24 hours.HILDA SVasc = 3. Recommend reduced Xarelto dosing for ischemic stroke risk reduction if he develops creatinine clearance 15-49ml/mi n Hypertensive disorder 38 621540 I10 Dyslipidemia 928603547 E 78.5 Obese 788731223 E66.9 [id number] GIANA ECHEVERRIA MD CARDIOLOG Y [address] [place] [address] 04/30/2024 11:18:42 04/30/2024 12:20:09 Coronary arteriosclerosis in yuhaaviatam artery 1509292113 107 I25.10 a. Cath 01/31/2007 : ENGINEERING TECHNOLOGY INSTRUCTOR of LADLVgram with EF 35%, severe hypokinesi s of the anterior septal and apical wall. Bifurcatin g left main.LAD ENGINEERING TECHNOLOGY INSTRUCTOR at the first septal. Retrograde filling from [...] Synergy 3.5x20mm Cardiac pa cemaker in situ 918737183 Z95.0 Last in-office device check: 04/30/2024 Recommend quarterly remote device checks and annual in office interrogat ion. Paroxysmal atrial fibrillation 999063055 I48.0 Device check 04/27/2021 shows multiple episodes of AT/AF.Thes e appear to be clustered in November and December.His most recent episode occurred in late February. Longest episode between 12 and 24 hours.HILDA SVasc = 3. Recommend reduced Xarelto dosing for ischemic stroke risk reduction if he develops creatinine clearance 15-49ml/mi n Hypertensive disorder 38 710002 I10 Dyslipidemia 218249522 E 78.5 Obese 935086389 E66.9 [id number] GIANA ECHEVERRIA MD CARDIOLOG Y [address] [place] [address] 11/01/2024 11:11:36 11/01/2024 11:58:09 Coronary arteriosclerosis in yuhaaviat[place] artery 2018084928 107 I25.10 a. Cath 01/31/2007 : ENGINEERING TECHNOLOGY INSTRUCTOR of LADLVgram with EF 35%, severe hypokinesi s of the anterior septal and apical wall. Bifurcatin g left main.LAD ENGINEERING TECHNOLOGY INSTRUCTOR at the first septal. Retrograde filling from [...] Synergy 3.5x20mm Cardiac pa cemaker in situ 665350137 Z95.0 Last in-office device check: 04/30/2024 Recommend quarterly remote device checks and annual in office interrogat ion. Paroxysmal atrial fibrillation 049065630 I48.0 Device check 04/27/2021 shows multiple episodes of AT/AF.Thes e appear to be clustered in November and December.His most recent episode occurred in late February. Longest episode between 12 and 24 hours.HILDA SVasc = 3. Recommend reduced Xarelto dosing for ischemic stroke risk reduction if he develops creatinine clearance 15-49ml/mi n Hypertensive disorder 38 149969 I10 Dyslipidemia 034374853 E 78.5 Obese 221376374 E66.9 Health Concerns Section Related Observation LastModified by Organization Detai ls LastModified Time None Recorded Concern Status LastModified by Organization Details LastModified Time None Recorded Advance Directives Directive None Recorded Payers Insurance Date Sequence Insurance Name Policy Number Policy Muse Covered Member ID Muse Member ID Guarantor Name 09/20/2024 3 [place] [id number] Josh Jain Wohlwineleazar [id number] Josh Jain Wohlwineleazar 2025 2 [place] [id number] Josh Jain Wohlwinder [id number] Josh Jain Wohlwinder 09/20/2024 2 [employer] (INDEMNITY) [id number] Josh Jain Wohlhaim [id number] Josh Jain Wohlwineleazar 2025 1 [place] Josh Alarcon [id number] Josh Alarcon Notes Date Note Type Note Provider Name and Address Organization Details Recorded Time 11/01/2022 text/html ROS as noted in the HPI CARDIOVASCULAR HISTORY:# Coronary artery disease s/p ENGINEERING TECHNOLOGY INSTRUCTOR intervention 01/2007, SIMEON to PLB 08/2016a. Cath 01/31/2007: ENGINEERING TECHNOLOGY INSTRUCTOR of LADLVgram with EF 35%, severe hypokinesis of the anterior septal and apical wall. Bifurcating left main.LAD ENGINEERING TECHNOLOGY INSTRUCTOR at the first septal. Retrograde filling from [...] Apnea # [facility] respiratory [...] platelets 226BMP: Creatinine 1.00, EGFR 74 GIANA HOLILE ECHEVERRIA MD [address] [place] [address], [phone], [facility] 11/02/2022 21:11:02 04/25/2023 text/html ROS as noted in the HPI CARDIOVASCULAR HISTORY:# Coronary artery disease s/p ENGINEERING TECHNOLOGY INSTRUCTOR intervention 01/2007, SIMEON to PLB 08/2016Cath 08/21/2016: Normal LV function.Patent stents.New 90% stenosis in PLB of RCA. PCI with Synergy 3.5x20mm# Sinus node dysfunction s/p Medtronic dual chambera. Original implantation in . Generator change, 07/13/2014. # Class 3 Obesity# Obstructive Sleep Apnea # [facility], [facility] acute hypoxic respiratory [...] change 07/13/2014.c. Coronary artery disease s/p ENGINEERING TECHNOLOGY INSTRUCTOR intervention 01/2007, SIMEON to PLB 08/2016d. WHO [...] dental implants fitted. He is working with [employer] in [place]. We reviewed instructions regarding OAC holds and resumption. His pacemaker system was interrogated at today's visit. See scanned document for complete results.Device: Medtronic Adapta DRImplant: 07/13/2014. Estimated longevity: 2.5 yearsMode: MVP 60Pacin.5% AP, 0.3% RVPEvents: AMS 0.4%. Longest episode 12 hours.No permanent programming changes were made to his device. GIANA ECHEVERRIA MD [address] [place], [address], [facility] 04/26/2023 12:45:03 10/31/2023 text/html ROS as noted in the HPI CARDIOVASCULAR HISTORY:# Coronary artery disease s/p ENGINEERING TECHNOLOGY INSTRUCTOR intervention 01/2007, SIMEON to PLB 08/2016Cath 08/21/2016: Normal LV function.Patent stents.New 90% stenosis in PLB of RCA. PCI with Synergy 3.5x20mm# Sinus node dysfunction s/p Medtronic dual chambera. Original implantation in . Generator change, 07/13/2014. # Class 3 Obesity# Obstructive Sleep Apnea # [facility] experienced acute hypoxic respiratory failure most likely related to his sleep apnea. CTA chest: no pulmonary embolism.He developed paroxysmal atrial fibrillation and was discharged on Multaq. # Hypertension# Dyslipidemia 04/25/2023: 6-month follow-upa. Paroxysmal atrial fibrillation (on Xarelto)b. Sinus node dysfunction s/p Medtronic dual chamber 2004, Gen change 07/13/2014.c. Coronary artery disease s/p ENGINEERING TECHNOLOGY INSTRUCTOR intervention 01/2007, SIMEON to PLB 08/2016d. WHO [...] fitted. He is working with [facility] in [place]. We reviewed instructions regarding OAC holds and resumption. 10/31/2023: 6-month follow-upa. Paroxysmal atrial fibrillation (on Xarelto)b. Sinus node dysfunction s/p Medtronic dual chamber 2004, Gen change 07/13/2014.c. Coronary artery disease s/p ENGINEERING TECHNOLOGY INSTRUCTOR intervention 01/2007, SIMEON to PLB 08/2016d. WHO [...] today's visit.See Pacemate document for complete results.Device: JP3 Measurement Adapta DRImplant: 07/13/2014. Estimated longevity: 28 monthsMode: MVP 60Pacin.5% AP, 0.3% RVPEvents: AMS 0.5% (since 04/2022).No permanent programming changes were made to his device. There are no new lab results to review since last visit. GIANA ECHEVERRIA MD [address] [place], [address], [facility] 11/01/2023 14:03:28 04/30/2024 text/html ROS as noted in the HPI CARDIOVASCULAR HISTORY:# Coronary artery disease s/p ENGINEERING TECHNOLOGY INSTRUCTOR intervention 01/2007, SIMEON to PLB 08/2016Cath 08/21/2016: Normal LV function.Patent stents.New 90% stenosis in PLB of RCA. PCI with Synergy 3.5x20mm# Sinus node dysfunction s/p Medtronic dual chambera. Original implantation in . Generator change, 07/13/2014. # Class 3 Obesity# Obstructive Sleep Apnea # [facility] experienced acute hypoxic respiratory failure most likely related to his sleep apnea. CTA chest: no pulmonary embolism.He developed paroxysmal atrial fibrillation and was discharged on Multaq. # Hypertension# Dyslipidemia 10/31/2023: 6-month follow-upa. Paroxysmal atrial fibrillation (on Xarelto)b. Sinus node dysfunction s/p Medtronic dual chamber 2004, Gen change 07/13/2014.c. Coronary artery disease s/p ENGINEERING TECHNOLOGY INSTRUCTOR intervention 01/2007, SIMEON to PLB 08/2016d. WHO [...] change 07/13/2014.c. Coronary artery disease s/p ENGINEERING TECHNOLOGY INSTRUCTOR intervention 01/2007, SIMEON to PLB 08/2016d. WHO [...] 14 ALP 70 GIANA ECHEVERRIA MD [address] [place], [address], [facility] 04/30/2024 12:29:06 11/01/2024 text/html ROS as noted in the HPI CARDIOVASCULAR HISTORY:# Coronary artery disease s/p ENGINEERING TECHNOLOGY INSTRUCTOR intervention 01/2007, SIMEON to PLB 08/2016Cath 08/21/2016: Normal LV function.Patent stents.New 90% stenosis in PLB of RCA. PCI with Synergy 3.5x20mm# Sinus node dysfunction s/p Medtronic dual chambera. Original implantation in . Generator change, 07/13/2014. # Class 3 Obesity# Obstructive Sleep Apnea # [facility] acute hypoxic respiratory [...] change 07/13/2014.c. Coronary artery disease s/p ENGINEERING TECHNOLOGY INSTRUCTOR intervention 01/2007, SIMEON to PLB 08/2016d. WHO [...] direct LDL: 62CBC: 12.7/43.5, platelets 185 GIANA OHLLIE ECHEVERRIA MD [facility] [place], [address], [facility] 11/01/2024 12:36:33
--- OUTSIDE RECORDS SUMMARY | 2025-04-13 13:20 | XMS_ITS | Referral Summary ---
Author Organization [employer] ([place], [place], [place], [place], [place]) Address [address] [place] [address] Care Team Providers Care Postal Superintendent Name Role Phone Unavailable Primary Care Provider Unavailabl e Encounters Date Type Department Care Team Description 03/10/2025 10:45 AM EDT Office Visit [facility] [address] [place] [address] Matteo Iglesias PA-C Bilateral carpal tunnel syndrome (Primary Dx) from Last 3 Months Allergies No known [...] 03/10/2025 10:34 AM EDT Plan of Treatment Not on file [...] drainage, nerve damage and poor cosmetic result [place] protocol: Procedure explained and questions answered to [...] 3 Months Insurance MEDICARE PART A B [facility] [place] [phone]
--- OUTSIDE RECORDS SUMMARY | 2025-04-13 13:20 | XMS_ITS ---
Author Organization Unknown ENCOUNTERS Encounter Performer Location Date Diagnosis Diagnosis Status Emergency [place] [address] [place] [address] [id number] LEONOR Pre Admit [place] [place] [id number] Pre Admit [place] [place] [address] [id number] Emergency [place] [address] [place] [id number] LEONOR Emergency [place] [address] [place] [address] [id number] LEONOR Pre Admit [place] [address] [place] [address] [phone] Emergency [place] [address] [place] [address] [phone] AMA *Note: Encounters from your own facility or health system may be excluded. Allergies, Adverse Reactions, Alerts Allergen Type Severity Identification Date Medications Name Date Quantity Days Supplied GPI Number
[2025-04-13 14:02] LABS: Alanine Aminotransferase 12 U/L (12-78); Albumin Level 3.7 g/dl (3.5-5.0); Albumin/Globulin Ratio 1.4 (1.1-1.8); Alkaline Phosphatase 73 U/L (38-126); Anion Gap 8.1 mEq/L (5-15); Aspartate Amino Transferase 22 U/L (17-59); Bilirubin,Total 0.4 mg/dl (0.2-1.3); Blood Urea Nitrogen 17 mg/dl (9-20); Calcium 9.2 mg/dl (8.4-10.2); Carbon Dioxide 32 mmol/L (22.0-30.0); Chloride 101 mmol/L (98-107); Cholesterol 110 mg/dl (140-200); Creatinine,Serum 1.20 mg/dl (0.66-1.25); Estimated Glomerular Filt Rate 59 ml/min (>60); GFR (African American) 72 ML/MIN (>60); Globulin 2.7 g/dL (1.3-3.2); Glucose 84 mg/dl (74-100); HDL Cholesterol 35 mg/dl (40-60); Potassium 5.1 mmoL/L (3.5-5.1); Sodium 136 mmol/L (136-145); Total Protein,Serum 6.4 g/dl (6.3-8.2); Triglycerides 83 mg/dl (30-150)
== END 2025-04-13 23:59 | disposition home or self-care (01) ==
LOC: LAB.DROPOF 13:18
PROVIDERS: PCP Internal Medicine; Visit Provider Internal Medicine
DX: E78.5 Hyperlipidemia, unspecified (principal); I11.0 Hypertensive heart disease with heart failure; I50.32 Chronic diastolic (congestive) heart failure; E66.01 Morbid (severe) obesity due to excess calories
CPT/HCPCS: 80053; 80061

== ENCOUNTER 2025-05-07 11:59 | Observation (INO) | payer MEDICARE, BC, SELFPAY ==
--- OUTSIDE RECORDS SUMMARY | 2025-03-10 09:45 | XMS_ITS | Encounter Summary ---
Author Organization [employer] ([place], [place], [place], [place], [place]) Address [address] [place] [address] Care Team Providers Care Field Ironworker Name Role Phone Unavailable Primary Care Provider Unavailabl e Reason for Visit * Reason Comments Injections Bilat hands Encounter Details Date Type Department Care Team (Late st Contact Info) Description 03/10/2025 10:45 AM EDT Office Visit [facility] - [address] [place] [address] Matteo Iglesias PA-C [address] [place] [phone] Bilateral carpal tunnel syndrome (Primary Dx) Social [...] 10:34 AM EDT documented in this encounter Functional Status * BP Answer Date of Assessment Author 117/71 03/10/2025 10:34 AM CDT Jennifer kAins * Pulse Answer Date of Assessment Author 65 03/10/2025 10:34 AM CDT Mable Jennifer * Height Answer Date of Assessment Author 73 03/10/2025 10:34 AM CDT Jennifer Akins * Weight Answer Date of Assessment Author 6160 03/10/2025 10:34 AM CDT Mable Jennifer * Tidal Volume Answer Date of Assessment Author 470 03/10/2025 10:34 AM CDT Mable Jennifer * Shock Index Answer Date of Assessment Author 0.56 03/10/2025 10:34 AM CDT Jennifer Akins * BMI (Calculated) Answer Date of Assessment Author 50.8 03/10/2025 10:34 AM CDT Jennifer Akins * BP Answer Date of Assessment Author 117/71 03/10/2025 10:34 AM CDT Jennifer Akins * Pulse Answer Date of Assessment Author 65 03/10/2025 10:34 AM CDT Jennifer Akins * BMI (Calculated) Answer Date of Assessment Author 50.8 03/10/2025 10:34 AM CDT Jennifer Akins documented as of this encounter Mental Status * BP Answer Entry Date Author 117/71 03/10/2025 10:34 AM CDT Jennifer Akins * Pulse Answer Entry Date Author 65 03/10/2025 10:34 AM CDT Jennifer Akins * Height Answer Entry Date Author 73 03/10/2025 10:34 AM CDT Jennifer Akins * Weight Answer Entry Date Author 6160 03/10/2025 10:34 AM CDT Jennifer Akins * Tidal Volume Answer Entry Date Author 470 03/10/2025 10:34 AM CDT Jennifer Akins * Shock Index Answer Entry Date Author 0.56 03/10/2025 10:34 AM CDT Jennifer Akins * BMI (Calculated) Answer Entry Date Author 50.8 03/10/2025 10:34 AM CDT Jennifer Akins documented in this encounter Progress Notes * [...] [facility] Tenderness []+ []- []+ []- 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 Patient will follow-up with PCP for computer terminal operator treatment plan. I have examined and questioned the above listed patient and provided or received all documentation,establishing, confirming, and revising as necessary, the findings and statements noted. . EMR/[employer]/Framing Manager disclaimer: Much of this encounter note is an electronic sports instructor/translation of spoken language to printed text. The [...] drainage, nerve damage and poor cosmetic result [place] protocol: Procedure explained and questions answered to [...]
[2025-05-07] VITALS (11 sets, daily range): BP systolic 111–130; BP diastolic 44–70; PULSE 60–78; RESP 16–18; TEMP 36.6–36.7; O2SAT 91–94; BMI 50.1
--- NOTE | 2025-05-07 12:11 | CT_ITS ---
PROCEDURE INFORMATION: Exam: CTA Abdomen and Pelvis With Contrast Exam date and time: 05/07/2025 1:03 PM Age: 75 years old Clinical indication: Abdominal pain; Generalized TECHNIQUE: Imaging protocol: Computed tomographic angiography of the abdomen and pelvis with contrast. Exam focused on the arteries. 3D rendering (Not supervised by radiologist): MIP and/or 3D reconstructed images were created by the technologist. Radiation optimization: All CT scans at this facility use at least one of these dose optimization techniques: automated exposure control; mA and/or kV adjustment per patient size (includes targeted exams where dose is matched to clinical indication); or iterative reconstruction. Contrast material: ISOVUE; Contrast volume: 93 ml; Contrast route: INTRAVENOUS (IV); COMPARISON: CT ABDOMEN PELVIS WO CON 04/04/2025 1:04 PM FINDINGS: Tubes, catheters and devices: Pacemaker lead. Lungs: Elevated right hemidiaphragm with a small amount of atelectasis in the right lower lobe. Aorta: No aortic aneurysm. No aortic dissection. Celiac and mesenteric arteries: No occlusion or significant stenosis. Renal arteries: No occlusion or significant stenosis. Right iliac arteries: No occlusion or significant stenosis. Left iliac arteries: No occlusion or significant stenosis. Liver: There is moderate fatty infiltration of the liver. Gallbladder and biliary ducts: Cholelithiasis. No biliary dilatation. Pancreas: Cystic lesion in the uncinate process of the pancreas measuring 20 x 16 mm imaging/95. Spleen: Unremarkable. No splenomegaly. Adrenal glands: 21 x 17 mm left adrenal nodule with Hounsfield units of-3 consistent with an adenoma. The right adrenal gland is unremarkable. Kidneys and ureters: Multiple bilateral renal cysts. Largest of which measures 52 x 50 mm on the right. No hydronephrosis. 3 mm nonobstructing right renal stone. There is a 5 mm right renal pelvic stone without hydronephrosis. Stomach and bowel: Unremarkable. No obstruction. No mucosal thickening. Appendix: No evidence of appendicitis. Intraperitoneal space: Unremarkable. No free air. No significant fluid collection. Lymph nodes: Unremarkable. No enlarged lymph nodes. Urinary bladder: Unremarkable. No mass. Reproductive: Unremarkable as visualized. Bones/joints: No acute fracture. Soft tissues: Unremarkable. IMPRESSION: 1. Cholelithiasis. 2. Left adrenal nodule, consistent with an adenoma. 3. Bosniak class 1 renal cysts. No further workup recommended. 4. Nephrolithiasis including a pelvic stone on the right without hydronephrosis. 5. Cystic mass uncinate process of the pancreas
--- NOTE | 2025-05-07 12:13 | ED_ITS ---
Discharge Plan Disposition Patient Disposition: Home, Self-Care Prescriptions Prescriptions: No Action Xarelto 20 mg tablet 20 mg PO DAILY Rx Instructions: must administer with evening meal hydrocodone-acetaminophen 7.5-325 mg tablet 1 tab PO Q8H PRN (Reason: pain) Qty: 30 0RF fluticasone propionate [Allergy Relief (fluticasone)] 50 mcg/actuation spray,suspension 1 spray intranasal BID PRN Rx Instructions: administer into each nostril azelastine 137 mcg (0.1 %) spray,non-aerosol 1 spray intranasal BID Qty: 30 4RF Rx Instructions: administer into each nostril multivitamin Tablet 1 tab PO DAILY rosuvastatin 10 mg tablet 10 mg PO .COMPLEX Rx Instructions: 1 tab once week oxybutynin chloride 10 mg tablet extended release 24hr 10 mg PO ONCE tamsulosin 0.4 mg capsule 0.4 mg PO DAILY Qty: 90 1RF tolterodine 4 mg capsule,extended release 24hr 4 mg PO DAILY Qty: 30 5RF omeprazole 40 mg capsule,delayed release(DR/EC) See Rx Instructions .ROUTE .COMPLEX Qty: 90 1RF Dose Instruction: TAKE 1 CAPSULE BY MOUTH ONCE DAILY Rx Instructions: TAKE 1 CAPSULE BY MOUTH ONCE DAILY diphenoxylate-atropine [Lomotil] 2.5-0.025 mg tablet 1 tab PO Q6H PRN (Reason: diarrhea) Qty: 30 2RF bupropion HCl 100 mg tablet See Rx Instructions .ROUTE .COMPLEX Qty: 90 1RF Dose Instruction: TAKE 1 TABLET BY MOUTH EVERY MORNING Rx Instructions: TAKE 1 TABLET BY MOUTH EVERY MORNING atenolol 50 mg tablet See Rx Instructions .ROUTE .COMPLEX Qty: 180 1RF Dose Instruction: TAKE 1 TABLET BY MOUTH TWICE A DAY Rx Instructions: TAKE 1 TABLET BY MOUTH TWICE A DAY citalopram 20 mg tablet 20 mg PO DAILY Qty: 90 1RF ezetimibe 10 mg tablet See Rx Instructions .ROUTE .COMPLEX Qty: 90 1RF Dose Instruction: TAKE 1 TABLET BY MOUTH ONCE DAILY Rx Instructions: TAKE 1 TABLET BY MOUTH ONCE DAILY lisinopril 10 mg tablet 10 mg PO DAILY Qty: 90 1RF ibuprofen 800 mg tablet 800 mg PO Q8H PRN (Reason: pain) Qty: 9 0RF ondansetron HCl 4 MG tablet 4 mg PO TIDP PRN (Reason: Nausea And Vomiting) Qty: 12 0RF Referrals Follow up/Referrals: Jonatan Bowden MD [Primary Care Provider, Medical] - See instructions Clinical Impressions Clinical Impression: GI (gastrointestinal bleed), Cystic mass of pancreas Instructions Patient Instructions: DI for Gastrointestinal Bleeding Print Language Print Language: Persian Discharge ED Provider: Matteo Paul General Adult HPI General Chief complaint: GI Bleed Stated complaint: Blood In Stool Time Seen by Provider: 05/07/25 12:04 History of Present Illness HPI narrative: Patient is a 75-year-old male with past medical history of atrial fibrillation on anticoagulation, heart failure on intermittent oxygen therapy 2 L who presents to the emergency department for evaluation of bright red blood per rectum. Patient has had intermittent constipation over the last couple weeks and over the last 24 hours has had some blood in his stool. Today he was voiding when he had a little bit of blood come out of his butt which became concerning to him and he presents here for continued evaluation. He had a little bit of abdominal pain yesterday which has subsided he has no abdominal pain currently. No chest pain. No trauma. No other acute complaints at this time. Please note that above description of symptoms, in this electronic medical record under categorization of recalled from ER triage doctor by RN are reflective of an initial nursing assessment, however, is not reflective of my full history and physical exam that was personally taken and clarified. Consequentially, this preceding description of symptoms, which may include the patient's categorized chief complaint in the EMR, do not reflect my personal clinical impression, and the ultimate description of history of present illness and patient stated complaints should be deferred to this section of the note. Unless stated otherwise or congruent with this section of the note, additional signs, symptoms, or incongruence should be interpreted as inaccurate with my clinical impression. Related Data Home Medications ?Medication ?Instructions ?Recorded ?Confirmed multivitamin 1 tab PO DAILY 12/04/2008/03 rivaroxaban 20 mg tablet (Xarelto) 20 mg PO DAILY 01/1004/13/25 rosuvastatin 10 mg tablet 10 mg PO .COMPLEX 11/03/23 1 06/14/24 oxybutynin chloride 10 mg 10 mg PO ONCE 01/06/2404/13 tablet,extended release 24 hr fluticasone propionate 50 1 spray intranasal BID PRN 0 11/25/24 04/13/25 mcg/actuation nasal spray,suspension (Allergy Relief (fluticasone)) Previous Rx's ?Medication ?Instructions ?Recorded ondansetron HCl 4 mg tablet 4 mg PO TIDP PRN Nausea An d 01/02/21 Vomiting #12 tabs tamsulosin 0.4 mg capsule 0.4 mg PO DAILY #90 caps 04/04 tolterodine 4 mg capsule,extended 4 mg PO DAILY #30 ca ps 10/21/23 release 24 hr hydrocodone 7.5 mg-acetaminophen 1 tab PO Q8H PRN pain #30 tabs 11/03/23 325 mg tablet omeprazole 40 mg capsule,delayed See Rx Instructions . Route 05/17/24 release .COMPLEX #90 caps diphenoxylate-atropine 2.5 1 tab PO Q6H PRN diarrhea # 30 tabs 06/24/24 mg-0.025 mg tablet (Lomotil) ibuprofen 800 mg tablet 800 mg PO Q8H PRN pain #9 ta bs 10/28/24 bupropion HCl 100 mg tablet See Rx Instructions .Route 11/11/24 .COMPLEX #90 tabs atenolol 50 mg tablet See Rx Instructions .Route 0 11/17/24 .COMPLEX #180 tabs citalopram 20 mg tablet 20 mg PO DAILY #90 tabs 12/10 09/03 ezetimibe 10 mg tablet See Rx Instructions .Route 0 01/31/25 .COMPLEX #90 tabs azelastine 137 mcg (0.1 %) nasal 1 spray intranasal BI D #30 mL 04/13/25 spray lisinopril 10 mg tablet 10 mg PO DAILY #90 tabs 09/03 Allergies Allergy/AdvReac Type Severity Reaction Status Date / Time No Known Allergies Allergy Verified 04/13/25 08:53 [facility] Disclaimer: The information contained in this section may have been updated after the patient was seen, as this information can be updated by other users. Medical History Hematuria Social History Smoking Status: Never smoker alcohol intake: former substance use type: denies use current occupational status: retired Travel in the last 8 weeks?: None household members: spouse housing: house Have you lived/traveled outside [place] in past 30 days?: No Contact w/someone who lives/traveled outside [place] past 30 days?: No Exposure to someone with infectious disease in past 14 days?: No Do you have a fever (greater than 100.4 F or 38 C)?: No Have you tested positive for COVID-19?: No Exposed to someone with COVID-19 in past 14 days?: No Do you have a sore throat?: No Do you have a cough?: No Do you have any weakness?: No Do you have any diarrhea?: No Are you experiencing any unusual bleeding?: No Do you have any muscle aches/pain?: No Do you have any abdominal pain?: No Are you experiencing loss of taste or smell?: No Other Medical History Have you received the Flu Vaccine for this season: Yes Have you received the Pneumonia Vaccine: Yes ROS Obtained: Yes Systems reviewed as appropriate & no additional complaints except as documented Physical Exam General General appearance: alert and in no apparent distress Head Head exam: atraumatic and normocephalic Eye Eye exam: Present PERRL and EOMI ENT ENT exam: Present mucous membranes moist Neck Neck exam: Present normal inspection Chest Chest inspection: Present normal inspection and symmetric chest wall rise Respiratory Respiratory exam: Present normal lung sounds bilaterally; Absent respiratory distress Cardiovascular Cardiovascular exam: Present regular rate and normal rhythm Abdominal Exam Abdominal exam: Present soft; Absent tenderness exam: Present other (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 [place] Inquiry Pt receiving controlled substance: No Vital Signs: 05/07/25 12:08 05/07/25 12:11 05/07/25 12:31 Temperature 97.9 F Temperature Source Oral Pulse Rate 78 67 Pulse Rate [Radial] 68 Respiratory Rate 18 18 18 Blood Pressure 130/58 L 128/58 L Blood Pressure [Right Arm] 130/58 L Blood Pressure Mean 87 81 Blood Pressure Mean [Right Arm] 82 Blood Pressure Source [Right Arm] Automatic Cuff Blood Pressure Position [Right Arm] Sitting 02 Sat by Pulse Oximetry 93 L 91 L 93 L Oxygen Delivery Method Room Air Oxygen Flow Rate (LPM) 05/07/25 14:12 Temperature Temperature Source Pulse Rate 60 Pulse Rate [Radial] Respiratory Rate 18 Blood Pressure 111/46 L Blood Pressure [Right Arm] Blood Pressure Mean 81 Blood Pressure Mean [Right Arm] Blood Pressure Source [Right Arm] Blood Pressure Position [Right Arm] 02 Sat by Pulse Oximetry 93 L Oxygen Delivery Method Nasal Cannula Oxygen Flow Rate (LPM) 2 Lab Data Lab Results 05/07/25 12:24: WBC 10.0, RBC 4.74, Hgb 13.0 L, Hct 41.9 L, MCV 88.4, MCH 27.4, MCHC 31.0 L, RDW 14.3, Plt Count 170, MPV 10.2, Neut % (Auto) 72.9, Lymph % (Auto) 16.2, Calloway % (Auto) 8.1, Eos % (Auto) 2.1, Baso % (Auto) 0.5, Neut # (Auto) 7.3, Lymph # (Auto) 1.6, C[place]ay # (Auto) 0.8, Eos # (Auto) 0.2, Baso # (Auto) 0.1, PT 13.0 H, INR 1.19 H, Sodium 136, Potassium 4.6, Chloride 104, Carbon Dioxide 29, Anion Gap 7.6, BUN 29 H, Creatinine 1.40 H, Estimated Creat Clear 52, Estimated GFR 50 L, Est GFR ( Amer) 60, Glucose 96, Calcium 9.7, Total Bilirubin 0.6, AST 23, ALT 15, Alkaline Phosphatase 65, Total Protein 6.9, Albumin 3.9, Globulin 3.0, Albumin/Globulin Ratio 1.3, HCV Ab ROSIE w/Rflx PCR Qn Negative, HIV Ag/Ab Combo Qual Negative 05/07/25 13:30: Stool Occult Blood Positive A 05/07/25 12:24 05/07/25 12:24 Orders (Tests/Meds): ED MEDICATIONS Generic Name Dose Route Start Last Admin Trade Name Freq PRN Reason Stop Dose Admin Sodium Chloride 10 ml 05/07/25 13:04 05/07/25 13:06 Sodium Chloride 0.9% 10ml Syr (Rad Only) IV 06/06/25 13:03 10 ml NEEDED PRN Administration Maintain IV Site Discontinued Medications Generic Name Dose Route Start Last Admin Trade Name Anil PRN Reason Stop Dose Admin Iopamidol 93 ml 05/07/25 13:04 05/07/25 13:06 Iopamidol-370 (76%);100ml Bottle IV 05/07/25 13:05 93 ml ONCE ONE Administration Sodium Chloride 50 ml 05/07/25 13:04 05/07/25 13:05 0.9 % Sodium Chloride 50 Ml Vial IV 05/07/25 13:05 50 ml ONCE ONE Administration ORDERS Category Date Time Status CT angio abd/pel - GI Bleed Stat Cat Scan 05/07/25 12:11 Completed CBC w/Auto Diff [Complete Blood Count Auto Diff] Stat Lab 05/07/25 12:24 Completed CMP [Comprehensive Metabolic Panel] Stat Lab 05/07/25 12:24 Completed HIV Combo Stat Lab 05/07/25 12:24 Completed Hepatitis C Ab Qual. W/ RFX Stat Lab 05/07/25 12:24 Completed Occult Blood,Stool Stat Lab 05/07/25 13:30 Completed PT INR [Prothrombin Time INR] Stat Lab 05/07/25 12:24 Completed Medical Decision Narrative: In summary patient is a 75-year-old male with past medical history described above who presents to the emergency department for evaluation of bright red blood per rectum. Patient is hemodynamically stable nontoxic-appearing arrival, afebrile. Differential diagnosis includes internal fissure, colonic mass, diverticulosis, among others. Workup in totality will be conducted with hematologic labs CT angio GI bleed protocol. Initial interventions are not indicated patient is at his baseline is hemodynamically stable and has chronic hypoxia. Initial workup reviewed by me no significant leukocytosis no transfusable anemia, no NOAH or critical electrolyte abnormality although there is evidence of CKD fecal occult positive. CTA abdomen and pelvis cystic mass in the uncontained process of the pancreas which will need further characterization likely on an outpatient basis. Patient is high risk given that he is on anticoagulation I discussed case with hospital medicine regarding management they will admit the patient their service for continued evaluation at this time. Critical Care Critical Care Time Critical Care Time: No
--- OUTSIDE RECORDS SUMMARY | 2025-05-07 12:27 | XMS_ITS ---
Laboratory report Created on: April 12, 2025 ANA SAL : 1950 Sex: Male Author Organization Unknown PROBLEMS Problems List Code Description RESULTS Laboratory Orders Date Order Code Test 2023-08-11 [id number] FUNGUS CULTURE W ITH STAIN Laboratory Results Date LOINC Test Value Unit Reference Range Interpre tation 2023-08-11 03012-3 FUNGUS STAIN FINAL 2023-08-11 580-1 RESULT 1 NADER 2023-08-11 580-1 FUNGUS (MYCOLOGY ) CULTURE FINAL A 2023-08-11 580-1 RESULT 1 MICCO A 2023-08-11 [id number] RESULT 2 MICCO A
--- OUTSIDE RECORDS SUMMARY | 2025-05-07 12:27 | XMS_ITS | Data Portability ---
Author Organization HINA LATHA Sung [facility] Address [address] [facility] [address] [place] [address] Care Team Providers Care Social Service Coordinator Name Role Phone REECE GUADALUPE Primary Care Provider GIANA ECHEVERRIA Clinical Ob Assessment Encounter Date Assessment Date Assessment LastModified by Organization Details LastModified Time 11/01/2022 11/01/2022 Impression: 1. Coronary artery disease s/p ROOMS DIRECTOR intervention 01/2007 and SIMEON to PLB 08/2016: [...] at next visit: In-office Medtronic device check. [email or web address] Not available 11/02/2022 21:10:47 04/25/2023 04/25/2023 Impression: 1. Coronary artery disease s/p ROOMS DIRECTOR intervention 01/2007 and SIMEON to PLB 08/2016: [...] about 6 months, or sooner if needed. [email or web address] Not available 04/26/2023 12:43:38 10/31/2023 10/31/2023 Impression: 1. Coronary artery disease s/p ROOMS DIRECTOR intervention 01/2007 and SIMEON to PLB 08/2016: [...] next visit: In-office Medtronic device check (with ui programmer). [email or web address] Not available 11/01/2023 14:03:04 04/30/2024 04/30/2024 Impression: 1. Coronary artery disease s/p ROOMS DIRECTOR intervention 01/2007 and SIMEON to PLB 08/2016: [...] about 6 months, or sooner if needed. Not available 04/30/2024 12:28:36 11/01/2024 11/01/2024 Impression: 1. Coronary artery disease s/p ROOMS DIRECTOR intervention 01/2007 and SIMEON to PLB 08/2016: [...] about 6 months, or sooner if needed. Not available 11/01/2024 12:36:11 Plan of Treatment Reminders Order Date Submit Date Provider Last Modified By Organization Details Last Modified Time Details Appointments PACEMAKER 2024 10:45A M DEVICE_CL [facility] Not available Not available Not available RECHECK 2024 11:15A M GIANA ECHEVERRIA MD Not available Not available Not available Lab None recorded. Referral None recorded. Procedures pacemaker programmi ng, dual lead (PROC) 2024 025 [email or web address] [facility], [address] [facility] , [facility], [place], [address], 11/01/2024 12:36:30 pacemaker programmi ng, dual lead (PROC) [address], [address], [facility], [place], [address], 04/30/2024 12:29:03 pacemaker programmi ng, dual lead (PROC) 2023 024 [facility], [address] [place] [address] Leticia Veloz, [facility], [place], [address], 10/31/2023 15:01:46 pacemaker programmi ng, dual lead (PROC) 2022 023 [facility], [address] [place] [address], [facility], [place], [address], 04/25/2023 16:21:47 Surgeries None recorded. Imaging None recorded. Medication Orders Xarelto 20 mg tablet [address], [address], [address], 10/31/2023 12:32:24 Xarelto 20 mg tablet [address], [address], [address], 04/25/2023 12:15:42 rosuvasta tin 10 mg tablet [address] [facility], [address], [address], 04/25/2023 12:15:42 Xarelto 20 mg tablet [address], [address], [address], 11/02/2022 21:07:09 rosuvasta tin 10 mg tablet [address], [facility] [address], [address], 11/01/2022 13:08:09 Patient TargetsNo targets recorded. Patient Instructions Encounter Date Encounter Id Patient Instructions Last Modified By Organization Details Last Modified Time 11/01/2022 [id number] body mass index: care instructions [email or web address] Not available 11/02/2022 21:10:59 high blood pressure: care instructions [email or web address] Not available 11/02/2022 21:10:59 04/25/2023 [id number] body mass index: care instructions [email or web address] Not available 04/25/2023 12:16:54 high blood pressure: care instructions [email or web address] Not available 04/25/2023 12:16:54 10/31/2023 [id number] body mass index: care instructions [email or web address] Not available 10/31/2023 12:56:40 high blood pressure: care instructions [email or web address] Not available 10/31/2023 12:56:40 04/30/2024 [id number] body mass index: care instructions [email or web address] Not available 04/30/2024 12:29:03 high blood pressure: care instructions [email or web address] Not available 04/30/2024 12:29:03 - Continue with [...] outcomes. [email or web address] Not available 04/30/2024 12:17:37 11/01/2024 [id number] body mass index: care instructions [email or web address] Not available 11/01/2024 12:36:30 high blood pressure: care instructions [email or web address] Not available 11/01/2024 12:36:30 Reason for Referral [...] ) No observ ation record ed. BARCODE [facility] [address], [place], [address], 04/30/2024 16:14:41 05/06/20 24 04/30/2024 remot e [...] Organization Details Recorded Time Sick sinus syndrome 21396938 Active 2014 From Automated Load;Prov ider: Melinda Pereyra;Stat us: Active Not Available [facility] 6 06:27:04 Hypertens kimberly disorder 93988390 Active 2014 From Automated Load;Prov ider: Melinda Pereyra;Stat us: Active Not Available [facility] 6 06:27:04 Coronary arteriosc lerosis in [place] artery 30336291568 07 Active 2014 From Automated Load;Prov ider: Melinda Pereyra;Stat us: Active Not Available [facility] 6 06:27:04 Cardiac pacemaker in situ 663737255 Active 2016 MELINDA PEREYRA MD [address] [place] [address], [address] , [place] [facility] 7 09:51:38 Long-term current use of anticoagu lant 965105820 Active 2016 Royce/a finn PEREYRA MD [address] [place] [address], [address] , [place] [facility] 7 09:51:53 Dyslipide kristen 690709710 Active 2018 MELINDA PEREYRA MD [address] [place] [address], [address] , [facility] 10:19:51 Problem Notes None recorded. Procedures Surgical History Date Name Laterality Status Provider Name and Address Organization Details Recorded Time 11/02/19 25 EKG completed Helen Ulrich [facility] 11/01/2024 11:12:25 04/27/20 21 EKG completed Charlene Li [facility] 04/27/2021 09:40:14 08/22/19 17 Cardiac Catheterization completed MELINDA PEREYRA MD [address] [place] [address], [address], [facility] 03/31/2017 10:15:55 08/22/19 17 Stent Placement completed MELINDA PEREYRA MD [address] [place] [address], [phone] 08/21/2016 09:53:13 02/01/20 07 Cardiac Catheterization completed MELINDA PEREYRA MD [address] [place] [address], [address], [facility] 08/21/2016 10:05:54 10/27/19 05 Pacemaker completed MELINDA PEREYRA MD [address] [place] [address], [address], [facility] 08/21/2016 10:07:58 Other completed Charlene Short [facility] 07/13/2018 09:59:01 Other completed Charlene Short [facility] - [facility] 07/13/2018 09:59:53 Imaging Results None recorded. Procedure Notes None recorded. Medical Equipment Implant LEIDY Issuing Agency Serial Number Lot Number Status Provider Name and Address Organization Details Recorded Time Medtronic FDA [id number] Jennifertony Cueva [facility] 12/17/2024 14:47:14 Allergies No known drug [...] Not Available Xarelto 20 mg tablet TAKE ONE (1) TABLET BY MOUTH ONCE DAILY 2024 active Not Available Not Available Not Avai lable Vitals Date Recorded Body height Oxygen saturation Heart rate Body mass index (BMI) Body weight Systolic And Diastolic Provider Name and Address Organization Details Last Updated DateTime 4 185.42 cm 95 % 73 /min 50 kg/m2 640744. 21 g 146/88 mm[Hg] Colette Rock [facility] 4 10:59:06 Date Recorded Body height Body mass index (BMI) Body weight Oxygen saturation Inhaled oxygen flow rate Heart rate Systolic And Diastolic Provider Name and Address Organization Details Last Updated DateTime 3 185.42 cm 53.1 kg/m2 290753. 83 g 91 % 2 L/min 67 /min 122/70 mm[Hg] June Echeverria [facility] 3 11:39:31 Date Recorded Body height Oxygen saturation Inhaled oxygen flow rate Body mass index (BMI) Body weight Heart rate Systolic And Diastolic Provider Name and Address Organization Details Last Updated DateTime 5 185.42 cm 92 % 2 L/min 49.5 kg/m2 991512. 86 g 62 /min 136/82 mm[Hg] Helen Ulrich [facility] 5 11:32:38 Date Recorded Body height Body mass index (BMI) Body weight Oxygen saturation Inhaled oxygen flow rate Heart rate Systolic And Diastolic Provider Name and Address Organization Details Last Updated DateTime 3 185.42 cm 52.3 kg/m2 698432. 38 g 94 % 2 L/min 67 /min 140/80 mm[Hg] June Echeverria [facility] 3 11:15:38 Date Recorded Body height Body mass index (BMI) Body weight Oxygen saturation Heart rate Systolic And Diastolic Provider Name and Address Organization Details Last Updated DateTime 4 185.42 cm 50.5 kg/m2 269994. 72 g 91 % 84 /min 136/62 mm[Hg] Nena Lopez [facility] 4 12:07:21 Social History Question Answer Notes LastModified by Organizat ion Details LastModified Time Tobacco Smoking Status [facility] 08/12/2016 14:13:10 How Much Tobacco Do You Chew? None [email or web address] Information not available 07/13/2018 When Did You Quit Smoking? 11-15yearssi [email or web address] ette [email or web address] Information not available 03/31/2017 Marital Status Informati on not available 06/28/2016 What Was The Date Of Your Most Recent Tobacco Screening? 11/01/2024 [email or web address] Information not available 11/01/2024 What Is Your Relationship Status? [email or web address] Information not available 11/01/2022 Has Tobacco Cessation Counseling Been Provided? No [facility] Information not available 10/29/2021 Have You Recently Traveled Abroad? No [email or web address] Information not available 11/01/2022 Sex: Male Functional Status Question Answer Note LastModified by Organizat ion Details LastModified Time Do you or have you ever used any other forms of tobacco or nicotine? No [facility] [facility] Information not available 10/29/2021 What is your level of alcohol consumption? Occasional Information not available 06/28/2016 Do you or have you ever used smokeless tobacco? Never used smokeless tobacco [email or web address] Information not available 01/18/2019 Do you or have you ever used e-cigarettes or vape? Never used electronic cigarettes [email or web address] Information not available 01/18/2019 Mental Status None recorded. Family History Relationship Description Onset Age of this Age Resolved Age Notes LastModified by Organization Details LastModified Time Unspecified Relation Heart disease [email or web address] Not available 06/12 09:25:27 Medical History Condition Response Coronary Artery Disease N Gout N Other N Atrial Fibrillation Y Kidney Stones N Hyperthyroidism N Blood Transfusion N Depression N COPD N Hypothyroidism N Lung Disease N Breast Problem N Pacemaker Y Difficulty Swallowing N Meniere's disease N Anxiety Disorder Y Muscle, Joint, or Bone Problems N Vision [...] N Heart Disease Y Pulmonary Embolism N Pre-Eclampsia N Hypertension Y Chronic Ear Infections N Osteoporosis N Chicken Pox N Thrombophilias N Immunizations Vaccine Type Date Status Note Provider Nam e and Address Organization Details Recorded Time Influenza, split virus, quadrivalent, preservative 7 completed Charlene Short [facility] 03/31/2017 10:07:27 COVID-19, mRNA, LNP-S, PF, 100 mcg/0.5mL dose or 50 mcg/0.25mL dose 1 completed Agueda Gonzalez [facility] 10/23/2020 12:05:21 COVID-19, mRNA, LNP-S, PF, 100 mcg/0.5mL dose or 50 mcg/0.25mL dose 1 completed Agueda Gonzalez [facility] 10/23/2020 12:05:29 COVID-19, mRNA, LNP-S, PF, 100 mcg/0.5mL dose or 50 mcg/0.25mL dose 2 completed Agueda [facility] 10/29/2021 10:05:34 Past Encounters Encounter ID Performer Location Encounter Start Date Encounter Closed Date Diagnosis/Indication Diagnosis SNOMED-CT Code Diagnosis ICD10 Code Diagnosis IMO Codes Diagnosis Note [id number] MELINDA PEREYRA MD CARDIOLOG Y [address] [place] [address] 07/08/2016 09:45:20 07/08/2016 12:29:49 Coronary arteriosclerosis in [place] artery 3575318619 107 I25.10 Medication changes, as well as [...] 3008 I49.5 Paced OK. Hypertensive disorder 38 643744 I10 Management of this problem was reviewed with the patient. No changes recommende d, status for this problem is stable at this time. Atypical chest pain 1025 39211 R07.89 See above [id number] MELINDA PEREYRA MD CARDIOLOG Y [facility] [address] [place] [address] 08/09/2016 14:41:05 08/09/2016 16:08:42 Coronary arteriosclerosis in [place] artery 3959136979 107 I25.10 His symptoms sounds as if [...] 3008 I49.5 Paced OK. Hypertensive disorder 38 637420 I10 Management of this problem was reviewed with the patient. No changes recommende d, status for this problem is stable at this time. [id number] MELINDA PEREYRA MD CARDIOLOG Y [address] [place] [address] 09/30/2016 08:42:27 09/30/2016 09:49:01 Coronary arteriosclerosis in [place] artery 1417850098 107 I25.118 Medication changes, as well as [...] in status. Long-term current use of anticoagulant 854402874 Z79.01 I discussed alternativ es to Effient [...] mg daily. Cardiac pa anjali in situ 166490684 Z95.0 Assessment was performed of the implanted device. Any needed adjustment s and setting changes were personally supervised by me and are documented in follow-up form. The device is functionin g well. The patient was instructed to continue in the device surveillan ce program appropriat e for the device. DICKSON 10.5 years. 99.6% atrial pacing with rare ventricula r pacing. [id number] MELINDA PEREYRA MD CARDIOLOG Y [address] [place] [address] 03/31/2017 09:57:41 03/31/2017 11:28:58 Coronary arteriosclerosis in [place] artery 0326465887 107 I25.10 Medication changes, as well as [...] may be discontinu ed. Hypertensive disorder 38 806741 I10 Management of this problem was reviewed with the patient. No changes recommende d, status for this problem is stable at this time. Cardiac pa anjali in situ 918290651 Z95.0 Remote pacemaker check 01/10/2017. Estimated DICKSON 10 years. All pacemaker parameters okay. No AF. Long-term current use of anticoagulant 987359913 Z79.01 Dual antiplatel et therapy:As pirin and Effient. [id number] MELINDA PEREYRA MD CARDIOLOG Y [address] [place] [address] 08/25/2017 09:42:57 08/25/2017 14:51:19 Coronary arteriosclerosis in [place] artery 7811459927 107 I25.10 Medication changes, as well as [...] 6 months, no testing. Hypertensive disorder 38 968401 I10 Management of this problem was reviewed with the patient. No changes recommende d, status for this problem is stable at this time. Cardiac yo alba in situ 387707409 Z95.0 Remote pacemaker check 01/10/2017. Estimated DICKSON 10 years. All pacemaker parameters okay. No AF. Long-term current use of anticoagulant 970979460 Z79.01 He may discontinu e Effient but continue aspirin indefinite ly. [id number] MELINDA PEREYRA MD CARDIOLOG Y [address] [place] [address] 04/10/2018 10:31:48 04/10/2018 11:37:01 Coronary arteriosclerosis in [place] artery 4963985075 107 I25.10 Medication changes, as well as [...] 6 months, no testing. Hypertensive disorder 38 153175 I10 Management of this problem was reviewed with the patient. No changes recommende d, status for this problem is stable at this time. Cardiac yo alba in situ 875168491 Z95.0 Remote pacemaker check 01/10/2017. Estimated DICKSON 10 years. All pacemaker parameters okay. No AF. Paroxysmal atrial fibrillation 475102413 I48.0 His paroxysmal atrial fibrillati on was in the setting of acute respirator y failure. Analysis of his pacemaker checks have not demonstrat ed any atrial fibrillati on. I told the patient that he may discontinu e his Multaq. Computed t omography result abnormal 244368093 R93.89 CT scan sent to the hospital suggest further workup for possible renal lesion I don't feel this was performed and we will contact the patient and suggest proceeding . [id number] MELINDA PEREYRA MD CARDIOLOG Y [address] 07/13/2018 09:46:36 07/13/2018 10:25:21 Coronary arteriosclerosis in [place] artery 9331249614 107 I25.10 Medication changes, as well as [...] 6 months, no testing. Hypertensive disorder 38 536974 I10 Management of this problem was reviewed with the patient. No changes recommende d, status for this problem is stable at this time. Cardiac pa cemginette in situ 973033619 Z95.0 Remote pacemaker check 01/10/2017. Estimated DICKSON 10 years. All pacemaker parameters okay. No AF. Paroxysmal atrial fibrillation 816281906 I48.0 His paroxysmal atrial fibrillati on was in the setting of acute respirator y failure. Analysis of his pacemaker checks have not demonstrat ed any atrial fibrillati on.No recurrence noted.Patel er study to assess possible recurrence . [id number] MELINDA PEREYRA MD CARDIOLOG Y [address] [place] [address] 01/18/2019 09:47:58 01/18/2019 11:26:44 Coronary arteriosclerosis in [place] artery 8925009783 107 I25.10 Medication changes, as well as [...] 6 months, no testing. Hypertensive disorder 38 291132 I10 Management of this problem was reviewed with the patient. No changes recommende d, status for this problem is stable at this time. Cardiac pa cemaker in situ 954510459 Z95.0 Remote pacemaker check 01/10/2017. Estimated DICKSON 10 years. All pacemaker parameters okay. No AF. Paroxysmal atrial fibrillation 192888265 I48.0 His paroxysmal atrial fibrillati on was in the setting of acute respirator y failure. Analysis of his pacemaker checks have not demonstrat ed any atrial fibrillati on.No recurrence noted.Patel er study to assess possible recurrence . Dyslipidemia 691480266 E 78.5 He takes ezetimibe and once per week statin. LDL cholestero l is 54.Most recent testing reviewed. All laboratory measuremen ts in appropriat e parameters on current medical therapy. This was reviewed and discussed with the patient and all questions answered. [id number] MELINDA PEREYRA MD CARDIOLOG Y [address] [place] [address] 10/28/2019 10:34:15 10/28/2019 10:40:12 Coronary arteriosclerosis in [place] artery 4287183117 107 I25.10 Medication changes, as well as [...] 6 months, no testing. Hypertensive disorder 38 979922 I10 Management of this problem was reviewed with the patient. No changes recommende d, status for this problem is stable at this time. Cardiac pa cemaker in situ 852841369 Z95.0 Device remote check reviewed. Estimated device DICKSON assessed. All pacing parameters appropriat e. No significan t arrhythmia s identified . Paroxysmal atrial fibrillation 445963315 I48.0 His paroxysmal atrial fibrillati on was in the setting of acute respirator y failure. Analysis of his pacemaker checks have not demonstrat ed any atrial fibrillati on.No recurrence noted.Patel er study to assess possible recurrence . Dyslipidemia 641591075 E 78.5 He takes ezetimibe and once per week statin. LDL cholestero l is 54.Most recent testing reviewed. All laboratory measuremen ts in appropriat e parameters on current medical therapy. This was reviewed and discussed with the patient and all questions answered. [id number] MELINDA PEREYRA MD CARDIOLOG Y [address] [place] [address] 04/25/2020 12:12:27 04/25/2020 12:17:32 Coronary arteriosclerosis in [place] artery 9895021355 107 I25.10 Medication changes, as well as [...] 6 months, no testing. Hypertensive disorder 38 167719 I10 Management of this problem was reviewed with the patient. No changes recommende d, status for this problem is stable at this time. Watch salt. Increase lisinopril . Cardiac pa cemaker in situ 669008197 Z95.0 Device remote check reviewed. Estimated device DICKSON assessed. All pacing parameters appropriat e. No significan t arrhythmia s identified . Paroxysmal atrial fibrillation 932105640 I48.0 His paroxysmal atrial fibrillati on was in the setting of acute respirator y failure. Analysis of his pacemaker checks have not demonstrat ed any atrial fibrillati on.No recurrence noted.Patel er study to assess possible recurrence . Dyslipidemia 193645666 E 78.5 He takes ezetimibe and once per week statin. LDL cholestero l is 54.Most recent testing reviewed. All laboratory measuremen ts in appropriat e parameters on current medical therapy. This was reviewed and discussed with the patient and all questions answered. [id number] MELINDA PEREYRA MD CARDIOLOG Y [address] [place] [address] 10/23/2020 11:47:22 10/23/2020 14:13:22 Coronary arteriosclerosis in [place] artery 3998314478 107 I25.10 Medication changes, as well as [...] 6 months, no testing. Hypertensive disorder 38 480808 I10 Management of this problem was reviewed with the patient. No changes recommende d, status for this problem is stable at this time. Cardiac pa cemaker in situ 787412415 Z95.0 Device remote check reviewed. Estimated device DICKSON assessed. All pacing parameters appropriat e. No significan t arrhythmia s identified . Paroxysmal atrial fibrillation 624946338 I48.0 His paroxysmal atrial fibrillati on was in the setting of acute respirator y failure. Analysis of his pacemaker checks have not demonstrat ed any atrial fibrillati on.No recurrence noted.Patel er study to assess possible recurrence . Dyslipidemia 918603231 E 78.5 He takes ezetimibe and once per week statin. LDL cholestero l is 54.Most recent testing reviewed. All laboratory measuremen ts in appropriat e parameters on current medical therapy. This was reviewed and discussed with the patient and all questions answered. [id number] GIANA ECHEVERRIA MD CARDIOLOG Y [address] [facility],[address] [place] [address] 04/27/2021 09:36:49 04/27/2021 10:28:35 Coronary arteriosclerosis in [place] artery 2762533932 107 I25.10 Hypertensive disorder 38 743846 I10 Cardiac pa cemaker in situ 130613186 Z95.0 Last in-office device check: 04/27/2021 Recommend quarterly remote device checks and annual in office interrogat ion. Paroxysmal atrial fibrillation 904399408 I48.0 Device check 04/27/2021 shows multiple episodes of AT/AF.Thes e appear to be clustered in November and December.His most recent episode occurred in late February. Longest episode between 12 and 24 hours.HILDA SVasc = 3. Dyslipidemia 777457049 E 78.5 Body mass index 40+ - severely obese 881458231 Z68.43 [id number] GIANA ECHEVERRIA MD CARDIOLOG Y [address] [place] [address] 09/11/2021 15:14:19 09/11/2021 15:15:43 Coronary arteriosclerosis in [place] artery 0117069177 107 I25.10 Hypertensive disorder 38 347228 I10 Cardiac pa cemaker in situ 922226296 Z95.0 Last in-office device check: 04/27/2021 Recommend quarterly remote device checks and annual in office interrogat ion. Paroxysmal atrial fibrillation 109191452 I48.0 Device check 04/27/2021 shows multiple episodes of AT/AF.Thes e appear to be clustered in November and December.His most recent episode occurred in late February. Longest episode between 12 and 24 hours.HILDA SVasc = 3. Recommend reduced Xarelto dosing for ischemic stroke risk reduction if he develops creatinine clearance 15-49ml/mi n Dyslipidemia 135796986 E 78.5 Body mass index 40+ - severely obese 180871265 Z68.43 [id number] GIANA ECHEVERRIA MD CARDIOLOG Y [address] [place] [address] 10/29/2021 09:55:39 10/29/2021 11:23:45 Coronary arteriosclerosis in [place] artery 0992364058 107 I25.10 Hypertensive disorder 38 401688 I10 Cardiac pa cemaker in situ 068882262 Z95.0 Last in-office device check: 04/27/2021 Recommend quarterly remote device checks and annual in office interrogat ion. Paroxysmal atrial fibrillation 255896062 I48.0 Device check 04/27/2021 shows multiple episodes of AT/AF.Thes e appear to be clustered in November and December.His most recent episode occurred in late February. Longest episode between 12 and 24 hours.HILDA SVasc = 3. Recommend reduced Xarelto dosing for ischemic stroke risk reduction if he develops creatinine clearance 15-49ml/mi n Dyslipidemia [id number] E 78.5 Obese 636331792 E66.9 [id number] GIANA ECHEVERRIA MD CARDIOLOG Y [address] [place] [address] 04/22/2022 10:42:54 04/22/2022 11:42:49 Coronary arteriosclerosis in [place] artery [id number] 107 I25.10 Cardiac pa cemaker in situ 034743478 Z95.0 Last in-office device check: 04/22/2022 Recommend quarterly remote device checks and annual in office interrogat ion. Paroxysmal atrial fibrillation 275616180 I48.0 Device check 04/27/2021 shows multiple episodes of AT/AF.Thes e appear to be clustered in November and December.His most recent episode occurred in late February. Longest episode between 12 and 24 hours.HILDA SVasc = 3. Recommend reduced Xarelto dosing for ischemic stroke risk reduction if he develops creatinine clearance 15-49ml/mi n Hypertensive disorder 38 478746 I10 Dyslipidemia 544380450 E 78.5 Obese 824013923 E66.9 [id number] GIANA ECHEVERRIA MD CARDIOLOG Y [address] [place] [address] 11/01/2022 11:20:33 11/01/2022 12:21:14 Coronary arteriosclerosis in [place] artery 8532121806 107 I25.10 Cardiac pa cemaker in situ 281547185 Z95.0 Last in-office device check: 04/22/2022 Recommend quarterly remote device checks and annual in office interrogat ion. Paroxysmal atrial fibrillation 972051056 I48.0 Device check 04/27/2021 shows multiple episodes of AT/AF.Thes e appear to be clustered in November and December.His most recent episode occurred in late February. Longest episode between 12 and 24 hours.HILDA SVasc = 3. Recommend reduced Xarelto dosing for ischemic stroke risk reduction if he develops creatinine clearance 15-49ml/mi n Hypertensive disorder 38 734493 I10 Dyslipidemia 562722060 E 78.5 Obese 033493682 E66.9 Renewal of prescription 757118309 Z76.0 [id number] GIANA ECHEVERRIA MD CARDIOLOG Y [address] [place] [address] 04/25/2023 11:01:40 04/25/2023 11:52:52 Coronary arteriosclerosis in [place] artery 2175741296 107 I25.10 a. Cath 01/31/2007 : ROOMS DIRECTOR of LADLVgram with EF 35%, severe hypokinesi s of the anterior septal and apical wall. Bifurcatin g left main.LAD ROOMS DIRECTOR at the first septal. Retrograde filling from [...] Synergy 3.5x20mm Cardiac pa cemginette in situ 796327839 Z95.0 Last in-office device check: 04/25/2023 Recommend quarterly remote device checks and annual in office interrogat ion. Paroxysmal atrial fibrillation 738504378 I48.0 Device check 04/27/2021 shows multiple episodes of AT/AF.Thes e appear to be clustered in November and December.His most recent episode occurred in late February. Longest episode between 12 and 24 hours.HILDA SVasc = 3. Recommend reduced Xarelto dosing for ischemic stroke risk reduction if he develops creatinine clearance 15-49ml/mi n Hypertensive disorder 38 954508 I10 Dyslipidemia 834314066 E 78.5 Obese 685943237 E66.9 Renewal of prescription 124356868 Z76.0 [id number] GIANA ECHEVERRIA MD CARDIOLOG Y [address] [place] [address] 10/31/2023 10:52:03 11/04/2023 09:01:44 Coronary arteriosclerosis in [place] artery 1372853359 107 I25.10 a. Cath 01/31/2007 : ROOMS DIRECTOR of LADLVgram with EF 35%, severe hypokinesi s of the anterior septal and apical wall. Bifurcatin g left main.LAD ROOMS DIRECTOR at the first septal. Retrograde filling from [...] Synergy 3.5x20mm Cardiac pa cemginette in situ 247115228 Z95.0 Last in-office device check: 10/31/2023 ecommend quarterly remote device checks and annual in office interrogat ion. Paroxysmal atrial fibrillation 879231056 I48.0 Device check 04/27/2021 shows multiple episodes of AT/AF.Thes e appear to be clustered in November and December.His most recent episode occurred in late February. Longest episode between 12 and 24 hours.HILDA SVasc = 3. Recommend reduced Xarelto dosing for ischemic stroke risk reduction if he develops creatinine clearance 15-49ml/mi n Hypertensive disorder 38 579818 I10 Dyslipidemia 892299437 E 78.5 Obese 360336885 E66.9 [id number] GIANA ECHEVERRIA MD CARDIOLOG Y [address] [place] [address] 04/30/2024 11:18:42 04/30/2024 12:20:09 Coronary arteriosclerosis in [place] artery 2952535810 107 I25.10 a. Cath 01/31/2007 : ROOMS DIRECTOR of LADLVgram with EF 35%, severe hypokinesi s of the anterior septal and apical wall. Bifurcatin g left main.LAD ROOMS DIRECTOR at the first septal. Retrograde filling from [...] Synergy 3.5x20mm Cardiac pa cemaker in situ 960600744 Z95.0 Last in-office device check: 04/30/2024 Recommend quarterly remote device checks and annual in office interrogat ion. Paroxysmal atrial fibrillation 146953977 I48.0 Device check 04/27/2021 shows multiple episodes of AT/AF.Thes e appear to be clustered in November and December.His most recent episode occurred in late February. Longest episode between 12 and 24 hours.HILDA SVasc = 3. Recommend reduced Xarelto dosing for ischemic stroke risk reduction if he develops creatinine clearance 15-49ml/mi n Hypertensive disorder 38 248280 I10 Dyslipidemia 767073797 E 78.5 Obese 585537351 E66.9 [id number] GIANA ECHEVERRIA MD CARDIOLOG Y [address] [place] [address] 11/01/2024 11:11:36 11/01/2024 11:58:09 Coronary arteriosclerosis in [place] artery 3869591351 107 I25.10 a. Cath 01/31/2007 : ROOMS DIRECTOR of LADLVgram with EF 35%, severe hypokinesi s of the anterior septal and apical wall. Bifurcatin g left main.LAD ROOMS DIRECTOR at the first septal. Retrograde filling from [...] Synergy 3.5x20mm Cardiac pa cemaker in situ 058010931 Z95.0 Last in-office device check: 04/30/2024 Recommend quarterly remote device checks and annual in office interrogat ion. Paroxysmal atrial fibrillation 280686229 I48.0 Device check 04/27/2021 shows multiple episodes of AT/AF.Thes e appear to be clustered in November and December.His most recent episode occurred in late February. Longest episode between 12 and 24 hours.HILDA SVasc = 3. Recommend reduced Xarelto dosing for ischemic stroke risk reduction if he develops creatinine clearance 15-49ml/mi n Hypertensive disorder 38 150298 I10 Dyslipidemia 114856328 E 78.5 Obese 630767895 E66.9 Health Concerns Section Related Observation LastModified by Organization Detai ls LastModified Time None Recorded Concern Status LastModified by Organization Details LastModified Time None Recorded Advance Directives Directive None Recorded Payers Insurance Date Sequence Insurance Name Policy Number Policy Muse Covered Member ID Muse Member ID Guarantor Name 09/20/2024 3 [place] [id number] Josh Jain Wohlwineleazar [id number] Josh Jain Wohlwineleazar 2025 2 [place] [id number] Josh Jain Wohlwinder [id number] Josh Jain Wohlwinder 09/20/2024 2 [employer] (INDEMNITY) [id number] Josh Jain Wohlwinder [id number] Josh Jain Wohlwinder 2025 1 [place] Josh Alarcon [id number] Josh Alarcon Notes Date Note Type Note Provider Name and Address Organization Details Recorded Time 11/01/2022 text/html ROS as noted in the HPI CARDIOVASCULAR HISTORY:# Coronary artery disease s/p ROOMS DIRECTOR intervention 01/2007, SIMEON to PLB 08/2016a. Cath 01/31/2007: ROOMS DIRECTOR of LADLVgram with EF 35%, severe hypokinesis of the anterior septal and apical wall. Bifurcating left main.LAD ROOMS DIRECTOR at the first septal. Retrograde filling from [...] Apnea # [facility] hypoxic [...] 1.00, EGFR 74 GIANA HOLLIE ECHEVERRIA MD [address] [place] [address], [phone], [facility] 11/02/2022 21:11:02 04/25/2023 text/html ROS as noted in the HPI CARDIOVASCULAR HISTORY:# Coronary artery disease s/p ROOMS DIRECTOR intervention 01/2007, SIMEON to PLB 08/2016Cath 08/21/2016: Normal LV function.Patent stents.New 90% stenosis in PLB of RCA. PCI with Synergy 3.5x20mm# Sinus node dysfunction s/p Medtronic dual chambera. Original implantation in . Generator change, 07/13/2014. # Class 3 Obesity# Obstructive Sleep Apnea # [facility] acute hypoxic [...] Gen change 07/13/2014.c. Coronary artery disease s/p ROOMS DIRECTOR intervention 01/2007, SIMEON to PLB 08/2016d. WHO [...] dental implants fitted. He is working with [facility] in [place]. We reviewed instructions regarding OAC holds and resumption. His pacemaker system was interrogated at today's visit. See scanned document for complete results.Device: Medtronic Adapta DRImplant: 07/13/2014. Estimated longevity: 2.5 yearsMode: MVP 60Pacin.5% AP, 0.3% RVPEvents: AMS 0.4%. Longest episode 12 hours.No permanent programming changes were made to his device. GIANA ECHEVERRIA MD [address] [place], [address], [facility] 04/26/2023 12:45:03 10/31/2023 text/html ROS as noted in the HPI CARDIOVASCULAR HISTORY:# Coronary artery disease s/p ROOMS DIRECTOR intervention 01/2007, SIMEON to PLB 08/2016Cath 08/21/2016: Normal LV function.Patent stents.New 90% stenosis in PLB of RCA. PCI with Synergy 3.5x20mm# Sinus node dysfunction s/p Medtronic dual chambera. Original implantation in . Generator change, 07/13/2014. # Class 3 Obesity# Obstructive Sleep Apnea # [facility] experienced acute hypoxic respiratory failure most likely related to his sleep apnea. CTA chest: no pulmonary embolism.He developed paroxysmal atrial fibrillation and was discharged on Multaq. # Hypertension# Dyslipidemia 04/25/2023: 6-month follow-upa. Paroxysmal atrial fibrillation (on Xarelto)b. Sinus node dysfunction s/p Medtronic dual chamber 2004, Gen change 07/13/2014.c. Coronary artery disease s/p ROOMS DIRECTOR intervention 01/2007, SIMEON to PLB 08/2016d. WHO [...] fitted. He is working with [facility] in [place]. We reviewed instructions regarding OAC holds and resumption. 10/31/2023: 6-month follow-upa. Paroxysmal atrial fibrillation (on Xarelto)b. Sinus node dysfunction s/p Medtronic dual chamber 2004, Gen change 07/13/2014.c. Coronary artery disease s/p ROOMS DIRECTOR intervention 01/2007, SIMEON to PLB 08/2016d. WHO [...] today's visit.See Pacemate document for complete results.Device: BrightContext Adapta DRImplant: 07/13/2014. Estimated longevity: 28 monthsMode: MVP 60Pacin.5% AP, 0.3% RVPEvents: AMS 0.5% (since 04/2022).No permanent programming changes were made to his device. There are no new lab results to review since last visit. GIANA ECHEVERRIA MD [address] [place], [address], [facility] 11/01/2023 14:03:28 04/30/2024 text/html ROS as noted in the HPI CARDIOVASCULAR HISTORY:# Coronary artery disease s/p ROOMS DIRECTOR intervention 01/2007, SIMEON to PLB 08/2016Cath 08/21/2016: Normal LV function.Patent stents.New 90% stenosis in PLB of RCA. PCI with Synergy 3.5x20mm# Sinus node dysfunction s/p Medtronic dual chambera. Original implantation in . Generator change, 07/13/2014. # Class 3 Obesity# Obstructive Sleep Apnea # [facility] experienced acute hypoxic respiratory failure most likely related to his sleep apnea. CTA chest: no pulmonary embolism.He developed paroxysmal atrial fibrillation and was discharged on Multaq. # Hypertension# Dyslipidemia 10/31/2023: 6-month follow-upa. Paroxysmal atrial fibrillation (on Xarelto)b. Sinus node dysfunction s/p Medtronic dual chamber 2004, Gen change 07/13/2014.c. Coronary artery disease s/p ROOMS DIRECTOR intervention 01/2007, SIMEON to PLB 08/2016d. WHO [...] Gen change 07/13/2014.c. Coronary artery disease s/p ROOMS DIRECTOR intervention 01/2007, SIMEON to PLB 08/2016d. WHO [...] 14 ALP 70 GIANA ECHEVERRIA MD [address] [place], [address], [facility] 04/30/2024 12:29:06 11/01/2024 text/html ROS as noted in the HPI CARDIOVASCULAR HISTORY:# Coronary artery disease s/p ROOMS DIRECTOR intervention 01/2007, SIMEON to PLB 08/2016Cath 08/21/2016: Normal LV function.Patent stents.New 90% stenosis in PLB of RCA. PCI with Synergy 3.5x20mm# Sinus node dysfunction s/p Medtronic dual chambera. Original implantation in . Generator change, 07/13/2014. # Class 3 Obesity# Obstructive Sleep Apnea # [facility] acute hypoxic [...] Gen change 07/13/2014.c. Coronary artery disease s/p ROOMS DIRECTOR intervention 01/2007, SIMEON to PLB 08/2016d. WHO [...] 12.7/43.5, platelets 185 GIANA HOLLIE ECHEVERRIA MD [address] [place], [address], [facility] 11/01/2024 12:36:33
--- OUTSIDE RECORDS SUMMARY | 2025-05-07 12:27 | XMS_ITS | Referral Summary ---
Author Organization [employer] ([place], [place], [place], [place], [place]) Address [address] [place] [address] Care Team Providers Care Tc Operator Name Role Phone Unavailable Primary Care Provider Unavailabl e Encounters Date Type Department Care Team Description 03/10/2025 10:45 AM EDT Office Visit [facility] Orthopedics - [address] [place] [address] Matteo Iglesias PA-C Bilateral carpal [...] drainage, nerve damage and poor cosmetic result [place] protocol: Procedure explained and questions answered to [...] 3 Months Insurance MEDICARE PART A B [facility]
--- OUTSIDE RECORDS SUMMARY | 2025-05-07 12:28 | XMS_ITS ---
Author Organization Unknown ENCOUNTERS Encounter Performer Location Date Diagnosis Diagnosis Status Emergency [place] [id number] [facility] [address] [facility] [place] [address] [id number] Pre Admit [place] [address] [place] [address] [phone] Emergency [place] [address] [facility] [place] [address] [phone] [place] Pre Admit [address] [facility] [place] [address] [phone] Pre Admit [address] [facility] [place] [address] [phone] Emergency [address] [facility] [place] [address] [phone] [place] Emergency [address] [facility] [place] [address] [phone] [place]ON[place] Pre Admit [address] [facility] [place] [address] [phone] Emergency [place] [address] [place] [address] [phone] AMA *Note: Encounters from your own facility or health system may be excluded. Allergies, Adverse Reactions, Alerts Allergen Type Severity Identification Date Medications Name Date Quantity Days Supplied GPI Number
--- OUTSIDE RECORDS SUMMARY | 2025-05-07 12:28 | XMS_ITS | Encounter Summary ---
Author Organization [employer] ([place], [place], [place], [place], [place]) Address [address] [place] [address] Care Team Providers Care Surgical Specialist Name Role Phone Unavailable Primary Care Provider Unavailabl e Encounter Details Date Type Department Care Team (Late st Contact Info) Description 03/21/2018 Transcribed Document [facility] Family [place] [facility] [place] [address] ProviderTabitha MD [address] [place], [place] [address] Social History Tobacco Use Types Packs/Day Years Used Date Smoking Tobacco: Never Assessed Sex and Gender Information Value Date Recorded Sex Assigned at Not on file Legal Sex Male 6:23 PM CDT Gender Identity Not on file Sexual Orientation Not on file documented as of this encounter Miscellaneous Notes * Cerner Conversion Note - Tabitha Fischer MD - 03/21/2018 8:52 AM 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
--- OUTSIDE RECORDS SUMMARY | 2025-05-07 12:28 | XMS_ITS | Clinical Summary ---
Author Organization [employer] ([place], [place], [place], [place], [place]) Address [address] [place] [address] Care Team Providers Care Tire Fabric Impregnating Range Tender Name Role Phone Unavailable Primary Care Provider [...] Description 03/10/2025 10:45 AM EDT Office Visit [facility] Orthopedics - [address] [place] [address] Matteo Iglesias PA-C Bilateral carpal [...] drainage, nerve damage and poor cosmetic result [place] protocol: Procedure explained and questions answered to [...] from Last 3 [place] [address] [address] [place] [address]
[2025-05-07 12:31] LABS: Hematocrit 41.9 % (42.0-52.0); Hemoglobin 13.0 g/dL (14.1-18.0); Immature Granulocytes % 0.2 %; Mean Corpuscular HGB Conc 31.0 g/dL (31.8-35.4); Mean Corpuscular Hemoglobin 27.4 pg (27.0-31.2); Mean Corpuscular Volume 88.4 fl (80-94); Nucleated Red Blood Cells % 0 %; Platelet Count 170 K/mm3 (142-424); Red Blood Count 4.74 M/mm3 (4.60-6.20); Red Cell Distribution Width-SD 46.2 fL; White Blood Count 10.0 K/mm3 (4.8-10.8)
[2025-05-07 12:37] LABS: Albumin Level 3.9 g/dl (3.5-5.0); Chloride 104 mmol/L (98-107); Sodium 136 mmol/L (136-145)
[2025-05-07 12:38] LABS: Potassium 4.6 mmoL/L (3.5-5.1)
[2025-05-07 12:40] LABS: Alanine Aminotransferase 15 U/L (12-78); Anion Gap 7.6 mEq/L (5-15); Aspartate Amino Transferase 23 U/L (17-59); Bilirubin,Total 0.6 mg/dl (0.2-1.3); Blood Urea Nitrogen 29 mg/dl (9-20); Carbon Dioxide 29 mmol/L (22.0-30.0); Creatinine Clearance Estimated 52 mL/min (50-200); Creatinine,Serum 1.40 mg/dl (0.66-1.25); Estimated Glomerular Filt Rate 50 ml/min (>60); GFR (African American) 60 ML/MIN (>60)
[2025-05-07 12:41] LABS: Albumin/Globulin Ratio 1.3 (1.1-1.8); Alkaline Phosphatase 65 U/L (38-126); Calcium 9.7 mg/dl (8.4-10.2); Globulin 3.0 g/dL (1.3-3.2); Glucose 96 mg/dl (74-100); Total Protein,Serum 6.9 g/dl (6.3-8.2)
[2025-05-07 12:42] LABS: INR 1.19 (0.9-1.1); Prothrombin Time 13.0 seconds (10.1-12.5)
[2025-05-07] MEDS: 0.9 % SODIUM CHLORIDE 50 ML VIAL IV (13:05)
[2025-05-07] MEDS: SODIUM CHLORIDE 0.9% 10ML SYR (RAD ONLY) 10 ML IV (13:06)
[2025-05-07] MEDS: IOPAMIDOL-370 (76%);100ML BOTTLE 93 ML IV (13:06)
[2025-05-07 13:39] LABS: Occult Blood,Stool Positive (Negative)
[2025-05-07 13:56] LABS: Hepatitis C Ab Qual. W/ RFX NEGATIVE (Negative)
--- NOTE | 2025-05-07 17:22 | EXP.HP ---
History of Present Illness *Admission Date: 05/07/25 *Reason for visit:: GI bleed *History of present illness: Josh Alarcon is a 75-year-old male with a medical history significant for hemorrhoids, A-fib on Xarelto, CAD with stents, GERD, BPH, hypertension who presents with bright red blood per rectum for 2 days. Patient states it began yesterday morning when he noticed bloody spots in the toilet bowl while having a bowel movement. He had several episodes of bright red blood per rectum with bowel movements yesterday. He notes that his bowel movements were loose, watery. He also states he has had constipation for about 6 weeks, which became diarrhea over the past few days. Today, patient continued to have bright red blood per rectum, this time leaking from his underwear. Had an episode of generalized abdominal pain yesterday which self resolved. No history of GI bleed. Has had a colonoscopy about 6 years ago which was benign totally. Patient takes Xarelto for A-fib at this time. Workup in the ED significant for hemoglobin 13.0 (at baseline), BUN within expected limits, FOBT positive CT abdomen/pelvis concerning for pancreatic cystic mass right-sided nephrolithiasis without obstruction, renal cysts, adenoma but no evidence of active GI bleed. Vital signs remain normal. Given this presentation and high risk GI bleed, ED provider discussed case with me and I decided to admit patient for further evaluation management. [facility] Disclaimer: The information contained in this section may have been updated after the patient was seen, as this information can be updated by other users. Medical History Hematuria Surgical History (Updated 05/07/25 @ 17:46 by Lizzy Roberts RN) Hx of heart artery stent Hx of cardiac cath History of knee replacement Social History Smoking Status: Never smoker alcohol intake: former substance use type: denies use current occupational status: retired Travel in the last 8 weeks?: None household members: spouse housing: house Other Medical History Have you received the Flu Vaccine for this season: Yes Have you received the Pneumonia Vaccine: Yes Meds Home Medications and Allergies Home Medications ?Medication ?Instructions ?Recorded ?Confirmed ?Type multivitamin 1 tab PO DAILY 12/04/20 04/13/25 History ondansetron HCl 4 mg tablet 4 mg PO TIDP PRN Nausea And 01/02/21 04/13/25 Rx Vomiting #12 tabs rivaroxaban 20 mg tablet (Xarelto) 20 mg PO DAILY 01/21/22 04/13/25 History tamsulosin 0.4 mg capsule 0.4 mg PO DAILY #90 caps 10/21/23 04/13/25 Rx tolterodine 4 mg capsule,extended 4 mg PO DAILY #30 caps 10/21/23 04/13/25 Rx release 24 hr hydrocodone 7.5 mg-acetaminophen 1 tab PO Q8H PRN pain #30 tabs 11/03/23 04/13/25 Rx 325 mg tablet rosuvastatin 10 mg tablet 10 mg PO .COMPLEX 11/03/23 04/13/25 History oxybutynin chloride 10 mg 10 mg PO ONCE 01/06/24 04/13/25 History tablet,extended release 24 hr omeprazole 40 mg capsule,delayed See Rx Instructions .Route 05/17/24 04/13/25 Rx release .COMPLEX #90 caps diphenoxylate-atropine 2.5 1 tab PO Q6H PRN diarrhea #30 tabs 06/24/24 04/13/25 Rx mg-0.025 mg tablet (Lomotil) ibuprofen 800 mg tablet 800 mg PO Q8H PRN pain #9 tabs 10/28/24 04/13/25 Rx bupropion HCl 100 mg tablet See Rx Instructions .Route 11/11/24 04/13/25 Rx .COMPLEX #90 tabs atenolol 50 mg tablet See Rx Instructions .Route 11/17/24 04/13/25 Rx .COMPLEX #180 tabs fluticasone propionate 50 1 spray intranasal BID PRN 11/25/24 04/13/25 History mcg/actuation nasal spray,suspension (Allergy Relief (fluticasone)) citalopram 20 mg tablet 20 mg PO DAILY #90 tabs 12/23/24 04/13/25 Rx ezetimibe 10 mg tablet See Rx Instructions .Route 01/31/25 04/13/25 Rx .COMPLEX #90 tabs azelastine 137 mcg (0.1 %) nasal 1 spray intranasal BID #30 mL 04/13/25 04/13/25 Rx spray lisinopril 10 mg tablet 10 mg PO DAILY #90 tabs 04/14/25 Rx New Prescriptions to Start Prescriptions: Allergies Allergy/AdvReac Type Severity Reaction Status Date / Time No Known Allergies Allergy Verified 04/13/25 08:53 Exam Data for Last 24 hours Vital signs and Labs for Last 24 Hours: Temp Pulse Resp BP Pulse Ox O2 Del Method O2 Flow Rate 97.9 F 60 16 124/53 L 94 L Nasal Cannula 2 05/07/25 16:51 05/07/25 16:51 05/07/25 16:51 05/07/25 16:51 05/07/25 16:01 05/07/25 16:51 05/07/25 16:51 Laboratory Results - last 24 hr 05/07/25 12:24: WBC 10.0, RBC 4.74, Hgb 13.0 L, Hct 41.9 L, MCV 88.4, MCH 27.4, MCHC 31.0 L, RDW 14.3, Plt Count 170, MPV 10.2, Neut % (Auto) 72.9, Lymph % (Auto) 16.2, [place] % (Auto) 8.1, Eos % (Auto) 2.1, Baso % (Auto) 0.5, Neut # (Auto) 7.3, Lymph # (Auto) 1.6, [place] # (Auto) 0.8, Eos # (Auto) 0.2, Baso # (Auto) 0.1, PT 13.0 H, INR 1.19 H, Sodium 136, Potassium 4.6, Chloride 104, Carbon Dioxide 29, Anion Gap 7.6, BUN 29 H, Creatinine 1.40 H, Estimated Creat Clear 52, Estimated GFR 50 L, Est GFR ( Amer) 60, Glucose 96, Calcium 9.7, Total Bilirubin 0.6, AST 23, ALT 15, Alkaline Phosphatase 65, Total Protein 6.9, Albumin 3.9, Globulin 3.0, Albumin/Globulin Ratio 1.3, HCV Ab ROSIE w/Rflx PCR Qn Negative, HIV Ag/Ab Combo Qual Negative 05/07/25 13:30: Stool Occult Blood Positive A I & O for Last 24 hours: Intake & Output 05/04/25 05/05/25 05/06/25 05/07/25 23:59 23:59 23:59 23:59 Weight 172.365 kg Constitutional Constitutional: no acute distress and obese *Routine HEENT Exam Head: Present normocephalic Eye: Present EOMI and PERRL ENT: Present mucous membranes moist *Routine Neck Exam Neck: Present supple; Absent lymphadenopathy *Routine Respiratory Exam Respiratory: Present CTA bilaterally *Routine Cardiovascular Exam Cardiovascular: Present RRR *Routine Abdominal Exam Abdominal: Present soft and normoactive bowel sounds; Absent tenderness *Routine Rectal Exam Rectal:: deferred *Routine Genitalia Exam Genitalia:: deferred *Routine Extremities Exam Extremities: Absent cyanosis, clubbing or edema *Routine Skin Exam Skin: Present warm; Absent rash *Routine Neurological Exam Neurological: Present alert and oriented X3 Assessment and Plan *Assessment and plan (1) Cystic mass of pancreas: Status: Acute Category: Medical Code(s): K86.2 - Cyst of pancreas (2) GI (gastrointestinal bleed): Status: Acute Category: Medical Code(s): K92.2 - Gastrointestinal hemorrhage, unspecified Plan Josh Alarcon is a 75-year-old male with a medical history significant for hemorrhoids, A-fib on Xarelto, CAD with stents, GERD, BPH, hypertension who presents with bright red blood per rectum for 2 days. Patient states it began yesterday morning when he noticed bloody spots in the toilet bowl while having a bowel movement. He had several episodes of bright red blood per rectum with bowel movements yesterday. He notes that his bowel movements were loose, watery. He also states he has had constipation for about 6 weeks, which became diarrhea over the past few days. Today, patient continued to have bright red blood per rectum, this time leaking from his underwear. Had an episode of generalized abdominal pain yesterday which self resolved. No history of GI bleed. Has had a colonoscopy about 6 years ago which was benign totally. Patient takes Xarelto for A-fib at this time. Workup in the ED significant for hemoglobin 13.0 (at baseline), BUN within expected limits, FOBT positive CT abdomen/pelvis concerning for pancreatic cystic mass right-sided nephrolithiasis without obstruction, renal cysts, adenoma but no evidence of active GI bleed. Vital signs remain normal. Given this presentation and high risk GI bleed, ED provider discussed case with me and I decided to admit patient for further evaluation management. #Bright red blood per rectum #GI bleed #History of hemorrhoids ? Patient presents with 6 weeks onset of constipation, and diarrhea for the past few days. Had multiple episodes of bright red blood per rectum including day of admission. ? Initial hemoglobin 13.0, which is at baseline. MCV 88. ? Patient does endorse a history of nonbleeding hemorrhoids, which seems to have resolved recently. ? No evidence of GI bleed, fecal impaction on personal review of CT abdomen. ? Patient takes Xarelto for A-fib. High risk GI bleeding. ? Follow-up H&H at 9 PM. ? Started IV Protonix 40 mg twice daily. ? Continuous cardiac telemetry. ? Follow-up iron studies. ? Clear liquid diet for now. N.p.o. at midnight. #Pancreatic cystic mass ? CT abdomen/pelvis on admission revealed cystic lesion in the uncinate process of the pancreas measuring 20 x 16 mm. Concerning for malignancy. ? Follow-up CA 19-9, CEA, AFP tumor markers. ? LFTs normal at this time. ? Plan to have a close follow-up with GI on discharge. #A-fib #CAD ? Rate controlled. Hold home Xarelto, antiplatelets given GI bleed as above. #GERD ? Continue IV Protonix as above. #BPH ? Continue home Flomax once reconciled. #Hypertension ? Hold home BP medications as BP normal at this time. Full code DVT prophylaxis: IPC's.
[2025-05-07] MEDS: PANTOPRAZOLE 40MG VIAL 40 MG IV (21:05)
[2025-05-07 21:06] LABS: Hematocrit 40.2 % (42.0-52.0); Hemoglobin 12.4 g/dL (14.1-18.0)
[2025-05-08] VITALS: BP 129/92; PULSE 68; RESP 18; TEMP 36.9; O2SAT 90
--- NOTE | 2025-05-08 02:40 | PC.NURSE ---
Aox 4, up ad conrad, 02-2L NC, 20g R FA SL, npo.
[2025-05-08 04:00] VITALS: BP 131/57; PULSE 68; PULSE 98; RESP 20; TEMP 36.5; O2SAT 92; BMI 48.9
[2025-05-08 05:07] VITALS: PULSE 60
[2025-05-08 06:41] LABS: Hematocrit 39.9 % (42.0-52.0); Hemoglobin 12.1 g/dL (14.1-18.0); Immature Granulocytes % 0.5 %; Mean Corpuscular HGB Conc 30.3 g/dL (31.8-35.4); Mean Corpuscular Hemoglobin 27.4 pg (27.0-31.2); Mean Corpuscular Volume 90.3 fl (80-94); Nucleated Red Blood Cells % 0 %; Platelet Count 151 K/mm3 (142-424); Red Blood Count 4.42 M/mm3 (4.60-6.20); Red Cell Distribution Width-SD 47.6 fL; White Blood Count 8.7 K/mm3 (4.8-10.8)
[2025-05-08 06:44] LABS: Chloride 104 mmol/L (98-107)
[2025-05-08 06:45] LABS: Albumin Level 3.5 g/dl (3.5-5.0); Potassium 4.6 mmoL/L (3.5-5.1); Sodium 137 mmol/L (136-145)
[2025-05-08 06:47] LABS: Alanine Aminotransferase 12 U/L (12-78); Aspartate Amino Transferase 29 U/L (17-59); Blood Urea Nitrogen 25 mg/dl (9-20); Creatinine Clearance Estimated 59 mL/min (50-200); Creatinine,Serum 1.20 mg/dl (0.66-1.25); Estimated Glomerular Filt Rate 59 ml/min (>60); GFR (African American) 72 ML/MIN (>60)
[2025-05-08 06:48] LABS: Albumin/Globulin Ratio 1.3 (1.1-1.8); Alkaline Phosphatase 58 U/L (38-126); Anion Gap 10.6 mEq/L (5-15); Bilirubin,Total 0.5 mg/dl (0.2-1.3); Calcium 9.3 mg/dl (8.4-10.2); Carbon Dioxide 27 mmol/L (22.0-30.0); Globulin 2.8 g/dL (1.3-3.2); Glucose 80 mg/dl (74-100); Total Protein,Serum 6.3 g/dl (6.3-8.2)
[2025-05-08 08:00] VITALS: BP 120/43; PULSE 60; PULSE 65; RESP 22; TEMP 36.4; O2SAT 92
[2025-05-08] MEDS: PANTOPRAZOLE 40MG VIAL 40 MG IV (08:59)
[2025-05-08 09:12] LABS: Iron 61 ug/dL (49-181)
[2025-05-08 09:21] LABS: Total Iron Binding Capacity 256 ug/dL (261-462)
--- NOTE | 2025-05-08 09:24 | HMH.PHAINT1 ---
Pharmacy Intervention Comments: MEDICATION RECONCILIATION COMPLETED ON PATIENT USING EXTERNAL FILL HISTORY FROM PHARMACY. -DAISHA AZAR, ALEKD
[2025-05-08 09:49] LABS: Ferritin 45.3 ng/ml (17.9-464)
[2025-05-08 12:00] VITALS: BP 144/63; PULSE 60; RESP 20; TEMP 36.4; O2SAT 91
--- NOTE | 2025-05-08 12:58 | EXP.DC.SUM ---
General Admission date:: 05/07/25 HPI HPI HPI: Josh Alarcon is a 75-year-old male with a medical history significant for hemorrhoids, A-fib on Xarelto, CAD with stents, GERD, BPH, hypertension who presents with bright red blood per rectum for 2 days. Patient states it began yesterday morning when he noticed bloody spots in the toilet bowl while having a bowel movement. He had several episodes of bright red blood per rectum with bowel movements yesterday. He notes that his bowel movements were loose, watery. He also states he has had constipation for about 6 weeks, which became diarrhea over the past few days. Today, patient continued to have bright red blood per rectum, this time leaking from his underwear. Had an episode of generalized abdominal pain yesterday which self resolved. No history of GI bleed. Has had a colonoscopy about 6 years ago which was benign totally. Patient takes Xarelto for A-fib at this time. Workup in the ED significant for hemoglobin 13.0 (at baseline), BUN within expected limits, FOBT positive CT abdomen/pelvis concerning for pancreatic cystic mass right-sided nephrolithiasis without obstruction, renal cysts, adenoma but no evidence of active GI bleed. Vital signs remain normal. Given this presentation and high risk GI bleed, ED provider discussed case with me and I decided to admit patient for further evaluation management. Hospital Course Hospital Course Hospital Course: Josh Alarcon is a 75-year-old male with a medical history significant for hemorrhoids, A-fib on Xarelto, CAD with stents, GERD, BPH, hypertension who presents with bright red blood per rectum for 2 days. Patient states it began yesterday morning when he noticed bloody spots in the toilet bowl while having a bowel movement. He had several episodes of bright red blood per rectum with bowel movements yesterday. He notes that his bowel movements were loose, watery. He also states he has had constipation for about 6 weeks, which became diarrhea over the past few days. Today, patient continued to have bright red blood per rectum, this time leaking from his underwear. Had an episode of generalized abdominal pain yesterday which self resolved. No history of GI bleed. Has had a colonoscopy about 6 years ago which was benign totally. Patient takes Xarelto for A-fib at this time. Workup in the ED significant for hemoglobin 13.0 (at baseline), BUN within expected limits, FOBT positive CT abdomen/pelvis concerning for pancreatic cystic mass right-sided nephrolithiasis without obstruction, renal cysts, adenoma but no evidence of active GI bleed. Vital signs remain normal. Given this presentation and high risk GI bleed, ED provider discussed case with me and I decided to admit patient for further evaluation management. #Bright red blood per rectum # ower GI bleed #History of hemorrhoids ? Patient presents with 6 weeks onset of constipation, and diarrhea for the past few days. Had multiple episodes of bright red blood per rectum including day of admission. ? Initial hemoglobin 13.0, which is at baseline. MCV 88. ? Patient did endorse a history of nonbleeding hemorrhoids, which seems to have resolved recently. ? No evidence of GI bleed, fecal impaction on personal review of CT abdomen. ? Patient takes Xarelto for A-fib. High risk GI bleed. ? Overall, hemoglobin remained stable. Hemoglobin 12.9 on day of discharge. Bright red blood per rectum also improving, now mucus tinged with blood. Less frequent as well. Vital signs remained stable. Iron studies normal. ? Discussed with Dr. Haynes, recommended close outpatient follow-up for further evaluation and management. Likely hemorrhoidal at this time. However, given pancreatic cystic mass cannot rule out malignancy. ? Will follow-up with Dr. Haynes within 1 week. #Pancreatic cystic mass #Suspected malignancy ? CT abdomen/pelvis on admission revealed cystic lesion in the uncinate process of the pancreas measuring 20 x 16 mm. Concerning for malignancy. ? Follow-up CA 19-9, CEA, AFP tumor markers. These have been ordered during admission. ? LFTs normal at this time. ? Plan to have a close follow-up with GI on discharge. #A-fib #CAD ? Continue home atenolol 50 mg twice daily, Xarelto 20 mg. #GERD ? Continue home omeprazole 40 mg daily. #BPH ? Continue home Flomax. #Hypertension ? Holding home lisinopril 10 mg as blood pressures stable during admission. Follow-up with PCP for further management. Total time spent on discharge: 32 minutes on chart review, counseling, documentation, and direct care with patient. Exam Data for Last 24 hours Vital signs and Labs for Last 24 Hours: Temp Pulse Resp BP Pulse Ox O2 Del Method O2 Flow Rate 97.6 F 60 20 144/63 H 91 L Nasal Cannula 2 05/08/25 12:00 05/08/25 12:00 05/08/25 12:00 05/08/25 12:00 05/08/25 12:00 05/08/25 12:48 05/08/25 12:48 Laboratory Results - last 24 hr 05/07/25 12:24: HCV Ab ROSIE w/Rflx PCR Qn Negative, HIV Ag/Ab Combo Qual Negative 05/07/25 13:30: Stool Occult Blood Positive A 05/07/25 20:45: Hgb 12.4 L, Hct 40.2 L 05/08/25 06:20: WBC 8.7, RBC 4.42 L, Hgb 12.1 L, Hct 39.9 L, MCV 90.3, MCH 27.4, MCHC 30.3 L, RDW 14.4, Plt Count 151, MPV 10.2, Neut % (Auto) 71.5, Lymph % (Auto) 16.3, [place] % (Auto) 8.1, Eos % (Auto) 3.1, Baso % (Auto) 0.5, Neut # (Auto) 6.2, Lymph # (Auto) 1.4, [place] # (Auto) 0.7, Eos # (Auto) 0.3, Baso # (Auto) 0.0, Sodium 137, Potassium 4.6, Chloride 104, Carbon Dioxide 27, Anion Gap 10.6, BUN 25 H, Creatinine 1.20, Estimated Creat Clear 59, Estimated GFR 59, Est GFR ( Amer) 72, Glucose 80, Calcium 9.3, Iron 61, TIBC 256 L, Iron Saturation 23.25684, Ferritin 45.3, Total Bilirubin 0.5, AST 29 D, ALT 12, Alkaline Phosphatase 58, Total Protein 6.3, Albumin 3.5 D, Globulin 2.8, Albumin/Globulin Ratio 1.3 I & O for Last 24 hours: Intake & Output 05/05/25 05/06/25 05/07/25 05/08/25 23:59 23:59 23:59 23:59 Output Total 0 / 0 0 / 0 Balance 0 / 0 0 / 0 Weight 172.365 kg 167.648 kg Constitutional Constitutional: no acute distress and obese *Routine HEENT Exam Head: Present normocephalic Eye: Present EOMI and PERRL ENT: Present mucous membranes moist *Routine Neck Exam Neck: Present supple; Absent lymphadenopathy *Routine Respiratory Exam Respiratory: Present CTA bilaterally *Routine Cardiovascular Exam Cardiovascular: Present RRR *Routine Abdominal Exam Abdominal: Present soft and normoactive bowel sounds; Absent tenderness *Routine Extremities Exam Extremities: Absent cyanosis, clubbing or edema *Routine Skin Exam Skin: Present warm; Absent rash *Routine Neurological Exam Neurological: Present alert and oriented X3 Results Data Completed and Pending Labs on day of discharge: Labs from last 24 hours 05/08/25 05/07/25 05/07/25 06:20 20:45 13:30 WBC 8.7 RBC 4.42 L Hgb 12.1 L 12.4 L Hct 39.9 L 40.2 L MCV 90.3 MCH 27.4 MCHC 30.3 L RDW 14.4 Plt Count 151 MPV 10.2 Neut % (Auto) 71.5 Lymph % (Auto) 16.3 [place] % (Auto) 8.1 Eos % (Auto) 3.1 Baso % (Auto) 0.5 Neut # (Auto) 6.2 Lymph # (Auto) 1.4 [place] # (Auto) 0.7 Eos # (Auto) 0.3 Baso # (Auto) 0.0 Sodium 137 Potassium 4.6 Chloride 104 Carbon Dioxide 27 Anion Gap 10.6 BUN 25 H Creatinine 1.20 Estimated Creat Clear 59 Estimated GFR 59 Est GFR ( Amer) 72 Glucose 80 Calcium 9.3 Iron 61 TIBC 256 L Iron Saturation 23.26137 Ferritin 45.3 Total Bilirubin 0.5 AST 29 D ALT 12 Alkaline Phosphatase 58 Total Protein 6.3 Albumin 3.5 D Globulin 2.8 Albumin/Globulin Ratio 1.3 Stool Occult Blood Positive A HCV Ab ROSIE w/Rflx PCR Qn HIV Ag/Ab Combo Qual 05/07/25 12:24 WBC RBC Hgb Hct MCV MCH MCHC RDW Plt Count MPV Neut % (Auto) Lymph % (Auto) [place] % (Auto) Eos % (Auto) Baso % (Auto) Neut # (Auto) Lymph # (Auto) [place] # (Auto) Eos # (Auto) Baso # (Auto) Sodium Potassium Chloride Carbon Dioxide Anion Gap BUN Creatinine Estimated Creat Clear Estimated GFR Est GFR ( Amer) Glucose Calcium Iron TIBC Iron Saturation Ferritin Total Bilirubin AST ALT Alkaline Phosphatase Total Protein Albumin Globulin Albumin/Globulin Ratio Stool Occult Blood HCV Ab ROSIE w/Rflx PCR Qn Negative HIV Ag/Ab Combo Qual Negative DS: Diagnosis Discharge Diagnosis (1) Cystic mass of pancreas: Status: Acute Code(s): K86.2 - Cyst of pancreas (2) GI (gastrointestinal bleed): Status: Acute Code(s): K92.2 - Gastrointestinal hemorrhage, unspecified Meds Home Medications and Allergies Home Medications ?Medication ?Instructions ?Recorded ?Confirmed ?Type multivitamin 1 tab PO DAILY 12/04/20 05/07/25 History rivaroxaban 20 mg tablet (Xarelto) 20 mg PO QPMWITHMEAL 01/21/22 05/08/25 History tamsulosin 0.4 mg capsule 0.4 mg PO DAILY #90 caps 10/21/23 05/07/25 Rx tolterodine 4 mg capsule,extended 4 mg PO DAILY #30 caps 10/21/23 05/07/25 Rx release 24 hr citalopram 20 mg tablet 20 mg PO DAILY #90 tabs 12/23/24 05/07/25 Rx lisinopril 10 mg tablet 10 mg PO DAILY #90 tabs 04/14/25 05/07/25 Rx Held on 05/08/25. Instructions: Resume on 05/15/25. Your blood pressures have been stable without this medication here. Please follow-up with your PCP/apartment assistant manager to discuss restarting this medication. atenolol 50 mg tablet 50 mg PO BID 05/07/25 05/07/25 History bupropion HCl 100 mg tablet 100 mg PO DAILY 05/07/25 05/07/25 History ezetimibe 10 mg tablet 10 mg PO DAILY 05/07/25 05/07/25 History omeprazole 40 mg capsule,delayed 40 mg PO DAILY 05/07/25 05/07/25 History release New Prescriptions to Start Prescriptions: Allergies Allergy/AdvReac Type Severity Reaction Status Date / Time No Known Allergies Allergy Verified 04/13/25 08:53 Discharge Plan Disposition Patient Disposition: Home, Self-Care Follow up Plan Follow up with: Jonatan Bowden MD [Primary Care Provider, Medical] - Enter time for follow up Sidney Haynes II, MD [Staff Physician, Gastroenterology] - 1 week Prescriptions/Medication Reconciliation: Continued Xarelto 20 mg tablet 20 mg PO QPMWITHMEAL Rx Instructions: must administer with evening meal multivitamin Tablet 1 tab PO DAILY tamsulosin 0.4 mg capsule 0.4 mg PO DAILY Qty: 90 1RF tolterodine 4 mg capsule,extended release 24hr 4 mg PO DAILY Qty: 30 5RF citalopram 20 mg tablet 20 mg PO DAILY Qty: 90 1RF omeprazole 40 mg capsule,delayed release(DR/EC) 40 mg PO DAILY bupropion HCl 100 mg tablet 100 mg PO DAILY atenolol 50 mg tablet 50 mg PO BID ezetimibe 10 mg tablet 10 mg PO DAILY Held lisinopril 10 mg tablet 10 mg PO DAILY Qty: 90 1RF Hold Instructions: Resume on 05/15/25. Your blood pressures have been stable without this medication here. Please follow-up with your PCP/apartment assistant manager to discuss restarting this medication. Problem Reconciliation Problems Reviewed?: Yes Patient Discharge Instructions Patient Instructions: DI for Gastrointestinal Bleeding Print Language: Vietnamese Providers Primary Care Provider: Jonatan Bowden Admit Provider: Jason Anne Attending Provider: Jason Anne
[2025-05-08 13:08] LABS: Hematocrit 42.3 % (42.0-52.0); Hemoglobin 12.9 g/dL (14.1-18.0)
[2025-05-09 11:22] LABS: CA 19-9 <2 U/mL (0-35); CEA 2.1 ng/mL (0.0-4.7)
--- NOTE | 2025-05-09 11:30 | SW/DCPLANNER ---
Spoke with patient on the phone. Patient stated that she is aware of her upcoming appointments. Patient stated that he is good. Patient stated that he was not prescribed any new medicine. Patient stated that he has no concerns or questions at this time. Chaz Strickland
== END 2025-05-08 14:14 | disposition home or self-care (01) ==
LOC: ER 15:11 → 2ND 16:20
PROVIDERS: Admitting Provider Student in an Organized Health Care Education/Training Program; Emergency Provider Emergency Medicine; PCP Internal Medicine; Visit Provider Student in an Organized Health Care Education/Training Program
DX: K92.2 Gastrointestinal hemorrhage, unspecified (principal); K86.2 Cyst of pancreas; I48.91 Unspecified atrial fibrillation; I25.10 Atherosclerotic heart disease of native coronary artery without angina pectoris; K21.9 Gastro-esophageal reflux disease without esophagitis; N40.0 Benign prostatic hyperplasia without lower urinary tract symptoms; I10 Essential (primary) hypertension; K80.00 Calculus of gallbladder with acute cholecystitis without obstruction; E27.9 Disorder of adrenal gland, unspecified; N20.0 Calculus of kidney; E78.5 Hyperlipidemia, unspecified; Z79.899 Other long term (current) drug therapy; Z79.01 Long term (current) use of anticoagulants; Z95.5 Presence of coronary angioplasty implant and graft; E66.9 Obesity, unspecified; Z68.42 Body mass index [BMI] 45.0-49.9, adult
CPT/HCPCS: 36415; 74174; 80053; 82105; 82272; 82378; 82728; 83540; 83550; 85014; 85018; 85025; 85610; 86301; 86803; 87389; 96374; 96375; 96376; 99285; G0328; G0378; J2470; Q9967